=== PATIENT | male | born 1990 | race Caucasian/White ===

== ENCOUNTER → 2024-03-12 | Outpatient (CLI) | payer OTHER, SELFPAY ==
[2024-03-12 12:38] LABS: Absolute Lymphocyte Count 2.15 X10^3/uL (0.83-4.51); Absolute Neutrophil Count 3.3 X10^3/uL (2.0-7.7); Basophil# 0.03 X10^3/uL; Basophil% 0.5 % (0-1); Eosinophil# 0.11 X10^3/uL; Eosinophils% 1.8 % (0-5); Hematocrit 43.8 % (40-54); Hemoglobin 14.8 g/dL (13.0-16.5); Lymphocyte # 2.15 X10^3/ul (0.83-4.51); Lymphocyte % 35.3 % (19-41); Mean Corp Hgb Conc 33.8 g/dL (32-36); Mean Corpuscular Volume 91.8 fL (80-94); Mean Platelet Vol. 10.4 fl (6.2-12.0); Monocyte# 0.45 X10^3/uL; Monocyte% 7.4 % (0-10); NRBC Flagged by Analyzer 0 % (0-5); Neutrophil # 3.34 X10^3/uL (2.7-7.7); Neutrophil % 54.8 % (47-70); Platelet Count 265 K/mm3 (150-450); RBC Distribution Width CV 11.9 % (11.6-14.6); Red Blood Count 4.77 M/mm3 (4.6-6.2); White Blood Count 6.1 K/mm3 (4.4-11.0)
[2024-03-12 12:58] LABS: Vitamin B12 375 pg/mL (211-911); Vitamin D,25 Hydroxy 23.9 ng/mL
[2024-03-12 13:23] LABS: ALB/GLOB Ratio 0.9 RATIO (0.9-2.4); AST(SGOT) 17 U/L (15-37); Alanine Aminotransfer ALT/SGPT 28 U/L (16-61); Albumin, Serum 3.9 g/dL (3.2-5.0); Alkaline Phosphatase 69 U/L (45-117); Anion Gap 6 (5-15); BUN 19 mg/dL (7-18); BUN/Creat Ratio 17.1 RATIO (10-20); Calcium,Total 9.5 mg/dL (8.5-10.1); Chloride 107 mmol/L (98-107); Cholesterol 207 mg/dL (200); Creatinine, Serum 1.11 mg/dL (0.70-1.30); EST Glomerular Filtration Rate 82 mL/min (>60); Est Glom Filt Rate - Afr Amer 99 mL/min (>60); Globulin 4.4 g/dL (2.2-4.2); Glucose 102 mg/dL (74-106); High Density Lipoprotein 59 mg/dL; Potassium 4.2 mmol/L (3.5-5.1); Protein, Total 8.3 g/dL (6.4-8.2); Sodium Level 137 mmol/L (136-145); Triglycerides 69 mg/dL; Very Low Density Lipoprotein 14 mg/dL (5-40)
[2024-03-12 13:50] LABS: Microalbumin,Random Urine 5.7 mg/L (NO RANGE EST.)
[2024-03-12 13:51] LABS: Hemoglobin A1c 5.2 % (3.8-5.6)
== END | disposition home or self-care (01) ==
LOC: VSLAB 09:25
PROVIDERS: Visit Provider Nurse Practitioner Family
DX: I10 Essential (primary) hypertension (principal); E56.9 Vitamin deficiency, unspecified; E66.9 Obesity, unspecified
CPT/HCPCS: 36415; 80053; 80061; 82043; 82306; 82607; 83036; 84443; 85025

== ENCOUNTER → 2024-09-18 | Outpatient (CLI) | payer OTHER, SELFPAY ==
[2024-09-18 09:56] LABS: Bacteria 0 SEEN /hpf (None Seen); Mucous, Urine 0 SEEN /hpf (<or=2+); Squamous Epithelial Cells - UA 0 SEEN /hpf (0-5); White Blood Cells 0 SEEN /hpf (0-5)
[2024-09-18 12:57] LABS: Glucose, Dipstick Normal (Normal); Ketone-Dipstick Negative (Negative); Leukocyte Esterase-Dipstick Negative /ul (Negative); Nitrite-Dipstick Negative (Negative); Occult Blood-Urine Negative /ul (Negative); Protein-Dipstick 15 mg/dl (Negative); Specific Gravity, Urine 1.015 (1.002-1.030); Urine Bilirubin Dipstick Negative (Negative); Urine Clarity Clear (Clear); Urine Urobilinogen Normal (Normal)
[2024-09-18 13:02] LABS: Color, Urine YELLOW (Yellow)
[2024-09-18 13:08] LABS: Absolute Lymphocyte Count 2.22 X10^3/uL (0.83-4.51); Absolute Neutrophil Count 4.4 X10^3/uL (2.0-7.7); Basophil# 0.04 X10^3/uL; Basophil% 0.5 % (0-1); Eosinophil# 0.14 X10^3/uL; Eosinophils% 1.9 % (0-5); Hematocrit 42.4 % (40-54); Hemoglobin 14.6 g/dL (13.0-16.5); Lymphocyte # 2.22 X10^3/ul (0.83-4.51); Lymphocyte % 30.4 % (19-41); Mean Corp Hgb Conc 34.4 g/dL (32-36); Mean Platelet Vol. 11.1 fl (6.2-12.0); Monocyte# 0.52 X10^3/uL; Monocyte% 7.1 % (0-10); NRBC Flagged by Analyzer 0 % (0-5); Neutrophil # 4.37 X10^3/uL (2.7-7.7); Neutrophil % 59.8 % (47-70); Platelet Count 290 K/mm3 (150-450); RBC Distribution Width CV 11.7 % (11.6-14.6); RBC Distribution Width SD 40.2 fl (35.1-43.9); Red Blood Count 4.56 M/mm3 (4.6-6.2); White Blood Count 7.3 K/mm3 (4.4-11.0)
[2024-09-18 13:37] LABS: Cholesterol 204 mg/dL (<=200); High Density Lipoprotein 51 mg/dL; Low Density Lipoprotein Calc. 125 mg/dL; Phosphorus 2.8 mg/dL (2.7-4.5); Triglycerides 142 mg/dL; Very Low Density Lipoprotein 28 mg/dL (5-40); cholesterol:hdl ratio screen 4.02
[2024-09-18 13:57] LABS: Red Blood Cells-Urine 0 SEEN /hpf (0-5)
[2024-09-18 14:15] LABS: ALB/GLOB Ratio 1.4 RATIO (0.9-2.4); AST(SGOT) 23 U/L (<=37); Alanine Aminotransfer ALT/SGPT 21 U/L (<=46); Albumin, Serum 4.4 g/dL (3.5-5.0); Alkaline Phosphatase 74 U/L (40-129); Anion Gap 11 (5-15); BUN 16 mg/dL (4-19); Calcium,Total 9.6 mg/dL (7.6-11.0); Carbon Dioxide 23.6 mmol/L (21.0-32.0); Chloride 103 mmol/L (98-108); Creatinine, Serum 0.97 mg/dL (0.70-1.20); EST Glomerular Filtration Rate 106 (>60); Globulin 3.2 g/dL (2.2-4.2); Glucose 81 mg/dL (70-99); Potassium 4.4 mmol/L (3.3-5.1); Protein, Total 7.5 g/dL (5.9-8.4); Sodium Level 138 mmol/L (133-145); Total Bilirubin 0.39 mg/dL (0.00-1.30)
[2024-09-18 22:46] LABS: Syphilis Antibodies Reactive (Nonreactive)
[2024-09-20 04:07] LABS: HIV-1 RNA by PCR, Quant. < 20 copies/mL (.)
[2024-09-20 12:19] LABS: Absolute CD4 Helper 766 /uL (359-1519); Basophils (Absolute) 0 x10E3/uL (0.0-0.2); Eosinophils 2 % (Not Estab.); Eosinophils (Absolute) 0.2 x10E3/uL (0.0-0.4); Hematocrit 43.2 % (37.5-51.0); Immature Granulocytes 0 % (Not Estab.); Immature Granulocytes Absolute 0 x10E3/uL (0.0-0.1); Lymphs 32 % (Not Estab.); Lymphs (Absolute) 2.4 x10E3/uL (0.7-3.1); MCH 33.1 pg (26.6-33.0); MCHC 34.7 g/dL (31.5-35.7); MCV 95 fL (79-97); Monocytes 8 % (Not Estab.); Monocytes (Absolute) 0.6 x10E3/uL (0.1-0.9); Neutrophils 58 % (Not Estab.); Neutrophils (Absolute) 4.2 x10E3/uL (1.4-7.0); Percent % CD4 Pos. Lymph. 31.9 % (30.8-58.5); Platelets 281 x10E3/uL (150-450); RBC Count 4.53 x10E6/uL (4.14-5.80); RDW 11.9 % (11.6-15.4); WBC Count 7.3 x10E3/uL (3.4-10.8)
== END | disposition home or self-care (01) ==
PROVIDERS: PCP Nurse Practitioner Family
DX: B20 Human immunodeficiency virus [HIV] disease (principal); Z51.81 Encounter for therapeutic drug level monitoring; Z11.3 Encounter for screening for infections with a predominantly sexual mode of transmission
CPT/HCPCS: 36415; 80053; 80061; 81001; 84100; 85025; 86361; 86780; 87491; 87536; 87591

== ENCOUNTER 2024-11-11 09:54 | Day surgery (SDC) | payer OTHER, SELFPAY ==
[2024-11-11] VITALS (8 sets, daily range): BP systolic 121–148; BP diastolic 75–86; PULSE 78–95; RESP 18–20; TEMP 36.4–37; O2SAT 95–100; BMI 38.0
[2024-11-11] MEDS: Lactated Ringers 1,000 ML 15 ML IV (10:36)
--- NOTE | 2024-11-11 10:50 | PRE.ANES_ITS ---
ASA Classification* ASA Classification ASA Classification: 2 Assessment & Plan Anesthesia* Anesthesia Assessment Anesthesia Assessment: Discussed sedation and/or anesthesia options, risks, benefits, and alternatives with patient/parents/legal guardian/POA. Questions invited. The patient/parents/legal guardian/POA seems to understand and agrees to proceed with anesthesia plan. Reviewed the physical assessment, medical history, allergy history and patient home medications list prior to surgery/procedure/anesthetic and documented any changes. Performed airway and anesthesia risk assessments. Anesthesia Type Anesthesia Type: General History Source History Obtained from:: Patient and Chart Anesthesia Focused Assessment* Temperature: 98.6 F Pulse Rate: 92 Blood Pressure: 148/75 Respiratory Rate: 18 Pulse Ox: 100 Oxygen Delivery Method: Room Air Airway Assessment Mouth opens: >3 cm Mallampati Score: II Focused Labs Anesthesia Preop lab: CBC WBC 7.3 x10E3/uL (3.4-10.8) 09/18/24 09:54 5 RBC 4.53 x10E6/uL (4.14-5.80) 09/18/24 09:54 09/18 Hgb 15.0 g/dL (13.0-17.7) 09/18/24 09:54 09/18/24 Hct 43.2 % (37.5-51.0) 09/18/24 09:54 09/18/24 Plt Count 281 x10E3/uL (150-450) 09/18/24 09:54 09/18/24 CHEMISTRY Potassium 4.4 mmol/L (3.3-5.1) 09/18/24 09:54 09/18/24 Sodium 138 mmol/L (133-145) 09/18/24 09:54 09/18/24 Phosphorus 2.8 mg/dL (2.7-4.5) 09/18/24 09:54 09/18/24 BUN 16 mg/dL (4-19) 09/18/24 09:54 09/18/24 Creatinine 0.97 mg/dL (0.70-1.20) 09/18/24 09:54 09/18/24 Glucose 81 mg/dL (70-99) 09/18/24 09:54 09/18/24 TSH 1.700 uIU/mL (0.358-3.740) 03/12/24 09:25 03/02 07/25 COAG Pre-Assessment Diagnosis/Proposed Procedure Planned Operative Procedure(s): SEPTOPLASTY SUBMUCOUS RESECTION OF INFERIOR TURBINATE Anesthesia History 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 When Was Last Pacemaker Check QUESTION #4 FULL TEXT: You/Your Family Experience fever (hyperthermia) with Anesthesia Last Oral Intake Last Oral intake: Last Oral Intake NPO since 07:00 11/11/24 10:29 Meds taken in AM with sips of Yes 11/11/24 10:29 water? Meds patient instructed to take am of surgery PONV PONV - pile driving superintendent: PONV - pile driving superintendent Female No 11/07/24 09:42 HX of Motion Sickness No 11/07/24 09:42 HX of N/V After Surgery No 11/07/24 09:42 Non-Smoker Yes 11/07/24 09:42 Duration of Surgery greater Yes 11/07/24 09:42 than 60 minutes Number of Risk Factors 2 11/07/24 09:42 PONV Score Moderate Risk 11/07/24 09:42 Height & Weight Height & Weight: Anesthesia: Height & Weight Height 5 ft 10 in 11/11/24 10:29 Weight: 120.3 kg 11/11/24 10:29 Body Mass Index (BMI) 38.0 11/11/24 10:29 Respiratory Assessment Respiratory Assessment - pile driving superintendent: Respiratory Tract Infection Hx - pile driving superintendent Hx Respiratory Tract Infection No 11/07/24 09:42 STOP Sleep Apnea STOP Sleep Apnea - pile driving superintendent: STOP Sleep Apnea - pile driving superintendent Hx Hypertension Yes: CONTROLLED WITH MED 11/07/24 09:42 Hx Sleep Apnea No 11/07/24 09:42 CPAP BIPAP Do you snore loudly (louder Yes 11/07/24 09:42 than talking or can be heard Do you often feel tired/ Yes 11/07/24 09:42 fatigued/ sleepy during daytime? Has anyone observed you stop Yes 11/07/24 09:42 breathing during sleep? STOP Results Positive 11/07/24 09:42 QUESTION #5 FULL TEXT : Do you snore loudly (louder than talking or can be heard through closed doors)? Tobacco Use History Tobacco Use History - pile driving superintendent: Tobacco Use History - pile driving superintendent Tobacco Use Smoking Status Never smoker 11/07/24 09:42 Hx Tobacco Use No 11/07/24 09:42 Years Smoking Packs Smoked per Day Smoking Cessation Date was within the last 15 years Hx Smoking Cessation Date Hx Smoking Cessation Counseling Hematologic Medial History Hematologic Hx - pile driving superintendent: Hematologic Medical Hx - exchange mechanic Hx of Blood Transfusion No 11/07/24 09:42 Hx of Transfusion in last 3 No 11/07/24 09:42 Months Date of Last Transfusion (if within last 3 months) Ever experience any problems No 11/07/24 09:42 with transfusion(s)? Specify any problems Hx of Preganancy in last 3 N/A 11/07/24 09:42 Months Nurse Filling Out Transfusion DSCHRIBER 11/07/24 09:42 & Questions: Date: 11/07/24 11/07/24 09:42 Time: 09:44 11/07/24 09:42 Patient unable to answer at this time (ie. confused, unrespo /Reproduction History /Reproductive History - pile driving superintendent: /Reproductive Hx- pile driving superintendent Hx Now No 11/07/24 09:42 Gestational Age (in weeks): EDC: Hx Hx Para Hx Section SAB No 11/07/24 09:42 Active Medications Active Medications: Current Medications Generic Name Dose Route Start Last Admin Trade Name Freq PRN Reason Stop Dose Admin Clindamycin Phosphate 900 mg in 50 mls @ 75 mls/hr 11/11/24 11:25 Cleocin IV 11/11/24 12:04 INTRAOP ONE Lactated Ringer's 1,000 mls @ 15 mls/hr 11/11/24 10:15 11/11/24 10:36 IV 15 mls/hr .Q48H GABRIELLE Administration PFSH Medical History Wears contact lenses ADHD (attention deficit hyperactivity disorder) Depression Anxiety Substance abuse HIV (human immunodeficiency virus infection) Heartburn Non-smoker Leg cramps Hypertension Home Medications ?Medication ?Instructions ?Recorded ?Last Taken ?Type amlodipine 10 mg tablet 10 mg PO QHS 10/17/24 Unknow n History bupropion HCl 75 mg tablet 75 mg PO QAM 10/17/2411/11 06:15 History lisinopril 20 mg tablet 20 mg PO QHS 10/17/24 Unknow n History naltrexone 50 mg tablet 50 mg PO QAM 10/17/24 Unknow n History bictegravir 50 mg-emtricitabine 1 tab PO DAILY 5 Unknown History 200 mg-tenofovir alafenam 25 mg tablet (Biktarvy) guanfacine 1 mg tablet 1 mg PO QHS 11/07/24 Unknown History Allergy/AdvReac Type Severity Reaction Status Date / Time No Known Allergies Allergy Verified 11/11/24 10:28 Surgical History No history of previous surgery Social History Smoking Status: Never smoker alcohol intake: never substance use type: former substance user caffeine: Yes Addt'l Information Additional Findings: >4 METs Review of Systems (Anesthesia) ROS Narrative System reviewed and no additional complaints, except as documented. Physical Exam Const alert and oriented x3 Orientation / Consciousness: awake Resp normal respiratory effort and normal air movement Cardio regular rate and regular rhythm Neuro oriented x3 and moves all extremities
[2024-11-11] MEDS: Oxymetazoline 0.05% 1 SPRAY SPRAY.BTL 15 SPRAY (11:27)
[2024-11-11] MEDS: Clindamycin 900 MG/50 ML BAG 75 MG IV (11:29)
[2024-11-11] MEDS: Lidocaine 1% /Epi 1:100 (20ml) 20 ML Vial (11:29)
[2024-11-11] MEDS: Mupirocin Ointment 22gm Tube 1 APPLIC (11:51)
--- NOTE | 2024-11-11 12:14 | PCM.DC ---
Discharge Instructions Diet Discharge Diet: No restrictions DC O2, CPAP, BIPAP needs Home O2 Discharge instructions: No Dressing / Incision Call your doctor if your incision/area has: Sudden Increased Bleeding Additional Dressing/Incision Instructions:: saline to nose 5 times / day. mupirocin ton both nostrils twice daily. Follow Up Care Please Follow Up With: Ganesh Dsouza MD When: 1 week Test Results: Test results from this visit will be discussed in further detail at your follow-up appointment, if applicable. Discharge Plan Admission Attending Provider: Ganesh Dsouza Primary Care Provider: Maggie Zhou Instructions Print Language: Wolof Discharge Orders/Prescriptions Prescriptions: No Action amlodipine 10 mg tablet 10 mg PO QHS lisinopril 20 mg tablet 20 mg PO QHS bupropion HCl 75 mg tablet 75 mg PO QAM naltrexone 50 mg tablet 50 mg PO QAM Biktarvy 50-200-25 mg tablet 1 tab PO DAILY guanfacine 1 mg tablet 1 mg PO QHS Referrals / Follow Up: Maggie Zhou, SPECIAL TECHNICAL OPERATIONS OFFICER-C [Primary Care Provider] - Disposition Disposition (needs filled in before D/C Order can be placed): Home, Self Care
--- NOTE | 2024-11-11 12:16 | PCM.OPRPT ---
Problems Associated Problem List Diagnoses (1) Nasal congestion: (2) Nasal turbinate hypertrophy: (3) Nasal septal deviation: Operative Report (Standard) Operative Information Date of Procedure: 11/11/24 Pre-Operative Diagnosis: 1. nasal congestion 2. nasal septal deviation 3. hypertrophy nasal turbinates, right and left Post-Operative Diagnosis: 1. nasal congestion 2. nasal septal deviation 3. hypertrophy nasal turbinates, right and left Surgery/Procedure Performed: 1. septoplasty 2. submucous and bony resection of inferior turbinates, right and left infectious diseases physician: No Type of Anesthesia: General RN Documented Start/Stop Times: Operation Date: 11/11/24 11:25 Case Time Into Pre-Op 11/11/24 10:09 Out of Pre-Op 11/11/24 11:04 Anesthesia Start 11/11/24 11:07 Into Room 11/11/24 11:07 Procedure Start 11/11/24 11:29 Procedure End 11/11/24 12:06 Anesthesia End 11/11/24 12:12 Out of Room 11/11/24 12:12 Procedure Start Time: 11:07 Procedure Stop Time: 12:00 Select all DRAINS/GRAFTS/IMPLANTS that apply: None Estimated Blood Loss: 1cc Specimen collected: No Description of surgery: On the day of the procedure, after appropriate informed consent was obtained, the patient was brought to the operating room and placed in a supine position on the operating room table. The patient was placed under general endotracheal anesthesia by the anesthesiologist. The endotracheal tube was secured. the nose was injected with lidocaine/epinephrine and decongested with oxymetazoline-soaked pledgets.? a marginal incision was made with a #15 blade on the left side.? a submucoperichondrial plane was developed on the patient's left side with a bushra elevator.? this was taken posteriorly to the bony/cartilaginous junction and inferiorly to the maxillary crest.? after an L-strut was marked, a large rightward defection and 2cm bony spur were removed with a D-knife and amberly reynoso.? the head of the right and left turbinates were injected with lidocaine/epinephrine.? the head of the left inferior turbinate was incised with a 15 blade, dissected submucosally with a bushra elevator, reduced using suction electrocautery and outfractured using a boies elevator. bony reduction was performed with a thru cut the head of the right inferior turbinate was incised with a 15 blade, dissected submucosally with a bushra elevator, reduced using suction electrocautery and outfractured using a boies elevator.? bony reduction was performed with a thru cut. he was awoken from anesthesia and transferred to the PACU in stable condition, Surgical Findings: n/a Complications Complications: No
--- NOTE | 2024-11-11 12:18 | PCM.POST.ANE ---
Anesthesia: Postop Eval I Current Vital Signs Temperature: 97.6 F Pulse Rate: 81 Blood Pressure: 130/84 Respiratory Rate: 20 Pulse Ox: 99 Oxygen Delivery Method: Room Air Assessment Airway patent: Yes Spontaneous unlabored respirations: Yes Mental status: Awake and Calm nausea: No Vomiting: No Anesthesia Complication: No Fluid Hydration Crystalloid volume administer (ml): 1,600 Total IV fluid infused: 1,600 Progress Note Anesthesia document: Postop Eval 1 completed: Yes
--- NOTE | 2024-11-11 14:00 | POSTOPAN2_ITS ---
Anesthesia Postop Eval I Sum Postop Eval Completion status Anesthesia document: Postop Eval 1 completed: Yes Anesthesia Postop Eval I Summary Anesthesia Postop Eval I Summary: Anesthesia Postop Eval I: Assessment Summary Airway patent Yes 11/11/24 12:19 GRANT [email or web address] Spontaneous unlabored Yes 11/11/24 12:19 GRANT [email or web address] respirations Mental status Awake,Calm 11/11/24 12:19 GRANT [email or web address] nausea No 11/11/24 12:19 GRANT COORDINATOR.[email or web address] Vomiting No 11/11/24 12:19 GRANT [email or web address].[email or web address] Anesthesia Postop Eval I: Fluid Summary Crystalloid volume administer 1,600 11/11/24 12:19 GRANT [email or web address] (ml) Colloids volume administered ( ml) Blood Product volume administered (ml) Total IV fluid infused 1,600 11/11/24 12:19 GRANT [email or web address].[email or web address] Anesthesia Postop Eval I: Summary Notes Anesthesia Complication No 11/11/24 12:19 GRANT [email or web address] Anesthesia Complication Comment: Post-operative progress note Anesthesia: Postop Eval II Evaluation Mental status: Awake and Calm Pain Level: 2 nausea: No Vomiting: No Complications Anesthesia Complication: No
--- NOTE | 2024-11-11 14:00 | PCM.POSTANE2 ---
Anesthesia Postop Eval I Sum Postop Eval Completion status Anesthesia document: Postop Eval 1 completed: Yes Anesthesia Postop Eval I Summary Anesthesia Postop Eval I Summary: Anesthesia Postop Eval I: Assessment Summary Airway patent Yes 11/11/24 12:19 PINKING SEWING MACHINE OPERATOR.[email or web address] Spontaneous unlabored Yes 11/11/24 12:19 PINKING SEWING MACHINE OPERATOR.[email or web address] respirations Mental status Awake,Calm 11/11/24 12:19 PINKING SEWING MACHINE OPERATOR.[email or web address] nausea No 11/11/24 12:19 PINKING SEWING MACHINE OPERATOR.[email or web address] Vomiting No 11/11/24 12:19 PINKING SEWING MACHINE OPERATOR.[email or web address] Anesthesia Postop Eval I: Fluid Summary Crystalloid volume administer 1,600 11/11/24 12:19 PINKING SEWING MACHINE OPERATOR.[email or web address] (ml) Colloids volume administered ( ml) Blood Product volume administered (ml) Total IV fluid infused 1,600 11/11/24 12:19 PINKING SEWING MACHINE OPERATOR.[email or web address] Anesthesia Postop Eval I: Summary Notes Anesthesia Complication No 11/11/24 12:19 PINKING SEWING MACHINE OPERATOR.[email or web address] Anesthesia Complication Comment: Post-operative progress note Anesthesia: Postop Eval II Evaluation Mental status: Awake and Calm Pain Level: 2 nausea: No Vomiting: No Complications Anesthesia Complication: No
== END 2024-11-11 13:37 | disposition home or self-care (01) ==
LOC: SDC 09:56 → AC 09:58
PROVIDERS: PCP Nurse Practitioner Family; Referring Provider Otolaryngology; Visit Provider Otolaryngology
PROC: (CPT 30520; principal; 2024-11-11 11:10)
DX: J34.3 Hypertrophy of nasal turbinates (principal); Z21 Asymptomatic human immunodeficiency virus [HIV] infection status; J34.2 Deviated nasal septum; I10 Essential (primary) hypertension; F90.9 Attention-deficit hyperactivity disorder, unspecified type; F41.9 Anxiety disorder, unspecified; F32.A Depression, unspecified; Z79.899 Other long term (current) drug therapy
CPT/HCPCS: 30140; 30520; 00160

== ENCOUNTER → 2024-12-10 | Outpatient (CLI) | payer OTHER, SELFPAY | END | disposition home or self-care (01) | PROVIDERS: PCP Nurse Practitioner Family; Visit Provider Nurse Practitioner Family | DX: A53.9 Syphilis, unspecified (principal) | CPT/HCPCS: 36415 ==

== ENCOUNTER → 2024-12-29 | Outpatient (CLI) | payer OTHER, SELFPAY | END | disposition home or self-care (01) | LOC: SL 20:01 | PROVIDERS: PCP Nurse Practitioner Family; Referring Provider Nurse Practitioner Family; Visit Provider Nurse Practitioner Family | DX: G47.10 Hypersomnia, unspecified (principal) | CPT/HCPCS: 95810 ==

== ENCOUNTER → 2025-04-21 | Outpatient (CLI) | payer OTHER, SELFPAY ==
--- OUTSIDE RECORDS SUMMARY | 2025-04-21 15:40 | XMS RPT_ITS | CCD ---
Author Organization [facility] Care Team Providers Care Director Of Rooms Name Role Phone Unavailable Primary Care Provider Sabrina Elias MD, Aniceto Jamison Primary Care Provider [phone] Aniceto Elias MD Primary Care Provider Unavailable Primary Care Provider KACIE Casas Referring Unavai lable AIXA, KYLE Primary Care Unavailable Ann, Maggie Primary Care Provider [phone] Isidro DESAIN.MELVI, Di M Unavailable BEKAH BORDEN Attending Unavailable ANN, MAGGIE Referring Unavailable ANN, MAGGIE Primary Care Unavailable ANN, MAGGIE Referring Unavailable ANN, MAGGIE Primary Care Unavailable ANN, MAGGIE Referring Unavailable ANN, MAGGIE Primary Care Unavailable ANN, MAGGIE Attending Unavailable ANN, MAGGIE Referring Unavailable ANN, MAGGIE Primary Care Unavailable ANN, MAGGIE Attending Unavailable ANN, MAGGIE Referring Unavailable ANN, MAGGIE Primary Care Unavailable ANN, MAGGIE Attending Unavailable ANN, MAGGIE Referring Unavailable ANN, MAGGIE Primary Care Unavailable ANN, MAGGIE Referring Unavailable ANN, MAGGIE Primary Care Unavailable ANN, MAGGIE Referring Unavailable ANN, MAGGIE Primary Care Unavailable AIXA, KYLE Primary Care Unavailable KACIE DUNN Referring Unavai lable AIXA, ANICETO Jamison Primary Care Unavailable TOMMY ALVARADO Attending Unavailable AIXA, KYLE Primary Care Unavailable VALERIO MITCHELL Attending Unavailable AIXA, KYLE Primary Care Unavailable AIXA, KYLE Primary Care Unavailable KACIE DUNN Referring Unavai lable AIXA, ANICETO Jamison Primary Care Unavailable ANICETO ELIAS Primary Care Unavailable Ann LOSS PREVENTION AND SAFETY MANAGER-C Maggie Primary Care Provider KACIE DUNN Attending Provider Lianna CLEMENTE, Dr. Andersen Attending Provider Lianna CLEMENTE, Dr. Andersen Referring Provider Ann LOSS PREVENTION AND SAFETY MANAGER-C, Maggie Attending Provider Ann LOSS PREVENTION AND SAFETY MANAGER-C, Maggie Referring Provider Brenda LOSS PREVENTION AND SAFETY MANAGER-C, Samira Eldridge Attending Provider Ann LOSS PREVENTION AND SAFETY MANAGER-C, [facility] Primary Care Physician [phone] Ann LOSS PREVENTION AND SAFETY MANAGER-C, Maggie Attending Physician Brenda ALMEIDA-C, Samira Eldridge Attending Physician [phone] [facility], [facility] Referring Unavailabl e Ann [facility], [facility] Primary Care Unavailabl e Ann C, Maggie Attending Samira Armijo Referring Unavailable Ann [facility], [facility] Primary Care UnavailSamira Laura Attending Unavailable Ann [facility]SC, [facility] Attending Unavailabl e Ann [facility]SC, [facility] Referring Unavailabl e Ann [facility]SC, [facility] Primary Care Unavailabl e YUKI GROSS Attending Unavailable Ann VS, [facility] Primary Care Unavailabl e Ann [facility]SC, [facility] Referring Unavailabl e Ann [facility]SC, [facility] Primary Care Unavailabl e Samira Gutierrez Attending Unavailable Samira Gutierrez Attending Unavailable [facility], [facility] Referring Unavailabl e Ann [facility]SC, [facility] Primary Care UnavailGanesh Chery Attending Ganesh Valentin Referring Unavailabl e Ann [facility]SC, [facility] Primary Care Unavailabl e Ann VSC, Maggie Attending Unavailabl e Ann [facility]SC, [facility] Primary Care Unavailabl e Medications Current Medications Medication Drug Class(es) Dates Sig (Normalized) Sig (Original) amLODIPine 10 mg oral tablet (20 sources) Dihydropyridine Calcium Channel Andrew Start: 12-19-2023 take 1 tablet by mouth at bedtime Amlodipine 10 mg tablet Active 10 mg PO AT BEDTIME October 17, 2024 12:00am Complies with drug therapy Start: 07-26-2023 End: 12-19-2023 take 1 tablet by mouth in the morning amLODIPine (Norvasc) 5 MG tablet Take 5 mg by mouth in the morning. 07/26/2023 Active Start: 04-18-2023 take 1 tablet by radha th once daily amLODIPine (NORVASC) 5 mg tablet Take 1 tablet by mouth once daily. 90 tablet 1 04/18/2023 Active Comment on above: Take 1 tablet by radha th once daily. bictegravir 50 mg / emtricitabine 200 mg / tenofovir alafenamide 25 mg oral tablet (20 sources) Human Immunodeficiency Virus Nucleoside Analog Reverse Transcriptase Inhibitor Start: 11-08-19 End: 01-15-20 take 1 tablet by mouth once daily Bictegrav-Emtric it-Tenofov Ala (Biktarvy) 50-200-25 mg tablet Active 1 {tbl} PO DAILY January 14, 2025 9:53am Complies with drug therapy Start: 12-05-2023 take 1 tablet by mouth in the morning txkxtwtlwic-sllrxfnkmz-rjrqidbxg (Biktar vy) 50-200-25 MG tablet Take 1 tablet by mouth in the morning. 12/05/2023 Active Start: 09-04-2023 End: 10-21-2024 take 1 tablet by mouth once daily cjsystejxoh-qgsgwxoyrctrg-oozeiwwva alafenamide (BIKTARVY) 50-200-25 mg per tablet Indications: Human immunodeficiency virus (HIV) disease (HCC) Take 1 tablet by mouth once daily. 30 tablet 2 07/23/2024 10/21/2024 Discontinued Start: 06-22-2022 End: 04-24-2023 take 1 tablet by mouth once daily wqbqhhnoscp-pwrhlulucbbmv-mcylzyapv alafenamide (BIKTARVY) 50-200-25 mg per tablet Indications: Human immunodeficiency virus (HIV) disease (HCC) Take 1 tablet by mouth once daily. 30 tablet 4 04/25/2023 Active Comment on above: Take 1 tablet by radha th once daily. 24 hr buPROPion hydrochloride 300 mg extended release oral tablet (10 sources) Aminoketone Start: take 1 tablet by mouth once daily in the morning Bupropion Hcl 300 mg tablet extended release 24 hr Active 300 mg PO EVERY MORNING January 14, 2025 12:00am Complies with drug therapy Start: 10-17-2024 End: 01-14-2025 take 1 tablet by mouth once daily in the morning Bupropion Hcl 75 mg tablet Discontinued 75 mg PO EVERY MORNING October 17, 2024 12:00am January 14, 2025 7:56am Start: 08-14-2024 take 1 tablet by radha th once daily in the morning buPROPion XL (WELLBUTRIN XL) 150 mg 24 hr tablet Take 150 mg by mouth every morning. 08/14/2024 Active cholecalciferol 0.125 mg oral capsule (2 sources) Vitamin D Start: 01-14-2025 take 1 capsule by mouth once daily Cholecalciferol (Vitamin D3) 125 mcg (5,000 unit) capsule Active 125 ug PO daily January 14, 2025 12:00am Complies with drug therapy cyclobenzaprine hydrochloride 10 mg oral tablet (12 sources) Muscle Relaxant Start: 12-09-2023 End: 12-19-2023 take 1 tablet by mouth once daily as needed for muscle spasms cyclobenzaprine (Flexeril) 10 MG tablet Take 1 tablet (10 mg) by mouth Nightly as needed for muscle spasms for up to 10 days. 10 tablet 12/09/2023 Active Start: 12-09-2023 cyclobenzaprin e (Flexeril) tablet 5 mg folic acid 1 mg / vitamin b12 0.5 mg oral tablet (2 sources) Vitamin B12 Start: 01-14-2025 Vitamin B12-Fo lic Acid 0.5-1 mg tablet Active 1 {tbl} PO daily January 14, 2025 12:00am Complies with drug therapy guanFACINE 1 mg oral tablet (5 sources) Central alpha-2 Adrenergic Agonist Start: 11-07-2024 take 1 tablet by mouth at bedtime Guanfacine 1 mg tablet Active 1 mg PO AT BEDTIME November 07, 2024 12:00am Complies with drug therapy lisinopril 20 mg oral tablet (8 sources) Angiotensin Converting Enzyme Inhibitor Start: 10-17-2024 take 1 tablet by mouth at bedtime Lisinopril 20 mg tablet Active 20 mg PO AT BEDTIME October 17, 2024 12:00am Complies with drug therapy Start: 06-09-2024 take 1 tablet by mouth once li sinopril (ZESTRIL) 10 mg tablet Take 1 tablet by mouth every afternoon. 06/09/2024 Active naltrexone hydrochloride 50 mg oral tablet (8 sources) Opioid Antagonist Start: 09-02-2024 take 1 tablet by mouth once daily in the morning Naltrexone 50 mg tablet Active 50 mg PO EVERY MORNING October 17, 2024 12:00am Complies with drug therapy Completed/Discontinued Medications Medication Drug Class(es) Dates Sig (Normalized) Sig (Original) atomoxetine 60 mg oral capsule (5 sources) Norepinephrine Reuptake Inhibitor Start: 10-17-2024 End: 11-07-2024 take 1 capsule by mouth once daily in the morning Atomoxetine 60 mg capsule Discontinued 60 mg PO EVERY MORNING October 17, 2024 12:00am November 07, 2024 9:38am escitalopram 20 mg oral tablet (15 sources) Serotonin Reuptake Inhibitor Start: 10-17-2024 End: 11-07-2024 take 1 tablet by mouth at bedtime Escitalopram Oxalate 20 mg tablet Discontinued 20 mg PO AT BEDTIME October 17, 2024 12:00am November 07, 2024 9:38am End: 09-10-2024 take 1 tablet by mouth once daily escitalopram oxalate (LEXAPRO) 10 mg tablet Take 10 mg by mouth once daily. 09/10/2024 Discontinued 4 ml penicillin g benzathine [id number] unt/ml prefilled syringe (9 sources) Penicillin-class Antibacterial Start: 03-04-2024 End: 03-04-2024 2.4 Million Units, INTRAMUSCULAR, ONCE, 1 dose, On Sun03/04/24 at 1100, For Intramuscular Use Only - Refrigerate, Antimicrobial indication: Empiric, Infectious source(s): Sexually transmitted Start: 02-29-2024 End: 03-21-2024 penicillin g benzathine 2.4 Million Units injection (BICILLIN L-A) Start: 02-29-2024 End: 03-21-2024 2.4 Million Units, INTRAMUSC ULAR, 1 TIME WEEKLY, 3 doses, First dose on Sun02/29/24 at 1200, Last dose on Sun03/14/24 at 1200, For Intramuscular Use Only - Refrigerate, Antimicrobial indication: Empiric, Infectious source(s): Sexually transmitted Start: 07-19-2022 End: 07-19-2022 penicillin g benzathine 2.4 Million Units injection (BICILLIN L-A) Problems Active Problems Problem Classification Problem Date Documented Date Episodic/Chronic Administrative/socia l admission (1 source) Encounter for issue of repeat prescription; Translations: [Encounter for medication refill] Onset: 07-13-2022 Episodic Allergic reactions (5 sources) Eczema; Translations: [Dermatitis, unspecified] 10-17-2024 Episodic Developmental disorders (20 sources) Stuttering; 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] Onset: 07-03-2024 07-03-2024 Chronic Essential hypertension (10 sources) Essential hypertension; Translations: [Essential (primary) hypertension] Onset: 09-10-2024 04-19-2023 Chronic HIV infection (20 sources) Human immunodeficiency virus infection; Translations: [Human immunodeficiency virus [HIV] disease] Onset: 07-31-2022 Resolved: 04-18-2023 Chronic Immunizations and screening for infectious disease (20 sources) Patient encounter status; Translations: [Encounter for screening for infections with a predominantly sexual mode of transmission] Onset: 03-11-2024 Episodic Other aftercare (4 sources) Drug therapy finding; Translations: [Other usp (current) drug therapy] Episodic Other aftercare (1 source) Other usp (current) drug therapy; Translations: [On highly active antiretroviral therapy (HAART)] Onset: 09-10-2024 Episodic Other aftercare (2 sources) Encounter for therapeutic drug level monitoring; Translations: [Medication monitoring encounter] Onset: 09-10-2024 Episodic Other infections; including parasitic (3 sources) Personal history of other infectious and parasitic diseases; Translations: [History of syphilis] Onset: 04-18-2023 Episodic Other nutritional; endocrine; and metabolic disorders (20 sources) Obese class II; Translations: [Obesity, unspecified] Onset: 07-31-2022 Chronic Other nutritional; endocrine; and metabolic disorders (5 sources) Obesity; Translations: [Obesity, unspecified] 10-17-2024 Chronic Other upper respiratory disease (9 sources) Hypertrophy of nasal turbinates; Translations: [Hypertrophy of nasal turbinates] 11-11-2024 Episodic Other upper respiratory disease (9 sources) Nasal congestion; Translations: [Nasal congestion] 11-11-2024 Episodic Other upper respiratory disease (9 sources) Deviated nasal septum; Translations: [Deviated nasal septum] 11-11-2024 Episodic Residual codes; unclassified (5 sources) Hypersomnia; Translations: [Hypersomnia, unspecified] 10-17-2024 Chronic Residual codes; unclassified (5 sources) Daytime hypersomnia; Translations: [Hypersomnia, unspecified] 01-14-2025 Chronic Residual codes; unclassified (3 sources) Obstructive sleep apnea syndrome; Translations: [Obstructive sleep apnea (adult) (pediatric)] 01-14-2025 Chronic Comment on above: AHI is 51.9 Residual codes; unclassified (1 source) Obstructive sleep apnea (adult) (pediatric); Translations: [Obstructive sleep apnea (adult) (pediatric)] Onset: 04-20-2025 Chronic Residual codes; unclassified (2 sources) Hypersomnia, unspecified; Translations: [Hypersomnia, unspecified] Onset: 08-26-2024 Chronic Screening and history of mental health and substance abuse codes (2 sources) Encounter for screening for depression; Translations: [Encounter for screening examination for other mental health and behavioral disorders] Onset: 09-10-2024 Episodic Sexually transmitted infections (not HIV or hepatitis) (5 sources) Latent syphilis; 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, unspecified as early or late] Onset: 07-31-2022 Chronic Past or Other Problems Problem Classification Problem Date Documented Da te Episodic/Chronic Other circulatory disease (20 sources) Elevated blood-pressure reading without diagnosis of hypertension; Translations: [Elevated blood-pressure reading, without diagnosis of hypertension] Onset: 07-31-2022 Episodic Other infections; including parasitic (20 sources) History of syphilis; Translations: [Personal history of other infectious and parasitic diseases] Onset: 07-31-2022 Episodic Other upper respiratory disease (1 source) Nasal congestion; Translations: [Nasal congestion] Onset: 11-17-2024 Episodic Sexually transmitted infections (not HIV or hepatitis) (12 sources) Syphilis, unspecified; Translations: [Sexually transmitted infectious disease] Onset: 07-13-2022 02-29-2024 Episodic Sprains and strains (4 sources) Low back strain; Translations: [Strain of muscle, fascia and tendon of lower back, initial encounter] Onset: 12-09-2023 12-09-2023 Episodic Results Test Name Value Interpretation Reference Range Facil it Pulmonary Visit Reporton Pulmonary Visit Report [facility] Medicine [address] [place] [address] OFFICE VISIT Date of Service: 04/07/25 MR#: [id number] Acct: [id number] Name: AMANUEL CHAPMAN Rep #: [id number] : 1990 Provider: Samira Gutierrez NP Age/Sex: 34/M Location: [facility] [place].[facility] Status: Signed Assessment and Plan Assessment and Plan (1) Obstructive sleep apnea: Status: Acute Comment: AHI is 51.9 Plan: Severe obstructive sleep apnea is controlled with AutoPap device. The patient is receiving some benefit with therapy but is struggling with mask fit. I recommend that he work with RT for proper mask fit and the patient is agreeable to this today. I recommend that he continue with use of AutoPap 8 to 15 cm. Follow-up in 4 to 6 months with compliance download at that time. (2) Essential hypertension: Status: Acute Plan: Continue with compliant use of PAP therapy. Follow-up with PCP for borderline blood pressure. (3) Daytime hypersomnia: Status: Acute Plan: This daytime sleepiness has improved some since treating PAP therapy. I do believe that once he is fit for the proper mask that he will receive further benefit from treating PAP therapy. Reassess on follow-up. Orders: Orders Self Mgmnt Educ Training 04/21/25 G47.33 - Obstructive sleep apnea (adult) (pediatric) Plan Details Additional Comments: This note was generated with [employer] dictation software. It may contain incorrect words, spelling, and punctuation that were not noted in checking the note before signing. Follow Up: 4 to 6 months (LMR) HPI HPI Comments Details: Patient is a 34-year-old male who presents to the office to follow-up for sleep apnea. He is ambulatory and currently on room air. Since last office visit he has not been seen in urgent care or ER for respiratory difficulties. He has not required the use of oral prednisone or antibiotics. He recently underwent a home sleep study on March 22, 2024 which showed an AHI of 1.2. The study was repeated due to the patient's significant daytime hypersomnia. He did purchase a pap device on [employer] and had been using it on occasion with good benefit. He did go on to have an in-lab PSG on 12/29/24 which showed that he had an AHI of 51.9. Past medical history includes essential hypertension, obesity, HIV and syphilis, followed by ID. 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 He does have history of cough from childhood along with sore throat which would occur in the morning. He has had recent sinuplasty. He does continue to have some nasal congestion. He is not reporting fever, chills, body aches. He is a non-smoker. He has no history of asthma, bronchitis or pneumonia. He has no family history of sleep apnea although his dad does snore. He has a history of drug addition problem, and has been sober for 2 years ago. The patient reports that he is using PAP therapy. He reports that it is helping a little and that he has however struggled with the mask. He is using a nasal mask and started using mouth tape. He reports that he would experience dry mouth when his mouth would open at night when he was sleeping. He reports that he also has had a dog who has been ill so he has been up through the night to take care of him. He does nap 2-3 times a week for less than 1 hour. Nocturia does not occur now since he has used PAP therapy. He did recently adjust his comfort settings and is using the EPR on his device and reports that this helped with his ability to further acclimate to therapy. Documentation reviewed with patient today includes: Compliance download from April 02, 2025 for the last 30 days shows 90% compliance with therapy, using the device 6 hours and 50 minutes nightly average. He has an AutoPap at 8 to 15 cm and his average pressure is 10.3 cm. There is minimal air leak and AHI is 1.2. Intake Vital Signs 01/14/25 07:53 04/07/25 09:15 Height 5 ft 10 in 5 ft 10 in Weight: 267 lb BMI 38.2 BP 143/93 H Blood Pressure Location Rt brachial Position Sitting Respiration 18 Pulse 96 Pulse Source Monitor Temp 97.9 F Temperature Source Temporal Artery Pulse Oximetry (%) 99 Oxygen Delivery Method room air Intake Visit Reasons: 8-10 WK FU Steam Fitter Helper Required: No DME Vendor: [employer] Accompanied by: Self Is patient in pain?: No Allergies No Known Allergies Allergy (Verified 04/07/25 13:47) Medications ???Medication ???Instructions ???Recorded ???Confirmed ???Type amlodipine 10 mg tablet 10 mg PO QHS 10/17/24 04/07/25 His tory lisinopril 20 mg tablet 20 mg PO QHS 10/17/24 04/07/25 His tory naltrexone 50 mg tablet 50 mg PO QAM 10/17/24 04/07/25 His tory guanfacine (more content not included)... Normal [facility] Pulmonary Visit Reporton Pulmonary Visit Report [facility] [place] [address] [place] [address] OFFICE VISIT Date of Service: 01/14/25 MR#: [id number] Acct: [id number] Name: AMANUEL CHAPMAN Rep #: [id number] : 1990 Provider: Samira Gutierrez NP Age/Sex: 34/M Location: [facility] [place].[facility] Status: Signed Assessment and Plan Assessment and Plan (1) Obstructive sleep apnea: Status: Acute Comment: AHI is 51.9 Plan: Severe obstructive sleep apnea has been identified by PSG. I recommend that the patient be set up on AutoPap 8 to 15 cm. The pathophysiology of sleep apnea was reviewed at length with the patient today. The risk for comorbid disease such as A-fib and stroke due to uncontrolled sleep apnea were discussed with the patient today. The rationale for treating with PAP therapy was discussed as well. I have recommended that he follow-up in 8 to 10 weeks with compliance download at that time. (2) Essential hypertension: Status: Acute Plan: There is suboptimal control of hypertension today. I discussed the correlation between obstructive sleep apnea and hypertension. When sleep apnea is fully controlled the patient may be able to have reduction in pharmacological regimen for control of hypertension as I do believe that sleep apnea could be producing suboptimal control of his blood pressure. (3) Daytime hypersomnia: Status: Acute Plan: ESS today is 16. The patient has significant daytime hypersomnia present. I do believe that this is due to the severe obstructive sleep apnea that has been identified. The patient has been asked to avoid operating heavy machinery and avoid driving drowsy. I have discussed the benefits that he will likely receive with treating the disease process. Plan Details Follow Up: 8 to 10 weeks (LMR) HPI HPI Comments Details: Patient is a 34-year-old male his referred by Maggie Zhou to establish for sleep apnea. He is ambulatory and currently on room air. He recently underwent a home sleep study on March 22, 2024 which showed an AHI of 1.2. I am unable to determine by the study team if the patient obtains supine sleep. The patient did experience REM sleep per the report for 53 minutes. He continues to experience snoring, apnea, and fatigue. He reports that he is tired through the day. He does nap twice every 3 days for 1 hour. Nocturia does occur x 1. He does not have dry mouth but does have sore throat. He has been told that he gasping and choking at night but he is not aware that he is doing this. ESS is 16. He has a morning headache on occasion. He did purchase a pap device on [employer] and has been using it on occasion with good benefit. He did go on to have an in-lab PSG on 12/29/24 which showed that he has an AHI of 51.9. Past medical history includes essential hypertension, obesity, HIV and syphilis, followed by ID. 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 He does have history of cough from childhood along with sore throat which would occur in the morning. He has had recent sinuplasty. He does continue to have some nasal congestion. He is not reporting fever, chills, body aches. He is a non-smoker. He has no history of asthma, bronchitis or pneumonia. He has no family history of sleep apnea although his dad does snore. He has a history of drug addition problem, and has been sober for 2 years ago. Intake Vital Signs 11/11/24 10:29 01/14/25 07:53 Height 5 ft 10 in 5 ft 10 in Weight: 266 lb BMI 38.1 BP 149/87 H Blood Pressure Location Lt radial Position Sitting Respiration 16 Pulse 100 Pulse Source Monitor Temp 98 F Temperature Source Temporal Artery Pulse Oximetry (%) 97 Oxygen Delivery Method room air Intake Visit Reasons: Sleep problems Steam Fitter Helper Required: No DME Vendor: N/a Accompanied by: Self Is patient in pain?: No Allergies No Known Allergies Allergy (Verified 01/14/25 09:52) Medications ???Medication ???Instructions ???Recorded ???Confirmed ???Type amlodipine 10 mg tablet 10 mg PO QHS 10/17/24 01/14/25 His tory lisinopril 20 mg tablet 20 mg PO QHS 10/17/24 01/14/25 His tory naltrexone 50 mg tablet 50 mg PO QAM 10/17/24 01/14/25 His tory guanfacine 1 mg tablet 1 mg PO QHS 11/07/24 01/14/25 Hist ory bictegravir 50 mg-emtricitabine 1 tab PO DAILY 01/14/25 01/14/25 H istory 200 mg-tenofovir alafenam 25 mg tablet (Biktarvy) bupropion HCl 300 mg 24 hr tablet, 300 mg PO QAM 01/14/25 01/14/25 History extended release cholecalciferol (vitamin D3) 125 125 mcg PO QDAY 01/14/25 01/14/25 History mcg (5,000 unit) capsule vitamin B12 0.5 mg-folic acid 1 mg 1 tab PO QDAY 01/14/25 01/14/25 History tablet Have you fallen i (more content not included)... Normal [facility] [id number] 12-13-2024 [facility] Misc. COMMENT Normal . [facility] Comment on above: Order Comment: SST/R MT [id number] RPR TITER Result Comment: Test Ordered: [id number] RPR, Rfx Qn RPR/Confirm TP RPR Reactive [A ] CB Reference Range: Non Reactive RPR, Quant. 1:32 [H ] titer CB Reference Range: NonRea<1:1 Treponema pallidum Antibodies Reactive [A ] CB Reference Range: Non Reactive Interpretation: Comment CB Reference Range: . Syphilis: RPR with Reflex to RPR Titer and Treponemal Antibodies, Traditional Screening and Diagnosis Algorithm Treponemal RPR RPR, Qn Ab Final Interpretation -------- --------- Non N/A N/A No laboratory evidence Reactive of syphilis. Retest in 2-4 weeks if recent exposure us suspected. -------- --------- Reactive >/=1:1 Non Nontreponemal antibodies Reactive detected. Syphilis unlikely; biological false positive possible. Retest in 2-4 weeks if recent exposure is suspected. -------- --------- Reactive >/=1:1 Reactive Treponemal and nontreponemal antibodies detected. Consistent with past or current (potential early) syphilis. Performed at: [facility] [address] [id number] Doubling Machine Operator: Sachin Smith PhD, Phone: [phone] Performed By: #### L [id number] #### [facility] [address] [address]. [place], [place], [address] Discharge Instructionon 10-30 Discharge Instruction [facility] Medical Records Department [address] [place] [address] Instructions for Home/Discharge Instructions 11/11/24 1214 MR#: [id number] Acct: [id number] Name: YOANDYAMANUEL RYAN Rep #: [id number] : 1990 34 From: Ganesh Dsouza MD PCP: Maggie Zhou [facility], LOSS PREVENTION AND SAFETY MANAGER-C Status:REG [facility] Discharge Instructions Diet Discharge Diet: No restrictions DC O2, CPAP, BIPAP needs Home O2 Discharge instructions: No Dressing / Incision Call your doctor if your incision/area has: Sudden Increased Bleeding Additional Dressing/Incision Instructions:: saline to nose 5 times / day. mupirocin ton both nostrils twice daily. Follow Up Care Please Follow Up With: Ganesh Dsouza MD When: 1 week Test Results: Test results from this visit will be discussed in further detail at your follow-up appointment, if applicable. Discharge Plan Admission Attending Provider: Ganesh Dsouza Primary Care Provider: Maggie Zhou Instructions Print Language: Palestinian Discharge Orders/Prescriptions Prescriptions: No Action amlodipine 10 mg tablet 10 mg PO QHS lisinopril 20 mg tablet 20 mg PO QHS bupropion HCl 75 mg tablet 75 mg PO QAM naltrexone 50 mg tablet 50 mg PO QAM Biktarvy 50-200-25 mg tablet 1 tab PO DAILY guanfacine 1 mg tablet 1 mg PO QHS Referrals / Follow Up: Maggie Zhou, LOSS PREVENTION AND SAFETY MANAGER-C [Primary Care Provider] - Disposition Disposition (needs filled in before D/C Order can be placed): Home, Self Care 11/11/24 1215 Ganesh Dsouza MD CC: WARREN LOSS PREVENTION AND SAFETY MANAGER-C Maggie Zhou Signed [facility] MR/POSTOP.[facility] 11-11-2024 MR/POSTOP.[facility] Medical Records Department [address] [place] [address] Anesthesia Postop Eval I 11/11/248 MR#: [id number] Acct: [id number] Name: AMANUEL CHAPMAN Rep #: [id number] : 1990 34 From: Espinoza Diez CRNA PCP: WARREN Mauro, LOSS PREVENTION AND SAFETY MANAGER-C Status:REG [facility] Y Race: C Location: [place] [address] Anesthesia: Postop Eval I Current Vital Signs Temperature: 97.6 F Pulse Rate: 81 Blood Pressure: 130/84 Respiratory Rate: 20 Pulse Ox: 99 Oxygen Delivery Method: Room Air Assessment Airway patent: Yes Spontaneous unlabored respirations: Yes Mental status: Awake and Calm nausea: No Vomiting: No Anesthesia Complication: No Fluid Hydration Crystalloid volume administer (ml): 1,600 Total IV fluid infused: 1,600 Progress Note Anesthesia document: Postop Eval 1 completed: Yes 11/11/24 1219 Date Espinoza Chary CLINIC BUSINESS MANAGER Mary Anne Signature: Date CC: Signed Normal [facility] MR/ZHSEGUDM9di 11-11-2024 MR/POSTOPAN2 [facility] Medical Records Department [address] [facility] [place] [address] Anesthesia Postop Eval II 11/11/24 1400 MR#: [id number] Acct: [id number] Name: AMANUEL CHAPMAN Rep #: [id number] : 1990 34 From: Checo Ventura MD PCP: WARREN Mauro, LOSS PREVENTION AND SAFETY MANAGER-C Status:[facility] Y Race: C Location: [facility] Anesthesia Postop Eval I Sum Postop Eval Completion status Anesthesia document: Postop Eval 1 completed: Yes Anesthesia Postop Eval I Summary Anesthesia Postop Eval I Summary: Anesthesia Postop Eval I: Assessment Summary Airway patent Yes 11/11/24 12:19 CLINIC BUSINESS MANAGER.[email or web address] Spontaneous unlabored Yes 11/11/24 12:19 CLINIC BUSINESS MANAGER.PKEL respirations Mental status Awake,Calm 11/11/24 12:19 CLINIC BUSINESS MANAGER.PKEL nausea No 11/11/24 12:19 CLINIC BUSINESS MANAGER.PKEL Vomiting No 11/11/24 12:19 CLINIC BUSINESS MANAGER.PKEL Anesthesia Postop Eval I: Fluid Summary Crystalloid volume administer 1,600 11/11/24 12:19 CLINIC BUSINESS MANAGER.PKEL (ml) Colloids volume administered ( ml) Blood Product volume administered (ml) Total IV fluid infused 1,600 11/11/24 12:19 CLINIC BUSINESS MANAGER.PKEL Anesthesia Postop Eval I: Summary Notes Anesthesia Complication No 11/11/24 12:19 CLINIC BUSINESS MANAGER.PKEL Anesthesia Complication Comment: Post-operative progress note Anesthesia: Postop Eval II Evaluation Mental status: Awake and Calm Pain Level: 2 nausea: No Vomiting: No Complications Anesthesia Complication: No 11/11/24 1400 Date Checo North Signature: Date CC: Signed Normal [facility] Operative Reporton 5 Operative Report [facility] Medical Records Department [address] [place] [address] Operative Report 11/11/24 1216 MR#: [id number] Acct: [id number] Name: AMANUEL CHAPMAN Rep #: [id number] : 1990 34 From: Ganesh Dsouza MD PCP: Maggie Zhou [facility], LOSS PREVENTION AND SAFETY MANAGER-C Status:[employer] [employer] Location: [place] [address] Problems Associated Problem List Diagnoses (1) Nasal congestion: (2) Nasal turbinate hypertrophy: (3) Nasal septal deviation: Operative Report (Standard) Operative Information Date of Procedure: 11/11/24 Pre-Operative Diagnosis: 1. nasal congestion 2. nasal septal deviation 3. hypertrophy nasal turbinates, right and left Post-Operative Diagnosis: 1. nasal congestion 2. nasal septal deviation 3. hypertrophy nasal turbinates, right and left Surgery/Procedure Performed: 1. septoplasty 2. submucous and bony resection of inferior turbinates, right and left bone process operator: No Type of Anesthesia: General RN Documented Start/Stop Times: Operation Date: 11/11/24 11:25 Case Time Into Pre-Op 11/11/24 10:09 Out of Pre-Op 11/11/24 11:04 Anesthesia Start 11/11/24 11:07 Into Room 11/11/24 11:07 Procedure Start 11/11/24 11:29 Procedure End 11/11/24 12:06 Anesthesia End 11/11/24 12:12 Out of Room 11/11/24 12:12 Procedure Start Time: 11:07 Procedure Stop Time: 12:00 Select all DRAINS/GRAFTS/IMPLANTS that apply: None Estimated Blood Loss: 1cc Specimen collected: No Description of surgery: On the day of the procedure, after appropriate informed consent was obtained, the patient was brought to the operating room and placed in a supine position on the operating room table. The patient was placed under general endotracheal anesthesia by the anesthesiologist. The endotracheal tube was secured. the nose was injected with lidocaine/epinephrine and decongested with oxymetazoline-soaked pledgets.??? a marginal incision was made with a #15 blade on the left side.??? a submucoperichondrial plane was developed on the patient's left side with a bushra elevator.??? this was taken posteriorly to the bony/cartilaginous junction and inferiorly to the maxillary crest.??? after an L-strut was marked, a large rightward defection and 2cm bony spur were removed with a D-knife and amberly reynoso.??? the head of the right and left turbinates were injected with lidocaine/epinephrine.? ?? the head of the left inferior turbinate was incised with a 15 blade, dissected submucosally with a bushra elevator, reduced using suction electrocautery and outfractured using a boies elevator. bony reduction was performed with a thru cut the head of the right inferior turbinate was incised with a 15 blade, dissected submucosally with a bushra elevator, reduced using suction electrocautery and outfractured using a boies elevator.??? bony reduction was performed with a thru cut. he was awoken from anesthesia and transferred to the PACU in stable condition, Surgical Findings: n/a Complications Complications: No 11/11/24 1219 Cosigner Signature (if applicable): CC: [facility] LOSS PREVENTION AND SAFETY MANAGERCatalina Zhou; Dr. Ganesh Dsouza MD Signed Normal [facility] CD4, T Lymph Platter Counton 09-20-2024 % CD4 POS.LYMPH 31.9 Normal 30.8-58.5 [facility] Comment on above: Performed By: #### L 500.4050, L400.0001, L509.8002, L501.2300, L100.0100, L3890.0200, L3890.4000, M8200.2203, L500.4100 ####[facility] [address] [place], [address] ABSOLUTE CD4 766 /uL Normal 359-1519 [facility] Comment on above: Performed By: #### L 500.4050, L400.0001, L509.8002, L501.2300, L100.0100, L3890.0200, L3890.4000, M8200.2203, L500.4100 ####[facility] [address] [place], [address] Basophils 0 Normal Not Estab. [facility] Comment on above: Performed By: #### L 500.4050, L400.0001, L509.8002, L501.2300, L100.0100, L3890.0200, L3890.4000, M8200.2203, L500.4100 ####[facility] [address] [place], [address] Basos Absolute 0 x10E3/uL Normal 0.0-0.2 [facility] Comment on above: Performed By: #### L 500.4050, L400.0001, L509.8002, L501.2300, L100.0100, L3890.0200, L3890.4000, M8200.2203, L500.4100 ####[facility] [address] [place], [address] Eos Absolute 0.2 x10E3/uL Normal 0.0-0.4 [facility] Comment on above: Performed By: #### L 500.4050, L400.0001, L509.8002, L501.2300, L100.0100, L3890.0200, L3890.4000, M8200.2203, L500.4100 ####[facility] [address] [place], [address] Eosinophils 2 Normal Not Estab. [facility] Comment on above: Performed By: #### L 500.4050, L400.0001, L509.8002, L501.2300, L100.0100, L3890.0200, L3890.4000, M8200.2203, L500.4100 ####[facility] [address] [place], [place], [phone](993) Erythrocyte distribution width (RBC) [Ratio] 11.9 % Normal 11.6-15.4 [facility] Comment on above: Performed By: #### L 500.4050, L400.0001, L509.8002, L501.2300, L100.0100, L3890.0200, L3890.4000, M8200.2203, L500.4100 ####[facility] [address] [place], [address](439) Hematocrit (Bld) [Volume fraction] 43.2 % Normal 37.5-51.0 [facility] Comment on above: Performed By: #### L 500.4050, L400.0001, L509.8002, L501.2300, L100.0100, L3890.0200, L3890.4000, M8200.2203, L500.4100 ####[facility] [address] [place], [address](542) Heme Comment TNP Normal . [facility] Comment on above: Performed By: #### L 500.4050, L400.0001, L509.8002, L501.2300, L100.0100, L3890.0200, L3890.4000, M8200.2203, L500.4100 ####[facility] [address] [place], [address] Hemoglobin (Bld) [Mass/Vol] 15.0 g/dL Normal 13.0-17.7 [facility] Comment on above: Performed By: #### L 500.4050, L400.0001, L509.8002, L501.2300, L100.0100, L3890.0200, L3890.4000, M8200.2203, L500.4100 ####[facility] [address] [place], [address] Imm Grans Abs 0 x10E3/uL Normal 0.0-0.1 [facility] Comment on above: Result Comment: Perf ormed at: [facility] [address] [id number] Doubling Machine Operator: Sachin Smith PhD, Phone: [phone] Performed By: #### L 500.4050, L400.0001, L509.8002, L501.2300, L100.0100, L3890.0200, L3890.4000, M8200.2203, L500.4100 ####[facility] [address] [place], [address] Immature Cells TNP Normal . [facility] Comment on above: Performed By: #### L 500.4050, L400.0001, L509.8002, L501.2300, L100.0100, L3890.0200, L3890.4000, M8200.2203, L500.4100 ####[facility] [address] [place], [address] Immature Grans 0 Normal Not Estab. [facility] Comment on above: Performed By: #### L 500.4050, L400.0001, L509.8002, L501.2300, L100.0100, L3890.0200, L3890.4000, M8200.2203, L500.4100 ####[facility] [address] [place], [address] Lymphocytes 32 Normal Not Estab. [facility] Comment on above: Performed By: #### L 500.4050, L400.0001, L509.8002, L501.2300, L100.0100, L3890.0200, L3890.4000, M8200.2203, L500.4100 ####[facility] [address] [place], [address] Lymphocytes (Bld) [#/Vol] 2.4 10*3/uL Normal 0.7-3.1 [facility] Comment on above: Performed By: #### L 500.4050, L400.0001, L509.8002, L501.2300, L100.0100, L3890.0200, L3890.4000, M8200.2203, L500.4100 ####[facility] [address] [place], [address] MCH (RBC) [Entitic mass] 33.1 pg High 26.6-33.0 [facility] Comment on above: Performed By: #### L 500.4050, L400.0001, L509.8002, L501.2300, L100.0100, L3890.0200, L3890.4000, M8200.2203, L500.4100 ####[facility] [address] [place], [place], [address] MCHC (RBC) [Mass/Vol] 34.7 g/dL Normal 31.5-35.7 [facility] Comment on above: Performed By: #### L 500.4050, L400.0001, L509.8002, L501.2300, L100.0100, L3890.0200, L3890.4000, M8200.2203, L500.4100 ####[facility] [address] [place], [place], [address] MCV (RBC) [Entitic vol] 95 fL Normal 79-97 [facility] Comment on above: Performed By: #### L 500.4050, L400.0001, L509.8002, L501.2300, L100.0100, L3890.0200, L3890.4000, M8200.2203, L500.4100 ####[facility] [address] [place], [address] Monocytes 8 Normal Not Estab. [facility] Comment on above: Performed By: #### L 500.4050, L400.0001, L509.8002, L501.2300, L100.0100, L3890.0200, L3890.4000, M8200.2203, L500.4100 ####[facility] [address] [place], [address] Monos Absolute 0.6 x10E3/uL Normal 0.1-0.9 [facility] Comment on above: Performed By: #### L 500.4050, L400.0001, L509.8002, L501.2300, L100.0100, L3890.0200, L3890.4000, M8200.2203, L500.4100 ####[facility] [address] [place], [address] Neutro Absolute 4.2 x10E3/uL Normal 1.4-7.0 [facility] Comment on above: Performed By: #### L 500.4050, L400.0001, L509.8002, L501.2300, L100.0100, L3890.0200, L3890.4000, M8200.2203, L500.4100 ####[facility] [address] [place], [address] Neutrophils 58 Normal Not Estab. [facility] Comment on above: Performed By: #### L 500.4050, L400.0001, L509.8002, L501.2300, L100.0100, L3890.0200, L3890.4000, M8200.2203, L500.4100 ####[facility] [address] [place], [address] NRBC Count TNP Normal . [facility] Comment on above: Performed By: #### L 500.4050, L400.0001, L509.8002, L501.2300, L100.0100, L3890.0200, L3890.4000, M8200.2203, L500.4100 ####[facility] [address] [place], [address] Platelets (Bld) [#/Vol] 281 10*3/uL Normal 150-450 [facility] Comment on above: Performed By: #### L 500.4050, L400.0001, L509.8002, L501.2300, L100.0100, L3890.0200, L3890.4000, M8200.2203, L500.4100 ####[facility] [address] [place], [address] RBC (Bld) [#/Vol] 4.53 10*6/uL Normal 4.14-5.80 [facility] Comment on above: Performed By: #### L 500.4050, L400.0001, L509.8002, L501.2300, L100.0100, L3890.0200, L3890.4000, M8200.2203, L500.4100 ####[facility] [address] [place], [address] WBC (Bld) [#/Vol] 7.3 10*3/uL Normal 3.4-10.8 [facility] Comment on above: Performed By: #### L 500.4050, L400.0001, L509.8002, L501.2300, L100.0100, L3890.0200, L3890.4000, M8200.2203, L500.4100 ####[facility] [address] [place], [address] HIV Viral Load Quanton 09-20 HIV-1 RNA, PCR < 20 Normal . [facility] Comment on above: Result Comment: HIV- 1 RNA detected The reportable range for this assay is 20 to 10,000,000 copies HIV-1 RNA/mL. Performed By: #### L 500.4050, L400.0001, L509.8002, L501.2300, L100.0100, L3890.0200, L3890.4000, M8200.2203, L500.4100 ####[facility] [address] [place], [address] log10 HIV-1 RNA TNP Normal . [facility] Comment on above: Result Comment: Resu lt Units: ekc74kmjw/mL Unable to calculate result since non-numeric result obtained for component test. Performed at: - [address] [id number] Doubling Machine Operator: Jaime Ghosh MD, Phone: [phone] Performed By: #### L 500.4050, L400.0001, L509.8002, L501.2300, L100.0100, L3890.0200, L3890.4000, M8200.2203, L500.4100 ####[facility] [address] [facility] [place], [address] Absolute CD4 counton 025 CD3+CD4+ (T4 helper) cells (Bld) [#/Vol] 766 /uL [phone] [facility] Absolute immature granulocyt e counton 09-18-2024 Immature granulocytes (Bld) [#/Vol] 0 10*3/uL 0.0-0.1 [facility] Comment on above: Performed at: [address] [id number] Director: Sachin Smith PhD, Phone: [phone] Absolute lymphocyte counton 09-18-2024 Lymphocytes Auto (Unsp spec) [#/Vol] 2.22 10*3/uL 0.83-4.51 [facility] Lymphocytes Auto (Unsp spec) [#/Vol] 2.4 10*3/uL 0.7-3.1 [facility] Absolute monocyte counton Monocytes (Bld) [#/Vol] 0.6 10*3/uL 0.1-0.9 [facility] Absolute neutrophil counton 09-18-2024 Neutrophils (Bld) [#/Vol] 4.4 10*3/uL 2.0-7.7 [facility] Neutrophils (Bld) [#/Vol] 4.2 10*3/uL 1.4-7.0 [facility] Anion gap in Serum or Plasma on 09-18-2024 Anion gap [Moles/Vol] 11 mmol/L 5-15 [facility] Automated lymphocyte count a s percentage of total leukocyteson 09-18-2024 Lymphocytes/100 WBC Auto (Unsp spec) 30.4 % - [facility] BUN/creatinine ratioon 09-18 Urea nitrogen/Creatinine [Mass ratio] 16.0 mg/mg - [facility] Basophil percentageon 2024 Basophils/100 WBC (Bld) 0.5 % 0-1 [facility] Basophils/100 WBC Auto (Bld) on 09-18-2024 Basophils/100 WBC (Bld) 0 % Not Estab. [facility] Bilirubin Test strip Ql (U)o n 09-18-2024 Bilirubin Ql (U) Negative Negative [facility] Bilirubin, totalon Bilirubin [Mass/Vol] 0.39 mg/dL 0.00-1.30 [facility] Blood basophils count (numbe r/volume)on 09-18-2024 Basophils (Bld) [#/Vol] 0 10*3/uL 0.0-0.2 [facility] Blood eosinophils count (num gucci/volume)on 09-18-2024 Eosinophils (Bld) [#/Vol] 0.2 10*3/uL 0.0-0.4 [facility] Blood hematocrit (volume fra ction)on 09-18-2024 Hematocrit (Bld) [Volume fraction] 43.2 % 37.5-51.0 [facility] Blood immature cells/100 arturo kocyteson 09-18-2024 Immature cells/100 WBC (Bld) TNP [facility] Comment on above: Test not performed Blood immature granulocytes/ 100 leukocyteson 09-18-2024 Immature granulocytes/100 WBC (Bld) 0 % Not Estab. [facility] Blood platelets count (numbe r/volume)on 09-18-2024 Platelets (Bld) [#/Vol] 281 10*3/uL 150-450 [facility] CBC W/Diff, Automatedon 03-2 0-2025 Absolute Lymph 2.22 X10 3/uL Normal 0.83-4.51 [facility] Comment on above: Performed By: #### L 500.4050, L400.0001, L509.8002, L501.2300, L100.0100, L3890.0200, L3890.4000, M8200.2203, L500.4100 #### [facility] [address] [place], [address] Absolute Neut 4.4 X10 3/uL Normal 2.0-7.7 [facility] Comment on above: Performed By: #### L 500.4050, L400.0001, L509.8002, L501.2300, L100.0100, L3890.0200, L3890.4000, M8200.2203, L500.4100 #### [facility] [address] [place], [address] Basophils/100 WBC (Bld) 0.5 % Normal 0-1 [facility] Comment on above: Performed By: #### L 500.4050, L400.0001, L509.8002, L501.2300, L100.0100, L3890.0200, L3890.4000, M8200.2203, L500.4100 #### [facility] [address] [place], [address] Eosinophils/100 WBC (Bld) 1.9 % Normal 0-5 [facility] Comment on above: Performed By: #### L 500.4050, L400.0001, L509.8002, L501.2300, L100.0100, L3890.0200, L3890.4000, M8200.2203, L500.4100 #### [facility] [address] [place], [address] Erythrocyte distribution width (RBC) [Ratio] 11.7 % Normal 11.6-14.6 [facility] Comment on above: Performed By: #### L 500.4050, L400.0001, L509.8002, L501.2300, L100.0100, L3890.0200, L3890.4000, M8200.2203, L500.4100 #### [facility] [address] [place], [place], [phone] (951) Hematocrit (Bld) [Volume fraction] 42.4 % Normal 40-54 [facility] Comment on above: Performed By: #### L 500.4050, L400.0001, L509.8002, L501.2300, L100.0100, L3890.0200, L3890.4000, M8200.2203, L500.4100 #### [facility] [address] [facility] [place], [address] (604) Hemoglobin (Bld) [Mass/Vol] 14.6 g/dL Normal 13.0-16.5 [facility] Comment on above: Performed By: #### L 500.4050, L400.0001, L509.8002, L501.2300, L100.0100, L3890.0200, L3890.4000, M8200.2203, L500.4100 #### [facility] [address] [facility] [address] [place], [place], [id number] IG% 0.300 Normal 0.0-0.9 [facility] Comment on above: Result Comment: IG% - Immature Granulocytes (promyelocytes, myelocytes and metamyelocytes) > 1% indicates that a LEFT SHIFT is Present. Performed By: #### L 500.4050, L400.0001, L509.8002, L501.2300, L100.0100, L3890.0200, L3890.4000, M8200.2203, L500.4100 #### [facility] [address] [place], [address] (662) Lymphocytes/100 WBC (Bld) 30.4 % Normal 19-41 [facility] Comment on above: Performed By: #### L 500.4050, L400.0001, L509.8002, L501.2300, L100.0100, L3890.0200, L3890.4000, M8200.2203, L500.4100 #### [facility] [address] [place], [address] MCH (RBC) [Entitic mass] 32.0 pg Normal 27.0-32.0 [facility] Comment on above: Performed By: #### L 500.4050, L400.0001, L509.8002, L501.2300, L100.0100, L3890.0200, L3890.4000, M8200.2203, L500.4100 #### [facility] [address] [place], [address] MCHC (RBC) [Mass/Vol] 34.4 g/dL Normal 32-36 [facility] Comment on above: Performed By: #### L 500.4050, L400.0001, L509.8002, L501.2300, L100.0100, L3890.0200, L3890.4000, M8200.2203, L500.4100 #### [facility] [address] [place], [address] MCV (RBC) [Entitic vol] 93.0 fL Normal 80-94 [facility] Comment on above: Performed By: #### L 500.4050, L400.0001, L509.8002, L501.2300, L100.0100, L3890.0200, L3890.4000, M8200.2203, L500.4100 #### [facility] [address] [place], [address] Monocytes/100 WBC (Bld) 7.1 % Normal 0-10 [facility] Comment on above: Performed By: #### L 500.4050, L400.0001, L509.8002, L501.2300, L100.0100, L3890.0200, L3890.4000, M8200.2203, L500.4100 #### [facility] [address] [place], [address] Neutrophils/100 WBC (Bld) 59.8 % Normal 47-70 [facility] Comment on above: Performed By: #### L 500.4050, L400.0001, L509.8002, L501.2300, L100.0100, L3890.0200, L3890.4000, M8200.2203, L500.4100 #### [facility] [address] [place], [address] Nucleated RBC (Bld) [#/Vol] 0 10*3/uL Normal 0-5 [facility] Comment on above: Performed By: #### L 500.4050, L400.0001, L509.8002, L501.2300, L100.0100, L3890.0200, L3890.4000, M8200.2203, L500.4100 #### [facility] [facility] [address] [place], [address] Platelet mean volume (Bld) [Entitic vol] 11.1 fL Normal 6.2-12.0 [facility] Comment on above: Performed By: #### L 500.4050, L400.0001, L509.8002, L501.2300, L100.0100, L3890.0200, L3890.4000, M8200.2203, L500.4100 #### [facility] [address] [facility] [place], [address] Platelets (Bld) [#/Vol] 290 10*3/uL Normal 150-450 [facility] Comment on above: Performed By: #### L 500.4050, L400.0001, L509.8002, L501.2300, L100.0100, L3890.0200, L3890.4000, M8200.2203, L500.4100 #### [facility] [address] [place], [address] RBC (Bld) [#/Vol] 4.56 10*6/uL Low 4.6-6.2 [facility] Comment on above: Performed By: #### L 500.4050, L400.0001, L509.8002, L501.2300, L100.0100, L3890.0200, L3890.4000, M8200.2203, L500.4100 #### [facility] [address] [place], [address] RDW SD 40.2 fl Normal 35.1-43.9 [facility] Comment on above: Performed By: #### L 500.4050, L400.0001, L509.8002, L501.2300, L100.0100, L3890.0200, L3890.4000, M8200.2203, L500.4100 #### [facility] [address] [facility] [place], [address] WBC (Bld) [#/Vol] 7.3 10*3/uL Normal 4.4-11.0 [facility] Comment on above: Performed By: #### L 500.4050, L400.0001, L509.8002, L501.2300, L100.0100, L3890.0200, L3890.4000, M8200.2203, L500.4100 #### [facility] [address] [facility] [place], [address] Calculated very low density lipoprotein (VLDL) cholesterol measurementon 09-18-2024 Calculated very low density lipoprotein (VLDL) cholesterol measurement 28 mg/dL 5-40 [facility] Carbon dioxide, total [Moles /volume] in Central venous bloodon 09-18-2024 CO2 [Moles/Vol] 23.6 mmol/L 21.0-32.0 [facility] Chloride assayon 09-18-2024 Chloride [Moles/Vol] 103 mmol/L 98-108 [facility] Comprehensive Metabolic Prof ilon 09-18-2024 Albumin [Mass/Vol] 4.4 g/dL Normal 3.5-5.0 [facility] Comment on above: Performed By: #### L 500.4050, L400.0001, L509.8002, L501.2300, L100.0100, L3890.0200, L3890.4000, M8200.2203, L500.4100 ####[facility] [address], [address] Albumin/Globulin [Mass ratio] 1.4 {ratio} Normal 0.9-2.4 [facility] Comment on above: Performed By: #### L 500.4050, L400.0001, L509.8002, L501.2300, L100.0100, L3890.0200, L3890.4000, M8200.2203, L500.4100 ####[facility] [address] [place], [place], [id number] ALK PHOS 74 U/L Normal 40-129 [facility] Comment on above: Performed By: #### L 500.4050, L400.0001, L509.8002, L501.2300, L100.0100, L3890.0200, L3890.4000, M8200.2203, L500.4100 ####[facility] [address] [place], [address] ALT [Catalytic activity/Vol] 21 U/L Normal <=46 [facility] Comment on above: Performed By: #### L 500.4050, L400.0001, L509.8002, L501.2300, L100.0100, L3890.0200, L3890.4000, M8200.2203, L500.4100 ####[facility] [address] [place], [address] AST [Catalytic activity/Vol] 23 U/L Normal <=37 [facility] Comment on above: Performed By: #### L 500.4050, L400.0001, L509.8002, L501.2300, L100.0100, L3890.0200, L3890.4000, M8200.2203, L500.4100 ####[facility] [address] [place], [address] Bilirubin [Mass/Vol] 0.39 mg/dL Normal 0.00-1.30 [facility] Comment on above: Performed By: #### L 500.4050, L400.0001, L509.8002, L501.2300, L100.0100, L3890.0200, L3890.4000, M8200.2203, L500.4100 ####[facility] [address] [place], [address] BUN/CRE 16.0 RATIO Normal 10-20 [facility] Comment on above: Performed By: #### L 500.4050, L400.0001, L509.8002, L501.2300, L100.0100, L3890.0200, L3890.4000, M8200.2203, L500.4100 ####[facility] [address] [place], [address] Calcium [Mass/Vol] 9.6 mg/dL Normal 7.6-11.0 [facility] Comment on above: Performed By: #### L 500.4050, L400.0001, L509.8002, L501.2300, L100.0100, L3890.0200, L3890.4000, M8200.2203, L500.4100 ####[facility] [address] [place], [address] Chloride [Moles/Vol] 103 mmol/L Normal 98-108 [facility] Comment on above: Performed By: #### L 500.4050, L400.0001, L509.8002, L501.2300, L100.0100, L3890.0200, L3890.4000, M8200.2203, L500.4100 ####[facility] [address] [place], [place], [phone](213) CO2 [Moles/Vol] 23.6 mmol/L Normal 21.0-32.0 [facility] Comment on above: Performed By: #### L 500.4050, L400.0001, L509.8002, L501.2300, L100.0100, L3890.0200, L3890.4000, M8200.2203, L500.4100 ####[facility] [address] [place], [place], [phone](921) Creatinine [Mass/Vol] 0.97 mg/dL Normal 0.70-1.20 [facility] Comment on above: Performed By: #### L 500.4050, L400.0001, L509.8002, L501.2300, L100.0100, L3890.0200, L3890.4000, M8200.2203, L500.4100 ####[facility] [address] [place], [place], [id number] GAP 11 Normal 5-15 [facility] Comment on above: Performed By: #### L 500.4050, L400.0001, L509.8002, L501.2300, L100.0100, L3890.0200, L3890.4000, M8200.2203, L500.4100 ####[facility] [address] [place], [place], [phone](807) GFR/1.73 sq M.predicted among non-blacks MDRD (S/P/Bld) [Vol rate/Area] 106 mL/min/{1.73_m2} Normal >60 [facility] Comment on above: Result Comment: mL/m in/1.73m2 CKD-EPI Creatinine Equation (2020) Performed By: #### L 500.4050, L400.0001, L509.8002, L501.2300, L100.0100, L3890.0200, L3890.4000, M8200.2203, L500.4100 ####[facility] [address] [place], [address] Globulin (S) [Mass/Vol] 3.2 g/dL Normal 2.2-4.2 [facility] Comment on above: Performed By: #### L 500.4050, L400.0001, L509.8002, L501.2300, L100.0100, L3890.0200, L3890.4000, M8200.2203, L500.4100 ####[facility] [address] [place], [address] Glucose [Mass/Vol] 81 mg/dL Normal 70-99 [facility] Comment on above: Performed By: #### L 500.4050, L400.0001, L509.8002, L501.2300, L100.0100, L3890.0200, L3890.4000, M8200.2203, L500.4100 ####[facility] [address] [place], [address] Potassium [Moles/Vol] 4.4 mmol/L Normal 3.3-5.1 [facility] Comment on above: Performed By: #### L 500.4050, L400.0001, L509.8002, L501.2300, L100.0100, L3890.0200, L3890.4000, M8200.2203, L500.4100 ####[facility] [address] [place], [address] Sodium [Moles/Vol] 138 mmol/L Normal 133-145 [facility] Comment on above: Performed By: #### L 500.4050, L400.0001, L509.8002, L501.2300, L100.0100, L3890.0200, L3890.4000, M8200.2203, L500.4100 ####[facility] [address] [place], [place], [phone] T PROT 7.5 g/dL Normal 5.9-8.4 [facility] Comment on above: Performed By: #### L 500.4050, L400.0001, L509.8002, L501.2300, L100.0100, L3890.0200, L3890.4000, M8200.2203, L500.4100 ####[facility] [address] [facility] [address] [place], [place], [phone] Urea nitrogen [Mass/Vol] 16 mg/dL Normal 4-19 [facility] Comment on above: Performed By: #### L 500.4050, L400.0001, L509.8002, L501.2300, L100.0100, L3890.0200, L3890.4000, M8200.2203, L500.4100 ####[facility] [address] [facility] [place], [place], [phone] Determination of erythrocyte mean corpuscular volume (MCV)on 09-18-2024 MCV (RBC) [Entitic vol] 95 fL 79-97 [facility] Eosinophil percentageon 08-31 0 Eosinophils/100 WBC (Bld) 1.9 % 0-5 [facility] Eosinophils/100 WBC Auto (Bl d)on 09-18-2024 Eosinophils/100 WBC (Bld) 2 % Not Estab. [facility] Erythrocyte distribution wid th ratioon 09-18-2024 Erythrocyte distribution width (RBC) [Ratio] 11.7 % 11.6-14.6 [facility] Erythrocyte distribution width (RBC) [Ratio] 11.9 % 11.6-15.4 [facility] Erythrocyte distribution wid th standard deviationon 09-18-2024 Erythrocyte distribution width (RBC) [Ratio] 40.2 fl 35.1-43.9 [facility] Glomerular filtration rate ( GFR) estimation/1.73 sq m using serum, plasma, or whole bon 09-18-2024 GFR/1.73 sq M.predicted among non-blacks MDRD (S/P/Bld) [Vol rate/Area] 106 mL/min/{1.73_m2} >60 [facility] Comment on above: mL/min/1.73m2 CKD-EP I Creatinine Equation (2020) Immature granulocytes/100 WB C Auto (Bld)on 09-18-2024 Immature granulocytes/100 WBC (Bld) 0.300 % 0.0-0.9 [facility] Comment on above: IG% - Immature Granu locytes (promyelocytes, myelocytes and metamyelocytes) > 1% indicates that a LEFT SHIFT is Present. Interpretation of morphologi c examination of blood (narrative result)on 09-18-2024 Morphology Chiol (Bld) [Interp] TNP [facility] Comment on above: Test not performed Ketones Test strip Ql (U)on 09-18-2024 Ketones Ql (U) Negative Negative [facility] L509.8002on 09-18-2024 Syphilis Abs Reactive Abnormal Nonreactive [facility] Comment on above: Performed By: #### L 500.4050, L400.0001, L509.8002, L501.2300, L100.0100, L3890.0200, L3890.4000, M8200.2203, L500.4100 ####[facility] [address] [place], [place], [phone] LDL calc ser/plason 09-19-19 25 Cholesterol in LDL [Mass/Vol] 125 mg/dL [facility] Comment on above: Eazzqjdirz=925-298 m g/dL & Higher Lvua=539 mg/dL or greater Laboratory - Chemistry and C hemistry - challengeon 09-18-2024 AST [Catalytic activity/Vol] 23 U/L <38 [facility] - Hematology and Cell countson 09-18-2024 MCH (RBC) [Entitic mass] 33.1 pg High 26.6-33.0 [facility] Lipid Profileon 09-18-2024 CHOL:HDL 4.02 Normal [facility] Comment on above: Performed By: #### L 500.4050, L400.0001, L509.8002, L501.2300, L100.0100, L3890.0200, L3890.4000, M8200.2203, L500.4100 #### [facility] [address] [place], [address] Cholesterol [Mass/Vol] 204 mg/dL High <=200 [facility] Comment on above: Result Comment: Chol esterol level, Desirable <200 mg/dL Borderline high cholesterol 200-239 mg/dL High cholesterol >=240 mg/dL Recommendations of the NCEP Adult Treatment Panel for the following risk-cutoff thresholds for the [place] population. Performed By: #### L 500.4050, L400.0001, L509.8002, L501.2300, L100.0100, L3890.0200, L3890.4000, M8200.2203, L500.4100 #### [facility] [address] [place], [address] Cholesterol in HDL [Mass/Vol] 51 mg/dL Normal [facility] Comment on above: Result Comment: Alayna onal Cholesterol Education Program (NCEP) guidelines: <40 mg/dL: Low HDL-cholesterol (major risk factor for CHD) >= 60 mg/dL: High HDL-cholesterol (negative risk factor for CHD) HDL-cholesterol is affected by a number of factors, e.g. smoking, exercise, hormones, sex and age. Performed By: #### L 500.4050, L400.0001, L509.8002, L501.2300, L100.0100, L3890.0200, L3890.4000, M8200.2203, L500.4100 #### [facility] [address] [place], [address] Cholesterol in LDL [Mass/Vol] 125 mg/dL Normal [facility] Comment on above: Result Comment: Bord lnuoic=157-176 mg/dL Higher Mpxz=747 mg/dL or greater Performed By: #### L 500.4050, L400.0001, L509.8002, L501.2300, L100.0100, L3890.0200, L3890.4000, M8200.2203, L500.4100 #### [facility] [address] [place], [address] Cholesterol in VLDL [Mass/Vol] 28 mg/dL Normal 5-40 [facility] Comment on above: Performed By: #### L 500.4050, L400.0001, L509.8002, L501.2300, L100.0100, L3890.0200, L3890.4000, M8200.2203, L500.4100 #### [facility] [address] [place], [address] Triglyceride [Mass/Vol] 142 mg/dL Normal [facility] Comment on above: Result Comment: The drugs N-Acetylcysteine and Metamizole may falsely depress this assay. Normal range: <150 mg/dL Borderline High: 150-199 mg/dL High: 200-499 mg/dL Very High: >500 mg/dL Performed By: #### L 500.4050, L400.0001, L509.8002, L501.2300, L100.0100, L3890.0200, L3890.4000, M8200.2203, L500.4100 #### [facility] [address] [place], [address] Lymphocytes/100 WBC Auto (Bl d)on 09-18-2024 Lymphocytes/100 WBC (Bld) 32 % Not Estab. [facility] M8200.2202on 09-18-2024 M82.2202 Pending Chlamydia Trachomatis PCR NEGATIVE for Chlamydia trachomatis N. gonorrhoeae PCR Negative for N. gonorrhoeae Normal [facility] Comment on above: Performed By: #### L 500.4050, L400.0001, L509.8002, L501.2300, L100.0100, L3890.0200, L3890.4000, M8200.2203, L500.4100 ####[facility] [address] [place], [address] MCHC Auto (RBC) [Mass/Vol]on 09-18-2024 MCHC (RBC) [Mass/Vol] 34.7 g/dL 31.5-35.7 [facility] Mean platelet volume determi nationon 09-18-2024 Platelet mean volume (Bld) [Entitic vol] 11.1 fL 6.2-12.0 [facility] Microscopic analysis of urin e for red blood cells (RBC)on 09-18-2024 Microscopic analysis of urine for red blood cells (RBC) 0 SEEN /hpf 0-5 [facility] Monocyte detectionon 025 Monocytes/100 WBC (Bld) 8 % Not Estab. [facility] Monocyte percentageon 2024 Monocytes/100 WBC (Bld) 7.1 % 0-10 [facility] Mucus LM Ql (Urine sed)on Mucus Ql (Urine sed) 0 SEEN /hpf [facility] Neutrophil counton 5 Neutrophils/100 WBC (Bld) 58 % Not Estab. [facility] Neutrophil percentageon 08-31 Neutrophils/100 WBC (Bld) 59.8 % 47-70 [facility] Nitrite Test strip Ql (U)on 09-18-2024 Nitrite Ql (U) Negative Negative [facility] Nucleated RBC/100 WBC Auto ( Bld) [Ratio]on 09-18-2024 Nucleated RBC/100 WBC (Bld) [Ratio] TNP [facility] Comment on above: Test not performed Nucleated red blood cell per centageon 09-18-2024 Nucleated RBC/100 WBC (Bld) [Ratio] 0 % 0-5 [facility] Percent of cells positive fo r CD4 antigenon 09-18-2024 CD3+CD4+ (T4 helper) cells/100 cells (Unsp spec) 31.9 % 30.8-58.5 [facility] Phosphoruson 09-18-2024 Phosphate [Mass/Vol] 2.8 mg/dL Normal 2.7-4.5 [facility] Comment on above: Performed By: #### L 500.4050, L400.0001, L509.8002, L501.2300, L100.0100, L3890.0200, L3890.4000, M8200.2203, L500.4100 ####[facility] [address] [place], [address] Plasma HIV 1 RNA viral load by probe and target amplification method (log number/voluon 09-18-2024 HIV 1 RNA ANGEL+probe [Log #/Vol] TNP [facility] Comment on above: Test not performedRe sult Units: twp30afjx/mLUnable to calculate result since non-numeric resultobtained for component test.Performed at: [facility] [id number] Director: Jaime Ghosh MD, Phone: [phone] Potassium measurement (mass/ volume)on 09-18-2024 Potassium (Unsp spec) [Mass/Vol] 4.4 mmol/L 3.3-5.1 [facility] Protein Test strip Ql (U)on 09-18-2024 Protein Ql (U) 15 mg/dl High Negative [facility] RBC Auto (Bld) [#/Vol]on RBC (Bld) [#/Vol] 4.53 10*6/uL 4.14-5.80 [facility] Screening total cholesterol/ high density lipoprotein (HDL) cholesterol ratioon 09-18-2024 Cholesterol.total/C holesterol in HDL [Mass ratio] 4.02 {ratio} [facility] Serum creatinine measurement (mass/volume)on 09-18-2024 Creatinine [Mass/Vol] 0.97 mg/dL 0.70-1.20 [facility] Serum globulin measurementon 09-18-2024 Globulin (S) [Mass/Vol] 3.2 g/dL 2.2-4.2 [facility] Serum glucose measurement (m ass/volume)on 09-18-2024 Glucose [Mass/Vol] 81 mg/dL 70-99 [facility] Serum or plasma alanine mcnair otransferase (ALT) measurementon 09-18-2024 ALT [Catalytic activity/Vol] 21 U/L <47 [facility] Serum or plasma albumin adis urement (mass/volume)on 09-18-2024 Albumin [Mass/Vol] 4.4 g/dL 3.5-5.0 [facility] Serum or plasma albumin/glob ulin mass ratioon 09-18-2024 Albumin/Globulin [Mass ratio] 1.4 {ratio} 0.9-2.4 [facility] Serum or plasma alkaline adam sphatase measurementon 09-18-2024 ALP [Catalytic activity/Vol] 74 U/L 40-129 [facility] Serum or plasma calcium adis urement (mass/volume)on 09-18-2024 Calcium [Mass/Vol] 9.6 mg/dL 7.6-11.0 [facility] Serum or plasma cholesterol in HDL measurement (mass/volume)on 09-18-2024 Cholesterol in HDL [Mass/Vol] 51 mg/dL >40 [facility] Comment on above: National Cholesterol Education Program (NCEP) guidelines:<40 mg/dL: Low HDL-cholesterol (major risk factor for CHD)>= 60 mg/dL: High HDL-cholesterol (negative risk factor for CHD)HDL-cholesterol is affected by a number of factors, e.g. smoking, exercise, hormones, sex and age. Serum or plasma cholesterol measurement (mass/volume)on 09-18-2024 Cholesterol [Mass/Vol] 204 mg/dL High <201 [facility] Comment on above: Cholesterol level, D esirable <200 mg/dLBorderline high cholesterol 200-239 mg/dLHigh cholesterol >=240 mg/dLRecommendations of the NCEP Adult Treatment Panel for the following risk-cutoff thresholds for the [place] population. Serum or plasma urea nitroge n measurement (mass/volume)on 09-18-2024 Urea nitrogen [Mass/Vol] 16 mg/dL 4-19 [facility] Sodium levelon 09-18-2024 Sodium [Moles/Vol] 138 mmol/L 133-145 [facility] Squamous epithelial cells de tection in urine sediment by light microscopyon 09-18-2024 Epithelial cells.squamous LM Ql (Urine sed) 0 SEEN /hpf 0-5 [facility] Total proteinon 09-18-2024 Protein [Mass/Vol] 7.5 g/dL 5.9-8.4 [facility] Triglycerides measurementon 09-18-2024 Triglyceride [Mass/Vol] 142 mg/dL <199 [facility] Comment on above: The drugs N-Acetylcy steine and Metamizole may falsely depress this assay. Normal range: <150 mg/dLBorderline High: 150-199 mg/dLHigh: 200-499 mg/dLVery High: >500 mg/dL Urinalysis, Completeon 09-18 RBC 0 SEEN Normal 0-5 [facility] Comment on above: Order Comment: Urine , Random Performed By: #### L 500.4050, L400.0001, L509.8002, L501.2300, L100.0100, L3890.0200, L3890.4000, M8200.2203, L500.4100 #### [facility] [address] [place], [address] Urine clarityon 09-18-2024 Clarity (U) Clear Clear [facility] Urine color determinationon 09-18-2024 Color (U) YELLOW Yellow [facility] Urine glucose detectionon Glucose Ql (U) Normal mg/dl Normal [facility] Urine leukocyte esterase det ection by dipstickon 09-18-2024 Leukocyte esterase Test strip Ql (U) Negative Negative [facility] Urine pHon 09-18-2024 pH (U) 6.0 [pH] 5.0 - 8.0 [facility] Urine sediment bacteria coun t by microscopy (number/high power field)on 09-18-2024 Bacteria LM.HPF (Urine sed) [#/Area] 0 /[HPF] None Seen [facility] Urine specific gravity measu rementon 09-18-2024 Specific gravity (U) [Rel density] 1.015 1.002-1.030 [facility] Urine urobilinogen measureme nton 09-18-2024 Urobilinogen Ql (U) Normal mg/dl Normal [facility] WBC counton 09-18-2024 WBC (Bld) [#/Vol] 7.3 10*3/uL 3.4-10.8 [facility] White blood cell counton White blood cell count 0 SEEN /hpf 0-5 [facility] Whole blood hemoglobin measu rement (mass/volume)on 09-18-2024 Hemoglobin (Bld) [Mass/Vol] 15.0 g/dL 13.0-17.7 [facility] C. trachomatis+N. gonorrhoea e DNA ANGEL+probe Ql (Unsp spec)on 09-10-2024 C. trachomatis rRNA ANGEL+probe Ql (Unsp spec) Not detected Normal Not detected [facility] Comment on above: Order Comment: Speci men Type: SWABOrdering Facility: [facility] Address: [address] [place] [address] Performed By: #### 3 6902-5 ####[facility] [id number] [address] [facility] N. gonorrhoeae rRNA AGNEL+probe Ql (Unsp spec) Not detected Normal Not detected [facility] Comment on above: Order Comment: Speci men Type: SWABOrdering Facility: [facility] Address: [address] [place] [address] Performed By: #### 3 6902-5 ####[facility] [id number] [address] OF [place] CNOVon 09-10-2024 CNOV Office Visit (INFDMN ) AMANUEL CHAPMAN ([id number]) 1990 M [place] Date Time Provider Department 09/10/24 10:30 AM VALERIO MITCHELL INFFAISAL During your visit today, we recorded the following information about you: Temperature Pulse Respiration Blood pressure 98.4 degrees 76/minute 18/minute 137/83 Weight 117 kg Valerio Mitchell MD 09/10/2024 3:35 PM Signed Amanuel Chapman is a 34 year old White male patient here for routine follow-up HIV infection. 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 Last encounter in Infectious Disease: 12/19/2023 Interval Events: HIV: Patient is currently on BIKTARVY. He said that he gets co-pay assistance and asked for coverage for his medications. Denies any current side effects of Biktarvy. Denies any fevers, chills, sweats, chest pain, shortness of breath, cough, nausea, vomiting, abdominal pain, diarrhea. Overall feels well. Denies missing any of his pills. He has 1 new partner since the last visit infectious disease clinic. His partner is aware of his HIV status and he is on PrEP. Reports that they are exclusive. Patient's partner asked if he needed to still be on PrEP, given the patient's undetectable viral load. The practice oral sex only. Do not use protection. Syphilis: Patient was retested in January 2024 and his titer increased from 1:128 to 1:256. 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 HTN: On initial presentation, the patient had a blood pressure of 156/94. Repeat BP dropped to 137/83. He had his blood pressure recently checked at his PCP clinic and told that it "looks good." Has not recently checked his blood pressure at home. Social history: Since seeing ID clinic last, patient has completely switched over to working at his younger brothers [employer]. He said that his work is going well and he is enjoying it much better than his previous job. Feels much happier overall. Depression: Patient feels significantly better after switching jobs. He currently sees a new PCP that is happy with. Goes to the [facility], who also manage his wellbutryn (for depression) and naltrexone (for prior meth addiction). PCP - Maggie BORGES at the [facility] (Office [phone]) ( ) Health maintenance: Agreeable to obtaining influenza, COVID booster, hepatitis A/B vaccines, and shingrex. Agreed to getting his influenza and COVID booster vaccines in his local pharmacy and the hepatitis A/B vaccines and Shingrix vaccine here. Current Medications: buPROPion XL (WELLBUTRIN XL) 150 mg 24 hr tablet Take 150 mg by mouth every morning. lisinopril (ZESTRIL) 10 mg tablet Take 1 tablet by mouth every afternoon. naltrexone 50 mg tablet Take 50 mg by mouth every morning. bictegravir-emtricitabi ne-tenofovir alafenamide (BIKTARVY) 50-200-25 mg per tablet Take 1 tablet by mouth once daily. amLODIPine (NORVASC) 10 mg tablet Take 1 tablet by mouth once daily. Medication History Since his last visit he has not stopped his medications. 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 Condom Use: No Influenza Vaccine: Yes Immunization History Administered Date(s) Administered COVID-19 original vaccine, full dose, monovalent (MODERNA) 04/14/2021 05/12/2021 COVID-19 vaccine, age 12+ yr, bivalent ([employer]NTINVOL[employer]) 07/19/2022 Haemophilus influenzae b (Hib) vaccine, unspecified formulation 1990 01/05/1993 04/06/1993 11/30/1993 diphtheria tetanus pertussis (DTP) vaccine 1990 01/05/1993 04/06/1993 diphtheria tetanus pertussis (DTaP) vaccine, unspecified formulation 11/30/1993 02/25/1998 hepatitis A (HepA) vaccine, adult (HAVRIX, VAQTA) 09/10/2024 hepatitis A-hepatitis B (HepA-HepB) vaccine (TWINRIX) 10/04/2022 hepatitis B (HepB) vaccine, 3-dose series, age 20+ yr (ENGERIX-B, (more content not included)... [facility] (INFDMN) AMANUEL CHAPMAN ([id number]) 1990 [facility] Date Time Provider Department 09/09/[address] [facility] During your visit today, we recorded the following information about you: Ritesh Aguayo 09/09/2024 11:26 AM Signed Called pt to remind and confirm them of upcoming appt. But pt didn't answer so I left pt a detailed vm with my callback number in case there were any questions. Allergies As of Date: 09/09/2024 (No Known Allergies) Date Reviewed: 12/19/2023 Reviewed by: Kwan Khan MA - Fully Assessed Reason for Visit: Appointment [[id number]] Cmt: Called pt to remind and confirm them of upcoming appt. But pt didn't answer so I left pt a detailed vm with my callback number in case there were any questions. Prescriptions as of 09/09/2024 - bictegravir-emtricitabi ne-tenofovir alafenamide (BIKTARVY) 50-200-25 mg per tablet Take 1 tablet by mouth once daily. - escitalopram oxalate (LEXAPRO) 10 mg tablet Take 10 mg by mouth once daily. - amLODIPine (NORVASC) 10 mg tablet Take 1 tablet by mouth once daily. Problem List As Of Date 09/09/2024 Noted Resolved Elevated blood pressure reading without diagnos*07/31/2022 Obesity, Class II, BMI 35-39.9 [E66.812] 07/31/2022 HIV positive (HCC) [Z21] 07/31/2022 04/18/2023 History of syphilis [Z86.19] 07/31/2022 Human immunodeficiency virus (HIV) disease (HCC*04/18/2023 Encounter Status:Closed by RITESH AGUAYO on 09/09/24 Normal [facility] Progress Noteon 08-26-[address] [facility] AT [facility] AT [address] [facility] [address] Dept: [phone] Dept SPEECH THERAPY DISCHARGE NOTE Patient Name: Amanuel Chapman : 1990 Date of Service: 08/26/2024 Referring Provider: Maggie Zhou Visit #: 8 Diagnosis: Stuttering Reason for referral: Stuttering Precautions/Red Flags: None Patient Preferences: Bill Subjective Chief Complaint: Stuttering Patient endorses difficulties in the following areas: speech Pain: Current: 0/10 Current Level of Function: TBD Patient?s Stated Goal: To be able to apply speech strategies Current Diet: Regular, Thin Assessment Method: Clinical observation, Patient/caregiver interview, Questionnaires/Inventor y Review Objective MOTOR SPEECH EXAM Respiration: Conversation WFL Voice: Within normal limits Resonance: Within normal limits Prosody: Within normal limits Diadochokinesis: Precise articulation Articulation: Within normal limits Speech Intelligibility: Unstructured conversation: 100% Dysarthria: N/A Apraxia: N/A Motor Speech Exam Comments: Speech has become more fluent with less disfluencies observed from initial evaluation. Concomitant Factors: None Impact on Functioning: Pt reports increase participation in social communication among family, peers, & in the community. Assessment Self-Evaluation Form Fluency (SEFF) How fluent was I?: 4 - mostly fluent How often did these features occur in my speech: - repetitions - never -prolongations - never - hesitations - sometimes - blocks - never How often did I use slowed speech: 3-often How effective was I at communicatin - very Were thre any obstacles to me communicating effectively: no Goals All goals met. Plan Patient no longer requires skilled 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 services and will be discharged at this time. Thank you for this referral. For any questions on this patient?s course of therapy, please call the clinic for clarification. Time Entry Total Treatment Time Start Time: 0830 Stop Time: 0900 Time Calculation (min): 30 min April Chaney CCC-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 [facility] Progress Noteon 08-19-[address] [facility] AT [facility] AT [address] [facility] [address] Dept: [phone] Dept SPEECH THERAPY TREATMENT Patient Name: Amanuel Chapman : 1990 Date of Service: 08/19/2024 Referring Provider: Maggie Zhou Visit #: 7 Diagnosis: Stuttering Reason for referral: Stuttering Precautions/Red Flags: None Patient Preferences: Bill Subjective Arrived on time, pleasant and compliant. Pain: 0 Comment: n/a Objective Activity 1: Cancelation technique Education provided on stuttering strategy with focus on allowing the disfluency to occur and re-trying the word that was disfluent. Pt applied in a "fake" stuttering moment and was encourage to utilize in actual moments of stuttering. Activity 2: personal words/phrases Pt utilized stuttering strategies independently with personal word/phrase list with disfluencies occurring only 5-10% of the time Activity 3: Structured phrases Given a workbook phrase, pt prompted to read with intent to utilize his preferred strategy (slide out), in which his speech was 100% intelligible during this activity. Home Exercise Program: Progressed home exercise program Assessment Skilled speech therapy interventions utilized to improve patient?s impairments and work towards established goals. Patient response to treatment: Good Patient will benefit from continued speech therapy to encourage carryover of all stuttering strategies Goals 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 Misc Misc 1 (Progressing) Start: 07/03/24 Expected End: 08/26/24 The patient will improve ease with speaking by identifying 2 speech behaviors/modifications techniques that interfere with fluency. Misc 2 (Progressing) Start: 07/03/24 Expected End: 09/09/24 The patient will identify modifications to speech production (fast/slow, bumpy/smooth, loud/quiet) with 80% accuracy for 3 data collections. Misc 3 (Progressing) Start: 07/03/24 Expected End: 09/09/24 The patient will identify fluency-enhancing strategies (slow speech, thinking of words before speaking) for in 80% of opportunities for 3 data collections. Plan Plan for next session: Review all strategies - apply at conversation level Time Entry Total Treatment Time Start Time: 0830 Stop Time: 0900 Time Calculation (min): 30 min April Chaney CCC-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 [facility] Progress Noteon 08-12-[address] [facility] AT [facility] AT [address] [address] Dept: [phone] Dept SPEECH THERAPY RE-EVALUATION Patient Name: Amanuel Chapman : 1990 Date of Service: 08/12/2024 Referring Provider: Maggie Zhou Visit #: 6 Diagnosis: Stuttering Reason for referral: Stuttering Precautions/Red Flags: None Patient Preferences: Bill Subjective Chief Complaint: Stuttering Patient endorses difficulties in the following areas: speech Pain: Current: 0/10 Current Level of Function: TBD Patient?s Stated Goal: Easy, flowing speech Current Diet: n/a Assessment Method: Clinical observation, Objective testing, Questionnaires/Inventor y Review Objective MOTOR SPEECH EXAM Respiration: Conversation: Abdominal Voice: Within normal limits Resonance: Within normal limits Prosody: Fast rate Diadochokinesis: Fast rate Articulation: Within normal limits Speech Intelligibility: Unstructured conversation: 100% Dysarthria: N/A Apraxia: N/A Motor Speech Exam Comments: Pt continues to present with stuttering disfluencies but with improvements noted in use of strategies, breathing technique, and less secondary characteristics. Concomitant Factors: None Impact on Functioning: Impacts social interaction among peers, family, co-workers Assessment Informal Assessment completed Sound syllable repetition - 10% of conversation Whole word repetition - 10% of conversation Prolongations - 0% Interjections - 10% of conversation Blocks - 5-10% of conversation Revisions - 0% of conversation Rehab Potential: Good Goals 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 [facility] Misc 1 (Progressing) Start: 07/03/24 Expected End: 08/26/24 The patient will improve ease with speaking by identifying 2 speech behaviors/modifications techniques that interfere with fluency. Misc 2 (Progressing) Start: 07/03/24 Expected End: 08/19/24 The patient will identify modifications to speech production (fast/slow, bumpy/smooth, loud/quiet) with 80% accuracy for 3 data collections. Misc 3 (Progressing) Start: 07/03/24 Expected End: 08/19/24 The patient will identify fluency-enhancing strategies (slow speech, thinking of words before speaking) for in 80% of opportunities for 3 data collections. Plan Frequency and Duration: 1/wk for 4 weeks Therapeutic Contents: Patient/family training, Progressive Home Program Plan for next session: Teach cancellation technique, review personal list sentences Risks and benefits were discussed with the patient and/or family, and the patient and/or family participated with the plan of care and agrees. Treatment Activity 1: Word list/strategy use Provided pt with /k/, /g/ and /r/ words lists in all positions, as pt reports these phonemes give him the most difficulty with disfluencies. Applied strategies previously taught with pt exhibiting only 4 disfluencies in a 30 word list trial. Pt utilized strategies effectively & independently to ease into flowing speech Activity 2: Personal word list Reviewed personal words that pt often exhibits a disfluencies/block and created functional phrases for pt to say 5-10x a day with use of stuttering strategies. Home Exercise Program: Progressed home exercise program Time Entry Total Treatment Time Start Time: 0830 Stop Time: 0900 Time Calculation (min): 30 min April Chaney CCC-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 Normal [facility] Progress Noteon 08-05-[address] [facility] AT [facility] AT [address] [address] Dept: [phone] Dept SPEECH THERAPY TREATMENT Patient Name: Amanuel Chapman : 1990 Date of Service: 08/05/2024 Referring Provider: Maggie Zhou Visit #: 5 Diagnosis: Stuttering Reason for referral: Stuttering Precautions/Red Flags: None Patient Preferences: Bill Subjective Arrived on time, alert, compliant Pain: 0 Comment: n/a Objective Activity 1: Review of easy onset/breathing techniques Pt reports he successfully utilized these strategies in daily practice and will try to use them in moments of stuttering. He reports it's difficult to recall them in the moment because anxiety level is high but when he stops and pauses, he can utilize them effectively. Applied with 1 word syllable, 3 word syllable and short sentences - Pt utilized each strategy effectively & independently. Pt also notes that he has paid more attention to where the tension is during a moment of stuttering - mostly his jaw. Discussed trying a simple swallow, or movement to help alleviate the tension in the moment, in addition to the stuttering strategy. Activity 2: Prep set strategy Introduced this new stuttering technique with the patient this date. Applied in a "mock" stuttering with automatic speech tasks to focus on holding the sound, changing the volume/pitch and returning to easy speech. Pt applied with 100% comprehension. No true moments of stuttering occurred to utilize this strategy with today. Activity 3: Personal word list Reviewed 4-5 words on the patient's personal word list of words he always experiences a block or prolongation on. Pt experienced blocks with each word as he attempted to tell 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. Pt encouraged to use diaphragmatic breath support, easy onset or prep set to help alleviate the tension. Pt reported a pattern is words that start with /b/, /g/ or /k/. Trialed humming an /m/ and transitioning into the personal word "brother" (ie. Mmmmm my brothers) with success on not experiencing a block. Home Exercise Program: Progressed home exercise program Assessment Skilled speech therapy interventions utilized to improve patient?s impairments and work towards established goals. Patient response to treatment: Good Patient will benefit from continued speech therapy to teach further stuttering strategies, incorporate strategies independently in speech. Goals 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 Misc Misc 1 (Progressing) Start: 07/03/24 Expected End: 08/26/24 The patient will improve ease with speaking by identifying 2 speech behaviors/modifications techniques that interfere with fluency. Misc 2 (Progressing) Start: 07/03/24 Expected End: 08/19/24 The patient will identify modifications to speech production (fast/slow, bumpy/smooth, loud/quiet) with 80% accuracy for 3 data collections. Misc 3 (Progressing) Start: 07/03/24 Expected End: 08/19/24 The patient will identify fluency-enhancing strategies (slow speech, thinking of words before speaking) for in 80% of opportunities for 3 data collections. Plan Plan for next session: Re-assess Personal word list, review of easy onset, prep set, introduce ligh articulation contact? Time Entry Total Treatment Time Start Time: 0830 Stop Time: 0900 Time Calculation (min): 30 min April Chaney CCC-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 [facility] Progress Noteon 07-22-[address] [facility] AT [facility] AT [address] [facility] [address] Dept: [phone] Dept SPEECH THERAPY TREATMENT Patient Name: Amanuel Chapman : 1990 Date of Service: 07/22/2024 Referring Provider: Maggie Zhou Visit #: 4 Diagnosis: Stuttering Reason for referral: Stuttering Precautions/Red Flags: None Patient Preferences: Bill Subjective Arrived on time, alert, and compliant Pain: 0 Comment: n/a Objective Activity 1: Review of easy onset Applied easy onset concept with 1 syllable /h/ words, 2 syllable /h/ words, and short /h/ phrases with 100% carryover from previous session. Activity 2: introduction to "slide out" strategy Education provided on "slide out" stuttering strategy with focus on identifying where the tension occurs in the pt's speech mechanism during a moment of stuttering and how to "relieve" tension during the moment. Applied with 1-2 syllable words. Pt did not exhibit dysfluencies during this task, so pt was prompted to "mock" a moment of stuttering to increase comprehension of task. Activity 3: personal word/phrase list Home program extended to have pt write out common words/phrases where dysfluencies often occur to review in next session. Home Exercise Program: Progressed home exercise program Assessment Skilled speech therapy interventions utilized to improve patient?s impairments and work towards established goals. Patient response to treatment: Good Patient will benefit from continued speech therapy to alleviate dysfluent speech, teach smooth speech strategies. Goals 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 Misc Misc 1 (Progressing) Start: 07/03/24 Expected End: 07/31/24 The patient will improve ease with speaking by identifying 2 speech behaviors/modifications techniques that interfere with fluency. Misc 2 (Progressing) Start: 07/03/24 Expected End: 07/31/24 The patient will identify modifications to speech production (fast/slow, bumpy/smooth, loud/quiet) with 80% accuracy for 3 data collections. Misc 3 (Progressing) Start: 07/03/24 Expected End: 07/31/24 The patient will identify fluency-enhancing strategies (slow speech, thinking of words before speaking) for in 80% of opportunities for 3 data collections. Plan Plan for next session: Personal word list; review slide out, review easy onset Time Entry Total Treatment Time Start Time: 08 Stop Time: 09 Time Calculation (min): 30 min April Chaney CCC-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 [facility] Progress Noteon 07-15-[address] [facility] AT [facility] AT [address] [address] Dept: [phone] Dept SPEECH THERAPY TREATMENT Patient Name: Amanuel Chapman : 1990 Date of Service: 07/15/2024 Referring Provider: Maggie Zhou Visit #: 3 Diagnosis: Stuttering Reason for referral: Stuttering Precautions/Red Flags: None Patient Preferences: Bill Subjective Alert & compliant, brought in folder Pain: 0 Comment: n/a Objective Activity 1: Review of breathing Completed 5 diaphragmatic breaths with good form and carryover from previous session. Completed 10 single syllable /h/ words with practice of diaphragmatic breaths. Activity 2: introduction to easy onset Education provided on easy onset - with use of words that begin with vowels, glides, liquids. Slide model utilized to encourage carryover of climbing the ladder (inhale), sitting down (breath out the "h") and going down the slide (transitioning in to the word). Pt utilized this method with a list of vowel words, liquids, and glide words with adequate comprehension. Self-identified errors and was successful in correcting errors. Home Exercise Program: Progressed home exercise program Assessment Skilled speech therapy interventions utilized to improve patient?s impairments and work towards established goals. Patient response to treatment: Good Patient will benefit from continued speech therapy to increase fluent speech Goals 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 Misc Misc 1 (Progressing) Start: 07/03/24 Expected End: 07/31/24 The patient will improve ease with speaking by identifying 2 speech behaviors/modifications techniques that interfere with fluency. Misc 2 (Progressing) Start: 07/03/24 Expected End: 07/31/24 The patient will identify modifications to speech production (fast/slow, bumpy/smooth, loud/quiet) with 80% accuracy for 3 data collections. Misc 3 (Progressing) Start: 07/03/24 Expected End: 07/31/24 The patient will identify fluency-enhancing strategies (slow speech, thinking of words before speaking) for in 80% of opportunities for 3 data collections. Plan Plan for next session: review trigger words, easy onset, new strategy. Time Entry Total Treatment Time Start Time: 824 Stop Time: 854 Time Calculation (min): 30 min April Chaney CCC-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 [facility] Progress Noteon 07-10-[address] [facility] AT [facility] AT [address] [address] Dept: [phone] Dept SPEECH THERAPY TREATMENT Patient Name: Amanuel Chapman : 1990 Date of Service: 07/10/2024 Referring Provider: Maggie Zhou Visit #: 2 Diagnosis: Stuttering Reason for referral: Stuttering Precautions/Red Flags: None Patient Preferences: Bill Subjective Arrived on time, pleasant, compliant. Pain: 0 Comment: n/a Objective Activity 1: Education Educational handouts provided to review "what is stuttering", How tension/anxiety impacts stuttering" and introduction to body relaxation, posture control, diaphragmatic breathing Activity 2: Diaphragmatic breathing Pt completed x8 breaths with focus on breath in through the nose, breath out through the mouth. Applied with single /h/ words x10. Pt required 1 redirection, as he was observed to let out air and then produce word, self-corrected x1/10 words. Home Exercise Program: Progressed home exercise program Assessment Skilled speech therapy interventions utilized to improve patient?s impairments and work towards established goals. Patient response to treatment: Good Patient will benefit from continued speech therapy to incorporate compensatory strategies to help patient achieve smooth, easy speech. Goals 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 Misc Misc 1 (Progressing) Start: 07/03/24 Expected End: 07/31/24 The patient will improve ease with speaking by identifying 2 speech behaviors/modifications techniques that interfere with fluency. Misc 2 (Progressing) Start: 07/03/24 Expected End: 07/31/24 The patient will identify modifications to speech production (fast/slow, bumpy/smooth, loud/quiet) with 80% accuracy for 3 data collections. Misc 3 (Progressing) Start: 07/03/24 Expected End: 07/31/24 The patient will identify fluency-enhancing strategies (slow speech, thinking of words before speaking) for in 80% of opportunities for 3 data collections. Plan Plan for next session: Review breathing/posture, H words, implement strategy 1. Time Entry Total Treatment Time Start Time: 0830 Stop Time: 0900 Time Calculation (min): 30 min April Chaney CCC-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 [facility] Progress Noteon 07-03-[address] [facility] AT [facility] AT [address] [address] Dept: [phone] Dept SPEECH THERAPY INITIAL EVALUATION Patient Name: Amanuel Chapman : 1990 Date of Service: 07/03/2024 Referring Provider: Maggie Zhou Visit #: 1 Diagnosis: Stutter General Information Reason for referral: Stuttering Precautions/Red Flags: None Patient Preferences: Bill Past Surgical History: No past surgical history on file. Past Medical History: No past medical history on file. Allergies: No Known Allergies Have you experienced any anxiety or depression?: both, currently taking medications Have you experienced thoughts of self-harm or suicidal thoughts?: No Social Drivers of Health Reviewed: Yes Physician follow-up appointment?: Yes Safety Measures: n/a Subjective Chief Complaint: Stuttering Patient endorses difficulties in the following areas: speech Pain: Current: 0/10 Symptoms Aggravated by: stress, anxiety Symptoms Relieved by: unknown Prior Level of Function: since grade school - never treated Current Level of Function: TBD Patient?s Stated Goal: smooth/clear speech Current Diet: Regular, Thin At the present time, would you say your health is: Very Good Concurrent Health Services: No Other Services at this time Any upcoming appointments: n/a Recent Therapy: None within the last sixty days Durable Medical Equipment (DME) Current DME: None anticipated at this time Anticipated DME needs: None anticipated at this time Social Support: lives with his family Community resources: Independent with all ADLs/IADLs Hobbies: Dogs, horse - 15 Home environment: multi level home 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 Education Level: Some College Vocational Education High School Diploma Hand Dominance: Right Vision: Glasses Audition: Deferred at this time Assessment Method: Clinical observation, Objective testing, Patient/caregiver interview Objective MOTOR SPEECH EXAM Respiration: Conversation: Abdominal Voice: Within normal limits Resonance: Within normal limits Prosody: Variable rate Prolonged intervals Prolonged phonemes Short rushes Diadochokinesis: Precise articulation; Dysfluencies noted - whole word-repetition; blocks Articulation: Within normal limits Speech Intelligibility: Unstructured conversation: 100% Dysarthria: N/A Apraxia: N/A Motor Speech Exam Comments: Pt presents with stuttering dysfluencies that impact his verbal communication. Primary dysfluencies noted: whole word repetitions; blocks; interjections; Secondary dysfluencies noted: blinking eyes; facial grimacing; throat clear/coughing. Concomitant Factors: None Impact on Functioning: Current stuttering dysfluencies impact the patients social participation with family, peers, and in the work environment. Pt reports avoidance of various situations in order to prevent stuttering from occurring in daily life. Informal Stutterning Screener administered. Assessment Amanuel Chapman is a 33 y.o. male with chief complaint of stuttering, who presents with signs and symptoms consistent with dysfluency. The patient would benefit from skilled speech therapy to address speech skills in order to improve verbal communication skills. Rehab Potential: Good Learning Preferences: demonstration, explanation, and printed materials Barriers to Rehab: none Goals 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 Misc Misc 1 (Initiated) Start: 07/03/24 Expected End: 07/31/24 The patient will improve ease with speaking by identifying 2 speech behaviors/modifications techniques that interfere with fluency. Misc 2 (Initiated) Start: 07/03/24 Expected End: 07/31/24 The patient will identify modifications to speech production (fast/slow, bumpy/smooth, loud/quiet) with 80% accuracy for 3 data collections. [facility] 3 (Initiated) Start: 07/03/24 Expected End: 07/31/24 The patient will identify fluency-enhancing strategies (slow speech, thinking of words before speaking) for in 80% of opportunities for 3 data collections. Plan Frequency and Duration: 1/wk for 4 weeks Therapeutic Contents: Compensation Strategies, Patient/family training, Progressive Home Program Plan for next session: Stuttering strategy introduction Risks and benefits were discussed with the patient and/or family, and the patient and/or family participated with the plan of care and agrees. Home Exercise Program: Created Time Entry Total Treatment Time Start Time: 829 Stop Time: 929 Time Calculation (min): 60 min April Chaney CCC-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 [facility] [place] (INFDMN) AMANUEL CHAPMAN ([id number]) 1990 [facility] Date Time Provider Department 03/18/24 8:30 AM NURSE DIONTE DOCKERY INFFAISAL During your visit today, we recorded the following information about you: Brittany Palafox MA 03/18/2024 9:01 AM Signed After obtaining informed consent, the PCN inj is given by Brittany Palafox MA . Allergies As of Date: 03/18/2024 (No Known Allergies) Date Reviewed: 12/19/2023 Reviewed by: Kwan Khan MA - Fully Assessed Reason for Visit: Nurse Visit [792] Primary Visit Diagnosis:Syphilis [A53.9] Prescriptions as of 03/18/2024 - bictegravir-emtricitabi ne-tenofovir alafenamide (BIKTARVY) 50-200-25 mg per tablet Take 1 tablet by mouth once daily. - escitalopram oxalate (LEXAPRO) 10 mg tablet Take 10 mg by mouth once daily. - amLODIPine (NORVASC) 10 mg tablet Take 1 tablet by mouth once daily. Facility-Administered Medications as of 03/18/2024 - penicillin g benzathine 2.4 Million Units injection (BICILLIN L-A) Problem List As Of Date 03/18/2024 Noted Resolved Elevated blood pressure reading without diagnos*07/31/2022 Obesity, Class II, BMI 35-39.9 [E66.9] 07/31/2022 HIV positive ([facility]) [Z21] 07/31/2022 04/18/2023 History of syphilis [Z86.19] 07/31/2022 Human immunodeficiency virus (HIV) disease ([facility]*04/18/2023 Encounter Status:Closed by BRITTANY PALAFOX on 03/18/24 Normal [facility] C. trachomatis+N. gonorrhoea e DNA ANGEL+probe Ql (Unsp spec)on 03-11-2024 C. trachomatis rRNA ANGEL+probe Ql (Unsp spec) Negative Normal Negative for Chlamydia trachomatis by amplificaton [facility] Comment on above: Order Comment: Speci men Type: URINE SPECIMENOrdering Facility: [facility] Address: [address] [place] [address] Performed By: #### 3 6902-5 ####[facility] [id number] [place] [address] [place] N. gonorrhoeae rRNA ANGEL+probe Ql (Unsp spec) Negative Normal Negative for Neisseria gonorrhoeae by amplification [facility] Comment on above: Order Comment: Speci men Type: URINE SPECIMENOrdering Facility: [facility] Address: [address] [place] [address] Performed By: #### 3 6902-5 ####[facility] [id number] [place] [address] [place] C. trachomatis rRNA ANGEL+probe Ql (Unsp spec) Negative Normal Negative for Chlamydia trachomatis by amplificaton [facility] Comment on above: Order Comment: Speci men Type: SWABOrdering Facility: [facility] Address: [address] [place] [address] Performed By: #### 3 6902-5 ####[facility] LABCLIA [id number] [place] [address] [place] N. gonorrhoeae rRNA ANGEL+probe Ql (Unsp spec) Negative Normal Negative for Neisseria gonorrhoeae by amplification [facility] Comment on above: Order Comment: Speci men Type: SWABOrdering Facility: [facility] Address: [address] [place] [address] Performed By: #### 3 6902-5 ####[facility] LABIA [id number] [place] [address] [place] CHLAM/GONO, RECTAL SWAB, ANGEL on 03-11-2024 C. trachomatis DNA ANGEL+probe Ql (Rectum) Negative Normal Negative [facility] Comment on above: Order Comment: Speci men Type: SWABOrdering Facility: [facility] Address: [address] [place] [address] Performed By: #### C GRECT ####[facility] LABCLIA [id number] [place] [address] N. gonorrhoeae rRNA ANGEL+probe Ql (Rectum) Negative Normal Negative [facility] Comment on above: Order Comment: Speci men Type: SWABOrdering Facility: [facility] Address: [address] [place] [address] Performed By: #### C GRECT ####[facility] LABCLIA [id number] [place] [address] CNNURSEon 03-11-2024 CNNURSE Nurse Visit (INFDMN) AMANUEL CHAMPAN ([id number]) 1990 [facility] Date Time Provider Department 03/11/24 9:00 AM NURSE DIONTE MCKEON During your visit today, we recorded the following information about you: Brittany Palafox MA 03/11/2024 9:30 AM Signed After obtaining informed consent, the PCN inj is given by Brittany Palafox MA. Dr Mitchell order oral and rectal GONORRHEA/CHLAMYDIA test in the office Pt performed himself. Allergies As of Date: 03/11/2024 (No Known Allergies) Date Reviewed: 12/19/2023 Reviewed by: Kwan Khan MA - Fully Assessed Reason for Visit: Nurse Visit [792] Primary Visit Diagnosis:Syphilis [A53.9] Other Visit Diagnosis:Screen for STD (sexually transmitted disease) [Z11.3] Order(s):GONORRHEA/CHLA MYDIA NAAT [SQGCCT] Order #: [id number]. #:[id number] CHLAM/GONO, RECTAL SWAB, ANGEL [[id number]] Order #: [id number]. #:[id number] Prescriptions as of 03/11/2024 - bictegravir-emtricitabi ne-tenofovir alafenamide (BIKTARVY) 50-200-25 mg per tablet Take 1 tablet by mouth once daily. - escitalopram oxalate (LEXAPRO) 10 mg tablet Take 10 mg by mouth once daily. - amLODIPine (NORVASC) 10 mg tablet Take 1 tablet by mouth once daily. Facility-Administered Medications as of 03/11/2024 - penicillin g benzathine 2.4 Million Units injection (BICILLIN L-A) Problem List As Of Date 03/11/2024 Noted Resolved Elevated blood pressure reading without diagnos*07/31/2022 Obesity, Class II, BMI 35-39.9 [E66.9] 07/31/2022 HIV positive (HCC) [Z21] 07/31/2022 04/18/2023 History of syphilis [Z86.19] 07/31/2022 Human immunodeficiency virus (HIV) disease (HCC*04/18/2023 Encounter Status:Closed by BRITTANY PALAFOX on 03/11/24 [facility] 03-04-2024 CNNURSE Nurse Visit (INFDMN) AMANUEL CHAPMAN ([id number]) 1990 [facility] Date Time Provider Department 03/04/24 2:00 PM NURSE DIONTE DOCKERY INFFAISAL During your visit today, we recorded the following information about you: Brittany Palafox MA 03/04/2024 2:38 PM Signed After obtaining informed consent, the immunization is given by Brittany Palafox MA . Valerio Mitchell MD 03/11/2024 9:09 AM Signed Addended by: VALERIO MITCHELL on: 03/11/2024 09:09 AM Modules accepted: Orders Allergies As of Date: 03/04/2024 (No Known Allergies) Date Reviewed: 12/19/2023 Reviewed by: Kwan Khan MA - Fully Assessed Reason for Visit: Nurse Visit [792] Primary Visit Diagnosis:Syphilis [A53.9] Other Visit Diagnosis:Screen for STD (sexually transmitted disease) [Z11.3] Order(s):[] penicillin g benzathine 2.4 Million Units injection (BICILLIN L-A)Disp: Rfl: NICKOLASAM/DIANAO, RECTAL SWAB, ANGEL [[id number]] Order #: [id number] FUTURE Prescriptions as of 03/11/2024 - bictegravir-emtricitabi ne-tenofovir alafenamide (BIKTARVY) 50-200-25 mg per tablet Take 1 tablet by mouth once daily. - escitalopram oxalate (LEXAPRO) 10 mg tablet Take 10 mg by mouth once daily. - amLODIPine (NORVASC) 10 mg tablet Take 1 tablet by mouth once daily. Facility-Administered Medications as of 03/11/2024 - penicillin g benzathine 2.4 Million Units injection (BICILLIN L-A) Problem List As Of Date 03/04/2024 Noted Resolved Elevated blood pressure reading without diagnos*07/31/2022 Obesity, Class II, BMI 35-39.9 [E66.9] 07/31/2022 HIV positive (HCC) [Z21] 07/31/2022 04/18/2023 History of syphilis [Z86.19] 07/31/2022 Human immunodeficiency virus (HIV) disease (HCC*04/18/2023 Prescriptions ordered this encounter Disp Refills Start End PENICILLIN G BENZATHINE 2,400,000 UN* 03/04/2024 03/04/2024 Route: INTRAMUSCULA Encounter Status:Closed by BRITTANY PALAFOX on 03/04/24 [facility] CNPMarlena 02-29-2024 CNPN Telephone (INFDMN) AMANUEL CHAPMAN ([id number]) 1990 [facility] Date Time Provider Department 02/29/[address] [facility] During your visit today, we recorded the following information about you: Kacie Dunn MD 02/29/2024 11:49 AM Signed Patient called with concerns of rash. He described an ankle rash that he attributed to his boots. It has now spread to involve his leg. He is also extremity tired. He has concerns about syphilis re-infection. Last RPR titter 1:128 (from 1:256 >6 months prior). At the time interpreted as probable adequate response to treatment given time frame. Recommend repeated RPR titter at this time is addition to other STD screen. Given symptoms, recommend treatment for secondary syphilis as well with 3 IM penicillin injections, will have my office coordinate. Kacie Marrufo MD PAGER Allergies As of Date: 02/29/2024 (No Known Allergies) Date Reviewed: 12/19/2023 Reviewed by: Kwan Khan MA - Fully Assessed Reason for Visit: Results [95] Patient Question [1477] Primary Visit Diagnosis:History of syphilis [Z86.19] Other Visit Diagnoses:STD (female) [A64] Screen for STD (sexually transmitted disease) [Z11.3] Order(s):SYPHILIS TOTAL W/REFLEX [SQSYPHTX] Order #: [id number] FUTURE penicillin g benzathine 2.4 Million Units injection (BICILLIN L-A)Disp: Rfl: GONORRHEA/CHLAMYDIA NAAT [SQGCCT] Order #: [id number] FUTURE GONORRHEA/CHLAMYDIA NAAT [SQGCCT] Order #: [id number] FUTURE Prescriptions as of 02/29/2024 - bictegravir-emtricitabi ne-tenofovir alafenamide (BIKTARVY) 50-200-25 mg per tablet Take 1 tablet by mouth once daily. - escitalopram oxalate (LEXAPRO) 10 mg tablet Take 10 mg by mouth once daily. - amLODIPine (NORVASC) 10 mg tablet Take 1 tablet by mouth once daily. Facility-Administered Medications as of 02/29/2024 - penicillin g benzathine 2.4 Million Units injection (BICILLIN L-A) Problem List As Of Date 02/29/2024 Noted Resolved Elevated blood pressure reading without diagnos*07/31/2022 Obesity, Class II, BMI 35-39.9 [E66.9] 07/31/2022 HIV positive (HCC) [Z21] 07/31/2022 04/18/2023 History of syphilis [Z86.19] 07/31/2022 Human immunodeficiency virus (HIV) disease (HCC*04/18/2023 Prescriptions ordered this encounter Disp Refills Start End PENICILLIN G BENZATHINE 2,400,000 UN* 02/29/2024 03/21/2024 Route: INTRAMUSCULA Encounter Status:Closed by KACIE DUNN on 02/29/24 Normal [facility] RPR Ser Qlon 02-29-2024 Reagin Ab RPR Ql (S) Reactive Abnormal Nonreactive [facility] Comment on above: Order Comment: Speci men Type: BLOOD SPECIMEN [facility] Address: [address] [place] [address] Performed By: #### 7 3752-8, 74634-3, 90418-5 #### [facility] CLIA [id number] [address] [place] [address] [place] RPR Ser-Titron 02-29-2024 Reagin Ab RPR (S) [Titer] 1:256 Normal [facility] Comment on above: Order Comment: Speci wander Type: BLOOD SPECIMEN [facility] Address: [address] [place] [address] Result Comment: Rapi d plasma reagin (RPR) test detects non-treponemal antibodies. RPR may be reactive in a variety of infectious and non-infectious conditions. Correlation with clinical picture and with treponemal antibody results is required for final interpretation. Performed By: #### 7 3752-8, , 60699-6 #### [facility] CLIA [id number] [address] [place] [address] [place] Reagin and Treponema pallidu m IgG and IgM [Interp]on 02-29-2024 T. pallidum IgG+IgM IA Ql (S) Reactive Abnormal Nonreactive [facility] Comment on above: Order Comment: Speci wander Type: BLOOD SPECIMEN [facility] Address: [address] [place] [address] Performed By: #### 7 3752-8, , 83745-3 #### [facility] CLIA [id number] [address] [place] [address] [place] Reagin+T pallidum IgG+IgM Se rPl-Impon 02-29-2024 Reagin and Treponema pallidum IgG and IgM [Interp] The results suggest active Treponemal infection, however, RPR titers may remain elevated for extended periods after adequate treatment in serofast individuals. Correlation with clinical picture and treatment history is required. Normal [facility] Comment on above: Order Comment: Michelle viramontes Type: BLOOD SPECIMEN [facility] Address: [address] [place] [address] Performed By: #### 7 3752-8, , 26620-0 #### [facility] CLIA [id number] [address] [place] [address] [place] HIV 1 RNA ANGEL+probe [#/Vol]O rdered By: Taylor Guido on 12-20-2023 Interpretation and review of laboratory results Abnormal [facility] Linear range of assa y: 20 copies/mL to 10,000,000 copies/mL. HIV Information: [place] Rev. Code 3701.243(E): This information has been disclosed to you from confidential records protected from disclosure by state law. You shall make no further disclosure of this information without the specific, written, and informed release of the individual to whom it pertains, or as otherwise permitted by state law. A general authorization for the release of medical or other information is not sufficient for the purpose of the release of HIV test results or diagnoses. [facility] HIV RNA VIRAL LOADOrdered By : Taylor Guido on 12-20-2023 HIV 1 RNA ANGEL+probe [#/Vol] Less than 20 Copies/mL (<1.3 Log Copies/mL) HIV-1 RNA detected by PCR, not quantifiable. Abnormal HIV-1 RNA not detected by PCR. [facility] Reagin and Treponema pallidu m IgG and IgM [Interp]Ordered By: Lina Kessler on 12-20-2023 Interpretation and review of laboratory results Abnormal [facility] T. pallidum IgG+IgM IA Ql (S) Reactive Abnormal Nonreactive [facility] SYPHILIS TOTAL W/REFLEXOrder ed By: Lina Kessler on 12-20-2023 Reagin and Treponema pallidum IgG and IgM [Interp] The results suggest active Treponemal infection, however, RPR titers may remain elevated for extended periods after adequate treatment in serofast individuals. Correlation with clinical picture and treatment history is required. [facility] T-cell helper (CD4) subset p lance (Bld)on 12-20-2023 CD3 cells (Bld) [#/Vol] 1950 /uL [facility] CD3 cells/100 cells (Bld) 86 % 60 - 89 % [facility] CD3+CD4+ (T4 helper) cells (Bld) [#/Vol] 728 [facility] CD3+CD4+ (T4 helper) cells/100 cells (Bld) 32 % Low 34 - 61 % [facility] Interpretation and review of laboratory results Abnormal [facility] Clinical interpretat ion of lymphocyte subsets must be made with caution. Relative and absolute values may be profoundly affected by immunosuppressive or cytotoxic therapy, and be abnormal in a wide variety of infectious, inflammatory, autoimmune and neoplastic disorders. The following number of cluster designated antibodies were used for the definition of the above reported populations: CD3 and CD4. (CD45 used for gating.) This test was developed and its performance characteristics determined by [facility]'s [facility] [place] ([facility]). It has not been cleared or approved by the FDA. [facility] is regulated under CLIA as qualified to perform high-complexity testing. This test is used for clinical purposes. It should not be regarded as investigational or for research. [facility] CBC W Auto Differential pane l (Bld)on 12-19-2023 Basophils (Bld) [#/Vol] 0.05 10*3/uL [facility] Basophils/100 WBC (Bld) 0.8 % [facility] Differential cell count method Nom (Bld) Auto [facility] Eosinophils (Bld) [#/Vol] 0.14 10*3/uL [facility] Eosinophils/100 WBC (Bld) 2.3 % [facility] Erythrocyte distribution width (RBC) [Ratio] 12.0 % 11.5 - 15.0 % [facility] Hematocrit (Bld) [Volume fraction] 45.2 % 39.0 - 51.0 % [facility] Hemoglobin (Bld) [Mass/Vol] 15.4 g/dL 13.0 - 17.0 g/dL [facility] Immature granulocytes (Bld) [#/Vol] [facility] Immature granulocytes/100 WBC (Bld) 0.3 % [facility] Lymphocytes (Bld) [#/Vol] 2.29 10*3/uL [facility] Lymphocytes/100 WBC (Bld) 37.7 % [facility] MCH (RBC) [Entitic mass] 30.7 pg 26.0 - 34.0 pg [facility] MCHC (RBC) [Mass/Vol] 34.1 g/dL 30.5 - 36.0 g/dL [facility] MCV (RBC) [Entitic vol] 90.2 fL 80.0 - 100.0 fL [facility] Monocytes (Bld) [#/Vol] 0.45 10*3/uL [facility] Monocytes/100 WBC (Bld) 7.4 % [facility] Neutrophils (Bld) [#/Vol] 3.12 10*3/uL [facility] Neutrophils/100 WBC (Bld) 51.5 % [facility] Nucleated RBC (Bld) [#/Vol] NINF [facility] Nucleated RBC/100 WBC (Bld) [Ratio] 0.0 % /100 WBC [facility] Platelet mean volume (Bld) [Entitic vol] 10.3 fL 9.0 - 12.7 fL [facility] Platelets (Bld) [#/Vol] 280 10*3/uL [facility] RBC (Bld) [#/Vol] 5.01 10*6/uL 4.20 - 6.00 m/uL [facility] WBC (Bld) [#/Vol] 6.07 10*3/uL [facility] Basophils (Bld) [#/Vol] 0.05 10*3/uL Normal <0.11 [facility] Comment on above: Order Comment: Speci men Type: BLOOD SPECIMENOrdering Facility: [facility] Address: [address] [place] [address] Performed By: #### 5 7021-8 ####[facility] LABCLIA [id number] [place] [address] [place] Basophils/100 WBC (Bld) 0.8 % Normal [facility] Comment on above: Order Comment: Speci men Type: BLOOD SPECIMENOrdering Facility: [facility] Address: [address] [place] [address] Performed By: #### 5 7021-8 ####[facility] LABCLIA [id number] [place] [address] [place] Differential cell count method Nom (Bld) Auto Normal [facility] Comment on above: Order Comment: Speci men Type: BLOOD SPECIMENOrdering Facility: [facility] Address: [address] [place], [place] [address] Performed By: #### 5 7021-8 ####[facility] LABCLIA [id number] [place] [address] [place] Eosinophils (Bld) [#/Vol] 0.14 10*3/uL Normal <0.46 [facility] Comment on above: Order Comment: Speci men Type: BLOOD SPECIMENOrdering Facility: [facility] Address: [address] [place] [address] Performed By: #### 5 7021-8 ####[facility] LABCLIA [id number] [place] [address] [place] Eosinophils/100 WBC (Bld) 2.3 % Normal [facility] Comment on above: Order Comment: Speci men Type: BLOOD SPECIMENOrdering Facility: [facility] Address: [address] [place] [address] Performed By: #### 5 7021-8 ####[facility] LABCLIA [id number] [place] [address] [place] Erythrocyte distribution width (RBC) [Ratio] 12.0 % Normal 11.5-15.0 [facility] Comment on above: Order Comment: Speci men Type: BLOOD SPECIMENOrdering Facility: [facility] Address: [address] [place] [address] Performed By: #### 5 7021-8 ####[facility] LABCLIA [id number] [place] [address] [place] Hematocrit (Bld) [Volume fraction] 45.2 % Normal 39.0-51.0 [facility] Comment on above: Order Comment: Speci men Type: BLOOD SPECIMENOrdering Facility: [facility] Address: [address] [place] [address] Performed By: #### 5 7021-8 ####[facility] LABCLIA [id number] [place] [address] [place] Hemoglobin (Bld) [Mass/Vol] 15.4 g/dL Normal 13.0-17.0 [facility] Comment on above: Order Comment: Speci men Type: BLOOD SPECIMENOrdering Facility: [facility] Address: [address] [place] [address] Performed By: #### 5 7021-8 ####[facility] LABCLIA [id number] [place] [address] [place] Immature granulocytes (Bld) [#/Vol] 10*3/uL Normal <0.10 [facility] Comment on above: Order Comment: Speci men Type: BLOOD SPECIMENOrdering Facility: [facility] Address: [address] [place] [address] Performed By: #### 5 7021-8 ####[facility] LABCLIA [id number] [place] [address] [place] Immature granulocytes/100 WBC (Bld) 0.3 % Normal [facility] Comment on above: Order Comment: Speci men Type: BLOOD SPECIMENOrdering Facility: [facility] Address: [address] [place] [address] Performed By: #### 5 7021-8 ####[facility] LABCLIA [id number] [place] [address] [place] Lymphocytes (Bld) [#/Vol] 2.29 10*3/uL Normal 1.00-4.00 [facility] Comment on above: Order Comment: Speci men Type: BLOOD SPECIMENOrdering Facility: [facility] Address: [address] [place] [address] Performed By: #### 5 7021-8 ####[facility] LABCLIA [id number] [place] [address] [place] Lymphocytes/100 WBC (Bld) 37.7 % Normal [facility] Comment on above: Order Comment: Speci men Type: BLOOD SPECIMENOrdering Facility: [facility] Address: [address] [place] [address] Performed By: #### 5 7021-8 ####[facility] LABIA [id number] [place] [address] [place] MCH (RBC) [Entitic mass] 30.7 pg Normal 26.0-34.0 [facility] Comment on above: Order Comment: Speci men Type: BLOOD SPECIMENOrdering Facility: [facility] Address: [address] [place] [address] Performed By: #### 5 7021-8 ####[facility] [id number] [place] [address] [place] MCHC (RBC) [Mass/Vol] 34.1 g/dL Normal 30.5-36.0 [facility] Comment on above: Order Comment: Speci men Type: BLOOD SPECIMENOrdering Facility: [facility] [facility] Address: [address] [place] [address] Performed By: #### 5 7021-8 ####[facility] [id number] [place] [address] [place] MCV (RBC) [Entitic vol] 90.2 fL Normal 80.0-100.0 [facility] Comment on above: Order Comment: Speci men Type: BLOOD SPECIMENOrdering Facility: [facility] Address: [address] [place] [address] Performed By: #### 5 7021-8 ####[facility] LABIA [id number] [place] [address] [place] Monocytes (Bld) [#/Vol] 0.45 10*3/uL Normal <0.87 [facility] Comment on above: Order Comment: Speci men Type: BLOOD SPECIMENOrdering Facility: [facility] Address: [address] [place] [address] Performed By: #### 5 7021-8 ####[facility] LABIA [id number] [place] [address] [place] Monocytes/100 WBC (Bld) 7.4 % Normal [facility] Comment on above: Order Comment: Speci men Type: BLOOD SPECIMENOrdering Facility: [facility] Address: [address] [place] [address] Performed By: #### 5 7021-8 ####[facility] LABCLIA [id number] [place] [address] [place] Neutrophils (Bld) [#/Vol] 3.12 10*3/uL Normal 1.45-7.50 [facility] Comment on above: Order Comment: Speci men Type: BLOOD SPECIMENOrdering Facility: [facility] Address: [address] [place] [address] Performed By: #### 5 7021-8 ####[facility] LABCLIA [id number] [place] [address] [place] Neutrophils/100 WBC (Bld) 51.5 % Normal [facility] Comment on above: Order Comment: Speci men Type: BLOOD SPECIMENOrdering Facility: [facility] Address: [address] [place] [address] Performed By: #### 5 7021-8 ####[facility] LABCLIA [id number] [place] [address] [place] Nucleated RBC (Bld) [#/Vol] 10*3/uL Normal <0.01 [facility] Comment on above: Order Comment: Speci men Type: BLOOD SPECIMENOrdering Facility: [facility] Address: [address] [place] [address] Performed By: #### 5 7021-8 ####[facility] LABCLIA [id number] [place] [address] [place] Nucleated RBC/100 WBC (Bld) [Ratio] 0.0 /100 WBC Normal [facility] Comment on above: Order Comment: Speci men Type: BLOOD SPECIMENOrdering Facility: [facility] Address: [address] [place] [address] Performed By: #### 5 7021-8 ####[facility] LABIA [id number] [place] [address] [place] Platelet mean volume (Bld) [Entitic vol] 10.3 fL Normal 9.0-12.7 [facility] Comment on above: Order Comment: Speci men Type: BLOOD SPECIMENOrdering Facility: [facility] Address: [address] [place] [address] Performed By: #### 5 7021-8 ####[facility] LABIA [id number] [place] [address] [place] Platelets (Bld) [#/Vol] 280 10*3/uL Normal 150-400 [facility] Comment on above: Order Comment: Speci men Type: BLOOD SPECIMENOrdering Facility: [facility] Address: [address] [place] [address] Performed By: #### 5 7021-8 ####[facility] LABIA [id number] [place] [address] [place] RBC (Bld) [#/Vol] 5.01 10*6/uL Normal 4.20-6.00 [facility] Comment on above: Order Comment: Speci men Type: BLOOD SPECIMENOrdering Facility: [facility] Address: [address] [place] [address] Performed By: #### 5 7021-8 ####[facility] LABIA [id number] [place] [address] [place] WBC (Bld) [#/Vol] 6.07 10*3/uL Normal 3.70-11.00 [facility] Comment on above: Order Comment: Speci men Type: BLOOD SPECIMENOrdering Facility: [facility] Address: [address] [place] [address] Performed By: #### 5 7021-8 ####[facility] LABSOREN [id number] [place] [address] [place] CNOVon 12-19-2023 CNOV Office Visit (INFDMN ) AMANUEL CHAPMAN ([id number]) 1990 M CHT Date Time Provider Department 12/19/23 9:[address] [facility] During your visit today, we recorded the following information about you: Temperature Pulse Respiration Blood pressure 98.6 degrees 103/minute 18/minute 145/109 Weight 110.7 kg Tommy Alvarado MD 12/26/2023 2:50 PM Signed Amanuel Chapman is a 31 year old White male patient here for routine follow-up HIV infection. Patient is Francisco White eligible: No, does not meet requirements for Francisco White assessment Background No overview note entered for diagnosis 042 HIV Status: HIV +, not AIDS Last Previous Negative HIV test: Unknown, home test positive 12/21, confirmed positive started ART 06/22 Lowest CD4+ Count: No results on file at [facility] Lowest CD4+ Percent: No results on file at [facility] Last encounter in Infectious Disease: 04/2023 Interval Events: Working two jobs 60+ hours leading to stress worsening mental healthy care so he quit a job and is now only working one job. Also went via [employer] to start lexapro which has also helped his mood. 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 Trying to find PCP as last one was 'overwhelmed' by his car.e Current Medications: BIKTARVY 50-200-25 mg per tablet take 1 tablet by mouth once daily escitalopram oxalate (LEXAPRO) 10 mg tablet Take 10 mg by mouth once daily. amLODIPine (NORVASC) 10 mg tablet Take 1 tablet by mouth once daily. Medication History Since his last visit he has not stopped his medications. 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 Sexually Active: No Have you seen a dentist in the past 12 months?: No Are you an active smoker?: No Are you ready to quit smoking?: NA Influenza Vaccine: Open to getting today Immunization History Administered Date(s) Administered COVID-19 original vaccine, full dose, monovalent (MODERNA) 04/14/2021 05/12/2021 COVID-19 vaccine, age 12+ yr, bivalent (MeetBall-ContextWeb) 07/19/2022 Haemophilus influenzae b (Hib) vaccine, unspecified formulation 1990 01/05/1993 04/06/1993 11/30/1993 diphtheria tetanus pertussis (DTP) vaccine 1990 01/05/1993 04/06/1993 diphtheria tetanus pertussis (DTaP) vaccine, unspecified formulation 11/30/1993 02/25/1998 hepatitis A-hepatitis B (HepA-HepB) vaccine (TWINRIX) 10/04/2022 hepatitis B (HepB) vaccine, 3-dose series, age 20+ yr (ENGERIX-B, RECOMBIVAX HB) 02/21/2012 hepatitis B (HepB-CpG) vaccine, adult, 2-dose series (HEPLISAV-B) 07/19/2022 12/19/2023 human papillomavirus (HPV9) vaccine, 9 valent (GARDASIL 9) 07/19/2022 12/19/2023 influenza (HD-IIV4) vaccine, age 65+ yr, high dose, quadrivalent, PF (FLUZONE HIGH-DOSE) 07/19/2022 measles mumps rubella (MMR) vaccine (M-M-R II, PRIORIX) 11/30/1993 10/04/2022 meningococcal (MenACWY-D) vaccine, quadrivalent (MENACTRA) 02/21/2012 meningococcal (MenACWY-TT) vaccine, quadrivalent (MENQUADFI) 12/19/2023 pneumococcal conjugate (PCV20) vaccine, 20 valent (PREVNAR 20) 07/31/2022 poliovirus vaccine, unspecified formulation 1990 01/05/1993 11/30/1993 tetanus diphtheria pertussis (Tdap) vaccine, age 7+ yr (ADACEL, BOOSTRIX) 07/31/2022 Review of Systems: The remainder of the review of systems is negative. PHYSICAL EXAM: BP 145/109 Pulse 103 Temp 37 ?C (98.6 ?F) (Temporal) Resp 18 Wt 110.7 kg (244 lb) SpO2 98% BMI 35.33 kg/m? BMI 35.33 kg/(m2) General appearance:alert, cooperative, pleasant, in no acute distress Skin: clear, no rashes Head: Normocephalic, no masses, lesions, tenderness or abnormalities Eyes: Negative Ears: external ears normal, canals clear, TM's normal Nose: clear Oropharynx: moist without lesions, no thrush, teeth in good repair Lymph Nodes: no cervical, supraclavicular, axillary or inguinal lymphadenopathy Lungs: clear to auscultation, without rales or wheeze, good air exchange Cardiac: regular rate and rhythm, without murmur Abdomen: soft, nondistended, nontender, no hepatosplenomegaly or masses Extremities: no edema in LE bilaterally, no cynanosis or clubbing Rectal:Not examined on this visit Neuro:Awake, alert and oriented x 3 and No obvious focal deficits Lab Results: Latest Ref Rng AND Units 06/21/2022 07/19/2022 12/19/2023 [facility] CD3+CD4+ T Cell # 533 - 1,674 cells/uL 623 728 CD3+CD4+ T Cell % 34 - 61 % 34 32 HIV RNA (Log Copies/mL) Log Copies/mL 3.3 (more content not included)... Normal [facility] Comprehensive metabolic 2000 panelon 12-19-2023 Albumin [Mass/Vol] 4.6 g/dL 3.9 - 4.9 g/dL Cl [facility] ALP [Catalytic activity/Vol] 78 U/L 38 - 113 U/L [facility] ALT [Catalytic activity/Vol] 24 U/L 10 - 54 U/L [facility] Anion gap [Moles/Vol] 11 mmol/L 8 - 15 mmol/L [facility] AST [Catalytic activity/Vol] 23 U/L 14 - 40 U/L [facility] Bilirubin [Mass/Vol] 0.5 mg/dL 0.2 - 1.3 mg/dL [facility] Calcium [Mass/Vol] 9.9 mg/dL 8.5 - 10.2 mg/dL [facility] Chloride [Moles/Vol] 102 mmol/L 98 - 107 mmol/L [facility] CO2 [Moles/Vol] 25 mmol/L 22 - 30 mmol/L [facility] Creatinine [Mass/Vol] 1.07 mg/dL 0.73 - 1.22 mg/dL [facility] GFR/1.73 sq M.predicted among non-blacks MDRD (S/P/Bld) [Vol rate/Area] 95 mL/min/{1.73_m2} - PINF [facility] Comment on above: Estimated Glomerular Filtration Rate (eGFR) is calculated using the 2020 CKD-EPI creatinine equation. This equation utilizes serum creatinine, sex, and age as parameters. The creatinine assay has traceable calibration to isotope dilution-mass spectrometry. Refer to KDIGO guidelines for clinical interpretation. In patients with unstable renal function, e.g. those with acute kidney injury, the eGFR may not accurately reflect actual GFR. Glucose [Mass/Vol] 98 mg/dL 74 - 99 mg/dL [facility] Comment on above: The [place] Diabete s Association (ADA) provides guidance for cutoff values for fasting glucose and random glucose. The ADA defines fasting as no caloric intake for at least 8 hours. Fasting plasma glucose results between 100 to 125 mg/dL indicate increased risk for diabetes (prediabetes). Fasting plasma glucose results greater than or equal to 126 mg/dL meet the criteria for diagnosis of diabetes. In the absence of unequivocal hyperglycemia, results should be confirmed by repeat testing. In a patient with classic symptoms of hyperglycemia or hyperglycemic crisis, random plasma glucose results greater than or equal to 200 mg/dL meet the criteria for diagnosis of diabetes. Reference: Standards of Medical Care in Diabetes 2016, [place] Diabetes Association. Diabetes Care. 2016.39(Suppl 1). Potassium [Moles/Vol] 4.4 mmol/L 3.7 - 5.1 mmol/L [facility] Protein [Mass/Vol] 8.1 g/dL High 6.3 - 8.0 g/dL Cl [facility] Sodium [Moles/Vol] 138 mmol/L 136 - 144 mmol/L [facility] Urea nitrogen [Mass/Vol] 13 mg/dL 9 - 24 mg/dL [facility] Albumin [Mass/Vol] 4.6 g/dL Normal 3.9-4.9 [facility] Comment on above: Order Comment: Speci men Type: BLOOD SPECIMENOrdering Facility: [facility] Address: [address] [place] [address] Performed By: #### 2 4323-8, , 2776-07 ####[facility] LABCLIA [id number] [place] [address] [place] ALP [Catalytic activity/Vol] 78 U/L Normal 38-113 [facility] Comment on above: Order Comment: Speci men Type: BLOOD SPECIMENOrdering Facility: [facility] Address: [address] [place] [address] Performed By: #### 2 4323-8, , 2776-07 ####[facility] LABCLIA [id number] [place] [address] [place] ALT [Catalytic activity/Vol] 24 U/L Normal 10-54 [facility] Comment on above: Order Comment: Speci men Type: BLOOD SPECIMENOrdering Facility: [facility] Address: [address] [place] [address] Performed By: #### 2 4323-8, , 2776-07 ####[facility] LABCLIA [id number] [place] [id number] [place] Anion gap [Moles/Vol] 11 mmol/L Normal 8-15 [facility] Comment on above: Order Comment: Speci men Type: BLOOD SPECIMENOrdering Facility: [facility] Address: [address] [place] [address] Performed By: #### 2 4323-8, 62763-3, 2776-07 ####[facility] LABCLIA [id number] [place] [address] [place] AST [Catalytic activity/Vol] 23 U/L Normal 14-40 [facility] Comment on above: Order Comment: Speci men Type: BLOOD SPECIMENOrdering Facility: [facility] Address: [address] [place] [address] Performed By: #### 2 4323-8, 97874-9, 2776-07 ####[facility] LABCLIA [id number] [place] [address] [place] Bilirubin [Mass/Vol] 0.5 mg/dL Normal 0.2-1.3 [facility] Comment on above: Order Comment: Speci men Type: BLOOD SPECIMENOrdering Facility: [facility] Address: [address] [place] [address] Performed By: #### 2 4323-8, , 2776-07 ####[facility] LABCLIA [id number] [place] [address] [place] Calcium [Mass/Vol] 9.9 mg/dL Normal 8.5-10.2 [facility] Comment on above: Order Comment: Speci men Type: BLOOD SPECIMENOrdering Facility: [facility] Address: [address] [place] [address] Performed By: #### 2 4323-8, , 2776-07 ####[facility] LABCLIA [id number] [place] [address] [place] Chloride [Moles/Vol] 102 mmol/L Normal 98-107 [facility] Comment on above: Order Comment: Speci men Type: BLOOD SPECIMENOrdering Facility: [facility] Address: [address] [place] [address] Performed By: #### 2 4323-8, , 2776-07 ####[facility] LABCLIA [id number] [place] [id number] [place] CO2 [Moles/Vol] 25 mmol/L Normal 22-30 [facility] Comment on above: Order Comment: Speci men Type: BLOOD SPECIMENOrdering Facility: [facility] Address: [address] [place] [address] Performed By: #### 2 4323-8, , 2776-07 ####[facility] LABCLIA [id number] [facility] [address] [address] [place] Creatinine [Mass/Vol] 1.07 mg/dL Normal 0.73-1.22 [facility] Comment on above: Order Comment: Speci men Type: BLOOD SPECIMENOrdering Facility: [facility] Address: [address] [place] [address] Performed By: #### 2 4323-8, , 2776-07 ####[facility] LABCLIA [id number] [place] [address] [place] Creatinine and Glomerular filtration rate.predicted panel (S/P/Bld) 95 mL/min/1.73m??? Normal >=60 [facility] Comment on above: Order Comment: Speci men Type: BLOOD SPECIMENOrdering Facility: [facility] Address: [address] [place] [address] Result Comment: Antionette mated Glomerular Filtration Rate (eGFR) is calculated using the 2020 CKD-EPI creatinine equation. This equation utilizes serum creatinine, sex, and age as parameters. The creatinine assay has traceable calibration to isotope dilution-mass spectrometry. Refer to KDIGO guidelines for clinical interpretation. In patients with unstable renal function, e.g. those with acute kidney injury, the eGFR may not accurately reflect actual GFR. Performed By: #### 2 4323-8, , 2776-07 ####[facility] LABCLIA [id number] [place] [id number] [place] Glucose [Mass/Vol] 98 mg/dL Normal 74-99 [facility] Comment on above: Order Comment: Speci men Type: BLOOD SPECIMENOrdering Facility: [facility] Address: [address] [place] [address] Result Comment: The [place] Diabetes Association (ADA) provides guidance for cutoff values for fasting glucose and random glucose. The ADA defines fasting as no caloric intake for at least 8 hours. Fasting plasma glucose results between 100 to 125 mg/dL indicate increased risk for diabetes (prediabetes). Fasting plasma glucose results greater than or equal to 126 mg/dL meet the criteria for diagnosis of diabetes. In the absence of unequivocal hyperglycemia, results should be confirmed by repeat testing. In a patient with classic symptoms of hyperglycemia or hyperglycemic crisis, random plasma glucose results greater than or equal to 200 mg/dL meet the criteria for diagnosis of diabetes. Reference: Standards of Medical Care in Diabetes 2016, [place] Diabetes Association. Diabetes Care. 2016.39(Suppl 1). Performed By: #### 2 4323-8, , 2776-07 ####[facility] LABCLIA [id number] [place] [address] [place] Potassium [Moles/Vol] 4.4 mmol/L Normal 3.7-5.1 [facility] Comment on above: Order Comment: Speci men Type: BLOOD SPECIMENOrdering Facility: [facility] Address: [address] [place] [address] Performed By: #### 2 4323-8, , 2776-07 ####[facility] LABCLIA [id number] [place] [id number] [place] Protein [Mass/Vol] 8.1 g/dL High 6.3-8.0 [facility] Comment on above: Order Comment: Speci men Type: BLOOD SPECIMENOrdering Facility: [facility] Address: [address] [place] [address] Performed By: #### 2 4323-8, , 2776-07 ####[facility] LABCLIA [id number] [address] [address] [place] Sodium [Moles/Vol] 138 mmol/L Normal 136-144 [facility] Comment on above: Order Comment: Speci men Type: BLOOD SPECIMENOrdering Facility: [facility] Address: [address] [place] [address] Performed By: #### 2 4323-8, 10993-4, 2776-07 ####[facility] LABCLIA [id number] [place] [address] [place] Urea nitrogen [Mass/Vol] 13 mg/dL Normal 9-24 [facility] Comment on above: Order Comment: Speci men Type: BLOOD SPECIMENOrdering Facility: [facility] Address: [address] [place] [address] Performed By: #### 2 4323-8, , 2776-07 ####[facility] LABCLIA [id number] [place] [address] [place] HIV1 RNA # SerPl ANGEL+probeon 12-19-2023 HIV 1 RNA ANGEL+probe [#/Vol] Less than 20 Copies/mL (<1.3 Log Copies/mL) HIV-1 RNA detected by PCR, not quantifiable. Abnormal HIV-1 RNA not detected by PCR. [facility] Comment on above: Order Comment: Speci men Type: BLOOD SPECIMENOrdering Facility: [facility] Address: [address] [place] [address] Performed By: #### 2 0447-9 ####[facility] LABCLIA [id number] [place] [address] [place] MAGNESIUMon 12-19-2023 Magnesium [Mass/Vol] 2.1 mg/dL 1.7 - 2.3 mg/dL [facility] Magnesium SerPl-mCncon 12-18 Magnesium [Mass/Vol] 2.1 mg/dL Normal 1.7-2.3 [facility] Comment on above: Order Comment: Speci men Type: BLOOD SPECIMENOrdering Facility: [facility] Address: [address] [place] [address] Performed By: #### 2 4323-8, 25399-0, 27712-30 ####[facility] LABCLIA [id number] [place] [address] [place] Magnesium [Mass/Vol]on 12-18 Interpretation and review of laboratory results Normal [facility] No Panel Informationon 12-18 Interpretation and review of laboratory results Abnormal [facility] PHOSPHORUS INORGANICon 12-18 Phosphate [Mass/Vol] 2.6 mg/dL Low 2.7 - 4.8 mg/dL [facility] Phosphate SerPl-mCncon 12-18 Phosphate [Mass/Vol] 2.6 mg/dL Low 2.7-4.8 [facility] Comment on above: Order Comment: Speci men Type: BLOOD SPECIMENOrdering Facility: [facility] Address: [address] [place] [address] Performed By: #### 2 4323-8, 34947-9, 2777-1 ####[facility] LABIA [id number] [place] [address] [place] RPR Ser Qlon 12-19-2023 Reagin Ab RPR Ql (S) Reactive Abnormal Nonreactive [facility] Comment on above: Order Comment: Speci men Type: BLOOD SPECIMENOrdering Facility: [facility] Address: [address] [place] [address] Result Comment: Rapi d plasma reagin (RPR) test detects non-treponemal antibodies. RPR may be reactive in a variety of infectious and non-infectious conditions. Correlation with clinical picture and with treponemal antibody results is required for final interpretation. Performed By: #### 7 3752-8, 97690-2, 60442-0 ####[facility] LABIA [id number] [place] [address] [place] RPR Ser-Titron 12-19-2023 Reagin Ab RPR (S) [Titer] 1:128 Normal [facility] Comment on above: Order Comment: Speci men Type: BLOOD SPECIMENOrdering Facility: [facility] Address: [address] [place] [address] Result Comment: Rapi d plasma reagin (RPR) test detects non-treponemal antibodies. RPR may be reactive in a variety of infectious and non-infectious conditions. Correlation with clinical picture and with treponemal antibody results is required for final interpretation. Performed By: #### 7 3752-8, , 75152-1 ####[facility] LABCLIA [id number] [place] [id number] [place] Reagin and Treponema pallidu m IgG and IgM [Interp]on 12-19-2023 T. pallidum IgG+IgM IA Ql (S) Reactive Abnormal Nonreactive [facility] Comment on above: Order Comment: Speci men Type: BLOOD SPECIMENOrdering Facility: [facility] Address: [address] [place] [address] Performed By: #### 7 3752-8, , ####[facility] LABIA [id number] [place] [address] [place] Reagin+T pallidum IgG+IgM Se rPl-Impon 12-19-2023 Reagin and Treponema pallidum IgG and IgM [Interp] The results suggest active Treponemal infection, however, RPR titers may remain elevated for extended periods after adequate treatment in serofast individuals. Correlation with clinical picture and treatment history is required. Normal [facility] Comment on above: Order Comment: Ashleei men Type: BLOOD SPECIMENOrdering Facility: [facility] Address: [address] [place] [address] Performed By: #### 7 3752-8, , ####[facility] [id number] [place] [address] [place] T-cell helper (CD4) subset p lance (Bld)on 12-19-2023 CD3 cells (Bld) [#/Vol] 1950 cells/uL Normal 958-5268 [facility] Comment on above: Order Comment: Speci men Type: BLOOD SPECIMENOrdering Facility: [facility] Address: [facility] [place] [address] Performed By: #### 6 5758-5 ####[facility] LABIA [id number] [place] [address] [place] CD3 cells/100 cells (Bld) 86 % Normal 60-89 [facility] Comment on above: Order Comment: Speci men Type: BLOOD SPECIMENOrdering Facility: [facility] Address: [address] [place] [address] Performed By: #### 6 5758-5 ####[facility] LABIA [id number] [place] [address] [place] CD3+CD4+ (T4 helper) cells (Bld) [#/Vol] 728 cells/uL Normal 533-1674 [facility] Comment on above: Order Comment: Speci men Type: BLOOD SPECIMENOrdering Facility: [facility] Address: [address] [place] [address] Performed By: #### 6 5758-5 ####[facility] [id number] [place] [address] [place] CD3+CD4+ (T4 helper) cells/100 cells (Bld) 32 % Low 34-61 [facility] Comment on above: Order Comment: Speci men Type: BLOOD SPECIMENOrdering Facility: [facility] Address: [address] [place] [address] Performed By: #### 6 5758-5 ####[facility] LABIA [id number] [place] [address] [place] Urinalysis complete panel (U )on 12-19-2023 Bacteria LM.HPF (Urine sed) [#/Area] Negative Negative /HPF [facility] Bilirubin Ql (U) Negative Negative [facility] Clarity (Unsp spec) Clear Clear [facility] Color (U) Yellow Yellow [facility] Epithelial cells LM.HPF (Urine sed) [#/Area] None Seen /HPF [facility] Glucose Test strip (U) [Mass/Vol] Negative Negative [facility] Hemoglobin Ql (U) Negative Negative [facility] Hyaline casts (Urine sed) [#/Area] 0 /[LPF] 0 /LPF [facility] Ketones Ql (U) Negative Negative [facility] Leukocyte esterase Test strip Ql (U) Negative Negative [facility] Nitrite Ql (U) Negative Negative [facility] pH (U) 8.0 [pH] NINF - 8.5 [facility] Protein (U) [Mass/Vol] Negative Negative [facility] RBC LM.HPF (Urine sed) [#/Area] 0-2 /HPF 0-2 /HPF [facility] Specific gravity (U) [Rel density] 1.017 1.005 - 1.030 [facility] Urobilinogen Ql (U) 0.2 EU/dL 0.2-1.0 EU/dL [facility] WBC LM.HPF (Urine sed) [#/Area] 0-5 /HPF 0-5 /HPF [facility] This test was hugo marc and its performance characteristics determined by [facility]'s [facility] [place] (RT-PLMI). It has not been cleared or approved by the FDA. RT-PLTX is regulated under CLIA as qualified to perform high-complexity testing. This test is used for clinical purposes. It should not be regarded as investigational or for research. [facility] Bacteria LM.HPF (Urine sed) [#/Area] Negative Normal Negative [facility] Comment on above: Order Comment: Speci men Type: URINE SPECIMENOrdering Facility: [facility] Address: [address] [place] [address] Performed By: #### 2 4356-8 ####[facility] LABIA [id number] [place] [address] [place] Bilirubin Ql (U) Negative Normal Negative [facility] Comment on above: Order Comment: Speci men Type: URINE SPECIMENOrdering Facility: [facility] Address: [address] [place] [address] Performed By: #### 2 4356-8 ####[facility] LABIA [id number] [place] [address] [place] Clarity (Unsp spec) Clear Normal Clear Bari [facility] Comment on above: Order Comment: Speci men Type: URINE SPECIMENOrdering Facility: [facility] Address: [address] [place] [address] Performed By: #### 2 4356-8 ####[facility] LABCLIA [id number] [place] [address] [place] Color (U) Yellow Normal Yellow [facility] Comment on above: Order Comment: Speci men Type: URINE SPECIMENOrdering Facility: [facility] Address: [address] [place] [address] Performed By: #### 2 4356-8 ####[facility] LABCLIA [id number] [place] [address] [place] Epithelial cells LM.HPF (Urine sed) [#/Area] None Seen Normal [facility] Comment on above: Order Comment: Speci men Type: URINE SPECIMENOrdering Facility: [facility] Address: [address] [place] [address] Performed By: #### 2 4356-8 ####[facility] LABCLIA [id number] [place] [address] [place] Glucose Test strip (U) [Mass/Vol] Negative Normal Negative [facility] Comment on above: Order Comment: Speci men Type: URINE SPECIMENOrdering Facility: [facility] Address: [address] [place] [address] Performed By: #### 2 4356-8 ####[facility] LABCLIA [id number] [place] [address] [place] Hemoglobin Ql (U) Negative Normal Negative [facility] Comment on above: Order Comment: Speci men Type: URINE SPECIMENOrdering Facility: [facility] Address: [address] [place] [address] Performed By: #### 2 4356-8 ####[facility] LABCLIA [id number] [place] [address] [place] Hyaline casts (Urine sed) [#/Area] 0 /[LPF] Normal 0 /LPF [facility] Comment on above: Order Comment: Speci men Type: URINE SPECIMENOrdering Facility: [facility] Address: [address] [place] [address] Performed By: #### 2 4356-8 ####[facility] LABCLIA [id number] [place] [address] [place] Ketones Ql (U) Negative Normal Negative [facility] Comment on above: Order Comment: Speci men Type: URINE SPECIMENOrdering Facility: [facility] Address: [address] [place] [address] Performed By: #### 2 4356-8 ####[facility] LABCLIA [id number] [place] [address] [place] Leukocyte esterase Test strip Ql (U) Negative Normal Negative [facility] Comment on above: Order Comment: Speci men Type: URINE SPECIMENOrdering Facility: [facility] Address: [address] [place] [address] Performed By: #### 2 4356-8 ####[facility] LABCLIA [id number] [place] [address] [place] Nitrite Ql (U) Negative Normal Negative [facility] Comment on above: Order Comment: Speci men Type: URINE SPECIMENOrdering Facility: [facility] Address: [address] [place] [address] Performed By: #### 2 4356-8 ####[facility] LABCLIA [id number] [place] [address] [place] pH (U) 8.0 [pH] Normal <8.5 [facility] Comment on above: Order Comment: Speci men Type: URINE SPECIMENOrdering Facility: [facility] Address: [address] [place] [address] Performed By: #### 2 4356-8 ####[facility] LABIA [id number] [place] [address] [place] Protein (U) [Mass/Vol] Negative Normal Negative [facility] Comment on above: Order Comment: Speci men Type: URINE SPECIMENOrdering Facility: [facility] Address: [address] [place] [address] Performed By: #### 2 4356-8 ####[facility] LABIA [id number] [place] [address] [place] RBC LM.HPF (Urine sed) [#/Area] 0-2 /HPF Normal 0-2 /HPF [facility] Comment on above: Order Comment: Speci men Type: URINE SPECIMENOrdering Facility: [facility] Address: [address] [place] [address] Performed By: #### 2 4356-8 ####[facility]ENTERIA [id number] [place] [address] [place] Specific gravity (U) [Rel density] 1.017 Normal 1.005-1.030 [facility] Comment on above: Order Comment: Speci men Type: URINE SPECIMENOrdering Facility: [facility] Address: [address] [place] [address] Performed By: #### 2 4356-8 ####[facility] LABIA [id number] [place] [address] [place] Urobilinogen Ql (U) 0.2 EU/dL Normal 0.2-1.0 EU/dL [facility] Comment on above: Order Comment: Speci men Type: URINE SPECIMENOrdering Facility: [facility] Address: [address] [place] [address] Performed By: #### 2 4356-8 ####[facility] LABIA [id number] [place] [address] [place] WBC LM.HPF (Urine sed) [#/Area] 0-5 /HPF Normal 0-5 /HPF [facility] Comment on above: Order Comment: Speci men Type: URINE SPECIMENOrdering Facility: [facility] Address: [address] [place] [address] Performed By: #### 2 4356-8 ####[facility] LABCLIA [id number] RAIDana AVENUEDESK [id number] [place] [address] [facility]2023 [facility] ([facility]) Prescriptions as of 12/18/2023 - BIKTARVY 50-200-25 mg per tablet take 1 tablet by mouth once daily - amLODIPine (NORVASC) 5 mg tablet Take 1 tablet by mouth once daily. Allergies As of Date: 12/18/2023 (No Known Allergies) Date Reviewed: 10/04/2022 Reviewed by: Di Bauer APRN.SENIOR NETWORK SECURITY ENGINEER - Fully Assessed Normal [facility] AMANUEL CHAPMAN ([id number]) 1990 M T Date Time Provider Department 12/17/23 HUMA BOATENG [facility] During your visit today, we recorded the following information about you: Huma Boateng 12/17/2023 10:49 AM Signed Patient confirmed the appt on Lockbox 12/15/2023 at 10:[address] Alvarado on Sunday12/19/2023 arrival time 8:45 am. PN will remain available to assist the pt as able within scope of practice. THELMA Monroy ([facility]) Service Length: 1 Unit Allergies As of Date: 12/17/2023 (No Known Allergies) Date Reviewed: 10/04/2022 Reviewed by: Di Bauer APRN.SENIOR NETWORK SECURITY ENGINEER - Fully Assessed Reason for Visit: Activity Specialist - Other [3602] Cmt: Patient confirmed the appt on [employer] 12/15/2023 at 10:[address] Alvarado on Sunday12/19/2023 arrival time 8:45 am. PN will remain available to assist the pt as able within scope of practice. THELMA Monroy ([facility]) Service Length: 1 Unit Prescriptions as of 12/17/2023 - BIKTARVY 50-200-25 mg per tablet take 1 tablet by mouth once daily - amLODIPine (NORVASC) 5 mg tablet Take 1 tablet by mouth once daily. Problem List As Of Date 12/17/2023 Noted Resolved Elevated blood pressure reading without diagnos*07/31/2022 Obesity, Class II, BMI 35-39.9 [E66.9] 07/31/2022 HIV positive (HCC) [Z21] 07/31/2022 04/18/2023 History of syphilis [Z86.19] 07/31/2022 Human immunodeficiency virus (HIV) disease (HCC*04/18/2023 Encounter Status:Closed by HUMA BOATENG on 12/17/23 Normal [facility] BASIC METABOLIC PANELon 06-0 Anion gap [Moles/Vol] 12 mmol/L Normal 3-13 [facility] Comment on above: Performed By: #### L AB15 ####Playroom Attendant: LAURA PATIÑO ([phone])[facility] ([facility])[address] [place] [address] Calcium [Mass/Vol] 9.4 mg/dL Normal 8.4-10.4 [facility] Comment on above: Performed By: #### L AB15 ####Playroom Attendant: LAURA PATIÑO ([phone])[facility]ITALCarroll KELLEYNEW MEXICO [facility]ASN (SBHLAB)[address] [place] [address] [place] Chloride [Moles/Vol] 101 mmol/L Normal 98-107 [facility] Comment on above: Performed By: #### L AB15 ####Playroom Attendant: LAURA JOSÉAlfonso PATIÑO ([phone])[facility] BARBNEW MEXICO BEHAVIOR[facility] HE[facility] INSTITUTE AT LAS VEGASN (SBHLAB)[address] [place] [address] [place] CO2 [Moles/Vol] 28 mmol/L Normal 22-30 [facility] Comment on above: Performed By: #### L AB15 ####Playroom Attendant: LAURA MATT HAROON ([phone])[facility] ([facility])[address] Creatinine [Mass/Vol] 1.09 mg/dL Normal 0.66-1.25 [facility] Comment on above: Performed By: #### L AB15 ####Playroom Attendant: LAURA MATT HAROON ([phone])[facility] ([facility])[address] GLOMERULAR FILTRATION RATE ML/MIN/1.73 SQ M.PREDICTED >90.0 Normal >60.0 [facility] Comment on above: Result Comment: Calc ulation based on the Chronic Kidney Disease Epidemiology Collaboration (CKD-EPI) equation refit without adjustment for race Performed By: #### L AB15 ####Playroom Attendant: LAURA BOUCHER ([phone])[facility] ([facility])[address] [place] [address] [place] Glucose [Mass/Vol] 116 mg/dL High 70-100 [facility] Comment on above: Performed By: #### L AB15 ####Playroom Attendant: LAURA PATIÑO ([phone])[facility] (HLAB)[address] [place] [address] [place] Potassium [Moles/Vol] 4.4 mmol/L Normal 3.5-5.1 [facility] Comment on above: Performed By: #### L AB15 ####Playroom Attendant: LAURA PATIÑO ([phone])[facility] ([facility])[address] Sodium [Moles/Vol] 140 mmol/L Normal 135-145 [facility] Comment on above: Performed By: #### L AB15 ####Playroom Attendant: LAURA PATIÑO ([phone])[facility] ([facility])[address] Urea nitrogen [Mass/Vol] 18 mg/dL Normal 9-20 [facility] Comment on above: Performed By: #### L AB15 ####Playroom Attendant: LAURA PATIÑO ([phone])[facility] ([facility])[address] Basic metabolic 1998 panelon 12-09-2023 Anion gap [Moles/Vol] 12 mmol/L 3 - 13 mmol/L [facility] Calcium [Mass/Vol] 9.4 mg/dL 8.4 - 10.4 mg/dL [facility] Chloride [Moles/Vol] 101 mmol/L 98 - 107 mmol/L [facility] CO2 [Moles/Vol] 28 mmol/L 22 - 30 mmol/L [facility] Creatinine [Mass/Vol] 1.09 mg/dL 0.66 - 1.25 mg/dL [facility] GFR/1.73 sq M.predicted MDRD (S/P/Bld) [Vol rate/Area] - [facility] Comment on above: Calculation based on the Chronic Kidney Disease Epidemiology Collaboration (CKD-EPI) equation refit without adjustment for race Glucose [Mass/Vol] 116 mg/dL High 70 - 100 mg/dL [facility] Interpretation and review of laboratory results Abnormal [facility] Potassium [Moles/Vol] 4.4 mmol/L 3.5 - 5.1 mmol/L [facility] Sodium [Moles/Vol] 140 mmol/L 135 - 145 mmol/L [facility] Urea nitrogen [Mass/Vol] 18 mg/dL 9 - 20 mg/dL [facility] CBC W Auto Differential pane l (Bld)on 12-09-2023 Basophils (Bld) [#/Vol] 0.0 10*3/uL 0.0 - 0.2 10*3/uL [facility] Basophils/100 WBC (Bld) 0.5 % 0.0 - 2.0 % [facility] Eosinophils (Bld) [#/Vol] 0.1 10*3/uL 0.0 - 0.5 10*3/uL [facility] Eosinophils/100 WBC (Bld) 1.5 % 0.0 - 6.0 % [facility] Erythrocyte distribution width (RBC) [Ratio] 12.0 % 11.5 - 15.0 % [facility] Hematocrit (Bld) [Volume fraction] 45.7 % 40.0 - 52.0 % [facility] Hemoglobin (Bld) [Mass/Vol] 15.5 g/dL 13.0 - 18.0 g/dL [facility] Immature granulocytes (Bld) [#/Vol] 0.0 10*3/uL NINF - 0.1 10*3/uL [facility] Immature granulocytes/100 WBC (Bld) 0.3 % 0.0 - 2.0 % [facility] Interpretation and review of laboratory results Normal [facility] Lymphocytes (Bld) [#/Vol] 2.0 10*3/uL 1.0 - 4.3 10*3/uL [facility] Lymphocytes/100 WBC (Bld) 22.7 % 15.0 - 45.0 % [facility] MCH (RBC) [Entitic mass] 31.0 pg 26.0 - 34.0 pg [facility] MCHC (RBC) [Mass/Vol] 33.9 % 30.5 - 36.0 % [facility] MCV (RBC) [Entitic vol] 91.4 fL 77.0 - 99.0 fL [facility] Monocytes (Bld) [#/Vol] 0.5 10*3/uL 0.0 - 0.9 10*3/uL [facility] Monocytes/100 WBC (Bld) 5.8 % 5.0 - 13.0 % [facility] Neutrophils (Bld) [#/Vol] 6.1 10*3/uL 1.8 - 7.5 10*3/uL [facility] Neutrophils/100 WBC (Bld) 69.2 % 38.0 - 82.0 % [facility] Nucleated RBC/100 WBC (Bld) [Ratio] 0.0 % [facility] Platelet mean volume (Bld) [Entitic vol] 10.3 fL 9.0 - 12.7 fL [facility] Platelets (Bld) [#/Vol] 281 10*3/uL 140 - 440 10*3/uL [facility] RBC (Bld) [#/Vol] 5.00 10*6/uL 4.40 - 5.9 0 10*6/uL [facility] WBC (Bld) [#/Vol] 8.7 10*3/uL 3.6 - 10.7 10*3/uL [facility] CBC WITH AUTO DIFFERENTIALon 12-09-2023 Basophils (Bld) [#/Vol] 0.0 10*3/uL Normal 0.0-0.2 [facility] Comment on above: Performed By: #### L [id number] #### Playroom Attendant: LAURA BOUCHER ([phone]) [facility] ([facility]) [address] Basophils/100 WBC (Bld) 0.5 % Normal 0.0-2.0 [facility] Comment on above: Performed By: #### L [id number] #### Playroom Attendant: LAURA BOUCHER ([phone]) [facility] ([facility]) [address] [place] [address] Eosinophils (Bld) [#/Vol] 0.1 10*3/uL Normal 0.0-0.5 [facility] Comment on above: Performed By: #### L [id number] #### Playroom Attendant: LAURA BOUCHER ([phone]) [facility] ([facility]) [address] [place] [address] [place] Eosinophils/100 WBC (Bld) 1.5 % Normal 0.0-6.0 [facility] Comment on above: Performed By: #### L [id number] #### Playroom Attendant: LAURA BOUCHER ([phone]) [facility] ([facility]) [address] Erythrocyte distribution width (RBC) [Ratio] 12.0 % Normal 11.5-15.0 [facility] Comment on above: Performed By: #### L [id number] #### Playroom Attendant: LAURA BOUCHER ([phone]) [facility] ([facility]) [address] Hematocrit (Bld) [Volume fraction] 45.7 % Normal 40.0-52.0 [facility] Comment on above: Performed By: #### L [id number] #### Playroom Attendant: LAURA BOUCHER ([phone]) [facility] ([facility]) [address] [place] [address] Hemoglobin (Bld) [Mass/Vol] 15.5 g/dL Normal 13.0-18.0 [facility] Comment on above: Performed By: #### L [id number] #### Playroom Attendant: LAURA BOUCHER ([phone]) [facility] ([facility]) [address] [place] [address] IMMATURE GRANS % 0.3 % Normal 0.0-2.0 [facility] Comment on above: Performed By: #### L [id number] #### Playroom Attendant: LAURA BOUCHER ([phone]) [facility] ([facility]) [address] [place] [address] IMMATURE GRANS ABSOLUTE 0.0 10*3/uL Normal <0.1 [facility] Comment on above: Performed By: #### L [id number] #### Playroom Attendant: LAURA BOUCHER ([phone]) [facility] ([facility]) [address] [place] [address] Lymphocytes (Bld) [#/Vol] 2.0 10*3/uL Normal 1.0-4.3 [facility] Comment on above: Performed By: #### L [id number] #### Playroom Attendant: LAURA BOUCHER ([phone]) [facility] ([facility]) [address] Lymphocytes/100 WBC (Bld) 22.7 % Normal 15.0-45.0 [facility] Comment on above: Performed By: #### L [id number] #### Playroom Attendant: LAURA BOUCHER ([phone]) [facility] ([facility]) [address] MCH (RBC) [Entitic mass] 31.0 pg Normal 26.0-34.0 [facility] Comment on above: Performed By: #### L [id number] #### Playroom Attendant: LAURA BOUCHER ([phone]) [facility] ([facility]) [address] MCHC 33.9 % Normal 30.5-36.0 [facility] Comment on above: Performed By: #### L [id number] #### Playroom Attendant: LAURA MATTHAROON ([phone]) [facility] ([facility]) [address] MCV (RBC) [Entitic vol] 91.4 fL Normal 77.0-99.0 [facility] Comment on above: Performed By: #### L [id number] #### Playroom Attendant: LAURA BOUCHER ([phone]) [facility] ([facility]) [address] Monocytes (Bld) [#/Vol] 0.5 10*3/uL Normal 0.0-0.9 [facility] Comment on above: Performed By: #### L [id number] #### Playroom Attendant: LAURA BOUCHER ([phone]) [facility] ([facility]) [address] [place] [address] [place] Monocytes/100 WBC (Bld) 5.8 % Normal 5.0-13.0 [facility] Comment on above: Performed By: #### L [id number] #### Playroom Attendant: LAURA BOUCHER ([phone]) [facility] ([facility]) [address] NEUTROPHILS ABSOLUTE 6.1 10*3/uL Normal 1.8-7.5 [facility] Comment on above: Performed By: #### L [id number] #### Playroom Attendant: LAURA BOUCHER ([phone]) [facility] [address] Neutrophils/100 WBC (Bld) 69.2 % Normal 38.0-82.0 [facility] Comment on above: Performed By: #### L [id number] #### Playroom Attendant: LAURA BOUCHER ([phone]) [facility] [address] NRBC 0.0 /100 WBCs Normal 0.0-2.0 [facility] Comment on above: Performed By: #### L [id number] #### Playroom Attendant: LAURA BOUCHER ([phone]) [facility] ([facility]) [address] Platelet mean volume (Bld) [Entitic vol] 10.3 fL Normal 9.0-12.7 [facility] Comment on above: Performed By: #### L [id number] #### Playroom Attendant: LAURA BOUCHER ([phone]) [facility] ([facility] [address] [place] [address] [place] Platelets (Bld) [#/Vol] 281 10*3/uL Normal 140-440 [facility] Comment on above: Performed By: #### L [id number] #### Playroom Attendant: LAURA BOUCHER ([phone]) [facility] [address] [place] [address] [place] RBC (Bld) [#/Vol] 5.00 10*6/uL Normal 4.40-5.90 [facility] Comment on above: Performed By: #### L [id number] #### Playroom Attendant: LAURA BOUCHER ([phone]) [facility] ([facility] [address] [place] [address] [place] WBC (Bld) [#/Vol] 8.7 10*3/uL Normal 3.6-10.7 [facility] Comment on above: Performed By: #### L [id number] #### Playroom Attendant: LAURA BOUCHER ([phone]) [facility] ([facility]) [address] COMPLETE URINALYSISon 2023 BACTERIA (#/HPF) IN URINE Negative Normal Negative [facility] Comment on above: Performed By: #### L [id number] ####Playroom Attendant: LAURA PATIÑO ([phone])[facility] ([facility])[address] BILIRUBIN, TOTAL PRESENCE IN URINE Negative Normal Negative [facility] Comment on above: Performed By: #### L [id number] ####Playroom Attendant: LAURA PATIÑO ([phone])[facility] ([facility])[address] Clarity (U) Turbid Abnormal Clear [facility] Comment on above: Performed By: #### L [id number] ####Playroom Attendant: LAURA PATIÑO ([phone])[facility] (SBHLAB)[address] Color (U) Yellow Normal Lt. Yellow [facility] Comment on above: Performed By: #### L [id number] ####Playroom Attendant: LAURA PATIÑO ([phone])[facility] (SBHLAB)[address] GLUCOSE (MG/DL) IN URINE Normal Normal Normal (<70) [facility] Comment on above: Performed By: #### L [id number] ####Playroom Attendant: LAURA PATIÑO ([phone])[facility] (SBHLAB)[address] HEMOGLOBIN PRESENCE IN URINE Negative Normal Negative [facility] Comment on above: Performed By: #### L [id number] ####Playroom Attendant: LAURA PATIÑO ([phone])[facility] (SB[facility])[address] [place] [address] [place] Ketones Ql (U) Negative Normal Negative [facility] Comment on above: Performed By: #### L [id number] ####Playroom Attendant: LAURA PATIÑO ([phone])[facility] ([facility])[address] LEUKOCYTE ESTERASE PRESENCE IN URINE BY TEST STRIP Negative Normal Negative [facility] Comment on above: Performed By: #### L [id number] ####Playroom Attendant: LAURA PATIÑO ([phone])[facility] ([facility])[address] MUCUS (#/LPF) IN URINE SEDIMENT Few Normal Negative [facility] Comment on above: Performed By: #### L [id number] ####Playroom Attendant: LAURA PATIÑO ([phone])[facility] (SBHLAB)[address] NITRITE PRESENCE IN URINE Negative Normal Negative [facility] Comment on above: Performed By: #### L [id number] ####Playroom Attendant: LAURA PATIÑO ([phone])[facility] ([facility])[address] pH (U) 7.0 [pH] Normal 5.0-8.0 [facility] Comment on above: Performed By: #### L [id number] ####Playroom Attendant: LAURA PATIÑO ([phone])[facility] ([facility])[address] Protein (U) [Mass/Vol] 10 mg/dL Abnormal Negative [facility] Comment on above: Performed By: #### L [id number] ####Playroom Attendant: LAURA PATIÑO ([phone])[facility] (SB[facility])[address] [place] [address] [place] RBC (#/HPF) IN URINE SEDIMENT 0-2 Normal 0-2 [facility] Comment on above: Performed By: #### L [id number] ####Playroom Attendant: LAURA PATIÑO ([phone])[facility] (SBHLAB)[address] Specific gravity (U) [Rel density] 1.020 Normal 1.005-1.030 [facility] Comment on above: Performed By: #### L [id number] ####Playroom Attendant: LAURA SHAKA PATIÑO ([phone])[facility] [place] ([facility])[address] SQUAMOUS EPITHELIAL CELLS (#/HPF) IN URINE SEDIMENT Negative Normal 3-5 [facility] Comment on above: Performed By: #### L [id number] ####Playroom Attendant: LAURA SHAKA PATIÑO ([phone])[facility] [place] ([facility])[address] UROBILINOGEN (MG/DL) IN URINE Normal Normal Normal (0-1) [facility] Comment on above: Performed By: #### L [id number] ####Playroom Attendant: LAURA SHAKA PATIÑO ([phone])[facility] [place] ([facility])[address] WBC (LEUKOCYTE) (#/HPF) IN URINE SEDIMENT 3-5 Normal 0-5 [facility] Comment on above: Performed By: #### L [id number] ####Playroom Attendant: LAURA SHAKA PATIÑO ([phone])[facility] [place] (SBHLAB)[address] [place] [address] CT ABDOMEN PEL[facility]BDOMEN PELVIS WO IV CONTRAST Patient Name: AMANUEL CHAPMAN : 1990 Exam Date/Time: 12/09/2023 04:06 Procedure: CT ABDOMEN PELVIS WO IV CONTRAST Ordering Provider: BORDEN MICHAEL Reason For Exam: Flank pain, kidney stone suspected CT ABDOMEN AND PELVIS WITHOUT IV CONTRAST CLINICAL INDICATION: Flank pain. Kidney stones suspected. TECHNIQUE: Multidetector axial CT images through the abdomen and pelvis were obtained without IV contrast. No oral contrast was administered. Images were reconstructed in sagittal and coronal planes. Dose reduction was employed with automated exposure control. COMPARISON: None. FINDINGS: This examination is limited for the evaluation of solid organs and vascular structures due to the lack of intravenous contrast. Lung bases: Normal. Liver: normal hepatic contour. No hepatic lesion. Biliary tree: The gallbladder is incompletely distended with bile. No biliary dilation. . Spleen: Normal spleen size without lesions. Adrenals: Normal. Pancreas: No pancreatic mass or pancreatic duct dilation. Kidneys: No contour abnormality or focal renal lesion identified. Renal collecting systems: No calculi, hydronephrosis or ureteral dilatation. Free air or fluid: None. Mesenteric/retroperiton eal: No adenopathy or inflammation. Aorta: The aorta is normal in caliber. Bowel: The appendix is normal in caliber. No dilatation is noted. Pelvic organs/viscera: No pelvic free fluid.. No mass is identified. Bladder: No calculi or filling defects. Urinary bladder is incompletely distended. . Inguinal: No adenopathy. Abdominal wall/soft tissues: No ventral hernia is evident. Osseous structures: No osseous abnormalities. IMPRESSION: No acute abdominal or pelvic process. Normal appendix. Report Dictated on Electronically Signed By: Jhonny Dale DO Electronically Signed Date/Time: 12/09/2023 4:22 AM EDT Pt presents to ED for RLQ abdominal pain that started three days ago. Pt states it wraps around to his back. Pt states he thought he had a back injury but the pain has increased over the past several days. Pt denies n/v/diarrhea Normal [facility] CT Abdomen WO contraston No acute abdominal o r pelvic process. Normal appendix. Report Dictated on Electronically Signed By: Jhonny Dale DO Electronically Signed Date/Time: 12/09/2023 4:22 AM T [facility] Patient Name: AMANUEL CHAPMAN : 1990 Exam Date/Time: 12/09/2023 04:06 Procedure: CT ABDOMEN PELVIS WO IV CONTRAST Ordering Provider: BORDEN MICHAEL Reason For Exam: Flank pain, kidney stone suspected CT ABDOMEN AND PELVIS WITHOUT IV CONTRAST CLINICAL INDICATION: Flank pain. Kidney stones suspected. TECHNIQUE: Multidetector axial CT images through the abdomen and pelvis were obtained without IV contrast. No oral contrast was administered. Images were reconstructed in sagittal and coronal planes. Dose reduction was employed with automated exposure control. COMPARISON: None. FINDINGS: This examination is limited for the evaluation of solid organs and vascular structures due to the lack of intravenous contrast. Lung bases: Normal. Liver: normal hepatic contour. No hepatic lesion. Biliary tree: The gallbladder is incompletely distended with bile. No biliary dilation. . Spleen: Normal spleen size without lesions. Adrenals: Normal. Pancreas: No pancreatic mass or pancreatic duct dilation. Kidneys: No contour abnormality or focal renal lesion identified. Renal collecting systems: No calculi, hydronephrosis or ureteral dilatation. Free air or fluid: None. Mesenteric/retroperiton eal: No adenopathy or inflammation. Aorta: The aorta is normal in caliber. Bowel: The appendix is normal in caliber. No dilatation is noted. Pelvic organs/viscera: No pelvic free fluid.. No mass is identified. Bladder: No calculi or filling defects. Urinary bladder is incompletely distended. . Inguinal: No adenopathy. Abdominal wall/soft tissues: No ventral hernia is evident. Osseous structures: No osseous abnormalities. [facility] Jhonny Dale DO - 12/09/2023 [facility] 1990 [id number] Exam Date/Time: 12/09/2023 04:06 Procedure: CT ABDOMEN PELVIS WO IV CONTRAST Ordering Provider: BORDEN MICHAEL Reason For Exam: Flank pain, kidney stone suspected CT ABDOMEN AND PELVIS WITHOUT IV CONTRAST CLINICAL INDICATION: Flank pain. Kidney stones suspected. TECHNIQUE: Multidetector axial CT images through the abdomen and pelvis were obtained without IV contrast. No oral contrast was administered. Images were reconstructed in sagittal and coronal planes. Dose reduction was employed with automated exposure control. COMPARISON: None. FINDINGS: This examination is limited for the evaluation of solid organs and vascular structures due to the lack of intravenous contrast. Lung bases: Normal. Liver: normal hepatic contour. No hepatic lesion. Biliary tree: The gallbladder is incompletely distended with bile. No biliary dilation. . Spleen: Normal spleen size without lesions. Adrenals: Normal. Pancreas: No pancreatic mass or pancreatic duct dilation. Kidneys: No contour abnormality or focal renal lesion identified. Renal collecting systems: No calculi, hydronephrosis or ureteral dilatation. Free air or fluid: None. Mesenteric/retroperiton eal: No adenopathy or inflammation. Aorta: The aorta is normal in caliber. Bowel: The appendix is normal in caliber. No dilatation is noted. Pelvic organs/viscera: No pelvic free fluid.. No mass is identified. Bladder: No calculi or filling defects. Urinary bladder is incompletely distended. . Inguinal: No adenopathy. Abdominal wall/soft tissues: No ventral hernia is evident. Osseous structures: No osseous abnormalities. IMPRESSION: No acute abdominal or pelvic process. Normal appendix. Report Dictated on Electronically Signed By: Jhonny Dale DO Electronically Signed Date/Time: 12/09/2023 4:22 AM EDT [facility] Radiology Study observation (narrative) [facility] CT Abdomen WO contrastOrdere d By: Jhonny Dale on 12-09-2023 [facility] Work Phone: ED Nursing Noteon 12-09-2023 ED Nursing Note Pt presents to ED fo r RLQ abdominal pain that started three days ago. Pt states it wraps around to his back. Pt states he thought he had a back injury but the pain has increased over the past several days. Pt denies n/v/diarrhea Normal [facility] ED Provider Noteon ED Provider Note EMERGENCY DEPARTMENT ENCOUNTER Pt Name: Amanuel Chapman Birthdate 1990 Date of evaluation: 12/09/2023 ED Provider: Bekah Borden MD CHIEF COMPLAINT Chief Complaint Patient presents with Abdominal Pain HISTORY OF PRESENT ILLNESS (Location/Symptom, Timing/Onset, Context/Setting, Quality, Duration, Modifying Factors, Severity) Note limiting factors. I wore appropriate PPE for the entirety of this encounter. HPI Amanuel Chapman is a 33 y.o. who presents to the emergency department with chief complaint of right side pain. He has had it for about 3 days. He thought maybe he strained a muscle but it has not been improving with NSAID use. He denies any trauma to the area. It radiates from the right flank to the right side of the abdomen. He has been eating well no fevers chills nausea vomiting diarrhea constipation denies any abnormal urination hematuria dysuria no testicular or scrotal pain. He is on blood pressure medication and has HIV. Denies prior abdominal surgeries or history of kidney stones UTIs. Nursing Notes were reviewed. Limitations to history: None Outside historians: None REVIEW OF SYSTEMS Review of Systems Constitutional: Negative for chills and fever. HENT: Negative for ear pain and sore throat. Eyes: Negative for pain and visual disturbance. Respiratory: Negative for cough and shortness of breath. Cardiovascular: Negative for chest pain and palpitations. Gastrointestinal: Positive for abdominal pain. Negative for vomiting. Genitourinary: Positive for flank pain. Negative for dysuria and hematuria. Musculoskeletal: Negative for arthralgias and back pain. Skin: Negative for color change and rash. Neurological: Negative for seizures and syncope. All other systems reviewed and are negative. Pertinent positives and negatives as per HPI. PAST MEDICAL HISTORY History reviewed. No pertinent past medical history. SURGICAL HISTORY History reviewed. No pertinent surgical history. CURRENT MEDICATIONS Previous Medications AMLODIPINE (NORVASC) 5 MG TABLET Take 5 mg by mouth in the morning. BICTEGRAVIR-EMTRICITAB- TENOFOVIR (BIKTARVY) 50-200-25 MG TABLET Take 1 tablet by mouth in the morning. ALLERGIES Patient has no known allergies. FAMILY HISTORY No family history on file. SOCIAL HISTORY Social History Socioeconomic History Marital status: Single Tobacco Use Smoking status: Never Smokeless tobacco: Never Vaping Use Vaping Use: Never used Substance and Sexual Activity Alcohol use: Not Currently Drug use: Never SCREENINGS PHYSICAL EXAM ED Triage Vitals [12/09/23 0314] Temp Heart Rate Resp BP 36.9 ?C (98.5 ?F) 80 21 (!) 146/86 SpO2 Temp Source Heart Rate Source Patient Position 99 % Temporal Monitor -- BP Location FiO2 (%) -- -- Physical Exam Vitals and nursing note reviewed. Constitutional: General: He is not in acute distress. Appearance: He is well-developed. He is not ill-appearing or diaphoretic. HENT: Head: Normocephalic and atraumatic. Eyes: Conjunctiva/sclera: Conjunctivae normal. Cardiovascular: Rate and Rhythm: Normal rate and regular rhythm. Heart sounds: No murmur heard. Pulmonary: Effort: Pulmonary effort is normal. No respiratory distress. Breath sounds: Normal breath sounds. Abdominal: General: There is no distension. Palpations: Abdomen is soft. There is no pulsatile mass. Tenderness: There is no abdominal tenderness. There is no right CVA tenderness, left CVA tenderness, guarding or rebound. Negative signs include Sinha's sign. Hernia: No hernia is present. Musculoskeletal: General: No swelling. Cervical back: Neck supple. Comments: There is no spinal tenderness or tenderness along the iliac crest pelvis or hip Skin: General: Skin is warm and dry. Capillary Refill: Capillary refill takes less than 2 seconds. Comments: No skin changes to the right side of the torso Neurological: General: No focal deficit present. Mental Status: He is alert. Psychiatric: Mood and Affect: Mood normal. DIAGNOSTIC RESULTS Procedures/EKG: EKG was reviewed by myself. Physician EKG interpretation can be found in [facility] RADIOLOGY (Per Emergency Physician): CT abdomen pelvis with no obstructing ureteral stone Interpretation per the Radiologist below, if available at the time of this note: CT abdomen pelvis wo IV contrast Final Result No acute abdominal or pelvic process. Normal appendix. Report Dictated on Electronically Signed By: Jhonny Dale DO Electronically Signed Date/Time: 12/09/2023 4:22 AM EDT ED BEDSIDE ULTRASOUND: Performed by ED Physician - none LABS: Labs Reviewed BASIC METABOLIC PANEL - Abnormal Result Value SODIUM 140 POTASSIUM 4.4 CHLORIDE 101 CARBON DIOXIDE 28 UREA NITROGEN 18 CREATININE 1.09 GLUCOSE 116 (*) CALCIUM 9.4 ANION GAP 12 eGFR >90.0 COMPLETE URINALYSIS - Abnormal (more content not included)... Normal [facility] Urinalysis complete panel (U )Ordered By: Gaurav Mcintyre on 12-09-2023 Bacteria LM.HPF (Urine sed) [#/Area] Negative Negative /HPF [facility] Bilirubin Ql (U) Negative Negative mg/dL [facility] Clarity (U) Turbid Abnormal Clear [facility] Color (U) Yellow Lt. Yellow [facility] Epithelial cells.squamous LM.HPF (Urine sed) [#/Area] Negative [facility] Glucose Ql (U) Normal Normal (<70) mg/dL [facility] Hemoglobin Ql (U) Negative Negative mg/dL [facility] Interpretation and review of laboratory results Abnormal [facility] Ketones (U) [Mass/Vol] Negative Negative mg/dL [facility] Leukocyte esterase Test strip Ql (U) Negative Negative Arturo/uL [facility] Mucus LM.HPF (Urine sed) [#/Area] Few Negative /LPF [facility] Nitrite Ql (U) Negative Negative [facility] pH (U) 7.0 [pH] 5.0 - 8.0 pH [facility] Protein (U) [Mass/Vol] 10 mg/dL Abnormal Negative [facility] RBC LM.HPF (Urine sed) [#/Area] 0-2 [facility] Specific gravity (U) [Rel density] 1.020 1.005 - 1.030 [facility] Urobilinogen (U) [Mass/Vol] Normal Normal (0-1) mg/dL [facility] WBC LM.HPF (Urine sed) [#/Area] 3-5 [facility] CNPNon 10-08-2023 CNPN Telephone (INFDMN) [facility]APMAN ([id number]) 1990 [facility]23 [facility] During your visit today, we recorded the following information about you: Huma Boateng 10/08/2023 1:26 PM Signed 10/08/2023 1:25 pm PN left an appt reminder on the phone. Dr. Alvarado on Sunday10/10/2023 arrival time 9:45 am. PN will remain available to assist the pt as able within scope of practice. THELMA Monroy (CHW) Service Length: 1 Unit Allergies As of Date: 10/08/2023 (No Known Allergies) Date Reviewed: 10/04/2022 Reviewed by: Di Bauer APRN.SENIOR NETWORK SECURITY ENGINEER - Fully Assessed Reason for Visit: Activity Specialist - Other [[id number]] Cmt: 10/08/2023 1:25 pm PN left an appt reminder on the phone. Dr. Alvarado on Sunday10/10/2023 arrival time 9:45 am. PN will remain available to assist the pt as able within scope of practice. THELMA Monroy ([facility]) Service Length: 1 Unit Prescriptions as of 10/08/2023 - bictegravir-emtricitabi ne-tenofovir alafenamide (BIKTARVY) 50-200-25 mg per tablet Take 1 tablet by mouth once daily. - amLODIPine (NORVASC) 5 mg tablet Take 1 tablet by mouth once daily. Problem List As Of Date 10/08/2023 Noted Resolved Elevated blood pressure reading without diagnos*07/31/2022 Obesity, Class II, BMI 35-39.9 [E66.9] 07/31/2022 HIV positive (HCC) [Z21] 07/31/2022 04/18/2023 History of syphilis [Z86.19] 07/31/2022 Human immunodeficiency virus (HIV) disease (HCC*04/18/2023 Encounter Status:Closed by HUMA BOATENG on 10/08/23 Normal [facility] HIV 1 RNA ANGEL+probe [#/Vol]o n 07-20-2022 HIV RNA (Log Copies/mL) 1.60 Log Copies/mL High Log Copies/mL [facility] HIV RNA VIRAL LOADon 023 HIV 1 RNA ANGEL+probe [#/Vol] 39.6 copies/mL High copies/mL [facility] HIV 1 RNA ANGEL+probe [#/Vol] Detected Abnormal HIV-1 RNA not detected by PCR. [facility] ED NOTEon 07-13-2022 ED NOTE HNO ID: [id number] Author: Scarlet Bailey RN Service: ? Author Type: Registered Nurse Type: ED Notes Filed: 07/13/2022 2:59 PM Note Text: pt given dc instructions and follow up care. he verbalzied understanding. Normal [facility] ED NOTE HNO ID: [id number] Author: Denise Vallejo RN Service: ? Author Type: Registered Nurse Type: ED Notes Filed: 07/13/2022 1:36 PM Note Text: Pt recently tested + for syphilis and HIV, pt here for TX of syphilis Normal [facility] ED PROV NOTEon 07-13-2022 ED PROV NOTE HNO ID: [id number] Author: Lucie Alicia PA-C Service: ? Author Type: Physician Plsql Developer Type: ED Provider Notes Filed: 07/13/2022 2:44 PM Note Text: ED Provider Note Patient Name: Amanuel Chapman : 1990 SERVICE DATE: 07/13/22 History Patient presents with: Std Exposure 31-year-old male, with a history of HIV and syphilis, presents to the ED needing a penicillin injection for syphilis. He has his 2 and third week dose scheduled but he is in need of his first dose of penicillin. I reviewed his notes from his infectious disease appointment. He is not having any fever, chills, abdominal pain, nausea vomiting diarrhea. No penile drainage, dysuria or ulcerations. History provided by: Patient PAST MEDICAL HISTORY Diagnosis Date - Immunologic disease (HCC) History reviewed. No pertinent surgical history. No family history on file. Social History Tobacco Use - Smoking status: Never - Smokeless tobacco: Never Vaping Use - Vaping Use: Never used Substance and Sexual Activity - Alcohol use: Yes Comment: rare - Drug use: Not Currently - Sexual activity: Not Currently ALLERGIES No Known Allergies Review of Systems Constitutional: Negative for appetite change, chills, fatigue and fever. HENT: Negative. Eyes: Negative for photophobia and visual disturbance. Respiratory: Negative for cough and shortness of breath. Cardiovascular: Negative for chest pain. Gastrointestinal: Negative for abdominal pain, constipation, diarrhea, nausea and vomiting. Genitourinary: Negative for difficulty urinating, dysuria, penile discharge, penile pain and penile swelling. Musculoskeletal: Negative for back pain and neck pain. Skin: Negative for rash and wound. Neurological: Negative for dizziness, weakness, light-headedness, numbness and headaches. Hematological: Negative. Psychiatric/Behavioral: Negative. Physical Exam Vitals [07/13/22 1332] BP Pulse Temp Temp src Resp SpO2 Weight Height 162/91 87 36.9 ?C (98.5 ?F) Oral 16 99 % 113.4 kg (250 lb) 1.778 m (5' 10") Physical Exam Vitals and nursing note reviewed. Constitutional: General: He is not in acute distress. Appearance: Normal appearance. He is not toxic-appearing. Comments: Pleasant male in NAD HENT: Head: Normocephalic and atraumatic. Nose: Nose normal. Mouth/Throat: Mouth: Mucous membranes are moist. Pharynx: Oropharynx is clear. Eyes: Extraocular Movements: Extraocular movements intact. Conjunctiva/sclera: Conjunctivae normal. Cardiovascular: Rate and Rhythm: Normal rate and regular rhythm. Pulmonary: Effort: Pulmonary effort is normal. No respiratory distress. Breath sounds: Normal breath sounds. No wheezing. Abdominal: General: There is no distension. Palpations: Abdomen is soft. Tenderness: There is no abdominal tenderness. There is no guarding. Musculoskeletal: General: Normal range of motion. Cervical back: Normal range of motion and neck supple. No rigidity. Skin: General: Skin is warm. Neurological: General: No focal deficit present. Mental Status: He is alert and oriented to person, place, and time. Cranial Nerves: No cranial nerve deficit. Psychiatric: Mood and Affect: Mood normal. Diagnostic Testing ED Labs Ordered and Reviewed - No data to display Procedures ED Course / Clinical Impression Clinical Impressions as of 07/13/22 1435 Syphilis Encounter for medication refill MDM / Disposition / Plan Patient to the ED today with needing penicillin injection for syphilis. He has a second and third dose scheduled but was unable to find anyone to give him his first. I reviewed his infectious disease notes. He is asymptomatic. Vitals stable. He is pleasant and in no distress. Given penicillin and watched for 20 minutes. No symptoms. Discharged home to continue with infectious disease History and Record Review External record(s) reviewed: prior outpatient record. Findings from review of outpatient records: reviewed ID notes with syphillis and HIV course Management Meds Given During Visit ED Medication Administration from 07/13/2022 1304 to 07/13/2022 1443 Date/Time Order Dose Route Action 07/13/2022 1425 EST penicillin g benzathine 2.4 Million Units injection (BICILLIN L-A) 2.4 Million Units INTRAMUSCULAR Given Disposition The patient was discharged. Counseled patient regarding suspected diagnosis. As well as the need for follow-up. Discharged home with verbal and written instructions. They were instructed to return as needed for persistent or worsening symptoms or any new concerns. SIGNATURE: DENISE Shukla CHELSEA 07/13/22 1444 Normal [facility] HIV 1 RNA ANGEL+probe [#/Vol]o n 06-22-2022 HIV RNA (Log Copies/mL) 3.36 Log Copies/mL High Log Copies/mL [facility] HIV 1+2 Ab IA Qlon 2 HIV 1 and 2 Ab IA.rapid Nom Positive Abnormal Negative [facility] HIV 1+2 Ab+HIV1 p24 Ag IA Ql Please see HIV Interpretation Abnormal Nonreactive [facility] HIV Interpretation The result is consistent with HIV-1 infection. HIV Information: [place] Rev. Code 3701.243(E): This information has been disclosed to you from confidential records protected from disclosure by state law. You shall make no further disclosure of this information without the specific, written, and informed release of the individual to whom it pertains or as otherwise permitted by state law. A general authorization for the release of medical or other information is not sufficient for the purpose of the release of HIV test results or diagnoses." [facility] HIV RNA VIRAL LOADon 022 HIV 1 RNA ANGEL+probe [#/Vol] 2280 copies/mL High copies/mL [facility] HIV 1 RNA ANGEL+probe [#/Vol] Detected Abnormal HIV-1 RNA not detected by PCR. [facility] Reagin and Treponema pallidu m IgG and IgM [Interp]on 06-22-2022 Syphilis Interpretation The results suggest active Treponemal infection, however, RPR titers may remain elevated for extended periods after adequate treatment in serofast individuals. Correlation with clinical picture and treatment history is required. [facility] T. pallidum IgG+IgM IA Ql (S) Reactive Abnormal Nonreactive [facility] CBC W Auto Differential pane l (Bld)on 06-21-2022 Basophils (Bld) [#/Vol] <0.11 k/uL [facility] Basophils/100 WBC (Bld) 0.4 % [facility] Differential cell count method Nom (Bld) Auto [facility] Eosinophils (Bld) [#/Vol] 0.06 10*3/uL <0.46 k/uL [facility] Eosinophils/100 WBC (Bld) 1.1 % [facility] Erythrocyte distribution width (RBC) [Ratio] 11.8 % 11.5 - 15.0 % [facility] Hematocrit (Bld) [Volume fraction] 43.1 % 39.0 - 51.0 % [facility] Hemoglobin (Bld) [Mass/Vol] 14.7 g/dL 13.0 - 17.0 g/dL [facility] Immature granulocytes (Bld) [#/Vol] <0.10 k/uL [facility] Immature granulocytes/100 WBC (Bld) 0.2 % [facility] Lymphocytes (Bld) [#/Vol] 1.30 10*3/uL 1.00 - 4.00 k/uL [facility] Lymphocytes/100 WBC (Bld) 24.6 % [facility] MCH (RBC) [Entitic mass] 30.6 pg 26.0 - 34.0 pg [facility] MCHC (RBC) [Mass/Vol] 34.1 g/dL 30.5 - 36.0 g/dL [facility] MCV (RBC) [Entitic vol] 89.6 fL 80.0 - 100.0 fL [facility] Monocytes (Bld) [#/Vol] 0.42 10*3/uL <0.87 k/uL [facility] Monocytes/100 WBC (Bld) 7.9 % [facility] Neutrophils (Bld) [#/Vol] 3.48 10*3/uL 1.45 - 7.50 k/uL [facility] Neutrophils/100 WBC (Bld) 65.8 % [facility] Nucleated RBC (Bld) [#/Vol] <0.01 k/uL [facility] Nucleated RBC/100 WBC (Bld) [Ratio] 0.0 /100 WBC [facility] Platelet mean volume (Bld) [Entitic vol] 10.1 fL 9.0 - 12.7 fL [facility] Platelets (Bld) [#/Vol] 245 10*3/uL 150 - 400 k/uL [facility] RBC (Bld) [#/Vol] 4.81 10*6/uL 4.20 - 6.00 m/uL [facility] WBC (Bld) [#/Vol] 5.29 10*3/uL 3.70 - 11. 00 k/uL [facility] Comprehensive metabolic 2000 panelon 06-21-2022 Albumin [Mass/Vol] 4.4 g/dL 3.9 - 4.9 g/dL [facility] ALP [Catalytic activity/Vol] 82 U/L 38 - 113 U/L [facility] ALT [Catalytic activity/Vol] 37 U/L 10 - 54 U/L [facility] Anion gap [Moles/Vol] 13 mmol/L 9 - 18 mmol/L [facility] AST [Catalytic activity/Vol] 30 U/L 14 - 40 U/L [facility] Bilirubin [Mass/Vol] 0.3 mg/dL 0.2 - 1.3 mg/dL [facility] Calcium [Mass/Vol] 10.0 mg/dL 8.5 - 10.2 mg/dL [facility] Chloride [Moles/Vol] 102 mmol/L 97 - 105 mmol/L [facility] CO2 [Moles/Vol] 22 mmol/L 22 - 30 mmol/L [facility] Creatinine [Mass/Vol] 0.80 mg/dL 0.73 - 1.22 mg/dL [facility] Estimated Glomerular Filtration Rate 123 mL/min/1.73m >=60 mL/min/1.73m [facility] Glucose [Mass/Vol] 99 mg/dL 74 - 99 mg/dL [facility] Potassium [Moles/Vol] 4.1 mmol/L 3.7 - 5.1 mmol/L [facility] Protein [Mass/Vol] 8.3 g/dL High 6.3 - 8.0 g/dL Cl [facility] Sodium [Moles/Vol] 137 mmol/L 136 - 144 mmol/L [facility] Urea nitrogen [Mass/Vol] 13 mg/dL 9 - 24 mg/dL [facility] MAGNESIUM BLDon 06-21-2022 Magnesium [Mass/Vol] 2.2 mg/dL 1.7 - 2.3 mg/dL [facility] PHOSPHORUS INORGANICon 06-21 Phosphate [Mass/Vol] 2.8 mg/dL 2.7 - 4.8 mg/dL [facility] Vital Signs Date Time Vital Sign Value Performing Clinician Facility 04-07-2025 09:15-0400 Body height 177.8 cm Maggie URIOSTEGUI Work Phone: [facility] 04-07-2025 09:15-0400 Body mass index (BMI) [Ratio] 38.2 kg/m2 Maggie LANGLEYC Work Phone: [facility] 04-07-2025 09:15-0400 Body temperature 97.9 [degF] Maggie LANGLEYC Work Phone: 1(365)483-236289 [place] [address] 04-07-2025 09:15-0400 Body weight 121.1 kg Maggie Zhou LOSS PREVENTION AND SAFETY MANAGER-C Work Phone: 9(134)826-052289 [place] [address] 04-07-2025 09:15-0400 Diastolic blood pressure 93 mm[Hg] Maggie Zhou LOSS PREVENTION AND SAFETY MANAGER-C Work Phone: 1(485)182-706989 [place] [address] 04-07-2025 09:15-0400 Heart rate 96 /min Maggie Zhou LOSS PREVENTION AND SAFETY MANAGER-C Work Phone: 9(763)574-701289 [place] [address] 04-07-2025 09:15-0400 Respiratory rate 18 /min Maggie Zhou LOSS PREVENTION AND SAFETY MANAGER-C Work Phone: 9(470)585-952789 [place] [address] 04-07-2025 09:15-0400 SaO2% (BldA) [Mass fraction] 99 % Maggie Zhou LOSS PREVENTION AND SAFETY MANAGER-C Work Phone: 7(363)783-623789 [place] [address] 04-07-2025 09:15-0400 Systolic blood pressure 143 mm[Hg] Maggie Zhou LOSS PREVENTION AND SAFETY MANAGER-C Work Phone: 6(475)281-227589 [place] [address] 01-14-2025 07:53-0400 Body mass index (BMI) [Ratio] 38.1 kg/m2 Maggie Zhou LOSS PREVENTION AND SAFETY MANAGER-C Work Phone: 5(617)207-873889 [place] [address] 01-14-2025 07:53-0400 Body temperature 98 [degF] Maggie Zhou LOSS PREVENTION AND SAFETY MANAGER-C Work Phone: 4(202)236-774289 [place] [address] 01-14-2025 07:53-0400 Body weight 120.65 kg Maggie Zhou LOSS PREVENTION AND SAFETY MANAGER-C Work Phone: 3(986)363-699889 [place] [address] 01-14-2025 07:53-0400 Diastolic blood pressure 87 mm[Hg] Maggie Zhou LOSS PREVENTION AND SAFETY MANAGER-C Work Phone: 5(625)038-636789 [place] [address] 01-14-2025 07:53-0400 Heart rate 100 /min Maggie Zhou LOSS PREVENTION AND SAFETY MANAGER-C Work Phone: 4(266)902-588189 [place] [address] 01-14-2025 07:53-0400 Respiratory rate 16 /min Maggie Zhou LOSS PREVENTION AND SAFETY MANAGER-C Work Phone: 8(304)833-504689 [place] [address] 01-14-2025 07:53-0400 SaO2% (BldA) [Mass fraction] 97 % Maggie Zhou LOSS PREVENTION AND SAFETY MANAGER-C Work Phone: 2(783)188-033216 [place] [address] 01-14-2025 07:53-0400 Systolic blood pressure 149 mm[Hg] Maggie Zhou LOSS PREVENTION AND SAFETY MANAGER-C Work Phone: 9(047)881-605689 [place] [address] 11-11-2024 12:39-0400 Body temperature 97.8 [degF] Maggie Zhou LOSS PREVENTION AND SAFETY MANAGER-C Work Phone: 1(596)125-166889 [place] [address] 11-11-2024 12:39-0400 Diastolic blood pressure 75 mm[Hg] Maggie Zhou LOSS PREVENTION AND SAFETY MANAGER-C Work Phone: 4(570)869-277189 [place] [address] 11-11-2024 12:39-0400 Heart rate 78 /min Maggie Zhou LOSS PREVENTION AND SAFETY MANAGER-C Work Phone: 1(630)050-582289 [place] [address] 11-11-2024 12:39-0400 Respiratory rate 18 /min Maggie Zhou LOSS PREVENTION AND SAFETY MANAGER-C Work Phone: 7(568)565-300316 [place] [address] 11-11-2024 12:39-0400 SaO2% (BldA) [Mass fraction] 95 % Maggie Zhou LOSS PREVENTION AND SAFETY MANAGER-C Work Phone: 4(536)557-975316 [place] [address] 11-11-2024 12:39-0400 Systolic blood pressure 128 mm[Hg] Maggie Zhou LOSS PREVENTION AND SAFETY MANAGER-C Work Phone: 0(542)691-725278 [address] 11-11-2024 10:29-0400 Body height 177.8 cm Maggie Zhou LOSS PREVENTION AND SAFETY MANAGER-C Work Phone: 9(376)161-817589 [place] [address] 11-11-2024 10:29-0400 Body mass index (BMI) [Ratio] 38 kg/m2 Maggie Zhou LOSS PREVENTION AND SAFETY MANAGER-C Work Phone: 0(025)607-330816 [place] [address] 11-11-2024 10:29-0400 Body weight 120.3 kg Maggie Zhou LOSS PREVENTION AND SAFETY MANAGER-C Work Phone: 9(978)135-036189 [place] [address] 09-10-2024 11:27-0400 Diastolic blood pressure 83 mm[Hg] Valerio Mitchell MD Work Phone: [facility] 09-10-2024 11:27-0400 Heart rate 76 /min Valerio Mitchell MD Work Phone: [facility] 09-10-2024 11:27-0400 Respiratory rate 18 /min Valerio Mitchell MD Work Phone: [facility] 09-10-2024 11:27-0400 SaO2% (BldA) [Mass fraction] 100 % Valerio Mitchell MD Work Phone: [facility] 09-10-2024 11:27-0400 Systolic blood pressure 137 mm[Hg] Valerio Mitchell MD Work Phone: [facility] 09-10-2024 10:45-0400 Body mass index (BMI) [Ratio] 37.35 kg/m2 Valerio Mitchell MD Work Phone: [facility] 09-10-2024 10:45-0400 Body temperature 98.4 [degF] Valerio Mitchell MD Work Phone: [facility] 09-10-2024 10:45-0400 Body weight 117.03 kg Valerio Mitchell MD Work Phone: [facility] 12-19-2023 09:01-0400 Body mass index (BMI) [Ratio] 35.33 kg/m2 Tommy Alvarado MD Work Phone: [facility] 12-19-2023 09:01-0400 Body temperature 98.6 [degF] Tommy Alvarado MD Work Phone: [facility] 12-19-2023 09:01-0400 Body weight 110.68 kg Tommy Alvarado MD Work Phone: [facility] 12-19-2023 09:01-0400 Diastolic blood pressure 109 mm[Hg] Tommy Alvarado MD Work Phone: [facility] 12-19-2023 09:01-0400 Heart rate 103 /min Tommy Alvarado MD Work Phone: [facility] 12-19-2023 09:01-0400 Respiratory rate 18 /min Tommy Alvarado MD Work Phone: [facility] 12-19-2023 09:01-0400 SaO2% (BldA) [Mass fraction] 98 % Tommy Alvarado MD Work Phone: [facility] 12-19-2023 09:01-0400 Systolic blood pressure 145 mm[Hg] Tommy Alvarado MD Work Phone: [facility] 12-09-2023 03:14-0400 Body temperature 98.49 [degF] Bekah Borden MD Work Phone: [facility] 12-09-2023 03:14-0400 Diastolic blood pressure 86 mm[Hg] Bekah Borden MD Work Phone: [facility] 12-09-2023 03:14-0400 Heart rate 80 /min Bekah Borden MD Work Phone: [facility] 12-09-2023 03:14-0400 Respiratory rate 21 /min Bekah Borden MD Work Phone: [facility] 12-09-2023 03:14-0400 SaO2% (BldA) [Mass fraction] 99 % Bekah Borden MD Work Phone: [facility] 12-09-2023 03:14-0400 Systolic blood pressure 146 mm[Hg] Bekah Borden MD Work Phone: [facility] 12-09-2023 03:14-0400 Body height 177.8 cm Bekah Borden MD Work Phone: [facility] 12-09-2023 03:14-0400 Body mass index (BMI) [Ratio] 34.44 kg/m2 Bekah Borden MD Work Phone: [facility] 12-09-2023 03:14-0400 Body weight 108.86 kg Bekah Borden MD Work Phone: [facility] 10-04-2022 16:52-0400 Body weight 117.48 kg Di Bauer APRN.CNP Work Phone: [facility] 10-04-2022 16:52-0400 Diastolic blood pressure 86 mm[Hg] Di Older DINING SERVICE SUPERVISOR.SENIOR NETWORK SECURITY ENGINEER Work Phone: [facility] 10-04-2022 16:52-0400 Heart rate 84 /min Di Older DINING SERVICE SUPERVISOR.SENIOR NETWORK SECURITY ENGINEER Work Phone: [facility] 10-04-2022 16:52-0400 Respiratory rate 18 /min Di Older DINING SERVICE SUPERVISOR.SENIOR NETWORK SECURITY ENGINEER Work Phone: [facility] 10-04-2022 16:52-0400 SaO2% (BldA) [Mass fraction] 97 % Di Older DINING SERVICE SUPERVISOR.SENIOR NETWORK SECURITY ENGINEER Work Phone: [facility] 10-04-2022 16:52-0400 Systolic blood pressure 134 mm[Hg] Di Older DINING SERVICE SUPERVISOR.SENIOR NETWORK SECURITY ENGINEER Work Phone: [facility] 07-31-2022 15:07-0500 Body height 177 cm Di Older DINING SERVICE SUPERVISOR.SENIOR NETWORK SECURITY ENGINEER Work Phone: [facility] 07-31-2022 15:07-0500 Body weight 116.12 kg Di Older DINING SERVICE SUPERVISOR.SENIOR NETWORK SECURITY ENGINEER Work Phone: [facility] 07-31-2022 15:07-0500 Diastolic blood pressure 84 mm[Hg] Di Older DINING SERVICE SUPERVISOR.SENIOR NETWORK SECURITY ENGINEER Work Phone: [facility] 07-31-2022 15:07-0500 Heart rate 86 /min Di Older DINING SERVICE SUPERVISOR.SENIOR NETWORK SECURITY ENGINEER Work Phone: [facility] 07-31-2022 15:07-0500 Respiratory rate 18 /min Di Older DINING SERVICE SUPERVISOR.SENIOR NETWORK SECURITY ENGINEER Work Phone: [facility] 07-31-2022 15:07-0500 Systolic blood pressure 156 mm[Hg] Di Older DINING SERVICE SUPERVISOR.SENIOR NETWORK SECURITY ENGINEER Work Phone: [facility] 07-19-2022 09:11-0500 Body temperature 99.19 [degF] Tommy Alvarado MD Work Phone: [facility] 07-19-2022 09:11-0500 Body weight 113.4 kg Tommy Alvarado MD Work Phone: [facility] 07-19-2022 09:11-0500 Diastolic blood pressure 73 mm[Hg] Tommy Alvarado MD Work Phone: [facility] 07-19-2022 09:11-0500 Heart rate 88 /min Tommy Alvarado MD Work Phone: [facility] 07-19-2022 09:11-0500 Respiratory rate 16 /min Tommy Alvarado MD Work Phone: [facility] 07-19-2022 09:11-0500 SaO2% (BldA) [Mass fraction] 97 % Tommy Alvarado MD Work Phone: [facility] 07-19-2022 09:11-0500 Systolic blood pressure 140 mm[Hg] Tommy Alvarado MD Work Phone: [facility] 06-21-2022 09:12-0500 Body temperature 99.7 [degF] Tommy Alvarado MD Work Phone: [facility] 06-21-2022 09:12-0500 Body weight 113.4 kg Tommy Alvarado MD Work Phone: [facility] 06-21-2022 09:12-0500 Diastolic blood pressure 93 mm[Hg] Tommy Alvarado MD Work Phone: [facility] 06-21-2022 09:12-0500 Heart rate 109 /min Tommy Alvarado MD Work Phone: [facility] 06-21-2022 09:12-0500 Respiratory rate 16 /min Tommy Alvarado MD Work Phone: [facility] 06-21-2022 09:12-0500 SaO2% (BldA) [Mass fraction] 98 % Tommy Alvarado MD Work Phone: [facility] 06-21-2022 09:12-0500 Systolic blood pressure 161 mm[Hg] Tommy Alvarado MD Work Phone: [facility] Encounters Encounter Date Encounter Type Care Provider Facility Start: 04-21-2025 ambulatory Samira Arnold ty:[facility] Start: 04-07-2025 End: 04-07-2025 Patient encounter procedure LOSS PREVENTION AND SAFETY MANAGER Samira Gutierrez [facility] Work Phone: Start: 04-07-2025 End: 04-07-2025 ambulatory Maggie Zhou LOSS PREVENTION AND SAFETY MANAGER-C Work Phone: [facility] Start: 01-14-2025 End: 01-14-2025 Patient encounter procedure LOSS PREVENTION AND SAFETY MANAGER Samira Brenda [facility] Work Phone: Start: 01-14-2025 End: 01-14-2025 ambulatory Maggie Zhou LOSS PREVENTION AND SAFETY MANAGER-C Work Phone: [facility] Start: 12-29-2024 End: 12-29-2024 ambulatory Maggie Zhou LOSS PREVENTION AND SAFETY MANAGER-C Work Phone: -[facility] Lab Start: 12-29-2024 End: 12-29-2024 Patient encounter procedure VSC Maggie Zhou LOSS PREVENTION AND SAFETY MANAGER-C -Sleep Lab Work Phone: Start: 12-29-2024 End: 12-29-2024 ambulatory Maggie Zhou VSC Facility:[facility] Start: 12-10-2024 End: 12-10-2024 ambulatory Maggie Zhou LOSS PREVENTION AND SAFETY MANAGER-C Work Phone: [facility] Work Phone: Start: 12-10-2024 End: 12-10-2024 Patient encounter procedure [facility] Maggie Zhou LOSS PREVENTION AND SAFETY MANAGER-C -Laboratory Shameka Orellana Start: 12-10-2024 End: 12-10-2024 ambulatory Maggie Zhou VSC Facility:[facility] Start: 11-11-2024 End: 11-11-2024 Admission to same day surgery center Dr. Ganesh Dsouza MD -[facility] Start: 11-11-2024 End: 11-11-2024 ambulatory Maggie Zhou LOSS PREVENTION AND SAFETY MANAGER-C Work Phone: [facility] Work Phone: Start: 10-20-2024 End: 10-21-2024 Refill Kacie Marrufo MD Work Phone: Infectious Disease Comment on above: Refill Request Start: 09-18-2024 Patient encounter procedure Maggie URIOSTEGUI Work Phone: -[facility] Start: 09-18-2024 ambulatory YUKI GROSS Facility: [facility] Start: 09-12-2024 End: 09-23-2024 ambulatory Valerio Mitchell MD Work Phone: Infectious Disease Comment on above: Lab Results Start: 09-12-2024 End: 09-23-2024 E-mail encounter from caregiver Valerio Mitchell MD Work Phone: Infectious Disease Start: 09-10-2024 End: 09-10-2024 ambulatory VALERIO MITCHELL Facility:[facility] Start: 09-10-2024 End: 09-10-2024 Office outpatient visit 25 minutes Valerio Mitchell MD Work Phone: Infectious Disease Comment on above: Human immunodeficien cy virus (HIV) disease (HCC) (Primary Dx); On highly active antiretroviral therapy (HAART); Medication monitoring encounter; Encounter for screening for bacterial sexually transmitted disease; Encounter for immunization; History of syphilis; Essential hypertension; Screening for depression; Encounter for screening examination for other mental health and behavioral disorders Start: 09-09-2024 End: 09-09-2024 Telephone encounter aJymejosef Shweta Infectious Disease Comment on above: Appointment (Called pt to remind and confirm them of upcoming appt. But pt didn't answer so I left pt a detailed vm with my callback number in case there were any questions.) Start: 08-26-2024 End: 08-26-2024 Clinical Support Maggie Zhou Work Phone: [facility] Comment on above: Stuttering (Primary Dx) Start: 08-19-2024 End: 08-19-2024 Clinical Support Maggie Zhou Work Phone: [facility] Comment on above: Stuttering (Primary Dx) Start: 08-12-2024 End: 08-12-2024 Clinical Support April Chaney [facility] Comment on above: Stuttering (Primary Dx) Start: 08-05-2024 End: 08-05-2024 Clinical Support April Chaney [facility] Comment on above: Stuttering (Primary Dx) Start: 07-23-2024 End: 07-23-2024 Refill Kacie Marrufo MD Work Phone: Infectious Disease Comment on above: Refill Request Start: 07-22-2024 End: 07-22-2024 Clinical Support April Chaney [facility] Comment on above: Stuttering (Primary Dx) Start: 07-15-2024 End: 07-15-2024 Clinical Support April Chaney [facility] Comment on above: Stuttering (Primary Dx) Start: 07-10-2024 End: 07-10-2024 Clinical Support Apriljina Chaney [facility] Comment on above: Stuttering (Primary Dx) Start: 07-03-2024 End: 07-03-2024 ambulatory Maggie Zhou Work Phone: [facility] Comment on above: Stutter Start: 06-17-2024 End: 09-16-2024 Transcribe Orders Maggie Zhou Work Phone: [facility] Comment on above: Stutter (Primary Dx) Start: 03-25-2024 End: 03-25-2024 Refill Kacie Marrufo MD Work Phone: Infectious Disease Comment on above: Refill Request Start: 03-18-2024 End: 03-18-2024 ambulatory ANICETO ELIAS Facility:[facility] Start: 03-18-2024 End: 03-18-2024 Nursing evaluation of patient and report Nurse Infdana Main Work Phone: Infectious Disease Comment on above: Syphilis (Primary Dx ) Start: 03-11-2024 End: 03-11-2024 ambulatory KACIE BAIRESO NIRU Facility:[facility] Start: 03-11-2024 End: 03-11-2024 Nursing evaluation of patient and report Nurse Infd Main Work Phone: Infectious Disease Comment on above: Syphilis (Primary Dx ); Screen for STD (sexually transmitted disease) Start: 03-04-2024 End: 03-04-2024 ambulatory ANICETO ELIAS Facility:[facility] Start: 03-04-2024 End: 03-04-2024 Nursing evaluation of patient and report Nurse Infd Main Work Phone: Infectious Disease Comment on above: Syphilis (Primary Dx ) Start: 02-29-2024 End: 02-29-2024 ambulatory KACIE MARRUFO Facility:[facility] Start: 02-29-2024 End: 02-29-2024 Telephone encounter Kacie Marrufo MD Work Phone: Infectious Disease Comment on above: Results; Patient Que stion Start: 01-01-2024 Refill Kacie Marrufo MD Work Phone: Infectious Disease Comment on above: Refill Request Start: 12-19-2023 End: 12-19-2023 ambulatory KACIE MARRUFO Facility:[facility] Start: 12-19-2023 End: 12-19-2023 Patient encounter procedure Tommy Alvarado MD Work Phone: Infectious Disease Comment on above: Human immunodeficien cy virus (HIV) disease (HCC) (Primary Dx); On highly active antiretroviral therapy (HAART); Medication monitoring encounter; Encounter for vaccination Start: 12-18-2023 Patient encounter procedure Kobe Holcomb RPh Infectious Disease Comment on above: Human immunodeficien cy virus (HIV) disease (HCC) (Primary Dx) Start: 12-17-2023 Telephone encounter Huma Boateng I nfectious Disease Comment on above: Activity Specialist - O ther (Patient confirmed the appt on Lock[facility] 12/15/2023 at 10:[address] Alvarado on Sunday12/19/2023 arrival time 8:45 am.//PN will remain available to assist the pt as able within scope of practice. /THELMA Monroy ([facility]) Service Length: 1 Unit) Start: 12-09-2023 End: 12-09-2023 Emergency department patient visit Bekah Borden MD Work Phone: [facility] Comment on above: Low back strain, ini tial encounter (Primary Dx) Start: 12-05-2023 Refill Kacie Marrufo MD Work Phone: Infectious Disease Comment on above: Refill Request Start: 10-08-2023 Telephone encounter Huma Boateng I nfectious Disease Comment on above: Activity Specialist - O ther (10/08/2023 1:25 pm//PN left an appt reminder on the phone. Dr. Alvarado on Sunday10/10/2023 arrival time 9:45 am.//PN will remain available to assist the pt as able within scope of practice. /THELMA Monroy ([facility]) Service Length: 1 Unit) Start: 09-03-2023 Telephone encounter Huma Boateng I nfectious Disease Comment on above: Activity Specialist - O ther (09/03/2023 10:43 am//PN left an appt reminder with Dr. Alvarado on Sunday09/05/2023 arrival 9:45 am//PN will remain available to assist the pt as able within scope of practice. /THELMA Monroy ([facility]) Service Length: 1 Unit) Start: 04-19-2023 Telephone encounter Kacei Marrufo MD Work Phone: Infectious Disease Comment on above: Patient Update Start: 04-18-2023 End: 04-18-2023 ambulatory Tommy Alvarado MD Work Phone: Infectious Disease Comment on above: Human immunodeficien cy virus (HIV) disease (HCC) (Primary Dx); On highly active antiretroviral therapy (HAART); Medication monitoring encounter; History of syphilis; Essential hypertension Start: 04-18-2023 End: 04-18-2023 Telemedicine consultation with patient Tommy Alvarado MD Work Phone: [facility] Start: 03-01-2023 Refill Tommy Alvarado MD Work Phone: Infectious Disease Comment on above: Refill Request Start: 10-04-2022 End: 10-04-2022 Patient encounter procedure Di Older DINING SERVICE SUPERVISOR.SENIOR NETWORK SECURITY ENGINEER Work Phone: [facility] [place] Comment on above: Elevated blood press ure reading without diagnosis of hypertension (Primary Dx); Encounter for immunization Start: 07-31-2022 End: 07-31-2022 Patient encounter procedure Di Older DINING SERVICE SUPERVISOR.SENIOR NETWORK SECURITY ENGINEER Work Phone: [facility] [place] Comment on above: Wellness examination (Primary Dx); Elevated blood pressure reading without diagnosis of hypertension; HIV positive (HCC); Latent syphilis; Obesity, Class II, BMI 35-39.9; Encounter for immunization Start: 07-31-2022 End: 07-31-2022 Patient encounter status Di Older DINING SERVICE SUPERVISOR.SENIOR NETWORK SECURITY ENGINEER Work Phone: [facility] [place] Start: 07-31-2022 Telephone encounter Aniceto smith MD Work Phone: [facility] [place] Comment on above: Fax over orders from first 2 PCN G shots Start: 07-19-2022 End: 07-19-2022 Patient encounter procedure Tommy Alvarado MD Work Phone: Infectious Disease Comment on above: Human immunodeficien cy virus (HIV) disease (HCC) (Primary Dx); On highly active antiretroviral therapy (HAART); Medication monitoring encounter; History of late syphilis; Encounter for immunization Start: 07-13-2022 End: 07-13-2022 Emergency department patient visit Facility:[facility] Start: 06-28-2022 ambulatory Tommy Alvarado MD Work Phone: [facility] Start: 06-28-2022 E-mail encounter keke m caregiver Tommy Alvarado MD Work Phone: [facility] Start: 06-23-2022 ambulatory Tommy Alvarado MD Work Phone: [facility] Start: 06-23-2022 E-mail encounter fro m caregiver Tommy Alvarado MD Work Phone: [facility] Start: 06-22-2022 Telephone encounter Tommy pinedo MD Work Phone: [facility] Comment on above: Results; Care Coordi nator - Other Start: 06-21-2022 End: 06-21-2022 Patient encounter procedure Tommy Alvarado MD Work Phone: Infectious Disease Comment on above: HIV test positive (H CC) (Primary Dx); Routine screening for STI (sexually transmitted infection); Human immunodeficiency virus (HIV) disease (HCC); Encounter for medication counseling Procedures Date Procedure Procedure Detail Performing Clinician Start: 12-10-2024 Procedure Maggie lopez NP-Aravind Work Phone: Comment on above: Test Ordered: [id number] RPR, Rfx Qn RPR/Confirm TPRPR Reactive [A ] CB Reference Range: Non ReactiveRPR, Quant. 1:32 [H ] titer CB Reference Range: NonRea<1:1Treponema pallidum Antibodies Reactive [A ] CB Reference Range: Non ReactiveInterpretation: Comment CB Reference Range: .Syphilis: RPR with Reflex to RPR Titer and Treponemal Antibodies, Traditional Screening and Diagnosis Algorithm -- TreponemalRPR RPR, Qn Ab Final Interpretation-------- --------- Non N/A N/A No laboratory evidenceReactive of syphilis. Retest in 2-4 weeks if recent exposure us suspected.-------- --------- Reactive >/=1:1 Non Nontreponemal antibodies Reactive detected. Syphilis unlikely; biological false positive possible. Retest in 2-4 weeks if recent exposure is suspected.-------- --------- Reactive >/=1:1 Reactive Treponemal and nontreponemal antibodies detected. Consistent with past or current (potential early) syphilis.Performed at: [address] [id number] Director: Sachin Smith PhD, Phone: [phone] Start: 11-11-2024 Nasal septoplasty Nahomi montano [facility]- Work Phone: Start: 09-18-2024 End: 09-18-2024 Polymerase chain reaction analysis Maggie Zhou - Work Phone: Start: 09-18-2024 PCR test for HIV 1 Michelle Zhou [facility] Work Phone: Comment on above: HIV-1 RNA detectedTh e reportable range for this assay is 20 to 10,000,000copies HIV-1 RNA/mL. Start: 09-18-2024 Serologic test for syphilis Maggie Zhou - Work Phone: Start: 09-18-2024 Serum inorganic phos phate measurement Maggie Zhou -C Work Phone: Start: 09-18-2024 Urnls dip stick/tabl et reagent auto microscopy Maggie Zhou - Work Phone: Start: 09-10-2024 Adult depression scr eening assessment Valerio Mitchell MD Work Phone: Start: 12-19-2023 Menacwy-tt conj vacc serogroups acwy for im use Tommy Alvarado MD Work Phone: Start: 12-09-2023 Ct abdomen & pelvis w/o contrast material Bekah Borden MD Work Phone: Start: 12-09-2023 Basic metabolic pane l calcium total Bekah Borden MD Work Phone: Start: 12-09-2023 Urinalysis complete panel - Urine Bekah Borden MD Work Phone: Start: 12-09-2023 Urnls dip stick/tabl et reagent auto microscopy Bekah Borden MD Work Phone: Start: 07-19-2022 INFLUENZA SEASONAL QUADRIVALENT HIGH DOSE AGE 65+ Tommy Alvarado MD Work Phone: Start: 07-19-2022 [employer] COVI D-19 BIVALENT BOOSTER VACCINE, AGE 12+ YR Tommy Alvarado MD Work Phone: Plan of Treatment Date Care Activity Detail Author Start: 2067 RSV Immunization for Adults (1 - 1-dose 75+ series) RSV Immunization for Adults (1 - 1-dose 75+ series) [facility] Start: 2052 RSV Immunization age d 60 or older (1 - 1-dose 60+ series) RSV Immunization aged 60 or older (1 - 1-dose 60+ series) [facility] Start: 07-31-2032 DTaP/Tdap/Td Vaccine s (7 - Td or Tdap) DTaP/Tdap/Td Vaccines (7 - Td or Tdap) [facility] Start: 07-31-2032 Urine microalbumin profile [facility] Start: 12-18-2028 Meningococcal Conjug ate Vaccine (3 - Risk 2-dose series) Meningococcal Conjugate Vaccine (3 - Risk 2-dose series) [facility] Start: 12-18-2028 Meningococcal Vaccin e (3 - Risk 2-dose series) Meningococcal Vaccine (3 - Risk 2-dose series) [facility] Start: 09-10-2025 Anxiety Screening Anxiety Screening [facility] Start: 09-10-2025 Depression Screening Depression Scre ening [facility] Start: 06-21-2025 ID HEPATITIS B SURFA CE ANTIBODY ID HEPATITIS B SURFACE ANTIBODY [facility] Start: 06-21-2025 ID HEPATITIS C ANTIBODY ID HEPATITIS C ANTIBODY [facility] Start: 04-07-2025 [facility] Start: 02-10-2025 Hepatitis A Vaccine (3 of 3 - Hep A Twinrix risk 3-dose series) Hepatitis A Vaccine (3 of 3 - Hep A Twinrix risk 3-dose series) [facility] Start: 11-11-2024 Anesthesia nose & accessory sinuses nos ANESTH NOSE/SINUS SURGERY [facility] Start: 11-11-2024 Septoplasty/submucou s resecj w/wo cartilage grf REPAIR OF NASAL SEPTUM [facility] Start: 11-11-2024 Submucous rescj inferior turbinate prtl/compl RESECT INFERIOR TURBINATE [facility] Start: 11-11-2024 Patient discharge [facility] Start: 11-09-2024 Hzv zoster vacc recombinant adjuvanted im njx ZOSTER VACCINE, RECOMBINANT (SHINGRIX) Immunization/Injection Routine Encounter for immunization Expected: 11/09/2024 [facility] Work Phone: Comment on above: Expected: 11/09/2024 Start: 11-05-2024 Shingrix Vaccine (2 of 2) Shingrix Vaccine (2 of 2) [facility] Start: 10-08-2024 Hepb vaccine adult 2 dose schedule for im use HEP B VACCINE, 2-DOSE (HEPLISAV-B) Immunization/Injection Routine Encounter for immunization Expected: 10/08/2024 [facility] Comment on above: Expected: 10/08/2024 Start: 09-10-2024 End: 12-10-2024 CBC W Auto Differential panel - Blood COMPLETE BLOOD COUNT AND DIFFERENTIAL Lab Routine Human immunodeficiency virus (HIV) disease (HCC) Expected: 09/10/2024, Expires: 12/10/2024 [facility] Comment on above: Expected: 09/10/2024 , Expires: 12/10/2024 Start: 09-10-2024 End: 12-10-2024 Comprehensive metabolic 2000 panel - Serum or Plasma COMPREHENSIVE METABOLIC PANEL Lab Routine Human immunodeficiency virus (HIV) disease ([facility]) Medication monitoring encounter Expected: 09/10/2024, Expires: 12/10/2024 [facility] Comment on above: Expected: 09/10/2024 , Expires: 12/10/2024 Start: 09-10-2024 End: 12-10-2024 HIV 1 RNA [#/volume] (viral load) in Serum or Plasma by ANGEL with probe detection HUMAN IMMUNODEFICIENCY VIRUS 1 (HIV-1) RNA, QUANTITATIVE PCR, PLASMA Lab Routine Human immunodeficiency virus (HIV) disease (HCC) Expected: 09/10/2024, Expires: 12/10/2024 [facility] Comment on above: Expected: 09/10/2024 , Expires: 12/10/2024 Start: 09-10-2024 End: 12-10-2024 LIPID PANEL, NONFASTING LIPID PANEL, NONFASTING Lab Routine Human immunodeficiency virus (HIV) disease ([facility]) Medication monitoring encounter Expected: 09/10/2024, Expires: 12/10/2024 [facility] Comment on above: Expected: 09/10/2024 , Expires: 12/10/2024 Start: 09-10-2024 End: 12-10-2024 Phosphate [Mass/volume] in Serum or Plasma PHOSPHORUS INORGANIC Lab Routine Human immunodeficiency virus (HIV) disease ([facility]) Medication monitoring encounter Expected: 09/10/2024, Expires: 12/10/2024 [facility] Comment on above: Expected: 09/10/2024 , Expires: 12/10/2024 Start: 09-10-2024 End: 12-10-2024 SYPHILIS TREPONEMAL W/REFLEX SYPHILIS TREPONEMAL W/REFLEX Lab Routine History of syphilis Expected: 09/10/2024, Expires: 12/10/2024 [facility] Comment on above: Expected: 09/10/2024 , Expires: 12/10/2024 Start: 09-10-2024 End: 12-10-2024 T-cell helper (CD4) subset panel - Blood CD4 ABSOLUTE COUNT Lab Routine Human immunodeficiency virus (HIV) disease ([facility]) Expected: 09/10/2024, Expires: 12/10/2024 [facility] Comment on above: Expected: 09/10/2024 , Expires: 12/10/2024 Start: 09-10-2024 End: 12-10-2024 URINALYSIS, REFLEX MICROSCOPIC URINALYSIS, REFLEX MICROSCOPIC Lab Routine Human immunodeficiency virus (HIV) disease ([facility]) Medication monitoring encounter Expected: 09/10/2024, Expires: 12/10/2024 [facility] Comment on above: Expected: 09/10/2024 , Expires: 12/10/2024 Start: 09-10-2024 End: 09-10-2024 Patient encounter procedure 09/10/2024 10:30 AM EDT Office Visit Infectious Disease [address] [place] [address] Valerio Mitchell MD [address] [place], [place] [id number] LAD follow up Infectious Disease Comment on above: LAD follow up Start: 08-26-2024 End: 08-26-2024 Clinical Support 08/26/2024 8:30 AM EST Clinical Support [facility] [address] [phone] April Chaney CCC-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 [facility] Start: 08-19-2024 End: 08-19-2024 Clinical Support 08/19/2024 8:30 AM EST Clinical Support [facility] [address] [phone] April Chaney CCC-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 [facility] Start: 08-12-2024 End: 08-12-2024 Clinical Support 08/12/2024 8:30 AM EST Clinical Support [facility] [address] [phone] April Chaney CCC-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 [facility] Start: 07-29-2024 End: 07-29-2024 Clinical Support 07/29/2024 8:30 AM EST Clinical Support [facility] [place] [address] [place] [phone] April Chaney CCC-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 [facility] Start: 07-22-2024 End: 07-22-2024 Clinical Support 07/22/2024 8:30 AM EST Clinical Support [facility] [address] [phone] April Chaney CCC-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 [facility] Start: 07-15-2024 End: 07-15-2024 Clinical Support 07/15/2024 8:30 AM EST Clinical Support [facility] [place] [address] [place] [phone] April Chaney CCC-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 [facility] Start: 07-10-2024 End: 07-10-2024 Clinical Support 07/10/2024 8:30 AM EST Clinical Support [facility] [place] [address] [place] [address] April Chaney CCC-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 [facility] Start: 04-19-2024 HPV Vaccine (3 - Ris k 3-dose SCDM series) HPV Vaccine (3 - Risk 3-dose SCDM series) [facility] Start: 04-19-2024 HPV Vaccines (3 - Ri sk 3-dose SCDM series) HPV Vaccines (3 - Risk 3-dose SCDM series) [facility] Start: 03-18-2024 End: 03-18-2024 Nursing evaluation of patient and report 03/18/2024 8:30 AM EDT Nurse Visit Infectious Disease [address] [place] [address] Main, Nurse Infd [address] [place] [address] IM Pen G Infectious Disease Comment on above: IM Pen G Start: 03-11-2024 End: 03-11-2024 Nursing evaluation of patient and report 03/11/2024 9:00 AM EDT Nurse Visit Infectious Disease [address] [place] [address] Main, Nurse Infd [address] [place] [address] IM Pen G Infectious Disease Comment on above: IM Pen G Start: 03-02-2024 Covid-19 Vaccine () Covid-19 Vaccine () [facility] Start: 03-02-2024 Covid-19 Vaccine ( season) Covid-19 Vaccine () [facility] Start: 03-02-2024 Influenza vaccination C [facility] Start: 02-29-2024 End: 05-30-2024 Chlamydia trachomatis+Neisseria gonorrhoeae DNA [Presence] in Unspecified specimen by ANGEL with probe detection GONORRHEA/CHLAMYDIA NAAT Lab Routine History of syphilis Screen for STD (sexually transmitted disease) Expected: 02/29/2024, Expires: 05/30/2024 [facility] Comment on above: Expected: 02/29/2024 , Expires: 05/30/2024 Start: 02-29-2024 End: 05-30-2024 SYPHILIS TOTAL W/REFLEX [facility] Work Phone: Comment on above: Expected: 02/29/2024 , Expires: 05/30/2024 Start: 12-19-2023 End: 12-19-2023 Patient encounter procedure 12/19/2023 9:00 AM EDT Office Visit Infectious Disease [address] [place] [address] Tommy Alvarado MD [address] [place] [address] LAD Follow Up Infectious Disease Comment on above: LAD Follow Up Start: 10-05-2023 Annual PCP Team Supervisor Final farrah Disease Visit Annual PCP Team Chronic Disease Visit [facility] Start: 07-19-2023 ID HIV COUNSELING ID HIV COUNSELING [facility] Start: 07-19-2023 ID TB TESTING ID TB TESTING [facility] Start: 07-19-2023 [id number] a vaccination ID DENTAL VISIT/REFERRAL [facility] Start: 07-02-2023 Behavioral Health Screening Behavioral Health Screening [facility] Start: 07-02-2023 Depression Assessment Depression Ass essment [facility] Start: 06-21-2023 Diabetic foot examination ID SYPHILIS SCREENING [facility] Start: 04-19-2023 End: 07-19-2023 Urinalysis complete panel - Urine URINALYSIS, WITH MICROSCOPIC Lab Routine Human immunodeficiency virus (HIV) disease (HCC) Expected: 04/19/2023, Expires: 07/19/2023 [facility] Work Phone: Comment on above: Expected: 04/19/2023 , Expires: 07/19/2023 Start: 04-18-2023 End: 07-18-2023 CBC W Auto Differential panel - Blood CBC + DIFF Lab Routine Human immunodeficiency virus (HIV) disease (HCC) Expected: 04/18/2023, Expires: 07/18/2023 [facility] Work Phone: Comment on above: Expected: 04/18/2023 , Expires: 07/18/2023 Start: 04-18-2023 End: 07-18-2023 Comprehensive metabolic 2000 panel - Serum or Plasma COMP METABOLIC PANEL Lab Routine Human immunodeficiency virus (HIV) disease (HCC) Expected: 04/18/2023, Expires: 07/18/2023 [facility] Work Phone: Comment on above: Expected: 04/18/2023 , Expires: 07/18/2023 Start: 04-18-2023 End: 07-18-2023 HIV 1 RNA [#/volume] (viral load) in Serum or Plasma by ANGEL with probe detection HIV RNA VIRAL LOAD Lab Routine Human immunodeficiency virus (HIV) disease (HCC) Expected: 04/18/2023, Expires: 07/18/2023 [facility] Work Phone: Comment on above: Expected: 04/18/2023 , Expires: 07/18/2023 Start: 04-18-2023 End: 07-18-2023 Lipid 1996 panel - Serum or Plasma LIPID PANEL BASIC Lab Routine Human immunodeficiency virus (HIV) disease (HCC) Expected: 04/18/2023, Expires: 07/18/2023 [facility] Work Phone: Comment on above: Expected: 04/18/2023 , Expires: 07/18/2023 Start: 04-18-2023 End: 07-18-2023 Magnesium [Mass/volume] in Serum or Plasma MAGNESIUM BLD Lab Routine Human immunodeficiency virus (HIV) disease (HCC) Expected: 04/18/2023, Expires: 07/18/2023 [facility] Work Phone: Comment on above: Expected: 04/18/2023 , Expires: 07/18/2023 Start: 04-18-2023 End: 07-18-2023 Phosphate [Mass/volume] in Serum or Plasma PHOSPHORUS INORGANIC Lab Routine Human immunodeficiency virus (HIV) disease ([facility]) Expected: 04/18/2023, Expires: 07/18/2023 [facility] Work Phone: Comment on above: Expected: 04/18/2023 , Expires: 07/18/2023 Start: 04-18-2023 End: 07-18-2023 SYPHILIS TOTAL W/REFLEX SYPHILIS TOTAL W/REFLEX Lab Routine History of syphilis Expected: 04/18/2023, Expires: 07/18/2023 [facility] Work Phone: Comment on above: Expected: 04/18/2023 , Expires: 07/18/2023 Start: 04-18-2023 End: 07-18-2023 T-cell helper (CD4) subset panel - Blood CD4 ABSOLUTE COUNT Lab Routine Human immunodeficiency virus (HIV) disease ([facility]) Expected: 04/18/2023, Expires: 07/18/2023 [facility] Work Phone: Comment on above: Expected: 04/18/2023 , Expires: 07/18/2023 Start: 03-02-2023 Covid-19 Vaccine () Covid-19 Vaccine () [facility] Start: 03-02-2023 Influenza vaccination [facility] Start: 01-16-2023 Diphtheria + tetanus + acellular pertussis vaccine (product) ID VIRAL LOAD [facility] Start: 01-16-2023 Rotavirus vaccination ID CD4 COUNT [facility] Start: 12-20-2022 Diphtheria + tetanus + acellular pertussis vaccine (product) ID VIRAL LOAD [facility] Start: 11-01-2022 HEPATITIS A (2 of 3 - Hep A Twinrix risk 3-dose series) HEPATITIS A (2 of 3 - Hep A Twinrix risk 3-dose series) [facility] Start: 11-01-2022 Hepatitis A Vaccine (2 of 3 - Hep A Twinrix risk 3-dose series) Hepatitis A Vaccine (2 of 3 - Hep A Twinrix risk 3-dose series) [facility] Start: 11-01-2022 Hepatitis A Vaccines (2 of 3 - Hep A Twinrix risk 3-dose series) Hepatitis A Vaccines (2 of 3 - Hep A Twinrix risk 3-dose series) [facility] Start: 11-01-2022 MMR (2 of 2 - Risk 2-dose series) MMR (2 of 2 - Risk 2-dose series) [facility] Start: 11-01-2022 Varicella vaccination Varicell a Vaccines (1 of 2 - 13+ 2-dose series) [facility] Start: 09-13-2022 COVID-19 VACCINE (4 - Booster) COVID-19 VACCINE (4 - Booster) [facility] Start: 09-13-2022 COVID-19 VACCINE (4 - Mixed Product risk series) COVID-19 VACCINE (4 - Mixed Product risk series) [facility] Start: 2022 HEPATITIS B (2 of 2 - CpG 2-dose series) HEPATITIS B (2 of 2 - CpG 2-dose series) [facility] Start: 2022 HPV VACCINE (2 - Ris k 3-dose SCDM series) HPV VACCINE (2 - Risk 3-dose SCDM series) [facility] Start: 2022 HPV Vaccines (2 - Ri sk 3-dose SCDM series) HPV Vaccines (2 - Risk 3-dose SCDM series) [facility] Start: 07-31-2022 End: 09-30-2022 Lipid 1996 panel - Serum or Plasma LIPID PANEL BASIC Lab Routine Wellness examination Expected: 07/31/2022, Expires: 09/30/2022 [facility] Work Phone: Comment on above: Expected: 07/31/2022 , Expires: 09/30/2022 Start: 07-31-2022 End: 09-30-2022 Thyrotropin [Units/volume] in Serum or Plasma TSH BLD Lab Routine Wellness examination Expected: 07/31/2022, Expires: 09/30/2022 [facility] Work Phone: Comment on above: Expected: 07/31/2022 , Expires: 09/30/2022 Start: 07-21-2022 End: 09-20-2022 HEPATITIS A ANTIBODY, IGG HEPATITIS A ANTIBODY, IGG Lab Routine Human immunodeficiency virus (HIV) disease ([facility]) Expected: 07/21/2022, Expires: 09/20/2022 [facility] Work Phone: Comment on above: Expected: 07/21/2022 , Expires: 09/20/2022 Start: 07-03-2022 Pneumococcal conjuga te vaccination ID URINALYSIS [facility] Start: 07-02-2022 DEPRESSION ASSESSMENT DEPRESSION ASS ESSMENT [facility] Start: 06-22-2022 End: 08-22-2022 25-hydroxyvitamin D3 [Mass/volume] in Serum or Plasma VITAMIN D 25 HYDROXY Lab Routine Human immunodeficiency virus (HIV) disease ([facility]) Expected: 06/22/2022, Expires: 08/22/2022 [facility] Work Phone: Comment on above: Expected: 06/22/2022 , Expires: 08/22/2022 Start: 06-22-2022 End: 08-22-2022 BLOOD TB SCREEN BLOOD TB SCREEN Lab Routine Human immunodeficiency virus (HIV) disease ([facility]) Expected: 06/22/2022, Expires: 08/22/2022 [facility] Work Phone: Comment on above: Expected: 06/22/2022 , Expires: 08/22/2022 Start: 06-22-2022 End: 08-22-2022 G6PD SCREEN BLD G6PD SCREEN BLD Lab Routine Human immunodeficiency virus (HIV) disease ([facility]) Expected: 06/22/2022, Expires: 08/22/2022 [facility] Work Phone: Comment on above: Expected: 06/22/2022 , Expires: 08/22/2022 Start: 06-22-2022 End: 08-22-2022 Hemoglobin A1c in Blood HGB A1C Lab Routine Human immunodeficiency virus (HIV) disease ([facility]) Expected: 06/22/2022, Expires: 08/22/2022 [facility] Work Phone: Comment on above: Expected: 06/22/2022 , Expires: 08/22/2022 Start: 06-22-2022 End: 08-22-2022 HIV genotype [Susceptibility] in Isolate by Genotype method Narrative HIV DRUG RESISTANCE AND GENOTYPING BY NGS Lab Routine Human immunodeficiency virus (HIV) disease ([facility]) Expected: 06/22/2022, Expires: 08/22/2022 [facility] Work Phone: Comment on above: Expected: 06/22/2022 , Expires: 08/22/2022 Start: 06-22-2022 End: 08-22-2022 HLA [id number] HLA [id number] Lab Routine Human immunodeficiency virus (HIV) disease ([facility]) Expected: 06/22/2022, Expires: 08/22/2022 [facility] Work Phone: Comment on above: Expected: 06/22/2022 , Expires: 08/22/2022 Start: 06-22-2022 End: 08-22-2022 T-cell helper (CD4) subset panel - Blood CD4 ABSOLUTE COUNT Lab Routine Human immunodeficiency virus (HIV) disease ([facility]) Expected: 06/22/2022, Expires: 08/22/2022 [facility] Work Phone: Comment on above: Expected: 06/22/2022 , Expires: 08/22/2022 Start: 06-22-2022 End: 08-22-2022 Toxoplasma gondii IgG Ab [Units/volume] in Serum TOXOPLASMOSIS IGG AB Lab Routine Human immunodeficiency virus (HIV) disease ([facility]) Expected: 06/22/2022, Expires: 08/22/2022 [facility] Work Phone: Comment on above: Expected: 06/22/2022 , Expires: 08/22/2022 Start: 06-21-2022 End: 08-21-2022 Chlamydia trachomatis+Neisseria gonorrhoeae DNA [Presence] in Urine by ANGEL with probe detection GC/CHLAMYDIA AMPLIF, URINE Microbiology Routine HIV test positive ([facility]) Expected: 06/21/2022, Expires: 08/21/2022 [facility] Work Phone: Comment on above: Expected: 06/21/2022 , Expires: 08/21/2022 Start: 06-21-2022 End: 08-21-2022 Lipid 1996 panel - Serum or Plasma LIPID PANEL BASIC Lab Routine HIV test positive (HCC) Expected: 06/21/2022, Expires: 08/21/2022 [facility] Work Phone: Comment on above: Expected: 06/21/2022 , Expires: 08/21/2022 Start: 03-02-2022 Influenza vaccination INFLUENZA (#1) [facility] Start: 07-02-2021 DEPRESSION ASSESSMENT DEPRESSION ASS ESSMENT [facility] Start: 06-09-2021 COVID-19 VACCINE (3 - Moderna risk series) COVID-19 VACCINE (3 - Moderna risk series) [facility] Start: 04-17-2012 MENINGOCOCCAL CONJUG ATE (2 - Risk 2-dose series) MENINGOCOCCAL CONJUGATE (2 - Risk 2-dose series) [facility] Start: 04-17-2012 Meningococcal Conjug ate Vaccine (2 - Risk 2-dose series) Meningococcal Conjugate Vaccine (2 - Risk 2-dose series) [facility] Start: 03-20-2012 HEPATITIS B (2 of 3 - 19+ 3-dose series) HEPATITIS B (2 of 3 - 19+ 3-dose series) [facility] Start: 2011 SHINGRIX VACCINE (1 of 2) SHINGRIX VACCINE (1 of 2) [facility] Start: 2011 Urine microalbumin profile DTAP,TDAP,TD (1 - Tdap) [facility] Start: 2011 Zoster Vaccines (1 o f 2) Zoster Vaccines (1 of 2) [facility] Start: 2010 Anxiety Screening Anxiety Screening [facility] Start: 2010 BP Controlled (<130/80) BP Controlle d (<130/80) [facility] Start: 2010 Depression Screening Depression Scre ening [facility] Start: 2010 Hepatitis A immunization ID ANAL PAP [facility] Start: 2010 Hepatitis C screening Hepatitis C Sc reening [facility] Start: 2010 ID HIV COUNSELING ID HIV COUNSELING [facility] Start: 2010 ID TB TESTING ID TB TESTING [facility] Start: 2010 ID TOXOPLASMOSIS IGG ID TOXOPLASMOSI S IGG [facility] Start: 2010 Tzfmswk-bhlkv-dguojw a vaccination ID DENTAL VISIT/REFERRAL [facility] Start: 2010 MMR (1 of 2 - Risk 2-dose series) MMR (1 of 2 - Risk 2-dose series) [facility] Start: 2010 Varicella vaccination ID LIPID PROFI LE [facility] Start: 2010 Well child visit, 16 years ID HEPATITIS A ANTIBODY [facility] Start: 2004 Depression Screening [facility] Scre [facility] [facility] Start: 1998 PNEUMOCOCCAL (1 - PCV) PNEUMOCOCCAL (1 - PCV) [facility] Start: 1996 IPV Vaccines (4 of 4 - 4-dose series) IPV Vaccines (4 of 4 - 4-dose series) [facility] Start: 1994 Meningococcal Vaccin e (1 - Risk 2-dose series) Meningococcal Vaccine (1 - Risk 2-dose series) [facility] Start: 1993 HEPATITIS A (1 of 2 - Risk 2-dose series) HEPATITIS A (1 of 2 - Risk 2-dose series) [facility] Start: 1992 Lipid panel Lipid Panel [facility] Start: 1992 Rotavirus vaccination ID CD4 COUNT C [facility] CHLAM/GONO, RECTAL SWAB, ANGEL CHLAM/GONO, RECTAL SWAB, ANGEL Lab Routine Screen for STD (sexually transmitted disease) 03/11/2024 9:15 AM EDT [facility] Chlamydia trachomatis+Neisseria gonorrhoeae DNA [Presence] in Unspecified specimen by ANGEL with probe detection GONORRHEA/CHLAMYDIA NAAT Lab Routine Human immunodeficiency virus (HIV) disease ([facility]) Ordered: 12/19/2023 [facility] Work Phone: Comment on above: Ordered: 12/19/2023 Chlamydia trachomatis+Neisseria gonorrhoeae DNA [Presence] in Unspecified specimen by ANGEL with probe detection GONORRHEA/CHLAMYDIA NAAT Lab Routine Screen for STD (sexually transmitted disease) 03/11/2024 9:15 AM EDT [facility] Work Phone: Chlamydia trachomatis+Neisseria gonorrhoeae DNA [Presence] in Unspecified specimen by ANGEL with probe detection [facility] Comment on above: Ordered: 09/10/2024 End: 06-21-2023 HIV 1 RNA [#/volume] (viral load) in Serum or Plasma by ANGEL with probe detection HIV RNA VIRAL LOAD Lab Routine HIV test positive (HCC) Every 6 months for 2 Occurrences starting 06/21/2022 until 06/21/2023, 1 completed [facility] Work Phone: Comment on above: Every 6 months for 2 Occurrences starting 06/21/2022 until 06/21/2023, 1 completed Patient referral [facility] Work Phone: [facility] Immunizations Immunization Date Immunization Notes Care Provider Dinesh olea 09-10-2024 hepatitis A vaccine, adult dosage Valerio Mitchell MD Work Phone: [facility] 09-10-2024 Hepatitis B vaccine (recombinant), CpG adjuvanted Valerio Mitchell MD Work Phone: [facility] 09-10-2024 zoster vaccine recombinant Valerio Mitchell MD Work Phone: [facility] 12-19-2023 Hepatitis B vaccine (recombinant), CpG adjuvanted Tommy Alvarado MD Work Phone: [facility] 12-19-2023 Human Papillomavirus 9-valent vaccine Tommy Alvarado MD Work Phone: [facility] 12-19-2023 meningococcal (MenACWY-TT) vaccine, quadrivalent (MENQUADFI) Tommy Alvarado MD Work Phone: [facility] 12-19-2023 HPV, unspecified formulation April Chanye [facility] 12-19-2023 meningococcal vaccin e of unknown formulation and unknown serogroups April Ritu [facility] 10-04-2022 hepatitis A and hepatitis B vaccine Di Older DINING SERVICE SUPERVISOR.SENIOR NETWORK SECURITY ENGINEER Work Phone: [facility] 10-04-2022 measles, mumps and rubella virus vaccine Di Older DINING SERVICE SUPERVISOR.SENIOR NETWORK SECURITY ENGINEER Work Phone: [facility] 07-31-2022 pneumococcal Conjuga te, unspecified formulation Di Older DINING SERVICE SUPERVISOR.SENIOR NETWORK SECURITY ENGINEER Work Phone: [facility] Work Phone: 07-31-2022 pneumococcal (PCV20) vaccine, 20 valent (PREVNAR 20) Di Older DINING SERVICE SUPERVISOR.SENIOR NETWORK SECURITY ENGINEER Work Phone: [facility] 07-31-2022 tetanus toxoid, redu nela diphtheria toxoid, and acellular pertussis vaccine, adsorbed Di Older DINING SERVICE SUPERVISOR.SENIOR NETWORK SECURITY ENGINEER Work Phone: [facility] 07-19-2022 COVID-19 booster vaccine, age 12+ yr, bivalent (Filmijob) Tommy Alvarado MD Work Phone: [facility] 07-19-2022 Hepatitis B vaccine (recombinant), CpG adjuvanted Tommy Alvarado MD Work Phone: [facility] 07-19-2022 Human Papillomavirus 9-valent vaccine Tommy Alvarado MD Work Phone: [facility] 07-19-2022 influenza, high-dose , quadrivalent vaccine (FLUZONE HIGH DOSE QUADRIVALENT) Tommy Alvarado MD Work Phone: [facility] 07-19-2022 hepatitis B vaccine, unspecified formulation Tommy Alvarado MD Work Phone: [facility] 07-19-2022 HPV, unspecified formulation Bekah Borden MD Work Phone: [facility] 07-19-2022 influenza virus vacc ine, unspecified formulation Kacie Marrufo MD Work Phone: [facility] 02-21-2012 hepatitis B vaccine, adult dosage Tommy Alvarado MD Work Phone: [facility] Work Phone: 02-21-2012 meningococcal polysaccharide (groups A, C, Y and W-135) diphtheria toxoid conjugate vaccine (MCV4P) Tommy Alvarado MD Work Phone: [facility] Work Phone: 02-21-2012 hepatitis B vaccine, unspecified formulation Tommy Alvarado MD Work Phone: [facility] 02-25-1998 diphtheria, tetanus toxoids and acellular pertussis vaccine, unspecified formulation Kacie Marrufo MD Work Phone: [facility] Work Phone: 11-30-1993 diphtheria, tetanus toxoids and acellular pertussis vaccine, unspecified formulation Kacie Marrufo MD Work Phone: [facility] Work Phone: 11-30-1993 haemophilus influenz ae type b vaccine, conjugate unspecified formulation Kacie Marrufo MD Work Phone: [facility] Work Phone: 11-30-1993 measles, mumps and rubella virus vaccine Kacie Marrufo MD Work Phone: [facility] Work Phone: 11-30-1993 poliovirus vaccine, unspecified formulation Kacie Marrufo MD Work Phone: [facility] Work Phone: 04-06-1993 diphtheria, tetanus toxoids and pertussis vaccine Kacie Marrufo MD Work Phone: [facility] Work Phone: 04-06-1993 haemophilus influenz ae type b vaccine, conjugate unspecified formulation Kacie Marrufo MD Work Phone: [facility] Work Phone: 01-05-1993 diphtheria, tetanus toxoids and pertussis vaccine Kacie Marrufo MD Work Phone: [facility] Work Phone: 01-05-1993 haemophilus influenz ae type b vaccine, conjugate unspecified formulation Kacie Marrufo MD Work Phone: [facility] Work Phone: 01-05-1993 poliovirus vaccine, unspecified formulation Kacie Marrufo MD Work Phone: [facility] Work Phone: 1992 diphtheria, tetanus toxoids and pertussis vaccine Kacie Marrufo MD Work Phone: [facility] Work Phone: 1992 haemophilus influenz ae type b vaccine, conjugate unspecified formulation Kacie Marrufo MD Work Phone: [facility] Work Phone: 1992 poliovirus vaccine, unspecified formulation Kacie Marrufo MD Work Phone: [facility] Work Phone: Payers Date Payer Category Payer Self-pay 2023 Commercial Managed [facility] [id number] 2023 Private Health Insurance [facility] SELF FUNDED [id number] 2023 Unknown [id number] 2021 Unknown [id number] 2021 Unknown [id number] Unknown [id number] Unknown [id number] Unknown [id number] Unknown [id number] Unknown [id number] Unknown [id number] Unknown [id number] Unknown [id number] Social History Date Type Detail Facility Start: 06-21-2022 End: 11-07-2024 Tobacco smoking status IAIS Never smoked tobacco [facility] Start: 06-21-2022 End: 12-09-2023 Tobacco use and exposure Smokeless tobacco non-user [facility] Start: 06-21-2022 End: 12-09-2023 Alcohol intake Ex-drinker (finding) [facility] Start: 1990 Sex Assigned At Not on file [facility] Start: 07-13-2022 End: 09-10-2024 Alcohol intake Current drinker of alcohol (finding) [facility] Start: 07-13-2022 Alcohol Comment rare [facility] Start: 07-31-2022 History SDOH Alcohol Std Drinks 1 [facility] Start: 07-31-2022 History SDOH Social Connections Phone 3 [facility] Start: 07-31-2022 History SDOH Social Connections Get Together 4 [facility] Start: 07-31-2022 History SDOH Social Connections Membership 2 [facility] Start: 07-31-2022 History SDOH Social Connections Living 7 [facility] Start: 07-31-2022 Alcohol Comment 1-2 drinks a m onth or less [facility] Start: 07-31-2022 End: 04-18-2023 History of Social function [facility] Start: 07-31-2022 End: 04-18-2023 Social connection and isolation panel [facility] Do you belong to any clubs or organizations such as yarsani groups, unions, fraternal or athletic groups, or school groups? No [facility] Are you now , , , , never or living with a partner? Never [facility] Frequency of Alcohol Consumption Not on file [facility] How many standard dr inks containing alcohol do you have on a typical day? 1 or 2 [facility] How often do you hav e 6 or more drinks on 1 occasion? Never [facility] How hard is it for y ou to pay for the very basics like food, housing, medical care, and heating Not very hard [facility] Do you feel stress - tense, restless, nervous, or anxious, or unable to sleep at night because your mind is troubled all the time - these days [OSQ] Not at all [facility] (I/We) worried [facility] (my/our) food would run out before (I/we) got money to buy more. Never true [facility] Start: 01-30-2022 Sex Male (finding) [facility] Start: 1990 Sex Assigned At Male W [facility] Goals Date Patient Goal Desired Activity /State Mental Status Date Assessment Result Facility 11-11-2024 Cognitive function Voice/Name [facility] Work Phone: Clinical Notes 06-21-2022 to 01-14-2025 Note Date & Type Note Facility 01-14-2025 Evaluation note Diagnosis Onset Date Resolution Daytime hypersomnia acute January 14, 2025 9:44am Essential hypertension acute Ju ly 2024 9:44am Obstructive sleep apnea acute J angel 2024 9:44am Daytime hypersomnia acute Octob er 2024 1:37pm Essential hypertension acute Oc tober 2024 1:37pm Obstructive sleep apnea acute O ctober 2024 1:37pm [facility] Work Phone: 1(158) 281-205005-13-2025 Consult note Author Checo Ventura [facility] Note Date/Time November 11, 2024 10:53 am [facility] Medical Records Department [address] [place] [address] Pre-Anesthesia Evaluation 11/11/24 1050 MR#: [id number] Acct: [id number] Name: AMANUEL CHAPMAN Rep #:[id number] : 1990 34 From: Checo Cortez PCP: Maggie Zhou Aravind, LOSS PREVENTION AND SAFETY MANAGER-C Statu s:REG SDC Y Race: C Location: [place] [address] ASA Classification* ASA Classification ASA Classification: 2 Assessment & Plan Anesthesia* Anesthesia Assessment Anesthesia Assessment: Discussed sedation and/or anesthesia options, risks, benefits, and alternatives with patient/parents/legal guardian/POA. Questions invited. The patient/parents/legal guardian/POA seems to understand and agrees to proceedwith anesthesia plan. Reviewed the physical assessment, medical history, allergy history and patient home medications list prior to surgery/procedure/anesthetic and documented any changes. Performed airway and anesthesia risk assessments. Anesthesia Type Anesthesia Type: General History Source History Obtained from:: Patient and Chart Anesthesia Focused Assessment* Temperature: 98.6 F Pulse Rate: 92 Blood Pressure: 148/75 Respiratory Rate: 18 Pulse Ox: 100 Oxygen Delivery Method: Room Air Airway Assessment Mouth opens: >3 cm Mallampati Score: II Focused Labs Anesthesia Preop lab: CBC WBC 7.3 x10E3/uL (3.4-10.8) 09/18/24 09:54 5 RBC 4.53 x10E6/uL (4.14-5.80) 09/18/24 09:54 09/18 Hgb 15.0 g/dL (13.0-17.7) 09/18/24 09:54 09/18/24 Hct 43.2 % (37.5-51.0) 09/18/24 09:54 09/18/24 Plt Count 281 x10E3/uL (150-450) 09/18/24 09:54 09/18/24 CHEMISTRY Potassium 4.4 mmol/L (3.3-5.1) 09/18/24 09:54 09/18/24 Sodium 138 mmol/L (133-145) 09/18/24 09:54 09/18/24 Phosphorus 2.8 mg/dL (2.7-4.5) 09/18/24 09:54 09/18/24 BUN 16 mg/dL (4-19) 09/18/24 09:54 09/18/24 Creatinine 0.97 mg/dL (0.70-1.20) 09/18/24 09:54 09/18/24 Glucose 81 mg/dL (70-99) 09/18/24 09:54 09/18/24 TSH 1.700 uIU/mL (0.358-3.740) 03/12/24 09:03/02 COAG Pre-Assessment Diagnosis/Proposed Procedure Planned Operative Procedure(s): SEPTOPLASTY SUBMUCOUS RESECTION OF INFERIOR TURBINATE Anesthesia History Anesthesia History - paper sealer: Anesthesia History - paper sealer Hx Hospitalization No 11/07/24 09:42 Any Problems With Anesthesia No: NO SURGERY HX 11/07/24 09:42 Cholinesterase deficiency No 11/07/24 09:42 You/Your Family Experience No 11/07/24 09:42 fever (hyperthermia) with Relationship Recent Exposure to Contagious No 11/11/24 10:29 Disease Does patient have nerve No 11/07/24 09:42 stimulator Patient instructed to have device shut off --Does patient have Pacemaker No 11/11/24 10:29 or ICD? When Was Last Pacemaker Check QUESTION #4 FULL TEXT: You/Your Family Experience fever (hyperthermia) with Anesthesia Last Oral Intake Last Oral intake: Last Oral Intake NPO since 07:00 11/11/24 10:29 Meds taken in AM with sips of Yes 11/11/24 10:29 water? Meds patient instructed to take am of surgery PONV PONV - paper sealer: PONV - paper sealer Female No 11/07/24 09:42 HX of Motion Sickness No 11/07/24 09:42 HX of N/V After Surgery No 11/07/24 09:42 Non-Smoker Yes 11/07/24 09:42 Duration of Surgery greater Yes 11/07/24 09:42 than 60 minutes Number of Risk Factors 2 11/07/24 09:42 PONV Score Moderate Risk 11/07/24 09:42 Height & Weight Height & Weight: Anesthesia: Height & Weight Height 5 ft 10 in 11/11/24 10:29 Weight: 120.3 kg 11/11/24 10:29 Body Mass Index (BMI) 38.0 11/11/24 10:29 Respiratory Assessment Respiratory Assessment - paper sealer: Respiratory Tract Infection Hx - paper sealer Hx Respiratory Tract Infection No 11/07/24 09:42 STOP Sleep Apnea STOP Sleep Apnea - paper sealer: STOP Sleep Apnea - paper sealer Hx Hypertension Yes: CONTROLLED WITH MED 11/07/24 09:42 Hx Sleep Apnea No 11/07/24 09:42 CPAP BIPAP Do you snore loudly (louder Yes 11/07/24 09:42 than talking or can be heard Do you often feel tired/ Yes 11/07/24 09:42 fatigued/ sleepy during daytime? Has anyone observed you stop Yes 11/07/24 09:42 breathing during sleep? STOP Results Positive 11/07/24 09:42 QUESTION #5 FULL TEXT : Do you snore loudly (louder than talking or can be heard through closed doors)? 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 Specify any problems Hx of Preganancy in last 3 N/A 11/07/24 09:42 Months Nurse Filling Out Transfusion DSCHRIBER 11/07/24 09:42 & Questions: Date: 11/07/24 11/07/24 09:42 Time: 09:44 11/07/24 09:42 Patient unable to answer at this time (ie. confused, unrespo /Reproduction History /Reproductive History - paper sealer: /Reproductive Hx- paper sealer Hx Now No 11/07/24 09:42 Gestational Age (in weeks): EDC: Hx Hx Para Hx Section SAB No 11/07/24 09:42 Active Medications Active Medications: Current Medications Generic Name Dose Route Start Last Admin Trade Name Clarissa PRN Reason Stop Dose Admin Clindamycin Phosphate 900 mg in 50 mls @ 75 mls/hr 11/11/24 11:25 Cleocin IV 11/11/24 12:04 INTRAOP ONE Lactated Ringer's 1,000 mls @ 15 mls/hr 11/11/24 10:15 11/11/24 10:36 IV 15 mls/hr .Q48H GABRIELLE Administration PFSH Medical History Wears contact lenses ADHD (attention deficit hyperactivity disorder) Depression Anxiety Substance abuse HIV (human immunodeficiency virus infection) Heartburn Non-smoker Leg cramps Hypertension Home Medications ?Medication ?Instructions ?Recorded ?Last Taken ?Type amlodipine 10 mg tablet 10 mg PO QHS 10/17/24 Unknow n History bupropion HCl 75 mg tablet 75 mg PO QAM 10/17/2411/11 06:15 History lisinopril 20 mg tablet 20 mg PO QHS 10/17/24 Unknow n History naltrexone 50 mg tablet 50 mg PO QAM 10/17/24 Unknow n History bictegravir 50 mg-emtricitabine 1 tab PO DAILY 5 Unknown History 200 mg-tenofovir alafenam 25 mg tablet (Biktarvy) guanfacine 1 mg tablet 1 mg PO QHS 11/07/24 Unknown History Allergy/AdvReac Type Severity Reaction Status Date / Time No Known Allergies Allergy Verified 11/11/24 10:28 Surgical History No history of previous surgery Social History Smoking Status: Never smoker alcohol intake: never substance use type: former substance user caffeine: Yes Addt'l Information Additional Findings: >4 METs Review of Systems (Anesthesia) ROS Narrative System reviewed and no additional complaints, except as documented. Physical Exam Const alert and oriented x3 Orientation / Consciousness: awake Resp normal respiratory effort and normal air movement Cardio regular rate and regular rhythm Neuro oriented x3 and moves all extremities 11/11/24 1053 <Electronically signed by Checo Ventura MD> Date _ Checo Ventura MD Cosigner Signature: Date CC: ~ Signed [facility] Work Phone: 1(712) 583-745405-13-2025 Consult note [facility] Medical Records Department [address] [place] [address] Anesthesia Postop Eval I 11/11/24 1218 MR#: [id number] Acct: [id number] Name: AMANUEL CHAPMAN Rep #:[id number] : 1990 34 From: Espinoza Diez CLINIC BUSINESS MANAGER PCP: Maggie Zhou VSC, LOSS PREVENTION AND SAFETY MANAGER-C Statu s:REG SDC Y Race: C Location: [place] [address] Anesthesia: Postop Eval I Current Vital Signs Temperature: 97.6 F Pulse Rate: 81 Blood Pressure: 130/84 Respiratory Rate: 20 Pulse Ox: 99 Oxygen Delivery Method: Room Air Assessment Airway patent: Yes Spontaneous unlabored respirations: Yes Mental status: Awake and Calm nausea: No Vomiting: No Anesthesia Complication: No Fluid Hydration Crystalloid volume administer (ml): 1,600 Total IV fluid infused: 1,600 Progress Note Anesthesia document: Postop Eval 1 completed: Yes 11/11/24 1219 y CLINIC BUSINESS MANAGER> Date _ Espinoza Diez CLINIC BUSINESS MANAGER Cosigner Signature: Date CC: ~ Signed [facility]05-13-2025 Procedure note [facility] Medical Records Department [address] [place] [address] Operative Report 11/11/24 1216 MR#: [id number] Acct: [id number] Name: AMANUEL CHAPMAN Rep #:[id number] : 1990 34 From: Ganesh boyle MD PCP: Maggie Zhou, C, LOSS PREVENTION AND SAFETY MANAGER-C Statu s:REG [facility] Location: [place] [address] Problems Associated Problem List Diagnoses (1) Nasal congestion: (2) Nasal turbinate hypertrophy: (3) Nasal septal deviation: Operative Report (Standard) Operative Information Date of Procedure: 11/11/24 Pre-Operative Diagnosis: 1. nasal congestion 2. nasal septal deviation 3. hypertrophy nasal turbinates, right and left Post-Operative Diagnosis: 1. nasal congestion 2. nasal septal deviation 3. hypertrophy nasal turbinates, right and left Surgery/Procedure Performed: 1. septoplasty 2. submucous and bony resection of inferior turbinates, right and left bone process operator: No Type of Anesthesia: General RN Documented Start/Stop Times: Operation Date: 11/11/24 11:25 Case Time Into Pre-Op 11/11/24 10:09 Out of Pre-Op 11/11/24 11:04 Anesthesia Start 11/11/24 11:07 Into Room 11/11/24 11:07 Procedure Start 11/11/24 11:29 Procedure End 11/11/24 12:06 Anesthesia End 11/11/24 12:12 Out of Room 11/11/24 12:12 Procedure Start Time: 11:07 Procedure Stop Time: 12:00 Select all DRAINS/GRAFTS/IMPLANTS that apply: None Estimated Blood Loss: 1cc Specimen collected: No Description of surgery: On the day of the procedure, after appropriate informed consent was obtained, the patient was brought to the operating room and placed in a supine position onthe operating room table. The patient wasplaced under general endotracheal anesthesia by the anesthesiologist. The endotracheal tube was secured. the nosewas injected with lidocaine/epinephrine and decongested with oxymetazoline- soaked pledgets.? a marginal incision was made with a #15 blade on the left side.? a submucoperichondrial plane was developed on the patient's left side with a bushra elevator.? this was taken posteriorly to the bony/cartilaginous junction and inferiorly to the maxillary crest.? after an L-strut was marked, a large r ightward defection and 2cm bony spur were removed with a D-knife and amberly reynoso.? the head ofthe right and left turbinates were injected with lidocaine/epinephrine.? the head of the left inferior turbinate was incised witha 15 blade, dissected submucosally with a bushra elevator, reduced using suctionelectrocautery and outfractured using a boies elevator. bony reduction was performed with a thru cut the head of the right inferior turbinate was incised with a 15 blade, dissected submucosally with a bushra elevator, reduced using suction electrocautery and outfractured using a boies elevator.? bony reduction was performed with a thru cut. he was awoken from anesthesia and transferred to the PACU in stable condition, Surgical Findings: n/a Complications Complications: No 11/11/24 1219 Cosigner Signature (if applicable): CC: [facility] LOSS PREVENTION AND SAFETY MANAGER-C Maggie Zhou; Dr. Ganesh Dsouza MD~ Signed [facility]05-13-2025 Discharge summary [facility] Medical Records Department [address] [place] [address] Instructions for Home/Discharge Instructions 11/11/24 1214 MR#: [id number] Acct: [id number] Name: AMANUEL CHAPMAN Rep #:[id number] : 1990 34 From: Ganesh boyle MD PCP: [facility] Mauro, GILA Statu s:REG SDC Discharge Instructions Diet Discharge Diet: No restrictions DC O2, CPAP, BIPAP needs Home O2 Discharge instructions: No Dressing / Incision Call your doctor if your incision/area has: Sudden Increased Bleeding Additional Dressing/Incision Instructions:: saline to nose 5 times / day. mupirocin ton both nostrils twice daily. Follow Up Care Please Follow Up With: Ganesh Dsouza MD When: 1 week Test Results: Test results from this visit will be discussed in further detail at your follow- up appointment, if applicable. Discharge Plan Admission Attending Provider: Ganesh Dsouza Primary Care Provider: Maggie Zhou Instructions Print Language: Palestinian Discharge Orders/Prescriptions Prescriptions: No Action amlodipine 10 mg tablet 10 mg PO QHS lisinopril 20 mg tablet 20 mg PO QHS bupropion HCl 75 mg tablet 75 mg PO QAM naltrexone 50 mg tablet 50 mg PO QAM Biktarvy 50-200-25 mg tablet 1 tab PO DAILY guanfacine 1 mg tablet 1 mg PO QHS Referrals / Follow Up: Maggie Zhou, LOSS PREVENTION AND SAFETY MANAGER-C [Primary Care Provider] - Disposition Disposition (needs filled in before D/C Order can be placed): Home, Self Care 11/11/24 1215Cgina Dsouza MD CC: [facility] LOSS PREVENTION AND SAFETY MANAGER-C Maggie Zhou ~ Signed [facility]05-13-2025 Evaluation note* Diagnosis Onset Date Resolution Status Admit Date Nasal congestion acute October 9:54am Nasal septal deviation acute 2024 9:54am Nasal turbinate hypertrophy acute November 11, 2024 9:54am [facility] Work Phone: 1([phone]) 691-711205-13-2025 Evaluation note* Diagnosis Onset Date Resolution Status Admit Date Nasal congestion acute October 9:54am Nasal septal deviation acute Ma y 2024 9:54am Nasal turbinate hypertrophy acute November 11, 2024 9:54am Daytime hypersomnia acute January 14, 2025 9:44am [facility] Work Phone: [phone]) [phone] Consult note [facility] Medical Records Department [address] [place] [id number] Pre-Anesthesia Evaluation 11/11/24 1050 MR#: [id number] Acct: [id number] Name: AMANUEL CHAPMAN Rep #:[id number] : 1990 34 From: [place] PCP: WARREN Mauro, LOSS PREVENTION AND SAFETY MANAGER-C Statu s:[facility] [place] Y Race: C Location: [place] [address] ASA Classification* ASA Classification ASA Classification: 2 Assessment & Plan Anesthesia* Anesthesia Assessment Anesthesia Assessment: Discussed sedation and/or anesthesia options, risks, benefits, and alternatives with patient/parents/legal guardian/POA. Questions invited. The patient/parents/legal guardian/POA seems to understand and agrees to proceedwith anesthesia plan. Reviewed the physical assessment, medical history, allergy history and patient home medications list prior to surgery/procedure/anesthetic and documented any changes. Performed airway and anesthesia risk assessments. Anesthesia Type Anesthesia Type: General History Source History Obtained from:: Patient and Chart Anesthesia Focused Assessment* Temperature: 98.6 F Pulse Rate: 92 Blood Pressure: 148/75 Respiratory Rate: 18 Pulse Ox: 100 Oxygen Delivery Method: Room Air Airway Assessment Mouth opens: >3 cm Mallampati Score: II Focused Labs Anesthesia Preop lab: CBC WBC 7.3 x10E3/uL (3.4-10.8) 09/18/24 09:54 5 RBC 4.53 x10E6/uL (4.14-5.80) 09/18/24 09:54 09/18 Hgb 15.0 g/dL (13.0-17.7) 09/18/24 09:54 09/18/24 Hct 43.2 % (37.5-51.0) 09/18/24 09:54 09/18/24 Plt Count 281 x10E3/uL (150-450) 09/18/24 09:54 09/18/24 CHEMISTRY Potassium 4.4 mmol/L (3.3-5.1) 09/18/24 09:54 09/18/24 Sodium 138 mmol/L (133-145) 09/18/24 09:54 09/18/24 Phosphorus 2.8 mg/dL (2.7-4.5) 09/18/24 09:54 09/18/24 BUN 16 mg/dL (4-19) 09/18/24 09:54 09/18/24 Creatinine 0.97 mg/dL (0.70-1.20) 09/18/24 09:54 09/18/24 Glucose 81 mg/dL (70-99) 09/18/24 09:54 09/18/24 TSH 1.700 uIU/mL (0.358-3.740) 03/12/24 09:03/02 COAG Pre-Assessment Diagnosis/Proposed Procedure Planned Operative Procedure(s): SEPTOPLASTY SUBMUCOUS RESECTION OF INFERIOR TURBINATE Anesthesia History Anesthesia History - paper sealer: Anesthesia History - paper sealer Hx Hospitalization No 11/07/24 09:42 Any Problems With Anesthesia No: NO SURGERY HX 11/07/24 09:42 Cholinesterase deficiency No 11/07/24 09:42 You/Your Family Experience No 11/07/24 09:42 fever (hyperthermia) with Relationship Recent Exposure to Contagious No 11/11/24 10:29 Disease Does patient have nerve No 11/07/24 09:42 stimulator Patient instructed to have device shut off --Does patient have Pacemaker No 11/11/24 10:29 or ICD? When Was Last Pacemaker Check QUESTION #4 FULL TEXT: You/Your Family Experience fever (hyperthermia) with Anesthesia Last Oral Intake Last Oral intake: Last Oral Intake NPO since 07:00 11/11/24 10:29 Meds taken in AM with sips of Yes 11/11/24 10:29 water? Meds patient instructed to take am of surgery PONV PONV - paper sealer: PONV - paper sealer Female No 11/07/24 09:42 HX of Motion Sickness No 11/07/24 09:42 HX of N/V After Surgery No 11/07/24 09:42 Non-Smoker Yes 11/07/24 09:42 Duration of Surgery greater Yes 11/07/24 09:42 than 60 minutes Number of Risk Factors 2 11/07/24 09:42 PONV Score Moderate Risk 11/07/24 09:42 Height & Weight Height & Weight: Anesthesia: Height & Weight Height 5 ft 10 in 11/11/24 10:29 Weight: 120.3 kg 11/11/24 10:29 Body Mass Index (BMI) 38.0 11/11/24 10:29 Respiratory Assessment Respiratory Assessment - paper sealer: Respiratory Tract Infection Hx - paper sealer Hx Respiratory Tract Infection No 11/07/24 09:42 STOP Sleep Apnea STOP Sleep Apnea - paper sealer: STOP Sleep Apnea - paper sealer Hx Hypertension Yes: CONTROLLED WITH MED 11/07/24 09:42 Hx Sleep Apnea No 11/07/24 09:42 CPAP BIPAP Do you snore loudly (louder Yes 11/07/24 09:42 than talking or can be heard Do you often feel tired/ Yes 11/07/24 09:42 fatigued/ sleepy during daytime? Has anyone observed you stop Yes 11/07/24 09:42 breathing during sleep? STOP Results Positive 11/07/24 09:42 QUESTION #5 FULL TEXT : Do you snore loudly (louder than talking or can be heard through closeddoors)? 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 Specify any problems Hx of Preganancy in last 3 N/A 11/07/24 09:42 Months Nurse Filling Out Transfusion DSCHRIBER 11/07/24 09:42 & Questions: Date: 11/07/24 11/07/24 09:42 Time: 09:44 11/07/24 09:42 Patient unable to answer at this time (ie. confused, unrespo /Reproduction History /Reproductive History - paper sealer: /Reproductive Hx- paper sealer Hx Now No 11/07/24 09:42 Gestational Age (in weeks): EDC: Hx Hx Para Hx Section SAB No 11/07/24 09:42 Active Medications Active Medications: Current Medications Generic Name Dose Route Start Last Admin Trade Name Freq PRN Reason Stop Dose Admin Clindamycin Phosphate 900 mg in 50 mls @ 75 mls/hr 11/11/24 11:25 Cleocin IV 11/11/24 12:04 INTRAOP ONE Lactated Ringer's 1,000 mls @ 15 mls/hr 11/11/24 10:15 11/11/24 10:36 IV 15 mls/hr .Q48H GABRIELLE Administration PFSH Medical History Wears contact lenses ADHD (attention deficit hyperactivity disorder) Depression Anxiety Substance abuse HIV (human immunodeficiency virus infection) Heartburn Non-smoker Leg cramps Hypertension Home Medications ?Medication ?Instructions ?Recorded ?Last Taken ?Type amlodipine 10 mg tablet 10 mg PO QHS 10/17/24 Unknow n History bupropion HCl 75 mg tablet 75 mg PO QAM 10/17/2411/11 06:15 History lisinopril 20 mg tablet 20 mg PO QHS 10/17/24 Unknow n History naltrexone 50 mg tablet 50 mg PO QAM 10/17/24 Unknow n History bictegravir 50 mg-emtricitabine 1 tab PO DAILY 5 Unknown History 200 mg-tenofovir alafenam 25 mg tablet (Biktarvy) guanfacine 1 mg tablet 1 mg PO QHS 11/07/24 Unknown History Allergy/AdvReac Type Severity Reaction Status Date / Time No Known Allergies Allergy Verified 11/11/24 10:28 Surgical History No history of previous surgery Social History Smoking Status: Never smoker alcohol intake: never substance use type: former substance user caffeine: Yes Addt'l Information Additional Findings: >4 METs Review of Systems (Anesthesia) ROS Narrative System reviewed and no additional complaints, except as documented. Physical Exam Const alert and oriented x3 Orientation / Consciousness: awake Resp normal respiratory effort and normal air movement Cardio regular rate and regular rhythm Neuro oriented x3 and moves all extremities 11/11/24 1053 MD> Date _ Checo Ventura MD Cosigner Signature: Date CC: ~ Signed [facility]04-22-2025 Telephone encounter Note* Telephone Encounter - [place] [facility] [place] 8:10 AM EDT Patient has been identified by name and date of : Yes Last office visit in this department: 09/10/2024 RX INSTRUCTIONS: Pharmacy initiated this request. No need to notify patient. Patient phones requesting refills as follows: Requested Prescriptions Pending Prescriptions Disp Refills BIKTARVY 50-200-25 mg per tablet [Pharmacy Med Name: BIKTARVY 50-200-25 MG TABLET] 30 tablet 0 Sig: TAKE 1 TABLET BY MOUTH ONCE DAILY Please review and advise. ADRIANA Allen [facility]04-22-2025 Miscellaneous Notes* Telephone Encounter - Gabi Coe [facility] - 10/21/2024 8:10 AM EDT Patient has been identified by name and date of : Yes Last office visit in this department: 09/10/2024 RX INSTRUCTIONS: Pharmacy initiated this request. No need to notify patient. Patient phones requesting refills as follows: Requested Prescriptions Pending Prescriptions Disp Refills BIKTARVY 50-200-25 mg per tablet [Pharmacy Med Name: BIKTARVY 50-200-25 MG TABLET] 30 tablet 0 Sig: TAKE 1 TABLET BY MOUTH ONCE DAILY Please review and advise. ADRIANA Allen [facility] NoteHNO ID: [id number] Author: KACIE DUNN MD Service: ? Author Type: Physician Type: Progress Notes Filed: 09/10/2024 15:34 Note Text: Attending Note I evaluated the patient and personally participated in the lam components. I agree with the fellow's findings and plan as documented and have discussed the case and management of the patient's care with the fellow. Some elements copied from my note dated 12/2023, which have been updated where appropriate, and all reflect current MDM from today, September 10, 2024. Mr. Amanuel Chapman is a 32 years old gentleman from [facility] who is here today for routine HIV follow-up. Diagnosed 11/2021, stage A on diagnosis, risk factors MSM. He also has PMHx significant for hypertension, depression, and substance use disorder (methamphetamines) on remission. No major events since prior visit. He reports doing well on current ART which he takes daily without missing any doses. Denied any issues with refills. He does have a monthly co-pay that is taken care for by his co-pay assistance program through [employer]. Denied any overt AEs to therapy. Today we will updated his laboratories to monitor his infection and possible AEs to therapy. He is now dating a new partner for the past 2 weeks. They have engaged in oral sex only thus far. His partner is HIV negative and on PrEP. He was advised that he is consider to be untransmissible and PrEP would be indicated if his partner is sexually active with other partners, but he is not at risk of transmitting the infection to him. We will updated his STD screen according to his sexual practices. He has prior history of syphilis with suspected re-infection last 03/2024 for which he was treated with 3 doses of IM penicillin benzathine. We will updated his serologies today. He has several immunizations that are needed to receive at local pharmacy: Influenza and COVID-19, HARVIX, HEPLISAV-B and SHINGRIX vaccines. Kacie Marrufo MD [facility]03-12-2025 History of Present illness Narrative* Kacie Dunn MD - 09/10/2024 2:50 PM EDT Attending Note I evaluated the patient and personally participated in the lam components. I agree with the fellow's findings and plan as documented and have discussed the case and management of the patient's care with the fellow. Some elements copied from my note dated 12/2023, which have been updated where appropriate, and all reflect current MDM from today, September 10, 2024. Mr. Amanuel Chapman is a 32 years old gentleman from [facility] who is here today for routine HIV follow-up. Diagnosed 11/2021, stage A on diagnosis, risk factors MSM. He also has PMHx significant for hypertension, depression, and substance use disorder (methamphetamines) on remission. No major events since prior visit. He reports doing well on current ART which he takes daily without missing any doses. Denied any issues with refills. He does have a monthly co-pay that is taken care for by his co-pay assistance program through [employer]. Denied any overt AEs to therapy. Today we will updated his laboratories to monitor his infection and possible AEs to therapy. He is now dating a new partner for the past 2 weeks. They have engaged in oral sex only thus far. His partner is HIV negative and on PrEP. He was advised that he is consider to be untransmissible andPrEP would be indicated if his partner is sexually active with other partners, but he is not at risk of transmitting the infection to him. We will updated his STD screen according to his sexual practices. He has prior history of syphilis with suspected re-infection last 03/2024 for which he was treated with 3 doses of IM penicillin benzathine. We will updated his serologies today. He has several immunizations that are needed to receive at local pharmacy: Influenza and COVID-19, HARVIX, HEPLISAV-B and SHINGRIX vaccines. Kacie Marrufo MD PAGER * Valerio Mitchell MD - 09/10/2024 10:30 AM EDT Images from the original note were not included. Amanuel Chapman is a 34 year old White male patient here for routine follow- up HIV infection. 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 Last encounter in Infectious Disease: 12/19/2023 Interval Events: HIV: Patient is currently on BIKTARVY. He said that he gets co-pay assistance and asked for coverage forhis medications. Denies any current side effects of Biktarvy. Denies any fevers, chills, sweats, chest pain, shortness of breath, cough, nausea, vomiting, abdominal pain, diarrhea. Overall feels well. Denies missing any of his pills. He has 1 new partner since the last visit infectious disease clinic. His partner is aware of his HIV status and he is on PrEP. Reports that they are exclusive. Patient's partner asked if he needed tostill be on PrEP, given the patient's undetectable viral load. The practice oral sex only. Do not use protection. Syphilis: Patient was retested in January 2024 and his titer increased from 1:128 to 1:256. 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 HTN: On initial presentation, the patient had a blood pressure of 156/94. Repeat BP dropped to 137/83. He had his blood pressure recently checked at his PCP clinic and told that it "looks good." Has not recently checked his blood pressure at home. Social history: Since seeing ID clinic last, patient has completely switched over to working at his younger brothers [employer]. He said that his work is going well and he is enjoying it much better than his previous job. Feels much happier overall. Depression: Patient feels significantly better after switching jobs. He currently sees a new PCP that is happy with. Goes to the [facility], who also manage his wellbutryn (for depression) and naltrexone (for prior meth addiction). PCP - Maggie BORGES at the [facility] (Office [phone]) ( ) Health maintenance: Agreeable to obtaining influenza, COVID booster, hepatitis A/B vaccines, and shingrex. Agreed to getting his influenza and COVID booster vaccines in his local pharmacy and the hepatitis A/B vaccines and Shingrix vaccine here. Current Medications: buPROPion XL (WELLBUTRIN XL) 150 mg 24 hr tablet Take 150 mg by mouth every morning. lisinopril (ZESTRIL) 10 mg tablet Take 1 tablet by mouth every afternoon. naltrexone 50 mg tablet Take 50 mg by mouth every morning. bdjlpbhjjzs-ovozjmeljavvy-dukcqyeyv alafenamide (BIKTARVY) 50-200-25 mg per tablet Take 1 tablet bymouth once daily. amLODIPine (NORVASC) 10 mg tablet Take 1 tablet by mouth once daily. Medication History Since his last visit he has not stopped his medications. 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 Condom Use: No Influenza Vaccine: Yes Immunization History Administered Date(s) Administered COVID-19 original vaccine, full dose, monovalent (MODERNA) 04/14/2021 05/12/2021 COVID-19 vaccine, age 12+ yr, bivalent (MeetBall-ContextWeb) 07/19/2022 Haemophilus influenzae b (Hib) vaccine, unspecified formulation 1990 01/05/1993 04/06/1993 11/30/1993 diphtheria tetanus pertussis (DTP) vaccine 1990 01/05/1993 04/06/1993 diphtheria tetanus pertussis (DTaP) vaccine, unspecified formulation 11/30/1993 02/25/1998 hepatitis A (HepA) vaccine, adult (HAVRIX, VAQTA) 09/10/2024 hepatitis A-hepatitis B (HepA-HepB) vaccine (TWINRIX) 10/04/2022 hepatitis B (HepB) vaccine, 3-dose series, age 20+ yr (ENGERIX-B, RECOMBIVAX HB) 02/21/2012 hepatitis B (HepB-CpG) vaccine, adult, 2-dose series (HEPLISAV-B) 07/19/2022 12/19/2023 09/10/2024 human papillomavirus (HPV9) vaccine, 9 valent (GARDASIL 9) 07/19/2022 12/19/2023 influenza (HD-IIV4) vaccine, age 65+ yr, high dose, quadrivalent, PF (FLUZONE HIGH-DOSE) 07/19/2022 measles mumps rubella (MMR) vaccine (M-M-R II, PRIORIX) 11/30/1993 10/04/2022 meningococcal (MenACWY-D) vaccine, quadrivalent (MENACTRA) 02/21/2012 meningococcal (MenACWY-TT) vaccine, quadrivalent (MENQUADFI) 12/19/2023 pneumococcal conjugate (PCV20) vaccine, 20 valent (PREVNAR 20) 07/31/2022 poliovirus vaccine, unspecified formulation 1990 01/05/1993 11/30/1993 tetanus diphtheria pertussis (Tdap) vaccine, age 7+ yr (ADACEL, BOOSTRIX) 07/31/2022 zoster (RZV) vaccine, recombinant (SHINGRIX) 09/10/2024 Review of Systems: The remainder of the review of systems is negative. PHYSICAL EXAM: BP 137/83 Pulse 76 Temp 36.9 C (98.4 F) (Oral) Resp 18 Wt 117 kg (258 lb) SpO2 100% BMI37.35 kg/m BMI 37.35 kg/(m^2) General appearance:alert, cooperative, pleasant, in no acute distress Skin: clear, no rashes Head: Normocephalic, no masses, lesions, tenderness or abnormalities Eyes: Negative Ears: external ears normal, canals clear, TM's normal Nose: clear Oropharynx: moist without lesions, no thrush, teeth in good repair Lymph Nodes: no cervical, supraclavicular, axillary or inguinal lymphadenopathy Lungs: clear to auscultation, without rales or wheeze, good air exchange Cardiac: regular rate and rhythm, without murmur Abdomen: soft, nondistended, nontender, no hepatosplenomegaly or masses Extremities: no edema in LE bilaterally, no cynanosis or clubbing Neuro:Awake, alert and oriented x 3, No involuntary motions., and No obvious focal deficits Lab Results: Latest Ref Rng & Units 06/21/2022 07/19/2022 12/19/2023 LAD Labs CD3+CD4+ T Cell # 533 - 1,674 cells/uL 623 728 CD3+CD4+ T Cell % 34 - 61 % 34 32 HIV-1 RNA (log copies/mL) Log Copies/mL 3.36 1.60 HIV-1 RNA HIV-1 RNA not detected by PCR. HIV-1 RNA detected by PCR HIV-1 RNA detected by PCR Less than 20 Copies/mL (<1.3 Log Copies/mL) HIV-1 RNA detected by PCR, not quantifiable. SEROLOGY: Hepatitis B Core Ab, Total (no units) Date Value 06/21/2022 Negative Hep B Surface Ab, Qual (no units) Date Value 06/21/2022 Negative HBsAg (no units) Date Value 06/21/2022 Negative Hep C Antibody IA (no units) Date Value 06/21/2022 Negative TB Result (no units) Date Value 07/19/2022 Negative RPR (no units) Date Value 02/29/2024 Reactive 12/19/2023 Reactive 06/21/2022 Reactive No data to display No data to display IMPRESSION/PLAN: #Human immunodeficiency virus (HIV) disease #On highly active antiretroviral therapy (HAART) #Medication monitoring encounter His HIV infection has been well-controlled on BIKTARVY and he is tolerating his medication well without any significant side effects. Of note, his partner takes PrEP and asked whether he still needs to take it, given that the patient is undetectable as of his last lab result in 12/2023. Discussed with the patient that, because hs viral load is undetectable, his partner does not need PrEP if they are in an exclusive relationship. However, if they are in an open relationship, his partner should continue taking HIV PrEP. The patient understood and was agreeable to this. Will obtain routine HIV lab work and follow-up with a virtual visit in 1 year. He requested his lab work to be faxed that his PCPs office to minimize cost and these orders have been sent over to them. - CD4 ABSOLUTE COUNT - HUMAN IMMUNODEFICIENCY VIRUS 1 (HIV-1) RNA, QUANTITATIVE PCR, PLASMA - COMPLETE BLOOD COUNT AND DIFFERENTIAL - COMPREHENSIVE METABOLIC PANEL - LIPID PANEL, NONFASTING - PHOSPHORUS INORGANIC - URINALYSIS, REFLEX MICROSCOPIC #Encounter for immunization Agreed to obtaining all vaccines. He will get his hepatitis A, hepatitis B, Shingrix vaccines todayand his influenza and COVID vaccines at his local pharmacy. - HEP A VACCINE, ADULT (HAVRIX, VAQTA) - ZOSTER VACCINE, RECOMBINANT (SHINGRIX) - ZOSTER VACCINE, RECOMBINANT (SHINGRIX) - INFLUENZA VACCINE, AGE 6MO-64YR, TRIVALENT (AFLURIA, FLULAVAL, FLUVIRIN, FLUZONE) - MeetBall-ContextWeb COVID-19 VACCINE AGE 12+ YR (COMIRNATY) - HEP B VACCINE, 2-DOSE (HEPLISAV-B) - HEP B VACCINE, 2-DOSE (HEPLISAV-B) #History of syphilis Treated in January 2024 for late latent syphilis versus with once weekly IM penicillin G for 3 weeks. Will obtain repeat syphilis titers to ensure appropriate response, as well as to rule out new infection, given that the patient has new partner since his last visit.. - SYPHILIS TREPONEMAL W/REFLEX #Essential hypertension BP remains mildly elevated on recheck. Patient is already on lisinopril 10 mg. He is planned to seeENT for concern of REGINA/chronic nasal congestion. Will continue to monitor his blood pressure duringfuture visits. - Recommend home blood pressure monitoring, to bring results to next visit - Continue lisinopril #Encounter for screening for bacterial sexually transmitted disease We will do routine STI screening. - GONORRHEA/CHLAMYDIA NAAT urine - GONORRHEA/CHLAMYDIA NAAT oral #Depression #Screening for anxiety Scored 0 on both PHQ 2 and GOLDEN 2 scales. Denies any SI or HI. Feels that his depression is well-controlled on Wellbutrin and after switching jobs. - DEPRESSION SCREENING - ANXIETY SCREENING Health Maintenance Due Soon/Overdue: BP Controlled (<130/80) Never done Annual PCP Team Chronic Disease Visit due on 10/05/2023 Influenza Vaccine(1) due on 03/02/2024 Covid-19 Vaccine( season) due on 03/02/2024 HPV Vaccine(3 - Risk 3-dose SCDM series) due on 04/19/2024 Plans for Next Visit: Routine HIV lab work Reassess blood pressure Monitor syphilis titers Valerio Mitchell MD Staffed by/Collaborating Physician: Kacie Mauricio documented [facility] NoteHNO ID: [id number] Author: VALERIO MITCHELL MD Service: ? Author Type: Fellow Type: Progress Notes Filed: 09/10/2024 15:35 Note Text: Amanuel Chapman is a 34 year old White male patient here for routine follow-up HIV infection. 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 Last encounter in Infectious Disease: 12/19/2023 Interval Events: HIV: Patient is currently on BIKTARVY. He said that he gets co-pay assistance and asked for coverage for his medications. Denies any current side effects of Biktarvy. Denies any fevers, chills, sweats, chest pain, shortness of breath, cough, nausea, vomiting, abdominal pain, diarrhea. Overall feels well. Denies missing any of his pills. He has 1 new partner since the last visit infectious disease clinic. His partner is aware of his HIV status and he is on PrEP. Reports that they are exclusive. Patient's partner asked if he needed to still be on PrEP, given the patient's undetectable viral load. The practice oral sex only. Do not use protection. Syphilis: Patient was retested in January 2024 and his titer increased from 1:128 to 1:256. 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 HTN: On initial presentation, the patient had a blood pressure of 156/94. Repeat BP dropped to 137/83. He had his blood pressure recently checked at his PCP clinic and told that it "looks good." Has not recently checked his blood pressure at home. Social history: Since seeing ID clinic last, patient has completely switched over to working at his younger brothers [employer]. He said that his work is going well and he is enjoying it much better than his previous job. Feels much happier overall. Depression: Patient feels significantly better after switching jobs. He currently sees a new PCP that is happy with. Goes to the [facility], who also manage his wellbutryn (for depression) and naltrexone (for prior meth addiction). PCP - Maggie BORGES at the [facility] (Office [phone]) ( ) Health maintenance: Agreeable to obtaining influenza, COVID booster, hepatitis A/B vaccines, and shingrex. Agreed to getting his influenza and COVID booster vaccines in his local pharmacy and the hepatitis A/B vaccines and Shingrix vaccine here. Current Medications: buPROPion XL (WELLBUTRIN XL) 150 mg 24 hr tablet Take 150 mg by mouth every morning. lisinopril (ZESTRIL) 10 mg tablet Take 1 tablet by mouth every afternoon. naltrexone 50 mg tablet Take 50 mg by mouth every morning. xueafbjauqo-mkycppqmsawsh-yfzyycylu alafenamide (BIKTARVY) 50-200-25 mg per tablet Take 1 tablet by mouth once daily. amLODIPine (NORVASC) 10 mg tablet Take 1 tablet by mouth once daily. Medication History Since his last visit he has not stopped his medications. 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 Condom Use: No Influenza Vaccine: Yes Immunization History Administered Date(s) Administered COVID-19 original vaccine, full dose, monovalent (MODERNA) 04/14/2021 05/12/2021 COVID-19 vaccine, age 12+ yr, bivalent (PFIZER-BIONTINVOLTA) 07/19/2022 Haemophilus influenzae b (Hib) vaccine, unspecified formulation 1990 01/05/1993 04/06/1993 11/30/1993 diphtheria tetanus pertussis (DTP) vaccine 1990 01/05/1993 04/06/1993 diphtheria tetanus pertussis (DTaP) vaccine, unspecified formulation 11/30/1993 02/25/1998 hepatitis A (HepA) vaccine, adult (HAVRIX, VAQTA) 09/10/2024 hepatitis A-hepatitis B (HepA-HepB) vaccine (TWINRIX) 10/04/2022 hepatitis B (HepB) vaccine, 3-dose series, age 20+ yr (ENGERIX-B, RECOMBIVAX HB) 02/21/2012 hepatitis B (HepB-CpG) vaccine, adult, 2-dose series (HEPLISAV-B) 07/19/2022 12/19/2023 09/10/2024 human papillomavirus (HPV9) vaccine, 9 valent (GARDASIL 9) 07/19/2022 12/19/2023 influenza (HD-IIV4) vaccine, age 65+ yr, high dose, quadrivalent, PF (FLUZONE HIGH-DOSE) (more content not included)...[facility]03-11-2025 Telephone encounter Note* Telephone Encounter - Ritesh Aguayo - 09/09/2024 11:26 AM EDTSummary: Appointment Called pt to remind and confirm them of upcoming appt. But pt didn't answer so I left pt a detailedvm with my callback number in case there were any questions. [facility]03-11-2025 Miscellaneous Notes* Telephone Encounter - Ritesh Aguayo - 09/09/2024 11:26 AM EDTSummary: Appointment Called pt to remind and confirm them of upcoming appt. But pt didn't answer so I left pt a detailedvm with my callback number in case there were any questions. [facility] History of Present illness Narrative* April Chaney CCC-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 - 08/26/2024 8:30 AM EST Images from the original note were not included. [facility] AT [facility] AT [address] [address] Dept: [phone] Dept SPEECH THERAPY DISCHARGE NOTE Patient Name: Amanuel Chapman : 1990 Date of Service: 08/26/2024 Referring Provider: Maggie Zhou Visit #: 8 Diagnosis: Stuttering Reason for referral: Stuttering Precautions/Red Flags: None Patient Preferences: "Bill" Subjective Chief Complaint: Stuttering Patient endorses difficulties in the following areas: speech Pain: Current: 0/10 Current Level of Function: TBD Patient s Stated Goal: To be able to apply speech strategies Current Diet: Regular, Thin Assessment Method: Clinical observation, Patient/caregiver interview, Questionnaires/Inventory Review Objective MOTOR SPEECH EXAM Respiration: Conversation WFL Voice: Within normal limits Resonance: Within normal limits Prosody: Within normal limits Diadochokinesis: Precise articulation Articulation: Within normal limits Speech Intelligibility: Unstructured conversation: 100% Dysarthria: N/A Apraxia: N/A Motor Speech Exam Comments: Speech has become more fluent with less disfluencies observed from initial evaluation. Concomitant Factors: None Impact on Functioning: Pt reports increase participation in social communication among family, peers, & in the community. Assessment Self-Evaluation Form Fluency (SEFF) How fluent was I?: 4 - mostly fluent How often did these features occur in my speech: - repetitions - never -prolongations - never - hesitations - sometimes - blocks - never How often did I use slowed speech: 3-often How effective was I at communicatin - very Were thre any obstacles to me communicating effectively: no Goals All goals met. Plan Patient no longer requires skilled 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 services and will be discharged at this time. Thank you for this referral. For any questions on this patient s course of therapy, please call theclinic for clarification. Time Entry Total Treatment Time Start Time: 829 Stop Time: 0900 Time Calculation (min): 30 min JANY Albarran documented in this [facility]02-18-2025 History of Present illness Narrative* JANY Albarran - 08/19/2024 8:30 AM EST Images from the original note were not included. [facility] AT [facility] AT [address] [address] Dept: [phone] Dept SPEECH THERAPY TREATMENT Patient Name: Amanuel Chapman : 1990 Date of Service: 08/19/2024 Referring Provider: Maggie Zhou Visit #: 7 Diagnosis: Stuttering Reason for referral: Stuttering Precautions/Red Flags: None Patient Preferences: "Bill" Subjective Arrived on time, pleasant and compliant. Pain: 0 Comment: n/a Objective Activity 1: Cancelation technique Education provided on stuttering strategy with focus on allowing the disfluency to occur and re-trying the word that was disfluent. Pt applied in a "fake" stuttering moment and was encourage to utilize in actual moments of stuttering. Activity 2: personal words/phrases Pt utilized stuttering strategies independently with personal word/phrase list with disfluencies occurring only 5-10% of the time Activity 3: Structured phrases Given a workbook phrase, pt prompted to read with intent to utilize his preferred strategy (slide out), in which his speech was 100% intelligible during this activity. Home Exercise Program: Progressed home exercise program Assessment Skilled speech therapy interventions utilized to improve patient s impairments and work towards established goals. Patient response to treatment: Good Patient will benefit from continued speech therapy to encourage carryover of all stuttering strategies Goals 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 Misc Misc 1 (Progressing) Start: 07/03/24 Expected End: 08/26/24 The patient will improve ease with speaking by identifying 2 speech behaviors/modifications techniques that interfere with fluency. Misc 2 (Progressing) Start: 07/03/24 Expected End: 09/09/24 The patient will identify modifications to speech production (fast/slow, bumpy/smooth, loud/quiet) with 80% accuracy for 3 data collections. Misc 3 (Progressing) Start: 07/03/24 Expected End: 09/09/24 The patient will identify fluency-enhancing strategies (slow speech, thinking of words before speaking) for in 80% of opportunities for 3 data collections. Plan Plan for next session: Review all strategies - apply at conversation level Time Entry Total Treatment Time Start Time: 829 Stop Time: 09 Time Calculation (min): 30 min NICOLA Albarran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 documented in this [facility]02-11-2025 History of Present illness Narrative* JANY Albarran - 08/12/2024 8:30 AM EST Images from the original note were not included. [facility] AT [facility] AT [address] [facility] [address] Dept: [phone] Dept SPEECH THERAPY RE-EVALUATION Patient Name: Amanuel Chapman : 1990 Date of Service: 08/12/2024 Referring Provider: Maggie Zhou Visit #: 6 Diagnosis: Stuttering Reason for referral: Stuttering Precautions/Red Flags: None Patient Preferences: "Bill" Subjective Chief Complaint: Stuttering Patient endorses difficulties in the following areas: speech Pain: Current: 0/10 Current Level of Function: TBD Patient s Stated Goal: "Easy, flowing speech" Current Diet: n/a Assessment Method: Clinical observation, Objective testing, Questionnaires/Inventory Review Objective MOTOR SPEECH EXAM Respiration: Conversation: Abdominal Voice: Within normal limits Resonance: Within normal limits Prosody: Fast rate Diadochokinesis: Fast rate Articulation: Within normal limits Speech Intelligibility: Unstructured conversation: 100% Dysarthria: N/A Apraxia: N/A Motor Speech Exam Comments: Pt continues to present with stuttering disfluencies but with improvements noted in use of strategies, breathing technique, and less secondary characteristics. Concomitant Factors: None Impact on Functioning: Impacts social interaction among peers, family, co-workers Assessment Informal Assessment completed Sound syllable repetition - 10% of conversation Whole word repetition - 10% of conversation Prolongations - 0% Interjections - 10% of conversation Blocks - 5-10% of conversation Revisions - 0% of conversation Rehab Potential: Good Goals 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 Misc Misc 1 (Progressing) Start: 07/03/24 Expected End: 08/26/24 The patient will improve ease with speaking by identifying 2 speech behaviors/modifications techniques that interfere with fluency. Misc 2 (Progressing) Start: 07/03/24 Expected End: 08/19/24 The patient will identify modifications to speech production (fast/slow, bumpy/smooth, loud/quiet) with 80% accuracy for 3 data collections. Misc 3 (Progressing) Start: 07/03/24 Expected End: 08/19/24 The patient will identify fluency-enhancing strategies (slow speech, thinking of words before speaking) for in 80% of opportunities for 3 data collections. Plan Frequency and Duration: 1/wk for 4 weeks Therapeutic Contents: Patient/family training, Progressive Home Program Plan for next session: Teach cancellation technique, review personal list sentences Risks and benefits were discussed with the patient and/or family, and the patient and/or family participated with the plan of care and agrees. Treatment Activity 1: Word list/strategy use Provided pt with /k/, /g/ and /r/ words lists in all positions, as pt reports these phonemes give him the most difficulty with disfluencies. Applied strategies previously taught with pt exhibiting only 4 disfluencies in a 30 word list trial. Pt utilized strategies effectively & independently toease into flowing speech Activity 2: Personal word list Reviewed personal words that pt often exhibits a disfluencies/block and created functional phrases for pt to say 5-10x a day with use of stuttering strategies. Home Exercise Program: Progressed home exercise program Time Entry Total Treatment Time Start Time: 829 Stop Time: 0900 Time Calculation (min): 30 min JANY Albarran documented in this [facility]02-04-2025 History of Present illness Narrative* JANY Albarran - 08/05/2024 8:30 AM EST Images from the original note were not included. [facility] AT [facility] AT [address] [address] Dept: [phone] Dept SPEECH THERAPY TREATMENT Patient Name: Amanuel Chapman : 1990 Date of Service: 08/05/2024 Referring Provider: Maggie Zhou Visit #: 5 Diagnosis: Stuttering Reason for referral: Stuttering Precautions/Red Flags: None Patient Preferences: "Bill" Subjective Arrived on time, alert, compliant Pain: 0 Comment: n/a Objective Activity 1: Review of easy onset/breathing techniques Pt reports he successfully utilized these strategies in daily practice and will try to use them in moments of stuttering. He reports it's difficult to recall them in the moment because anxiety level is high but when he stops and pauses, he can utilize them effectively. Applied with 1 word syllable, 3 word syllable and short sentences - Pt utilized each strategy effectively & independently. Pt also notes that he has paid more attention to where the tension is during a moment of stuttering- mostly his jaw. Discussed trying a simple swallow, or movement to help alleviate the tension in the moment, in addition to the stuttering strategy. Activity 2: Prep set strategy Introduced this new stuttering technique with the patient this date. Applied in a "mock" stutteringwith automatic speech tasks to focus on holding the sound, changing the volume/pitch and returning to easy speech. Pt applied with 100% comprehension. No true moments of stuttering occurred to utilize this strategy with today. Activity 3: Personal word list Reviewed 4-5 words on the patient's personal word list of words he always experiences a block or prolongation on. Pt experienced blocks with each word as he attempted to tell 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. Pt encouraged to use diaphragmatic breath support, easy onset or prep set to help alleviate the tension. Pt reported a pattern is words that start with /b/, /g/ or /k/. Trialed humming an /m/ and transitioning into the personal word "brother" (ie. Mmmmm my brothers) with success on not experiencing a block. Home Exercise Program: Progressed home exercise program Assessment Skilled speech therapy interventions utilized to improve patient s impairments and work towards established goals. Patient response to treatment: Good Patient will benefit from continued speech therapy to teach further stuttering strategies, incorporate strategies independently in speech. Goals 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 Misc Misc 1 (Progressing) Start: 07/03/24 Expected End: 08/26/24 The patient will improve ease with speaking by identifying 2 speech behaviors/modifications techniques that interfere with fluency. Misc 2 (Progressing) Start: 07/03/24 Expected End: 08/19/24 The patient will identify modifications to speech production (fast/slow, bumpy/smooth, loud/quiet) with 80% accuracy for 3 data collections. Misc 3 (Progressing) Start: 07/03/24 Expected End: 08/19/24 The patient will identify fluency-enhancing strategies (slow speech, thinking of words before speaking) for in 80% of opportunities for 3 data collections. Plan Plan for next session: Re-assess Personal word list, review of easy onset, prep set, introduce ligharticulation contact? Time Entry Total Treatment Time Start Time: 829 Stop Time: 899 Time Calculation (min): 30 min JANY Albarran documented in this [facility]01-22-2025 Telephone encounter Note* Telephone Encounter - Myra Callahan - 07/23/2024 9:32 AM EST Patient has been identified by name and date of : Yes Last office visit in this department: 12/19/2023 Next appointment-09/10/2024 RX INSTRUCTIONS: Patient aware RX will be sent to pharmacy. No need to notify patient. Patient phones requesting refills as follows: Requested Prescriptions Pending Prescriptions Disp Refills yafxljlxjue-eidgbvudnlbwl-mfssdlpod alafenamide (BIKTARVY) 50-200-25 mg per tablet 30 tablet 2 Sig: Take 1 tablet by mouth once daily. Please review and advise. Myra Gerardo [facility]01-22-2025 Miscellaneous Notes* Telephone Encounter - Myra Callahan - 07/23/2024 9:32 AM EST Patient has been identified by name and date of : Yes Last office visit in this department: 12/19/2023 Next appointment-09/10/2024 RX INSTRUCTIONS: Patient aware RX will be sent to pharmacy. No need to notify patient. Patient phones requesting refills as follows: Requested Prescriptions Pending Prescriptions Disp Refills bytzmjopndg-oigjlcozvwvmm-uiqmvvjfe alafenamide (BIKTARVY) 50-200-25 mg per tablet 30 tablet 2 Sig: Take 1 tablet by mouth once daily. Please review and advise. Myra Gerardo [facility] History of Present illness Narrative* April Glezba, [facility]-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 - 07/22/2024 8:30 AM EST Images from the original note were not included. [facility] AT [facility] AT [address] [facility] [address] Dept: [phone] Dept SPEECH THERAPY TREATMENT Patient Name: Amanuel Chapman : 1990 Date of Service: 07/22/2024 Referring Provider: Maggie Zhou Visit #: 4 Diagnosis: Stuttering Reason for referral: Stuttering Precautions/Red Flags: None Patient Preferences: "Bill" Subjective Arrived on time, alert, and compliant Pain: 0 Comment: n/a Objective Activity 1: Review of easy onset Applied easy onset concept with 1 syllable /h/ words, 2 syllable /h/ words, and short /h/ phrases with 100% carryover from previous session. Activity 2: introduction to "slide out" strategy Education provided on "slide out" stuttering strategy with focus on identifying where the tension occurs in the pt's speech mechanism during a moment of stuttering and how to "relieve" tension duringthe moment. Applied with 1-2 syllable words. Pt did not exhibit dysfluencies during this task, so pt was prompted to "mock" a moment of stuttering to increase comprehension of task. Activity 3: personal word/phrase list Home program extended to have pt write out common words/phrases where dysfluencies often occur to review in next session. Home Exercise Program: Progressed home exercise program Assessment Skilled speech therapy interventions utilized to improve patient s impairments and work towards established goals. Patient response to treatment: Good Patient will benefit from continued speech therapy to alleviate dysfluent speech, teach smooth speech strategies. Goals 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 Misc Misc 1 (Progressing) Start: 07/03/24 Expected End: 07/31/24 The patient will improve ease with speaking by identifying 2 speech behaviors/modifications techniques that interfere with fluency. Misc 2 (Progressing) Start: 07/03/24 Expected End: 07/31/24 The patient will identify modifications to speech production (fast/slow, bumpy/smooth, loud/quiet) with 80% accuracy for 3 data collections. [facility] 3 (Progressing) Start: 07/03/24 Expected End: 07/31/24 The patient will identify fluency-enhancing strategies (slow speech, thinking of words before speaking) for in 80% of opportunities for 3 data collections. Plan Plan for next session: Personal word list; review slide out, review easy onset Time Entry Total Treatment Time Start Time: 0830 Stop Time: 0900 Time Calculation (min): 30 min JANY Albarran documented in this [facility]01-14-2025 History of Present illness Narrative* JANY Albarran - 07/15/2024 8:30 AM EST Images from the original note were not included. [facility] AT [facility] AT [address] [address] Dept: [phone] Dept SPEECH THERAPY TREATMENT Patient Name: Amanuel Chapman : 1990 Date of Service: 07/15/2024 Referring Provider: Maggie Zhou Visit #: 3 Diagnosis: Stuttering Reason for referral: Stuttering Precautions/Red Flags: None Patient Preferences: "Bill" Subjective Alert & compliant, brought in folder Pain: 0 Comment: n/a Objective Activity 1: Review of breathing Completed 5 diaphragmatic breaths with good form and carryover from previous session. Completed 10 single syllable /h/ words with practice of diaphragmatic breaths. Activity 2: introduction to easy onset Education provided on easy onset - with use of words that begin with vowels, glides, liquids. Slidemodel utilized to encourage carryover of climbing the ladder (inhale), sitting down (breath out the"h") and going down the slide (transitioning in to the word). Pt utilized this method with a list of vowel words, liquids, and glide words with adequate comprehension. Self-identified errors and was successful in correcting errors. Home Exercise Program: Progressed home exercise program Assessment Skilled speech therapy interventions utilized to improve patient s impairments and work towards established goals. Patient response to treatment: Good Patient will benefit from continued speech therapy to increase fluent speech Goals 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 Misc Misc 1 (Progressing) Start: 07/03/24 Expected End: 07/31/24 The patient will improve ease with speaking by identifying 2 speech behaviors/modifications techniques that interfere with fluency. Misc 2 (Progressing) Start: 07/03/24 Expected End: 07/31/24 The patient will identify modifications to speech production (fast/slow, bumpy/smooth, loud/quiet) with 80% accuracy for 3 data collections. Misc 3 (Progressing) Start: 07/03/24 Expected End: 07/31/24 The patient will identify fluency-enhancing strategies (slow speech, thinking of words before speaking) for in 80% of opportunities for 3 data collections. Plan Plan for next session: review trigger words, easy onset, new strategy. Time Entry Total Treatment Time Start Time: 824 Stop Time: 854 Time Calculation (min): 30 min JANY Albarran documented in this [facility]01-09-2025 History of Present illness Narrative* JANY Albarran - 07/10/2024 8:30 AM EST Images from the original note were not included. [facility] AT [facility] AT [address] [address] Dept: [phone] Dept SPEECH THERAPY TREATMENT Patient Name: Amanuel Chapman : 1990 Date of Service: 07/10/2024 Referring Provider: Maggie Zhou Visit #: 2 Diagnosis: Stuttering Reason for referral: Stuttering Precautions/Red Flags: None Patient Preferences: "Bill" Subjective Arrived on time, pleasant, compliant. Pain: 0 Comment: n/a Objective Activity 1: Education Educational handouts provided to review "what is stuttering", "How tension/anxiety impacts stuttering" and introduction to body relaxation, posture control, diaphragmatic breathing Activity 2: Diaphragmatic breathing Pt completed x8 breaths with focus on breath in through the nose, breath out through the mouth. Applied with single /h/ words x10. Pt required 1 redirection, as he was observed to let out air andthen produce word, self-corrected x1/10 words. Home Exercise Program: Progressed home exercise program Assessment Skilled speech therapy interventions utilized to improve patient s impairments and work towards established goals. Patient response to treatment: Good Patient will benefit from continued speech therapy to incorporate compensatory strategies to help patient achieve smooth, easy speech. Goals 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 Misc Misc 1 (Progressing) Start: 07/03/24 Expected End: 07/31/24 The patient will improve ease with speaking by identifying 2 speech behaviors/modifications techniques that interfere with fluency. Misc 2 (Progressing) Start: 07/03/24 Expected End: 07/31/24 The patient will identify modifications to speech production (fast/slow, bumpy/smooth, loud/quiet) with 80% accuracy for 3 data collections. Misc 3 (Progressing) Start: 07/03/24 Expected End: 07/31/24 The patient will identify fluency-enhancing strategies (slow speech, thinking of words before speaking) for in 80% of opportunities for 3 data collections. Plan Plan for next session: Review breathing/posture, H words, implement strategy 1. Time Entry Total Treatment Time Start Time: 829 Stop Time: 09 Time Calculation (min): 30 min NICOLA Albarran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 documented in this [facility] [facility] History of Present illness Narrative* JANY Albarran - 07/03/2024 8:30 AM EST Images from the original note were not included. [facility] AT [facility] AT [address] [address] Dept: [phone] Dept SPEECH THERAPY INITIAL EVALUATION Patient Name: Amanuel Chapman : 1990 Date of Service: 07/03/2024 Referring Provider: Maggie Zhou Visit #: 1 Diagnosis: Stutter General Information Reason for referral: Stuttering Precautions/Red Flags: None Patient Preferences: "Bill" Past Surgical History: No past surgical history on file. Past Medical History: No past medical history on file. Allergies: No Known Allergies Have you experienced any anxiety or depression?: both, currently taking medications Have you experienced thoughts of self-harm or suicidal thoughts?: No Social Drivers of Health Reviewed: Yes Physician follow-up appointment?: Yes Safety Measures: n/a Subjective Chief Complaint: Stuttering Patient endorses difficulties in the following areas: speech Pain: Current: 0/10 Symptoms Aggravated by: stress, anxiety Symptoms Relieved by: unknown Prior Level of Function: since grade school - never treated Current Level of Function: TBD Patient s Stated Goal: smooth/clear speech Current Diet: Regular, Thin At the present time, would you say your health is: Very Good Concurrent Health Services: No Other Services at this time Any upcoming appointments: n/a Recent Therapy: None within the last sixty days Durable Medical Equipment (DME) Current DME: None anticipated at this time Anticipated DME needs: None anticipated at this time Social Support: lives with his family Community resources: Independent with all ADLs/IADLs Hobbies: Dogs, horse - 13 Home environment: multi level home 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 - [employer] Education Level: Some College Vocational Education High School Diploma Hand Dominance: Right Vision: Glasses Audition: Deferred at this time Assessment Method: Clinical observation, Objective testing, Patient/caregiver interview Objective MOTOR SPEECH EXAM Respiration: Conversation: Abdominal Voice: Within normal limits Resonance: Within normal limits Prosody: Variable rate Prolonged intervals Prolonged phonemes Short rushes Diadochokinesis: Precise articulation; Dysfluencies noted - whole word- repetition; blocks Articulation: Within normal limits Speech Intelligibility: Unstructured conversation: 100% Dysarthria: N/A Apraxia: N/A Motor Speech Exam Comments: Pt presents with stuttering dysfluencies that impact his verbal communication. Primary dysfluencies noted: whole word repetitions; blocks; interjections; Secondary dysfluencies noted: blinking eyes; facial grimacing; throat clear/coughing. Concomitant Factors: None Impact on Functioning: Current stuttering dysfluencies impact the patients social participation with family, peers, and in the work environment. Pt reports avoidance of various situations in order toprevent stuttering from occurring in daily life. Informal Stutterning Screener administered. Assessment Amanuel Chapman is a 33 y.o. male with chief complaint of stuttering, who presents with signs and symptoms consistent with dysfluency. The patient would benefit from skilled speech therapy to address speech skills in order to improve verbal communication skills. Rehab Potential: Good Learning Preferences: demonstration, explanation, and printed materials Barriers to Rehab: none Goals 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 Misc Misc 1 (Initiated) Start: 07/03/24 Expected End: 07/31/24 The patient will improve ease with speaking by identifying 2 speech behaviors/modifications techniques that interfere with fluency. Misc 2 (Initiated) Start: 07/03/24 Expected End: 07/31/24 The patient will identify modifications to speech production (fast/slow, bumpy/smooth, loud/quiet) with 80% accuracy for 3 data collections. Misc 3 (Initiated) Start: 07/03/24 Expected End: 07/31/24 The patient will identify fluency-enhancing strategies (slow speech, thinking of words before speaking) for in 80% of opportunities for 3 data collections. Plan Frequency and Duration: 1/wk for 4 weeks Therapeutic Contents: Compensation Strategies, Patient/family training, Progressive Home Program Plan for next session: Stuttering strategy introduction Risks and benefits were discussed with the patient and/or family, and the patient and/or family participated with the plan of care and agrees. Home Exercise Program: Created Time Entry Total Treatment Time Start Time: 829 Stop Time: 929 Time Calculation (min): 60 min April Chaney CCC-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 documented in this [facility]09-24-2024 Telephone encounter Note* Telephone Encounter - Kacie Dunn MD - 03/25/2024 9:56 AM EDT Good morning team, Can we please schedule this patient for a follow up visit with me AND Dr. Luo before the end ofthe year? Thanks! Kacie [facility]09-24-2024 Miscellaneous Notes* Telephone Encounter - Kacie Dunn MD - 03/25/2024 9:56 AM EDT Good morning team, Can we please schedule this patient for a follow up visit with me AND Dr. Luo before the end ofthe year? Thanks! Kacie * Telephone Encounter - Maritza oTth - 03/25/2024 8:27 AM EDT Patient has been identified by name and date of : Yes Last office visit in this department: 12/19/2023 RX INSTRUCTIONS: Patient aware RX will be sent to pharmacy. No need to notify patient. Patient phones requesting refills as follows: Requested Prescriptions Pending Prescriptions Disp Refills BIKTARVY 50-200-25 mg per tablet [Pharmacy Med Name: BIKTARVY 50-200-25 MG TABLET] 30 tablet 0 Sig: take 1 tablet by mouth once daily Please review and advise. Maritza Toth [facility] Telephone encounter Note * Telephone Encounter - Maritza Toth - 03/25/2024 8:27 AM EDT Patient has been identified by name and date of : Yes Last office visit in this department: 12/19/2023 RX INSTRUCTIONS: Patient aware RX will be sent to pharmacy. No need to notify patient. Patient phones requesting refills as follows: Requested Prescriptions Pending Prescriptions Disp Refills BIKTARVY 50-200-25 mg per tablet [Pharmacy Med Name: BIKTARVY 50-200-25 MG TABLET] 30 tablet 0 Sig: take 1 tablet by mouth once daily Please review and advise. Maritza Toth [facility]09-17-2024 NoteHNO ID: [id number] Author: BRITTANY PALAFOX MA Service: ? Author Type: Nascar Racer Type: Progress Notes Filed: 03/18/2024 09:01 Note Text: After obtaining informed consent, the PCN inj is given by Brittany Palafox MA .[facility]09-17-2024 History of Present illness Narrative* Brittany Palafox MA - 03/18/2024 8:58 AM EDT After obtaining informed consent, the PCN inj is given by Brittany Palafox MA . [facility]-2024 NoteHNO ID: [id number] Author: BRITTANY PALAFOX MA Service: ? Author Type: Nascar Racer Type: Progress Notes Filed: 03/11/2024 09:30 Note Text: After obtaining informed consent, the PCN inj is given by Brittany Palafox MA. Dr Mitchell order oral and rectal GONORRHEA/CHLAMYDIA test in the office Pt performed himself.[facility]09-10-2024 History of Present illness Narrative* Brittany Palafox MA - 03/11/2024 8:52 AM EDT After obtaining informed consent, the PCN inj is given by Brittany Palafox MA. Dr Mitchell order oral and rectal GONORRHEA/CHLAMYDIA test in the office Pt performed himself. documented [facility]09-[facility]-2024 NoteHNO ID: [id number] Author: BRITTANY PALAFOX MA Service: ? Author Type: Nascar Racer Type: Progress Notes Filed: 03/04/2024 14:38 Note Text: After obtaining informed consent, the immunization is given by Brittany Palafox MA .[facility]09-03-2024 History of Present illness Narrative* Brittany Palafox MA - 03/04/2024 2:36 PM EDT After obtaining informed consent, the immunization is given by Brittany Palafox MA . [facility] Telephone encounter Note * Telephone Encounter - Kacie Dunn MD - 02/29/2024 11:35 AM EDT Patient called with concerns of rash. He described an ankle rash that he attributed to his boots. It has now spread to involve his leg. He is also extremity tired. He has concerns about syphilis re-infection. Last RPR titter 1:128 (from 1:256 >6 months prior). At the time interpreted as probable adequateresponse to treatment given time frame. Recommend repeated RPR titter at this time is addition to other STD screen. Given symptoms, recommend treatment for secondary syphilis as well with 3 IM penicillin injections, will have my office coordinate. Kacie Marrufo MD PAGER [facility]08-30-2024 Miscellaneous Notes* Telephone Encounter - Kacie Dunn MD - 02/29/2024 11:35 AM EDT Patient called with concerns of rash. He described an ankle rash that he attributed to his boots. It has now spread to involve his leg. He is also extremity tired. He has concerns about syphilis re-infection. Last RPR titter 1:128 (from 1:256 >6 months prior). At the time interpreted as probable adequateresponse to treatment given time frame. Recommend repeated RPR titter at this time is addition to other STD screen. Given symptoms, recommend treatment for secondary syphilis as well with 3 IM penicillin injections, will have my office coordinate. Kacie Marrufo MD PAGER documented [facility]07-[facility] Telephone encounter Note * Telephone Encounter - Gabi Coe HUC - 01/01/2024 8:09 AM EDT Patient has been identified by name and date of : Yes Last office visit in this department: 12/19/2023 RX INSTRUCTIONS: Pharmacy initiated this request. No need to notify patient. Patient phones requesting refills as follows: Requested Prescriptions Pending Prescriptions Disp Refills BIKTARVY 50-200-25 mg per tablet [Pharmacy Med Name: BIKTARVY 50-200-25 MG TABLET] 30 tablet 0 Sig: take 1 tablet by mouth once daily Please review and advise. ADRIANA Allen [facility]07-02-2024 Miscellaneous Notes* Telephone Encounter - Gabi Coe HUC - 01/01/2024 8:09 AM EDT Patient has been identified by name and date of : Yes Last office visit in this department: 12/19/2023 RX INSTRUCTIONS: Pharmacy initiated this request. No need to notify patient. Patient phones requesting refills as follows: Requested Prescriptions Pending Prescriptions Disp Refills BIKTARVY 50-200-25 mg per tablet [Pharmacy Med Name: BIKTARVY 50-200-25 MG TABLET] 30 tablet 0 Sig: take 1 tablet by mouth once daily Please review and advise. ADRIANA Allen documented [facility]06-[facility]-2024 NoteHNO ID: [id number] Author: KACIE DUNN MD Service: ? Author Type: Physician Type: Progress Notes Filed: 12/26/2023 14:50 Note Text: Attending Note I evaluated the patient and personally participated in the lam components. I agree with the fellow's findings and plan as documented and have discussed the case and management of the patient's care with the fellow. Some elements copied from my note dated 04/18/2023, which have been updated where appropriate, and all reflect current MDM from today, December 26, 2023. Mr. Amanuel Chapman is a 32 years old gentleman from [facility] who is here today for routine HIV follow-up. He also has PMHx significant for hypertension and substance use disorder (methamphetamines) on remission. No major events since prior visit. Doing well in terms of his physical. Reports great adherence to ART. Has been dealing with some work-related stress that led him to make some changes; was working 2 jobs in the past, currently just 2 job. He has also established with [employer] services for mental health and is currently on escitalopram with improvement. He is due to laboratories today that we will complete after his office visit. 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 He is due to certain immunizations that we will start to administer today: 2nd dose of meningococcal vaccine, 2nd dose of Hepatitis B vaccine (will re-check HBsAb on next visit to ensure appropriate response), and 2nd dose of HPV vaccine. Follow up with us in 4-6 months. Kacie Marrufo MD [facility]06-20-2024 History of Present illness Narrative* Kacie Dunn MD - 12/20/2023 1:51 PM EDT Attending Note I evaluated the patient and personally participated in the lam components. I agree with the fellow's findings and plan as documented and have discussed the case and management of the patient's care with the fellow. Some elements copied from my note dated 04/18/2023, which have been updated where appropriate, and all reflect current MDM from today, December 26, 2023. Mr. Amanuel Chapman is a 32 years old gentleman from [facility] who is here today for routine HIV follow-up. He also has PMHx significant for hypertension and substance use disorder (methamphetamines) on remission. No major events since prior visit. Doing well in terms of his physical. Reports great adherence to ART. Has been dealing with some work-related stress that led him to make some changes; was working 2jobs in the past, currently just 2 job. He has also established with [employer] for mental health and is currently on escitalopram with improvement. He is due to laboratories today that we will complete after his office visit. He is also due for repeated RPR titter to monitor for response after prior treatment of late latent syphilis completed ine2022. He is due to certain immunizations that we will start to administer today: 2nd dose of meningococcal vaccine, 2nd dose of Hepatitis B vaccine (will re-check HBsAb on next visit to ensure appropriate response), and 2nd dose of HPV vaccine. Follow up with us in 4-6 months. Kacie Marrufo MD PAGER * Tommy Alvarado MD - 12/19/2023 9:13 AM EDT Images from the original note were not included. Amanuel Chapman is a 31 year old White male patient here for routine follow- up HIV infection. Patient is Francisco White eligible: No, does not meet requirements for Francisco White assessment Background No overview note entered for diagnosis 042 HIV Status: HIV +, not AIDS Last Previous Negative HIV test: Unknown, home test positive 12/21, confirmed positive started ART 06/22 Lowest CD4+ Count: No results on file at [facility] Lowest CD4+ Percent: No results on file at [facility] Last encounter in Infectious Disease: 04/2023 Interval Events: Working two jobs 60+ hours leading to stress worsening mental healthy care so he quit a job and is now only working one job. Also went via [employer] to start lexapro which has also helped his mood. Currently working at [employer] job only. Trying to find PCP as last one was 'overwhelmed' byhis car.e Current Medications: BIKTARVY 50-200-25 mg per tablet take 1 tablet by mouth once daily escitalopram oxalate (LEXAPRO) 10 mg tablet Take 10 mg by mouth once daily. amLODIPine (NORVASC) 10 mg tablet Take 1 tablet by mouth once daily. Medication History Since his last visit he has not stopped his medications. Adherence to Medications: 100% Medication related side-effects: none PAST MEDICAL HISTORY Diagnosis Date Immunologic disease (HCC) PAST SURGICAL HISTORY Procedure Laterality Date NONE SOCIAL HISTORY Social History Tobacco Use Smoking status: Never Smokeless tobacco: Never Vaping Use Vaping Use: Never used Substance Use Topics Alcohol use: Yes Comment: 1-2 drinks a month or less Drug use: Not Currently Types: Crystal Meth Comment: has been clean since 2019 Sexually Active: No Have you seen a dentist in the past 12 months?: No Are you an active smoker?: No Are you ready to quit smoking?: NA Influenza Vaccine: Open to getting today Immunization History Administered Date(s) Administered COVID-19 original vaccine, full dose, monovalent (MODERNA) 04/14/2021 05/12/2021 COVID-19 vaccine, age 12+ yr, bivalent (PFIZER-BIONTECH) 07/19/2022 Haemophilus influenzae b (Hib) vaccine, unspecified formulation 1990 01/05/1993 04/06/1993 11/30/1993 diphtheria tetanus pertussis (DTP) vaccine 1990 01/05/1993 04/06/1993 diphtheria tetanus pertussis (DTaP) vaccine, unspecified formulation 11/30/1993 02/25/1998 hepatitis A-hepatitis B (HepA-HepB) vaccine (TWINRIX) 10/04/2022 hepatitis B (HepB) vaccine, 3-dose series, age 20+ yr (ENGERIX-B, RECOMBIVAX HB) 02/21/2012 hepatitis B (HepB-CpG) vaccine, adult, 2-dose series (HEPLISAV-B) 07/19/2022 12/19/2023 human papillomavirus (HPV9) vaccine, 9 valent (GARDASIL 9) 07/19/2022 12/19/2023 influenza (HD-IIV4) vaccine, age 65+ yr, high dose, quadrivalent, PF (FLUZONE HIGH-DOSE) 07/19/2022 measles mumps rubella (MMR) vaccine (M-M-R II, PRIORIX) 11/30/1993 10/04/2022 meningococcal (MenACWY-D) vaccine, quadrivalent (MENACTRA) 02/21/2012 meningococcal (MenACWY-TT) vaccine, quadrivalent (MENQUADFI) 12/19/2023 pneumococcal conjugate (PCV20) vaccine, 20 valent (PREVNAR 20) 07/31/2022 poliovirus vaccine, unspecified formulation 1990 01/05/1993 11/30/1993 tetanus diphtheria pertussis (Tdap) vaccine, age 7+ yr (ADACEL, BOOSTRIX) 07/31/2022 Review of Systems: The remainder of the review of systems is negative. PHYSICAL EXAM: BP 145/109 Pulse 103 Temp 37 C (98.6 F) (Temporal) Resp 18 Wt 110.7 kg (244 lb) SpO2 98% BMI 35.33 kg/m BMI 35.33 kg/(m^2) General appearance:alert, cooperative, pleasant, in no acute distress Skin: clear, no rashes Head: Normocephalic, no masses, lesions, tenderness or abnormalities Eyes: Negative Ears: external ears normal, canals clear, TM's normal Nose: clear Oropharynx: moist without lesions, no thrush, teeth in good repair Lymph Nodes: no cervical, supraclavicular, axillary or inguinal lymphadenopathy Lungs: clear to auscultation, without rales or wheeze, good air exchange Cardiac: regular rate and rhythm, without murmur Abdomen: soft, nondistended, nontender, no hepatosplenomegaly or masses Extremities: no edema in LE bilaterally, no cynanosis or clubbing Rectal:Not examined on this visit Neuro:Awake, alert and oriented x 3 and No obvious focal deficits Lab Results: Latest Ref Rng & Units 06/21/2022 07/19/2022 12/19/2023 [facility] CD3+CD4+ T Cell # 533 - 1,674 cells/uL 623 728 CD3+CD4+ T Cell % 34 - 61 % 34 32 HIV RNA (Log Copies/mL) Log Copies/mL 3.36 1.60 HIV RNA Qual HIV-1 RNA not detected by PCR. HIV-1 RNA detected by PCR HIV-1 RNA detected by PCR Less than 20 Copies/mL (<1.3 Log Copies/mL) HIV-1 RNA detected by PCR, not quantifiable. SEROLOGY: Hepatitis B Core Ab, Total (no units) Date Value 06/21/2022 Negative Hep B Surface Ab, Qual (no units) Date Value 06/21/2022 Negative HBsAg (no units) Date Value 06/21/2022 Negative Hep C Antibody IA (no units) Date Value 06/21/2022 Negative TB Result (no units) Date Value 07/19/2022 Negative RPR (no units) Date Value 12/19/2023 Reactive 06/21/2022 Reactive No data to display No data to display IMPRESSION/PLAN: HIV Infection recently diagnosed. Plan: Continue current medication Patient counseled on adherence Prophylaxis: No prophylaxis indicated as CD4 > 200 -CD4 count, HIV viral load -CBC with differential, CMP -Mag, phosphorus, UA -STI screening: syphilis with reflex -MenACWY, Heplsav-B, HPV vaccine Prevention: Patient has been prescribed HAART? Yes Risk Screening/Counseling Provided during this visit: Yes Substance abuse screening performed: No Mental Health Screening performed: No Health Maintenance Due Soon/Overdue: Shingrix Vaccine(1 of 2) Never done Hepatitis A Vaccine(2 of 3 - Hep A Twinrix risk 3-dose series) due on 11/01/2022 Covid-19 Vaccine( season) due on 03/02/2023 Behavioral Health Screening Never done Plans for Next Visit: Follow up in 6 months finish vaccinations for HPV, discuss anal PAP. Tommy Alvarado MD PGY-5 Infectious Disease fellow DATE: December 24, 2023 TIME: 2:15 PM Contact Information: pager documented in [facility]06-19-[facility] Instructions* Patient Instructions* Tommy Alvarado MD - 12/19/2023 9:38 AM EDT Follow up in 6 months Vaccines today Will get blood work today THE DASH DIFFERENCE High blood pressure affects 50 million Americans and is one of the leading causes or heart diseasedand stroke. The eating plan shown below, from the Dietary Approaches to Stop Hypertension (DASH) study, is good news for those affected by or at risk for high blood pressure. As reported in the [place] Journal of Medicine, the DASH diet, which is low in fat and rich in low-fat milk, cheese and yogurt, fruits and vegetables, lowered blood pressure in individuals with both normal and elevated blood pressure. The use of foods lower in sodium made a slight improvement in blood pressure beyond what occurred with the low-fat dairy products, fruits and vegetables. The study was based on a 2000 calorie diet and contained the number of servings from each of the food groups shown in the chart below. For many people following the DASH eating plan can be an important and easy step in preventing or managing high blood pressure. The DASH Eating Style FOOD GROUP DAILY SERVINGS 1 SERVING EQUALS Milk and Dairy 2-3 8 oz low-fat milk 1 cup low-fat 1 oz low-fat cheese Fruits 4-5 1 medium fruit cup dried fruit cup frozen or canned fruit 6 oz fruit juice Vegetables 4-5 1 cup raw leafy vegetables cup cooked vegetables 6 oz vegetable juice Grain 7-8 1 slice bread cup dry or hot cereal cup cooked rice or pasta Meat, fish, Poultry 2 or less 3 oz cooked meat, poultry, or fish Nuts, Seeds, Dried Beans 4-5 per week 1/3 cup nuts 2 tbsp seeds cup cooked dried beans Sample DASH Menu Breakfast 1 cup corn flakes (with 1 tsp sugar) 8 oz low-fat milk 1 banana 1 slice whole wheat toast 1 tbsp jelly grapefruit Lunch 2 oz sliced turkey 1 leti bread 1 tbsp low-fat mayonnaise cup fruit cocktail in light syrup Raw vegetable medley with: 3-4 sticks of each carrot and celery 2 radishes 2 loose leaf lettuce leaves Snack cup dried apricots cup mini pretzels 1/3 cup mixed nuts 1 cup flavored low-fat yogurt Dinner 3 oz grilled lean beef 1 cup scallion rice 1 cup steamed broccoli 8 oz low-fat chocolate milk Spinach salad with cup raw spinach 2 gottileb tomatoes 2 cucumber slices 10 Ways to DASH Up Your Dining 1.) Re-think your drink! Make low-fat milk your beverage of choice: order it when dining out. 2.) Pizza, Pizza, Pizza! Combine a pre-made pizza crust with pizza sauce, shredded low-fat mozzarella and lots of vegetable toppings - fresh tomatoes, zucchini, spinach, carrot curls, cauliflower, broccoli and artichoke hearts - for a totally awesome creation. 3.) Start Your Day with whole grain cereal and low-fat milk. 4.) Make it with Milk! Use low-fat milk in place of water when cooking, especially with oatmeal, boxed rice and pasta dishes 5.) For That Snack Attack: Serve cereal with low-fat milk and fresh fruit. For a tangy twist, layerflavored low-fat yogurt with cereal to create yogurt sundaes. 6.) Make Super Soup! Prepare soup with low-fat milk instead of water. Add fresh, canned or frozen vegetables to prepared soups. 7.) Shake em Up! Create screener and blender drinks. Start with a cup of low-fat milk, add frozen fruit chunks and flavoring to make your own smoothie drink. 8.) Creat a Baked Potato Bar! Serve baked potatoes with a variety of toppings like low-fat cheese, chili, refried beans, salsa or broccoli. Add them up - one meal could contain three or four vegetable servings! 9.) Encourage Big Dippers! Make a fruit dip by sprinkling cinnamon into vanilla low-fat yogurt. Fora quick vegetable dip, add ranch seasoning or chopped chives to plain low-fat yogurt. 10.) Say Cheese! Top Steamed vegetables with shredded low-fat cheese. documented in this [facility]Wood [facility]06-19-[facility]24 NoteHNO ID: [id number] Author: TOMMY ALVARADO MD Service: ? Author Type: Fellow Type: Progress Notes Filed: 12/26/2023 14:50 Note Text: Amanuel Chapman is a 31 year old White male patient here for routine follow-up HIV infection. Patient is Francisco White eligible: No, does not meet requirements for Francisco White assessment Background No overview note entered for diagnosis 042 HIV Status: HIV +, not AIDS Last Previous Negative HIV test: Unknown, home test positive 12/21, confirmed positive started ART 06/22 Lowest CD4+ Count: No results on file at [facility] Lowest CD4+ Percent: No results on file at [facility] Last encounter in Infectious Disease: 04/2023 Interval Events: Working two jobs 60+ hours leading to stress worsening mental healthy care so he quit a job and is now only working one job. Also went via [employer] to start lexapro which has also helped his mood. 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 Trying to find PCP as last one was 'overwhelmed' by his car.e Current Medications: BIKTARVY 50-200-25 mg per tablet take 1 tablet by mouth once daily escitalopram oxalate (LEXAPRO) 10 mg tablet Take 10 mg by mouth once daily. amLODIPine (NORVASC) 10 mg tablet Take 1 tablet by mouth once daily. Medication History Since his last visit he has not stopped his medications. Adherence to Medications: 100% Medication related side-effects: none PAST MEDICAL HISTORY Diagnosis Date Immunologic disease (HCC) PAST SURGICAL HISTORY Procedure Laterality Date NONE SOCIAL HISTORY Social History Tobacco Use Smoking status: Never Smokeless tobacco: Never Vaping Use Vaping Use: Never used Substance Use Topics Alcohol use: Yes Comment: 1-2 drinks a month or less Drug use: Not Currently Types: Crystal Meth Comment: has been clean since 2019 Sexually Active: No Have you seen a dentist in the past 12 months?: No Are you an active smoker?: No Are you ready to quit smoking?: NA Influenza Vaccine: Open to getting today Immunization History Administered Date(s) Administered COVID-19 original vaccine, full dose, monovalent (MODERNA) 04/14/2021 05/12/2021 COVID-19 vaccine, age 12+ yr, bivalent (Filmijob) 07/19/2022 Haemophilus influenzae b (Hib) vaccine, unspecified formulation 1992 01/05/1993 04/06/1993 11/30/1993 diphtheria tetanus pertussis (DTP) vaccine 1990 01/05/1993 04/06/1993 diphtheria tetanus pertussis (DTaP) vaccine, unspecified formulation 11/30/1993 02/25/1998 hepatitis A-hepatitis B (HepA-HepB) vaccine (TWINRIX) 10/04/2022 hepatitis B (HepB) vaccine, 3-dose series, age 20+ yr (ENGERIX-B, RECOMBIVAX HB) 02/21/2012 hepatitis B (HepB-CpG) vaccine, adult, 2-dose series (HEPLISAV-B) 07/19/2022 12/19/2023 human papillomavirus (HPV9) vaccine, 9 valent (GARDASIL 9) 07/19/2022 12/19/2023 influenza (HD-IIV4) vaccine, age 65+ yr, high dose, quadrivalent, PF (FLUZONE HIGH-DOSE) 07/19/2022 measles mumps rubella (MMR) vaccine (M-M-R II, PRIORIX) 11/30/1993 10/04/2022 meningococcal (MenACWY-D) vaccine, quadrivalent (MENACTRA) 02/21/2012 meningococcal (MenACWY-TT) vaccine, quadrivalent (MENQUADFI) 12/19/2023 pneumococcal conjugate (PCV20) vaccine, 20 valent (PREVNAR 20) 07/31/2022 poliovirus vaccine, unspecified formulation 1992 01/05/1993 11/30/1993 tetanus diphtheria pertussis (Tdap) vaccine, age 7+ yr (ADACEL, BOOSTRIX) 07/31/2022 Review of Systems: The remainder of the review of systems is negative. PHYSICAL EXAM: BP 145/109 Pulse 103 Temp 37 ?C (98.6 ?F) (Temporal) Resp 18 Wt 110.7 kg (244 lb) SpO2 98% BMI 35.33 kg/m? BMI 35.33 kg/(m2) General appearance:alert, cooperative, pleasant, in no acute distress Skin: clear, no rashes Head: Normocephalic, no masses, lesions, tenderness or abnormalities Eyes: Negative Ears: external ears normal, canals clear, TM's normal Nose: clear Oropharynx: moist without lesions, no thrush, teeth in good repair Lymph Nodes: no cervical, supraclavicular, axillary or inguinal lymphadenopathy Lungs: clear to auscultation, without rales or wheeze, good air exchange Cardiac: regular rate and rhythm, without murmur Abdomen: soft, nondistended, nontender, no hepatosplenomegaly or masses Extremities: no edema in LE bilaterally, no cynanosis or clubbing Rectal:Not examined on this visit Neuro:Awake, alert and oriented x 3 and No obvious focal deficits Lab Results: Latest Ref Rng AND Units 06/21/2022 07/19/2022 12/19/2023 LAD Labs CD3+CD4+ T Cell # 533 - 1,674 cells/uL 623 728 CD3+CD4+ T Cell % 34 - 61 % 34 32 HIV RNA (Log Copies/mL) Log Copies/mL 3.36 1.60 HIV RNA Qual HIV-1 RNA not detected by PCR. HIV-1 RNA detected by PCR HIV-1 RNA detected by PCR Less than 20 Copies/mL (<1.3 Log Copies/mL) HIV-1 RNA detected by PCR, not quantifiable. SEROLOGY: Hepatitis B Core Ab, Total (no units) Date Value 06/21/2022 Negative Hep B Surface Ab, Qual (no u (more content not included)...[facility]06-18[facility] History of Present illness Narrative* Hunkus, Kobe, [facility] - 12/18/2023 11:28 AM EDT Pharmacist review of available electronic medical record and considerations for future appointments. All recommendations are subject to change based upon discussions between the patient and provider on the day of appointment. Assessment: Pharmacist review of available electronic medical record and considerations: Opportunistic infection prophylaxis not indicated, CD4 > 200 Drug interactions reviewed: No significant drug interactions with ART Renal dose adjustments: Calculated CrCl: 172ml/min, no changes recommended Comorbidity monitoring: BP goal < 130/80. 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 One or more values for this score either were not found within the given timeframe or did not fit some other criterion. 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 Discuss vitamin D supplementation with ID provider May consider monitoring the following laboratory tests during future outpatient visits: CD4 Viral load CMP CBC GC/chlamydia screening Syphilis screening TB screening Fasting lipid panel Hepatitis serologies (HAVIgG, and HCV Ab) Anal brushing, if indicated May consider the following vaccinations during future outpatient visits: Hepatitis B (dose 2 of 2) Hepatitis A (dose 1 of 2) HPV (dose 2 of 3) MenACWY (dose 2 of 2) Herpes zoster vaccination (dose 1 of 2) Mpox, if indicated Chart Review: Current Outpatient Rx Medication Sig Dispense Refill BIKTARVY 50-200-25 mg per tablet take 1 tablet by mouth once daily 30 tablet 0 amLODIPine (NORVASC) 5 mg tablet Take 1 tablet by mouth once daily. 90 tablet 1 Past ART regimens: 06/2022-present: weozhqrtyns-znvqjpukvfcan-PHH Genotypes: Indeterminate - 07/19/22 HLA [id number] (no units) Date Value 07/19/2022 Positive Laboratory Data and Co-morbidity Monitoring: CD3+CD4+ T Cell # (cells/uL) Date Value 07/19/2022 623 CD3+CD4+ T Cell % (%) Date Value 07/19/2022 34 HIV Quant RNA by PCR (copies/mL) Date Value 07/19/2022 39.6 06/21/2022 2,280 HIV RNA BY PCR (no units) Date Value 07/19/2022 HIV-1 RNA detected by PCR 06/21/2022 HIV-1 RNA detected by PCR Kobe Holcomb RP * Carrol Tovar RP - 12/18/2023 11:28 AM EDT I concur with assessment and recommendations presented by PGY2 interior plant caretaker pharmacy clinical specialist. The progress note reflects my input and comments. Carrol Tovar [facility] Infectious Diseases Clinical Specialist [facility] NoteHNO ID: [id number] Author: CARROL TOVAR RPh Service: ? Author Type: Pharmacist Type: Progress Notes Filed: 12/19/2023 08:21 Note Text: I concur with assessment and recommendations presented by PGY2 interior plant caretaker pharmacy clinical specialist. The progress note reflects my input and comments. Carrol Tovar [facility] Infectious Diseases [facility]ist[facility] Note HNO ID: [id number] Author: KOBE HOLCOMB RPh Service: ? Author Type: Pharmacist Type: Progress Notes Filed: 12/19/2023 08:21 Note Text: Pharmacist review of available electronic medical record and considerations for future appointments. All recommendations are subject to change based upon discussions between the patient and provider on the day of appointment. Assessment: Pharmacist review of available electronic medical record and considerations: Opportunistic infection prophylaxis not indicated, CD4 > 200 Drug interactions reviewed: No significant drug interactions with ART Renal dose adjustments: Calculated CrCl: 172ml/min, no changes recommended Comorbidity monitoring: BP goal < 130/80. 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 One or more values for this score either were not found within the given timeframe or did not fit some other criterion. 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 Discuss vitamin D supplementation with ID provider May consider monitoring the following laboratory tests during future outpatient visits: CD4 Viral load CMP CBC GC/chlamydia screening Syphilis screening TB screening Fasting lipid panel Hepatitis serologies (HAVIgG, and HCV Ab) Anal brushing, if indicated May consider the following vaccinations during future outpatient visits: Hepatitis B (dose 2 of 2) Hepatitis A (dose 1 of 2) HPV (dose 2 of 3) MenACWY (dose 2 of 2) Herpes zoster vaccination (dose 1 of 2) Mpox, if indicated Chart Review: Current Outpatient Rx Medication Sig Dispense Refill BIKTARVY 50-200-25 mg per tablet take 1 tablet by mouth once daily 30 tablet 0 amLODIPine (NORVASC) 5 mg tablet Take 1 tablet by mouth once daily. 90 tablet 1 Past ART regimens: 06/2022-present: lfdwoglsosu-femruselphfzv-FTZ Genotypes: Indeterminate - 07/19/22 HLA [id number] (no units) Date Value 07/19/2022 Positive Laboratory Data and Co-morbidity Monitoring: CD3+CD4+ T Cell # (cells/uL) Date Value 07/19/2022 623 CD3+CD4+ T Cell % (%) Date Value 07/19/2022 34 HIV Quant RNA by PCR (copies/mL) Date Value 07/19/2022 39.6 06/21/2022 2,280 HIV RNA BY PCR (no units) Date Value 07/19/2022 HIV-1 RNA detected by PCR 06/21/2022 HIV-1 RNA detected by PCR Kobe Holcomb [facility]06-17-2024 Telephone encounter Note* Telephone Encounter - BoatengHuma - 12/17/2023 10:47 AM EDT Patient confirmed the appt on [employer] 12/15/2023 at 10:[address] Alvarado on Sunday12/19/2023 arrival time 8:45 am. PN will remain available to assist the pt as able within scope of practice. THELMA Monroy ([facility]) Service Length: 1 Unit [facility]06-17-2024 Miscellaneous Notes* Telephone Encounter - Huma Boateng - 12/17/2023 10:47 AM EDT Patient confirmed the appt on [employer] 12/15/2023 at 10:[address] Alvarado on Sunday12/19/2023 arrival time 8:45 am. PN will remain available to assist the pt as able within scope of practice. THELMA Monroy ([facility]) Service Length: 1 Unit [facility] Emergency department Note * Bekah Borden MD - 12/09/2023 3:12 AM EDT EMERGENCY DEPARTMENT ENCOUNTER Pt Name: Amanuel Chapman Birthdate 1990 Date of evaluation: 12/09/2023 ED Provider: Bekah Borden MD CHIEF COMPLAINT Chief Complaint Patient presents with Abdominal Pain HISTORY OF PRESENT ILLNESS (Location/Symptom, Timing/Onset, Context/Setting, Quality, Duration, Modifying Factors, Severity) Note limiting factors. I wore appropriate PPE for the entirety of this encounter. HPI Amanuel Chapman is a 33 y.o. who presents to the emergency department with chief complaint of right side pain. He has had it for about 3 days. He thought maybe he strained a muscle but it has notbeen improving with NSAID use. He denies any trauma to the area. It radiates from the right flank to the right side of the abdomen. He has been eating well no fevers chills nausea vomiting diarrhea constipation denies any abnormal urination hematuria dysuria no testicular or scrotal pain. He is on blood pressure medication and has HIV. Denies prior abdominal surgeries or history of kidney stones UTIs. Nursing Notes were reviewed. Limitations to history: None Outside historians: None REVIEW OF SYSTEMS Review of Systems Constitutional: Negative for chills and fever. HENT: Negative for ear pain and sore throat. Eyes: Negative for pain and visual disturbance. Respiratory: Negative for cough and shortness of breath. Cardiovascular: Negative for chest pain and palpitations. Gastrointestinal: Positive for abdominal pain. Negative for vomiting. Genitourinary: Positive for flank pain. Negative for dysuria and hematuria. Musculoskeletal: Negative for arthralgias and back pain. Skin: Negative for color change and rash. Neurological: Negative for seizures and syncope. All other systems reviewed and are negative. Pertinent positives and negatives as per HPI. PAST MEDICAL HISTORY History reviewed. No pertinent past medical history. SURGICAL HISTORY History reviewed. No pertinent surgical history. CURRENT MEDICATIONS Previous Medications AMLODIPINE (NORVASC) 5 MG TABLET Take 5 mg by mouth in the morning. HKKGMSCQDBY-SQLAVAOEVO-URARFMGNE (BIKTARVY) 50-200-25 MG TABLET Take 1 tablet by mouth in the morning. ALLERGIES Patient has no known allergies. FAMILY HISTORY No family history on file. SOCIAL HISTORY Social History Socioeconomic History Marital status: Single Tobacco Use Smoking status: Never Smokeless tobacco: Never Vaping Use Vaping Use: Never used Substance and Sexual Activity Alcohol use: Not Currently Drug use: Never SCREENINGS PHYSICAL EXAM ED Triage Vitals [12/09/23 0314] Temp Heart Rate Resp BP 36.9 C (98.5 F) 80 21 (!) 146/86 SpO2 Temp Source Heart Rate Source Patient Position 99 % Temporal Monitor -- BP Location FiO2 (%) -- -- Physical Exam Vitals and nursing note reviewed. Constitutional: General: He is not in acute distress. Appearance: He is well-developed. He is not ill-appearing or diaphoretic. HENT: Head: Normocephalic and atraumatic. Eyes: Conjunctiva/sclera: Conjunctivae normal. Cardiovascular: Rate and Rhythm: Normal rate and regular rhythm. Heart sounds: No murmur heard. Pulmonary: Effort: Pulmonary effort is normal. No respiratory distress. Breath sounds: Normal breath sounds. Abdominal: General: There is no distension. Palpations: Abdomen is soft. There is no pulsatile mass. Tenderness: There is no abdominal tenderness. There is no right CVA tenderness, left CVA tenderness, guarding or rebound. Negative signs include Sinha's sign. Hernia: No hernia is present. Musculoskeletal: General: No swelling. Cervical back: Neck supple. Comments: There is no spinal tenderness or tenderness along the iliac crest pelvis or hip Skin: General: Skin is warm and dry. Capillary Refill: Capillary refill takes less than 2 seconds. Comments: No skin changes to the right side of the torso Neurological: General: No focal deficit present. Mental Status: He is alert. Psychiatric: Mood and Affect: Mood normal. DIAGNOSTIC RESULTS Procedures/EKG: EKG was reviewed by myself. [facility] RAD[facility]OLOGY (Per Emergency Physician): CT abdomen pelvis with no obstructing ureteral stone Interpretation per the Radiologist below, if available at the time of this note: CT abdomen pelvis wo IV contrast Final Result No acute abdominal or pelvic process. Normal appendix. Report Dictated on Electronically Signed By: Jhonny Dale DO Electronically Signed Date/Time: 12/09/2023 4:22 AM EDT ED BEDSIDE ULTRASOUND: Performed by ED Physician - none LABS: Labs Reviewed BASIC METABOLIC PANEL - Abnormal Result Value SODIUM 140 POTASSIUM 4.4 CHLORIDE 101 CARBON DIOXIDE 28 UREA NITROGEN 18 CREATININE 1.09 GLUCOSE 116 (*) CALCIUM 9.4 ANION GAP 12 eGFR >90.0 COMPLETE URINALYSIS - Abnormal Color, Urine Yellow Clarity, Urine Turbid (*) pH, Urine 7.0 Leukocytes, Urine Negative Nitrite, Urine Negative Protein, Urine 10 (*) Glucose, Urine Normal Bilirubin, Urine Negative Ketones, Urine Negative Urobilinogen, Urine Normal Blood, Urine Negative RBC, Urine 0-2 WBC, Urine 3-5 Squamous Epithelial, Urine Negative Bacteria, Urine Negative Mucus, Urine Few SPECIFIC GRAVITY OF URINE (NUMERIC) 1.020 CBC WITH AUTO DIFFERENTIAL - Normal Auto WBC 8.7 RBC 5.00 Hemoglobin 15.5 Hematocrit 45.7 MCV 91.4 MCH 31.0 MCHC 33.9 RDW 12.0 Platelets 281 MPV 10.3 nRBC 0.0 Neutrophils Relative 69.2 Lymphocytes Relative 22.7 Monocytes Relative 5.8 Eosinophils Relative 1.5 Basophils Relative 0.5 Immature Grans % 0.3 Neutrophils Absolute 6.1 Lymphocytes Absolute 2.0 Monocytes Absolute 0.5 Eosinophils Absolute 0.1 Basophils Absolute 0.0 Immature Grans Absolute 0.0 COMPLETE URINALYSIS WITH REFLEX TO CULTURE Narrative: The following orders were created for panel order Urinalysis complete with reflex to Culture. Procedure Abnormality Status --------- ------ Complete Urinalysis[[id number]] Abnormal Final result Please view results for these tests on the individual orders. All other labs were within normal range or not returned as of this dictation. EMERGENCY DEPARTMENT COURSE and DIFFERENTIAL DIAGNOSIS/MDM: Vitals: Vitals: 12/09/23 0314 12/09/23313 BP: (!) 146/86 Pulse: 80 Resp: 21 Temp: 36.9 C (98.5 F) TempSrc: Temporal SpO2: 99% Weight: 109 kg (240 lb) Height: 1.778 m (5' 10") 33-year-old male presents for right side pain to the torso. Radiates from the right flank to the right side of the abdomen. He has been eating drinking well for the doubt cholecystitis or appendicitis. He is having bowel movements doubt bowel obstruction. Doubt pancreatitis no upper abdominal pain.No scrotal tenderness to suggest torsion. He had persistent pain therefore will CT to rule out an obstructing kidney stone check a urine and basic labs given his history of HIV. Diagnoses as of 12/09/23428 Low back strain, initial encounter The patient presented with chief complaint of pain. The differential diagnosis associated with this patient's presentation includes above. Our workup consisted of ordering/reviewing: above. Patient is in agreement with this plan. Medications cyclobenzaprine (Flexeril) tablet 5 mg (has no administration in time range) REVAL: Labs urine imaging reviewed by me and with the patient no abnormality no UTI no kidney stone normalappendix. Likely muscular pain. Plan for muscle relaxant discharge outpatient PCP referral return precautions given. CRITICAL CARE TIME None CONSULTS: None PROCEDURES: Unless otherwise noted below, none Procedures Patients symptoms are consistent with sepsis, severe sepsis, or septic shock (If yes use ".sepsiscoremeasure"): no FINAL IMPRESSION 1. Low back strain, initial encounter DISPOSITION Discharge 12/09/2023 04:28:07 AM [facility] [address] [address] DISCHARGE MEDICATIONS: New Prescriptions CYCLOBENZAPRINE (FLEXERIL) 10 MG TABLET Take 1 tablet (10 mg) by mouth Nightly as needed for musclespasms for up to 10 days. (Comment: Please note this report has been produced using speech recognition software and may contain errors related to that system including errors in grammar, punctuation, and spelling, as well as words and phrases that may be inappropriate. If there are any questions or concerns please feel freeto contact the dictating provider for clarification.) Bekah Borden MD (electronically signed) Emergency Medicine Provider Bekah Borden MD 12/09/23 0429 * Clarisa Lopez RN - 12/09/2023 3:12 AM EDT Pt presents to ED for RLQ abdominal pain that started three days ago. Pt states it wraps around to his back. Pt states he thought he had a back injury but the pain has increased over the past severaldays. Pt denies n/v/diarrhea documented in this [facility]SGe[facility] [id number] Emergency department Triage note* Clarisa Lopez RN - 12/09/2023 3:12 AM EDT Pt presents to ED for RLQ abdominal pain that started three days ago. Pt states it wraps around to his back. Pt states he thought he had a back injury but the pain has increased over the past severaldays. Pt denies n/v/diarrhea [id number] Phys[facility] Emergency department Note* Bekah Borden MD - 12/09/2023 3:12 AM EDT EMERGENCY DEPARTMENT ENCOUNTER Pt Name: Amanuel Chapman Birthdate 1990 Date of evaluation: 12/09/2023 ED Provider: Bekah Borden MD CHIEF COMPLAINT Chief Complaint Patient presents with Abdominal Pain HISTORY OF PRESENT ILLNESS (Location/Symptom, Timing/Onset, Context/Setting, Quality, Duration, Modifying Factors, Severity) Note limiting factors. I wore appropriate PPE for the entirety of this encounter. HPI Amanuel Chapman is a 33 y.o. who presents to the emergency department with chief complaint of right side pain. He has had it for about 3 days. He thought maybe he strained a muscle but it has notbeen improving with NSAID use. He denies any trauma to the area. It radiates from the right flank to the right side of the abdomen. He has been eating well no fevers chills nausea vomiting diarrhea constipation denies any abnormal urination hematuria dysuria no testicular or scrotal pain. He is on blood pressure medication and has HIV. Denies prior abdominal surgeries or history of kidney stones UTIs. Nursing Notes were reviewed. Limitations to history: None Outside historians: None REVIEW OF SYSTEMS Review of Systems Constitutional: Negative for chills and fever. HENT: Negative for ear pain and sore throat. Eyes: Negative for pain and visual disturbance. Respiratory: Negative for cough and shortness of breath. Cardiovascular: Negative for chest pain and palpitations. Gastrointestinal: Positive for abdominal pain. Negative for vomiting. Genitourinary: Positive for flank pain. Negative for dysuria and hematuria. Musculoskeletal: Negative for arthralgias and back pain. Skin: Negative for color change and rash. Neurological: Negative for seizures and syncope. All other systems reviewed and are negative. Pertinent positives and negatives as per HPI. PAST MEDICAL HISTORY History reviewed. No pertinent past medical history. SURGICAL HISTORY History reviewed. No pertinent surgical history. CURRENT MEDICATIONS Previous Medications AMLODIPINE (NORVASC) 5 MG TABLET Take 5 mg by mouth in the morning. ACKFDSPEFMV-ZGJJJTZRZT-XUULOPJFZ (BIKTARVY) 50-200-25 MG TABLET Take 1 tablet by mouth in the morning. ALLERGIES Patient has no known allergies. FAMILY HISTORY No family history on file. SOCIAL HISTORY Social History Socioeconomic History Marital status: Single Tobacco Use Smoking status: Never Smokeless tobacco: Never Vaping Use Vaping Use: Never used Substance and Sexual Activity Alcohol use: Not Currently Drug use: Never SCREENINGS PHYSICAL EXAM ED Triage Vitals [12/09/23 0314] Temp Heart Rate Resp BP 36.9 C (98.5 F) 80 21 (!) 146/86 SpO2 Temp Source Heart Rate Source Patient Position 99 % Temporal Monitor -- BP Location FiO2 (%) -- -- Physical Exam Vitals and nursing note reviewed. Constitutional: General: He is not in acute distress. Appearance: He is well-developed. He is not ill-appearing or diaphoretic. HENT: Head: Normocephalic and atraumatic. Eyes: Conjunctiva/sclera: Conjunctivae normal. Cardiovascular: Rate and Rhythm: Normal rate and regular rhythm. Heart sounds: No murmur heard. Pulmonary: Effort: Pulmonary effort is normal. No respiratory distress. Breath sounds: Normal breath sounds. Abdominal: General: There is no distension. Palpations: Abdomen is soft. There is no pulsatile mass. Tenderness: There is no abdominal tenderness. There is no right CVA tenderness, left CVA tenderness, guarding or rebound. Negative signs include Sinha's sign. Hernia: No hernia is present. Musculoskeletal: General: No swelling. Cervical back: Neck supple. Comments: There is no spinal tenderness or tenderness along the iliac crest pelvis or hip Skin: General: Skin is warm and dry. Capillary Refill: Capillary refill takes less than 2 seconds. Comments: No skin changes to the right side of the torso Neurological: General: No focal deficit present. Mental Status: He is alert. Psychiatric: Mood and Affect: Mood normal. DIAGNOSTIC RESULTS Procedures/EKG: EKG was reviewed by myself. Physician EKG interpretation can be found in [facility] RADIOLOGY (Per Emergency Physician): CT abdomen pelvis with no obstructing ureteral stone Interpretation per the Radiologist below, if available at the time of this note: CT abdomen pelvis wo IV contrast Final Result No acute abdominal or pelvic process. Normal appendix. Report Dictated on Electronically Signed By: Jhonny Dale DO Electronically Signed Date/Time: 12/09/2023 4:22 AM EDT ED BEDSIDE ULTRASOUND: Performed by ED Physician - none LABS: Labs Reviewed BASIC METABOLIC PANEL - Abnormal Result Value SODIUM 140 POTASSIUM 4.4 CHLORIDE 101 CARBON DIOXIDE 28 UREA NITROGEN 18 CREATININE 1.09 GLUCOSE 116 (*) CALCIUM 9.4 ANION GAP 12 eGFR >90.0 COMPLETE URINALYSIS - Abnormal Color, Urine Yellow Clarity, Urine Turbid (*) pH, Urine 7.0 Leukocytes, Urine Negative Nitrite, Urine Negative Protein, Urine 10 (*) Glucose, Urine Normal Bilirubin, Urine Negative Ketones, Urine Negative Urobilinogen, Urine Normal Blood, Urine Negative RBC, Urine 0-2 WBC, Urine 3-5 Squamous Epithelial, Urine Negative Bacteria, Urine Negative Mucus, Urine Few SPECIFIC GRAVITY OF URINE (NUMERIC) 1.020 CBC WITH AUTO DIFFERENTIAL - Normal Auto WBC 8.7 RBC 5.00 Hemoglobin 15.5 Hematocrit 45.7 MCV 91.4 MCH 31.0 MCHC 33.9 RDW 12.0 Platelets 281 MPV 10.3 nRBC 0.0 Neutrophils Relative 69.2 Lymphocytes Relative 22.7 Monocytes Relative 5.8 Eosinophils Relative 1.5 Basophils Relative 0.5 Immature Grans % 0.3 Neutrophils Absolute 6.1 Lymphocytes Absolute 2.0 Monocytes Absolute 0.5 Eosinophils Absolute 0.1 Basophils Absolute 0.0 Immature Grans Absolute 0.0 COMPLETE URINALYSIS WITH REFLEX TO CULTURE Narrative: The following orders were created for panel order Urinalysis complete with reflex to Culture. Procedure Abnormality Status --------- ------ Complete Urinalysis[[id number]] Abnormal Final result Please view results for these tests on the individual orders. All other labs were within normal range or not returned as of this dictation. EMERGENCY DEPARTMENT COURSE and DIFFERENTIAL DIAGNOSIS/MDM: Vitals: Vitals: 12/09/23 0314 12/09/23313 BP: (!) 146/86 Pulse: 80 Resp: 21 Temp: 36.9 C (98.5 F) TempSrc: Temporal SpO2: 99% Weight: 109 kg (240 lb) Height: 1.778 m (5' 10") 33-year-old male presents for right side pain to the torso. Radiates from the right flank to the right side of the abdomen. He has been eating drinking well for the doubt cholecystitis or appendicitis. He is having bowel movements doubt bowel obstruction. Doubt pancreatitis no upper abdominal pain.No scrotal tenderness to suggest torsion. He had persistent pain therefore will CT to rule out an obstructing kidney stone check a urine and basic labs given his history of HIV. Diagnoses as of 12/09/23428 Low back strain, initial encounter The patient presented with chief complaint of pain. The differential diagnosis associated with this patient's presentation includes above. Our workup consisted of ordering/reviewing: above. Patient is in agreement with this plan. Medications cyclobenzaprine (Flexeril) tablet 5 mg (has no administration in time range) REVAL: Labs urine imaging reviewed by me and with the patient no abnormality no UTI no kidney stone normalappendix. Likely muscular pain. Plan for muscle relaxant discharge outpatient PCP referral return precautions given. CRITICAL CARE TIME None CONSULTS: None PROCEDURES: Unless otherwise noted below, none Procedures Patients symptoms are consistent with sepsis, severe sepsis, or septic shock (If yes use ".sepsiscoremeasure"): no FINAL IMPRESSION 1. Low back strain, initial encounter DISPOSITION Discharge 12/09/2023 04:28:07 AM PATIENT REFERRED TO: [address] [address] DISCHARGE MEDICATIONS: New Prescriptions CYCLOBENZAPRINE (FLEXERIL) 10 MG TABLET Take 1 tablet (10 mg) by mouth Nightly as needed for musclespasms for up to 10 days. (Comment: Please note this report has been produced using speech recognition software and may contain errors related to that system including errors in grammar, punctuation, and spelling, as well as words and phrases that may be inappropriate. If there are any questions or concerns please feel freeto contact the dictating provider for clarification.) Bekah Borden MD (electronically signed) Emergency Medicine Provider Bekah Borden MD 12/09/23428 [id number] Telephone encounter Note* Telephone Encounter - Kacie Dunn MD - 12/05/2023 8:55 AM EDT Good morning team, Patient needs to re-scheduled his missed appointments. Thanks! Kacie [facility]06-05-2024 Miscellaneous Notes* Telephone Encounter - Kacie Dunn MD - 12/05/2023 8:55 AM EDT Good morning team, Patient needs to re-scheduled his missed appointments. Thanks! Kacie * Telephone Encounter - Myra Callahan - 12/05/2023 8:23 AM EDT Patient has been identified by name and date of : Yes Last office visit in this department:04/18/2023 RX INSTRUCTIONS: Patient aware RX will be sent to pharmacy. No need to notify patient. Patient phones requesting refills as follows: Requested Prescriptions Pending Prescriptions Disp Refills BIKTARVY 50-200-25 mg per tablet [Pharmacy Med Name: BIKTARVY 50-200-25 MG TABLET] 30 tablet 0 Sig: take 1 tablet by mouth once daily Please review and advise. Myra Gerardo documented in this encounterWood [facility]06-[facility]24 Telephone encounter Note * Telephone Encounter - Myra Callahan - 12/05/2023 8:23 AM EDT Patient has been identified by name and date of : Yes Last office visit in this department:04/18/2023 RX INSTRUCTIONS: Patient aware RX will be sent to pharmacy. No need to notify patient. Patient phones requesting refills as follows: Requested Prescriptions Pending Prescriptions Disp Refills BIKTARVY 50-200-25 mg per tablet [Pharmacy Med Name: BIKTARVY 50-200-25 MG TABLET] 30 tablet 0 Sig: take 1 tablet by mouth once daily Please review and advise. Myra Gerardo [facility]04-08-2024 Miscellaneous Notes* Telephone Encounter - Huma Boateng - 10/08/2023 1:25 PM EDT 10/08/2023 1:25 pm PN left an appt reminder on the phone. Dr. Alvarado on Sunday10/10/2023 arrival time 9:45 am. PN will remain available to assist the pt as able within scope of practice. THELMA Monroy ([facility]) Service Length: 1 Unit documented in this encounterWood [facility] Hospital03-04-2024 Miscellaneous Notes* Telephone Encounter - Huma Boateng - 09/03/2023 10:43 AM EST 09/03/2023 10:43 am PN left an appt reminder with Dr. Alvarado on Sunday09/05/2023 arrival 9:45 am PN will remain available to assist the pt as able within scope of practice. THELMA Monroy ([facility]) Service Length: 1 Unit documented in this encounterWood [facility] Hospital10-20-2023 History of Present illness Narrative* Tommy Alvarado MD - 04/20/2023 11:07 AM EDT Amanuel Chapman is a 31 year old White male patient here for routine follow- up HIV infection. Patient is Francisco White eligible: No, does not meet requirements for Francisco White assessment Background No overview note entered for diagnosis 042 HIV Status: HIV +, not AIDS Last Previous Negative HIV test: Unknown, home test positive 12/21, confirmed positive started ART 06/22 Lowest CD4+ Count: No results on file at [facility] Lowest CD4+ Percent: No results on file at [facility] Last encounter in Infectious Disease: 07/26/2022 Interval Events: He was able to get his 3 penicillin injections for syphillis. He is reported high blood pressure that his PCP was not managing (running 150s/90s) with family history of elevated BP. Denies fever, chills, N/V/D. Reports no substance use issues. 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 Current Medications: amLODIPine (NORVASC) 5 mg tablet Take 1 tablet by mouth once daily. ohitqubhjzt-wmofqyvzbnpcn-vaochkdfk alafenamide (BIKTARVY) 50-200-25 mg per tablet Take 1 tablet bymouth once daily. Medication History Since his last visit he has not stopped his medications. 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 Sexually Active: No Have you seen a dentist in the past 12 months?: No Are you an active smoker?: No Are you ready to quit smoking?: NA Influenza Vaccine: Open to getting today Immunization History Administered Date(s) Administered COVID-19 original vaccine, full dose, monovalent (MODERNA) 04/14/2021 05/12/2021 COVID-19 vaccine, age 12+ yr, bivalent (PFIZER-BIONTINVOLTA) 07/19/2022 Haemophilus influenzae b (Hib) vaccine, unspecified formulation 1992 01/05/1993 04/06/1993 11/30/1993 diphtheria tetanus pertussis (DTP) vaccine 1992 01/05/1993 04/06/1993 diphtheria tetanus pertussis (DTaP) vaccine, unspecified formulation 11/30/1993 02/25/1998 hepatitis A-hepatitis B (HepA-HepB) vaccine (TWINRIX) 10/04/2022 hepatitis B (HepB) vaccine, 3-dose series, age 20+ yr (ENGERIX-B, RECOMBIVAX HB) 02/21/2012 hepatitis B (HepB-CpG) vaccine, adult, 2-dose series (HEPLISAV-B) 07/19/2022 human papillomavirus (HPV9) vaccine, 9 valent (GARDASIL 9) 07/19/2022 influenza (HD-IIV4) vaccine, age 65+ yr, high dose, quadrivalent, PF (FLUZONE HIGH-DOSE) 07/19/2022 measles mumps rubella (MMR) vaccine (M-M-R II, PRIORIX) 11/30/1993 10/04/2022 meningococcal (MenACWY-D) vaccine, quadrivalent (MENACTRA) 02/21/2012 pneumococcal (PCV20) vaccine, 20 valent (PREVNAR 20) 07/31/2022 poliovirus vaccine, unspecified formulation 1992 01/05/1993 11/30/1993 tetanus diphtheria pertussis (Tdap) vaccine, age 7+ yr (ADACEL, BOOSTRIX) 07/31/2022 Review of Systems: The remainder of the review of systems is negative. PHYSICAL EXAM: There were no vitals taken for this visit. No weight on file for this encounter. General appearance:alert, cooperative, pleasant, in no acute distress Skin: clear, no rashes Head: Normocephalic, no masses, lesions, tenderness or abnormalities Eyes: Negative Ears: external ears normal, canals clear, TM's normal Nose: clear Oropharynx: moist without lesions, no thrush, teeth in good repair Lymph Nodes: no cervical, supraclavicular, axillary or inguinal lymphadenopathy Lungs: clear to auscultation, without rales or wheeze, good air exchange Cardiac: regular rate and rhythm, without murmur Abdomen: soft, nondistended, nontender, no hepatosplenomegaly or masses Extremities: no edema in LE bilaterally, no cynanosis or clubbing Rectal:Not examined on this visit Neuro:Awake, alert and oriented x 3 and No obvious focal deficits : not done Lab Results: LAD Labs Latest Ref Rng & Units 06/21/2022 07/19/2022 CD3+ CD4+ T CELL # 533 - 1,674 cells/uL - 623 CD3+ CD4+ T CELL % 34 - 61 % - 34 HIV RNA (LOG COPIES/ML) Log Copies/mL 3.36(H) 1.60(H) HIV RNA QUAL HIV-1 RNA not detected by PCR. HIV-1 RNA detected by PCR(A) HIV-1 RNA detected by PCR(A) SEROLOGY: Hepatitis B Core Ab, Total (no units) Date Value 06/21/2022 Negative Hep B Surface Ab, Qual (no units) Date Value 06/21/2022 Negative HBsAg (no units) Date Value 06/21/2022 Negative Hep C Antibody IA (no units) Date Value 06/21/2022 Negative TB Result (no units) Date Value 07/19/2022 Negative RPR (no units) Date Value 06/21/2022 Reactive No flowsheet data found. No flowsheet data found. IMPRESSION/PLAN: Plan: Continue current biktarvy Patient counseled on adherence Prophylaxis: not indicated CD4 > 200 -Will recheck C4 count, viral load,UA, CMP, Mag, phos HPV vaccine schedule: today at (07/09/2022), 2nd dose in 1-2 months, 3rd dose in 6 months (3 total doses), will to get next with PCP (when restablishes) Hep A/B 10/04/2022 Flu shot: will get with new PCP COVID-19 booster 07/19/2022 (needs this year vaccine) #history of treated latent syphillis PLAN -will check titer to ensure appropriate treatment response #hypertension -Reported elevated blood pressure 150s with family history PLAN: -will start norvasc 5 mg daily, risk stratification labs Lipid profile, A1C (counseled on exercise,low salt diet, and weight loss) Prevention: Patient has been prescribed HAART? Yes Risk Screening/Counseling Provided during this visit: Yes Substance abuse screening performed: No Mental Health Screening performed: No Health Maintenance Due Soon/Overdue: ID Lipid Profile Never done ID Anal Pap Never done ID Hepatitis A Antibody Never done Shingrix Vaccine(1 of 2) Never done Meningococcal Conjugate Vaccine(2 - Risk 2-dose series) due on 04/17/2012 ID Urinalysis due on 07/03/2022 HPV Vaccine(2 - Risk 3-dose SCDM series) due on 2022 Hepatitis A Vaccine(2 of 3 - Hep A Twinrix risk 3-dose series) due on 11/01/2022 ID CD4 Count due on 01/16/2023 ID Viral Load due on 01/16/2023 Influenza Vaccine(1) due on 03/02/2023 Covid-19 Vaccine( - 2022- season) due on 03/02/2023 Plans for Next Visit: Follow up in 3 months, repeat viral load, will monitor and recheck RPR at 3 months, 6 months, and 12 months Tommy Alvarado MD PGY-5 Infectious Disease fellow DATE: April 20, 2023 TIME: 11:10 AM Contact Information: pager * Kacie Dunn MD - 04/19/2023 2:59 PM EDT Attending Note I evaluated the patient and personally participated in the lam components. I agree with the fellow's findings and plan as documented and have discussed the case and management of the patient's care with the fellow. Mr. Amanuel Chapman is a 32 years old gentleman from [facility] who is here today for routine HIV follow-up. He also has PMHx significant for hypertension and substance use disorder (methamphetamines) on remission. No major events since prior assessment. Doing well in terms of his physical and mental health. He acknowledges his blood pressure has been suboptimally controlled in part because difficulties gettingregular follow up with his local PCP. He is know looking for a new provider. He reports BP consistently around 150/90 mmHg or higher and sometimes symptomatic with pounding headaches and palpations. We will start the patient of low dose amlodipine 5 mg PO daily while he awaits to re-establish with a new PCP. He reports great adherence to ART. Denied any issues with refills or co-pays. Denied missing any doses since last visit except for very few occasions. Of note, he recently changed his insurance so wehave instructed the patient to proactively call the pharmacy in case there were new requirements inorder for him to fill his prescription. He has already showed marked improvement in his HIV VL as of 07/2022. We will re-check his HIV VL, CD4, and other laboratories to rule out AEs while on ART. He reports engaging in oral sex with one male sexual partner with condoms use. Even though this seems like a low risk exposure, we will update his STI screening today as well. Regardless, we need to complete an updated RPR titter to monitor response to prior treatment for late latent syphilis completed earlier this year. We have also instructed the patient to continue to receive his HAV/HBV vaccine that he is overdue for, in addition to his seasonal Influenza and COVID-19 vaccine that we hope he will be able to complete at his local provider's office. Follow up with us in 4-6 months Kacie Marrufo MD PAGER documented in this encounterWood [facility]10-19-2023 Miscellaneous Notes* Telephone Encounter - WhiteEunice - 04/19/2023 8:46 AM EDT Patient called stating his new insurance only covers Biktarvy if our office give [facility] ([phone] and [phone]) a call for PA. Thank you, Eunice White documented in this encounterWood County Hospital08-31-2023 Miscellaneous Notes* Telephone Encounter - Maggie Carroll - 03/01/2023 12:16 PM EDT Physician: Jenny Call from patient requesting refill. Please E-Scribe Requested Prescriptions Pending Prescriptions Disp Refills wfitjzzjthu-oxvlqiscvyaxx-klbxpfymf alafenamide (BIKTARVY) 50-200-25 mg per tablet 30 tablet 4 Sig: Take 1 tablet by mouth once daily. Pharmacy Name: [facility] Pharmacy Phone #: [phone] [facility] Tommy Alvarado MD PGY-5 Infectious Disease fellow DATE: March 01, 2023 TIME: 4:07 PM Contact Information: pager documented in this encounterWood County Hospital04-05-2023 Instructions* Patient Instructions* Di Bauer APRN.CNP - 10/04/2022 5:10 PM EDT If blood pressure consistently over 140/90 please let me know. documented in this encounterWood County Hospital04-05-2023 History of Present illness Narrative* Di Bauer APRN.CNP - 10/04/2022 4:55 PM EDT CC: Patient presents with: 2 month follow up - bp - Twinrix HPI Amanuel Chapman is a 32 year old male who presents today for above. No history of hypertension,BP elevated at last appointment Home BP's: he has not checked in about 4 weeks. Denies: headache, chest pain, palpitations, dyspnea, and peripheral edema. Last 4 Encounter BP Readings: Date: BP: 10/04/2022 134/86 07/31/2022 156/84 07/19/2022 140/73 07/13/2022 162/91 Last 3 Encounter Wt Readings: Date: Wt: 10/04/2022 117.5 kg (259 lb) 07/31/2022 116.1 kg (256 lb) 07/19/2022 113.4 kg (250 lb) REVIEW OF SYSTEMS See HPI PAST MEDICAL HISTORY Diagnosis Date Immunologic disease (HCC) PAST SURGICAL HISTORY Procedure Laterality Date NONE ALLERGIES Patient has no known allergies. MEDICATIONS klrxewcesuz-jmdzebeclvydt-bhxndmocy alafenamide (BIKTARVY) 50-200-25 mg per tablet Take 1 tablet bymouth once daily. FAMILY HISTORY Problem Relation Age of Onset No Known Problems Mother No Known Problems Father No Known Problems Brother No Known Problems Brother No Known Problems Brother No Known Problems Maternal Grandmother No Known Problems Maternal Grandfather No Known Problems Paternal Grandmother No Known Problems Paternal Grandfather Social History Tobacco Use Smoking status: Never Smokeless tobacco: Never Vaping Use Vaping Use: Never used Substance Use Topics Alcohol use: Yes Comment: 1-2 drinks a month or less Drug use: Not Currently Types: Crystal Meth Comment: has been clean since 2019 PHYSICAL EXAM BP 134/86 Pulse 84 Resp 18 Wt 117.5 kg (259 lb) SpO2 97% BMI 37.50 kg/m General Appearance: well appearing, in no acute distress, alert Pysch: mood and affect broad and appropriate Health maintenance reviewed with patient: HEPATITIS A(1 of 2 - Risk 2-dose series) Never done MMR(1 of 2 - Risk 2-dose series) Never done ID LIPID PROFILE Never done ID ANAL PAP Never done ID HEPATITIS A ANTIBODY Never done SHINGRIX VACCINE(1 of 2) Never done MENINGOCOCCAL CONJUGATE(2 - Risk 2-dose series) due on 04/17/2012 DEPRESSION ASSESSMENT Never done ID URINALYSIS due on 07/03/2022 HEPATITIS B(2 of 2 - CpG 2-dose series) due on 2022 COVID-19 VACCINE(4 - Booster) due on 09/13/2022 ID CD4 COUNT due on 01/16/2023 ID VIRAL LOAD due on 01/16/2023 ID SYPHILIS SCREENING due on 06/21/2023 ID HIV COUNSELING due on 07/19/2023 ID DENTAL VISIT/REFERRAL due on 07/19/2023 ID TB TESTING due on 07/19/2023 ID HEPATITIS B SURFACE ANTIBODY due on 06/21/2025 ID HEPATITIS C ANTIBODY due on 06/21/2025 DTAP,TDAP,TD(2 - Td or Tdap) due on 07/31/2032 ID TOXOPLASMOSIS IGG Completed INFLUENZA Completed HEPATITIS C SCREENING Completed PNEUMOCOCCAL Completed HPV VACCINE Aged Out DATA REVIEWED: Most recent labs ASSESSMENT/PLAN: 1. Elevated blood pressure reading without diagnosis of hypertension - ICD9: 796.2, ICD10: R03.0 (primary diagnosis) Improved today - Encouraged dietary sodium restriction/DASH diet - Recommended regular aerobic exercise. - Recommend home blood pressure monitoring, to bring results in on next visit - Discussed need and benefit for weight loss. - Recheck in 6 months, sooner if needed. - Goal of BP <130/80 2. Encounter for immunization - ICD9: V03.89, ICD10: Z23 - MMR VACCINE (M-M-R II, PRIORIX) Prescription instructions reviewed with patient as applicable. Potential red flag symptoms discussed with the patient. Reviewed appropriate action plan to take if red flag symptoms occur. Patient agreeable to treatment plan. Di Bauer APRN.CNP documented in this encounterWood County Hospital01-30-2023 Miscellaneous Notes* Telephone Encounter - Juana Irene RN - 07/31/2022 5:00 PM EST Paige Chappell called and asked to have the information from the first 2 PCN G shotsfaxed over as they were giving the third shot. Faxed to [phone]. documented in this encounterWood County Hospital01-30-2023 Instructions* Patient Instructions* Di Bauer APRN.CNP - 07/31/2022 3:42 PM EST Talk to your infectious disease specialist about the meningococcal and shingrix vaccines documented in this encounterWood County Hospital01-30-2023 History of Present illness Narrative* Di Bauer APRN.CNP - 07/31/2022 3:22 PM EST CC: Patient presents with: [facility] HPI Amanuel Chapman is a 31 year old male who presents today for above. No previous PCP. He was recently diagnosed with HIV, managed by [facility] infectious disease. CD4 count was normal. Treated with Biktarvy. He also tested positive for syphilis and has been receiving weeklyPCN injections. He has a history of meth abuse, clean since 2019. Reports anxiety and stutter that has actually been improving since he started taking charge of his health. Now typically only anxious and stutters when he has to speaking in front of people. Denies feeling down, depressed, hopeless, anhedonia, insomnia. Trying to eat better and exercise as well. His BP is elevated today and at prior appointments. He reports it has been high since adolescence. He has never been diagnosed with hypertension or treated for this. REVIEW OF SYSTEMS GENERAL: Negative for malaise, significant weight loss and fever HEENT: Negative for frequent or significant headaches, significant change in vision, significant vision problems, significant ear problems or hearing loss RESPIRATORY: Negative for cough, wheezing and shortness of breath CARDIOVASCULAR: Negative for chest pain, leg swelling and palpitations All other systems negative. PAST MEDICAL HISTORY Diagnosis Date Immunologic disease (HCC) PAST SURGICAL HISTORY Procedure Laterality Date NONE ALLERGIES Patient has no known allergies. MEDICATIONS vvggbwzpmow-wkvvbbbmbmlen-qxshfsfnb alafenamide (BIKTARVY) 50-200-25 mg per tablet Take 1 tablet bymouth once daily. No family history on file. Social History Tobacco Use Smoking status: Never Smokeless tobacco: Never Vaping Use Vaping Use: Never used Substance Use Topics Alcohol use: Yes Comment: rare Drug use: Not Currently PHYSICAL EXAM BP 156/84 Pulse 86 Resp 18 Ht 177 cm (5' 9.69") Wt 116.1 kg (256 lb) BMI 37.07 kg/m General Appearance: well appearing, in no acute distress, alert Pysch: affect is anxious Skin: Skin color, texture, turgor normal for age; Eyes: conjunctiva pink and moist, no icterus, sclera white, non-injected Neck: Thyroid normal size and symmetric without palpable nodules, Neck supple, No adenopathy Lungs: Lungs clear to auscultation. No wheezing, rhonchi, rales. Heart: RRR without murmur, gallop, or rubs. No ectopy Health maintenance reviewed with patient: HEPATITIS A(1 of 2 - Risk 2-dose series) Never done PNEUMOCOCCAL(1 - PCV) Never done MMR(1 of 2 - Risk 2-dose series) Never done ID LIPID PROFILE Never done ID ANAL PAP Never done ID HEPATITIS A ANTIBODY Never done DTAP,TDAP,TD(1 - Tdap) Never done SHINGRIX VACCINE(1 of 2) Never done MENINGOCOCCAL CONJUGATE(2 - Risk 2-dose series) due on 04/17/2012 DEPRESSION ASSESSMENT Never done ID URINALYSIS due on 07/03/2022 HEPATITIS B(2 of 2 - CpG 2-dose series) due on 2022 COVID-19 VACCINE(4 - Booster) due on 09/13/2022 ID CD4 COUNT due on 01/16/2023 ID VIRAL LOAD due on 01/16/2023 ID SYPHILIS SCREENING due on 06/21/2023 ID HIV COUNSELING due on 07/19/2023 ID DENTAL VISIT/REFERRAL due on 07/19/2023 ID TB TESTING due on 07/19/2023 ID HEPATITIS B SURFACE ANTIBODY due on 06/21/2025 ID HEPATITIS C ANTIBODY due on 06/21/2025 ID TOXOPLASMOSIS IGG Completed INFLUENZA Completed HEPATITIS C SCREENING Completed HPV VACCINE Aged Out DATA REVIEWED: Most recent labs ASSESSMENT/PLAN: 1. Wellness examination - ICD9: V70.0, ICD10: Z00.00 (primary diagnosis) - Counseled on healthy diet and regular exercise - Discussed need for and benefit of weight loss. BMI 37.06 kg/(m^2) - Depression screening tool completed and reviewed with patient. Based on score and interview, patient is not at risk for depression and recommended no further intervention at this time. - Patient was counseled [id number] by myself (the billing provider) for the following immunizations and vaccine components, including side effects: Pneumococcal and TdaP. Patient consents for immunization and understands risks and benefits. A VIS sheet on each immunization was given to the patient. - Follow up for annual exam in one year - LIPID PANEL BASIC - TSH BLD 2. Elevated blood pressure reading without diagnosis of hypertension - ICD9: 796.2, ICD10: R03.0 - Encouraged dietary sodium restriction/DASH diet - Recommended regular aerobic exercise. - Recommend home blood pressure monitoring, to bring results in on next visit - Recheck in 2 months, sooner if needed. - Goal of BP <130/80 3. HIV positive (HCC) - ICD9: V08, ICD10: Z21 Monitoring and medications per ID 4. Latent syphilis - ICD9: 097.1, ICD10: A53.0 Requesting PCN injection today, we do not have at this [facility]. He will go to ER again for injections. 5. Obesity, Class II, BMI 35-39.9 - ICD9: 278.00, ICD10: E66.9 Weight increasing 6. Encounter for immunization - ICD9: V03.89, ICD10: Z23 - PNEUMOCOCCAL VACCINE (PREVNAR 20) - TDAP VACCINE AGE 7+ IM Prescription instructions reviewed with patient as applicable. Potential red flag symptoms discussed with the patient. Reviewed appropriate action plan to take if red flag symptoms occur. Patient agreeable to treatment plan. Di Bauer APRN.CNP [facility] History of Past illness Narrative* Problem Noted Date Diagnosed Date Resolved Date HIV positive 07/31/2022 04/18/2023 documented as of this encounter (statuses as of 04/19/2023) [facility] of Past illness Narrative* Problem Noted Date Diagnosed Date Resolved Date HIV positive 07/31/2022 04/18/2023 documented as of this encounter (statuses as of 04/27/2023) [facility] History of Past illness Narrative* Problem Noted Date Diagnosed Date Resolved Date HIV positive 07/31/2022 04/18/2023 documented as of this encounter (statuses as of 09/03/2023) [facility] of Past illness Narrative* Problem Noted Date Diagnosed Date Resolved Date HIV positive 07/31/2022 04/18/2023 documented as of this encounter (statuses as of 10/08/2023) [facility] Instructions* Patient Instructions* Tommy Alvarado MD - 07/19/2022 9:45 AM EST HPV vaccine schedule: 0 month, 1-2 months, 6 months (3 total doses) Hep B vaccine schedule: 0 month, 1-2 months (2 total doses) Flu shot today (this will be yearly) Complete COVID booster today (may have some flu-like symptoms for 24-48 hours will resolve, can take Advil or tylenol) Will get second dose of syphilis treatment with penicillin, can finish with your PCP Can finish vaccine series with PCP as well Follow up in 3 months with virtual visit Will get blood work today [facility] History of Present illness Narrative* Tommy Alvarado MD - 07/19/2022 9:12 AM EST Amanuel Chapman is a 31 year old White male patient here for routine follow- up HIV infection. Patient is Francisco White eligible: No, does not meet requirements for Francisco White assessment Background No overview note entered for diagnosis 042 HIV Status: HIV +, not AIDS Last Previous Negative HIV test: Unknown, home test positive 12/21, confirmed positive started ART 06/22 Lowest CD4+ Count: No results on file at [facility] Lowest CD4+ Percent: No results on file at [facility] Last encounter in Infectious Disease: 06/21/2022 Interval Events: Complaint with medications, no acute events, tolerating without any side effects. Completed first dose of penicillin for latent syphillis Current Medications: xrtrdtvizxm-jdfepskdbbugd-deopfvgpw alafenamide (BIKTARVY) 50-200-25 mg per tablet Take 1 tablet bymouth once daily. Medication History Since his last visit he has not stopped his medications. Adherence to Medications: 100% Medication related side-effects: none PAST MEDICAL HISTORY Diagnosis Date Immunologic disease (HCC) No past surgical history on file. SOCIAL HISTORY Social History Tobacco Use Smoking status: Never Smokeless tobacco: Never Vaping Use Vaping Use: Never used Substance Use Topics Alcohol use: Yes Comment: rare Drug use: Not Currently Sexually Active: No Have you seen a dentist in the past 12 months?: No Are you an active smoker?: No Are you ready to quit smoking?: NA Influenza Vaccine: Open to getting today Immunization History Administered Date(s) Administered COVID-19 booster vaccine, age 12+ yr, bivalent ([place]) 07/19/2022 COVID-19 original vaccine, full dose, monovalent (MODERNA) 04/14/2021 05/12/2021 Hepatitis B Adult 02/21/2012 Hepatitis B Recombinant, adjuvant, adult (2-dose series) 07/19/2022 Human Papillomavirus 9-valent Vaccine, Recombinant 07/19/2022 Meningococcal Conjugate MCV4P Vaccine, IM 02/21/2012 influenza, high-dose, quadrivalent vaccine (FLUZONE HIGH DOSE QUADRIVALENT) 07/19/2022 Review of Systems: The remainder of the review of systems is negative. PHYSICAL EXAM: BP 140/73 Pulse 88 Temp 37.3 C (99.2 F) (Temporal) Resp 16 Wt 113.4 kg (250 lb) SpO2 97% BMI 35.87 kg/m BMI 35.87 kg/(m^2) General appearance:alert, cooperative, pleasant, in no acute distress Skin: clear, no rashes Head: Normocephalic, no masses, lesions, tenderness or abnormalities Eyes: Negative Ears: external ears normal, canals clear, TM's normal Nose: clear Oropharynx: moist without lesions, no thrush, teeth in good repair Lymph Nodes: no cervical, supraclavicular, axillary or inguinal lymphadenopathy Lungs: clear to auscultation, without rales or wheeze, good air exchange Cardiac: regular rate and rhythm, without murmur Abdomen: soft, nondistended, nontender, no hepatosplenomegaly or masses Extremities: no edema in LE bilaterally, no cynanosis or clubbing Rectal:Not examined on this visit Neuro:Awake, alert and oriented x 3 and No obvious focal deficits : not done Lab Results: [facility] Labs Latest Ref Rng & Units 06/21/2022 07/19/2022 CD3+ CD4+ T CELL # 533 - 1,674 cells/uL - 623 CD3+ CD4+ T CELL % 34 - 61 % - 34 HIV RNA (LOG COPIES/ML) Log Copies/mL 3.36(H) 1.60(H) HIV RNA QUAL HIV-1 RNA not detected by PCR. HIV-1 RNA detected by PCR(A) HIV-1 RNA detected by PCR(A) SEROLOGY: Hepatitis B Core Ab, Total (no units) Date Value 06/21/2022 Negative Hep B Surface Ab, Qual (no units) Date Value 06/21/2022 Negative HBsAg (no units) Date Value 06/21/2022 Negative Hep C Antibody IA (no units) Date Value 06/21/2022 Negative TB Result (no units) Date Value 07/19/2022 Negative RPR (no units) Date Value 06/21/2022 Reactive No flowsheet data found. No flowsheet data found. IMPRESSION/PLAN: HIV Infection recently diagnosed. Plan: Continue current medication Patient counseled on adherence Prophylaxis: Pending CD4 count but low suspicion of advanced HIV -Will recheck viral load and patient to complete prior blood testing including CD4 count -For latent syphilis, will receive 2nd dose of IIM penicillin G 2.4 million units today (will receive 3rd dose with PCP) -Immunization HPV vaccine schedule: today at 0 month, 2nd dose in 1-2 months, 3rd dose in 6 months (3 total doses) Hep B vaccine schedule: today 0 month, 2nd dose in 1-2 months (2 total doses) Flu shot COVID-19 booster Prevention: Patient has been prescribed HAART? Yes Risk Screening/Counseling Provided during this visit: Yes Substance abuse screening performed: No Mental Health Screening performed: No Health Maintenance Due Soon/Overdue: HEPATITIS A(1 of 2 - Risk 2-dose series) Never done PNEUMOCOCCAL(1 - PCV) Never done MMR(1 of 2 - Risk 2-dose series) Never done ID LIPID PROFILE Never done ID ANAL PAP Never done ID HEPATITIS A ANTIBODY Never done DTAP,TDAP,TD(1 - Tdap) Never done SHINGRIX VACCINE(1 of 2) Never done MENINGOCOCCAL CONJUGATE(2 - Risk 2-dose series) due on 04/17/2012 DEPRESSION ASSESSMENT Never done ID URINALYSIS due on 07/03/2022 HEPATITIS B(2 of 2 - CpG 2-dose series) due on 2022 Plans for Next Visit: Follow up in 3 months, repeat viral load, will monitor and recheck RPR at 3 months, 6 months, and 12 months Tommy Alvarado MD PGY-4 Infectious Disease fellow DATE: July 19, 2022 TIME: 1:40 PM Contact Information: pager Staffed by/Collaborating Physician: Kacie Mauricio Attending Note I evaluated the patient and personally participated in the lam components. I agree with the fellow's findings and plan as documented and have discussed the case and management of the patient's care with the fellow. Some elements copied from my note dated 06/21/2022, which have been updated where appropriate, and all reflect current MDM from today, July 26, 2022. 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 Has started ART (BIKTARVY) after diagnosis was confirmed on priorvisit and tolerating well. Will complete additional entry level lab technician laboratories today and provide withoutstanding immunizations. After prior visit he was also diagnosed with latent syphilis, and has completed 3 weekly penicillin injections locally for this. Follow up with us in 3 months with repeatedHIV VIRAL LOAD and syphilis serologies. Kacie Marrufo MD PAGER [facility] Miscellaneous Notes* Telephone Encounter - Tommy Alvarado MD - 06/22/2022 8:06 AM EST Patient's HIV test resulted positive. PLAN: -HIV related labs: TB screen, G6PD, toxoplasmosis IgG, HLA B5701, CD4 Count, HIV genotype and resistance testing -Rapid start with biktravy: bitegravir 50 mg daily, emtricatbine 200 mg daily, tenofovir alafanide 25 mg daily Patient is agreeable to plan above. Also noted to be syphillis + with RPR of 1:256, no concerns for neurosyphillis but without clear time-line for exposure with last negative test many years ago, would aim to treat as latent syphillis with weekly injections of benzathine penicillin G 2.4 million units intramuscularly (IM) for 3 weeks. Will work on best option for patient to receive this treatment and would follow with RPR in 6, 9, and 12 months. Tommy Alvarado MD PGY-4 Infectious Disease fellow DATE: June 23, 2022 TIME: 11:24 AM Contact Information: pager documented in [facility] encounter[facility]12-[facility]-2022 Instructions* Patient Instructions* Tommy Alvarado MD - 06/21/2022 10:15 AM EST We will get blood work today. I will call you with all of the results Plan for follow-up appointment in 1 month [facility]12-[facility]22 History of Present illness Narrative* Tommy Alvarado MD - 06/21/2022 9:43 AM EST .INFECTIOUS DISEASES CONSULT SERVICE DATE: 06/21/2022 Subjective HISTORY HPI: Amanuel Chapman is a 31 year old male history of prior substance use disorder who presenting as self-referral after prior home HIV test. ED visit 07/23 for high fever with initial concern for meningitis. Reports fever as high as 104. Work-up was negatve at time and ultimately no concern for meningitis (had negative Covid, flu monospot testing). Resolved after few days. Reports doing home test for HIV (fingerprick blood test) which hewas told was positive in November. He took time to process with it and now is following up to [facility]. Reports fatigue over that time period as well as 3 weeks of viral prodome (rhinorrhea, otorrhea, sore throat and cough). Denies fever, night sweats, rash, weight changes, reports good appetite.No significant past medical history, never smoker, no surgical history. Poor medical follow-up but has been told his blood pressure has run high at doctor's office but never been on medication. Endorses rash on left anterior arm no change in size that he noted around November vs December. Social: Patient is from [place], [place]. He lives at home with his parents who own a family and have livestock (currently horses and sheep used to have chickens). 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 No significant animalinfection exposure. No travel. No contact with homeless or nursing home population. No prior TB test. No o ther TB exposures. Patient doesn't want family members to know status if positive. Reports male partners 10+ in last 5 years, no partners in last 6 months. Receptive anal sex and oral sex. Prior history of gonorrhea many years prior. History of substance use disorder (methamphetamine, inhalation, no IVDU, reports to be in recovery for last year). Has 3 siblings. No significant family health issues. Hobbies are mostly working with horses on farm. REVIEW OF SYSTEMS Otherwise reviewed and negative x 14 except as noted above ALLERGIES No Known Allergies PAST MEDICAL HISTORY: No past medical history on file. No significant history PAST SURGICAL HISTORY: No past surgical history on file. FAMILY HISTORY: Reviewed, no pertinent family history SOCIAL HISTORY: (See above) Social History Tobacco Use Smoking status: Never Smokeless tobacco: Never Vaping Use Vaping Use: Never used Substance Use Topics Alcohol use: Not Currently Drug use: Not Currently MEDICATIONS: No current outpatient medications on file. No current facility-administered medications for this visit. Current Anti-Infective Meds (From admission, onward) None Objective PHYSICAL EXAM BP: 161/93 Temp: 37.6 C (99.7 F) Temp src: Temporal Pulse: 109 Resp: 16 SpO2: 98 % PSYCHIATRIC: no apparent distress, oriented to time, place and person, appropriate affect, good judgment, good insight, memory intact SKIN: circular rash on distal left upper extremity on anterior arm with central clearing EYES: no scleral icterus, no conjunctivitis HEENT: normal inspection of teeth, lips, gums, and oropharynx NECK: normal appearance, normal movement LYMPHATIC: no submandibular, cervical or occipital lymphadenopathy, no supraclavicular lymphadenopathy RESPIRATORY: symmetrical chest expansion and respiratory effort CARDIOVASCULAR: S1, S2, no mrg, no edema ABDOMINAL: soft, non-distended, non-tender, no hepatosplenomegaly, normal bowel sounds : no suprapubic tenderness MUSCULOSKELETAL: normal muscle strength, normal muscle tone EXTREMITIES: Within normal limits NEUROLOGICAL: nonfocal Impression/Recommendations Amanuel Chapman is a 31 year old male with history of MSM with prior methamphetamine use disorder now in recovery with prior inconsistent condom use with reported positive home HIV test Patient with risk factors for HIV including (unprotected sex with history of multiple male partners), prior history of STI, reported positive home test. Would first need to confirm diagnosis with testing and try to establish duration of infection. Unclear when last negative. Had febrile illness 07/23 which could have been symptomatic acute HIV but no testing was done at the time. No red flag symptoms at this time (no fever, weight loss or night sweats), would additionally need further evaluationfor infections Discussed with patient plan if test was positive including rapid start with biktarvy. Consulted about medication, plan for further testing, and close follow-up. Blood pressure elevated in clinic doesendorse anxiety and frequent elevated blood pressure which could represent white coat hypertension. PLAN: -HIV RNA viral load, HIV antibody testing, if positive will test for CD4 count, HIV genotype and would start rapid start with biktarvy -STI screening: GC/chlamydia urine, throat swab, rectal swab, syphilis testing, remote hepatitis panel -CBC with differential, CMP, Mag, phosphorus -Instructed patient to establish care with PCP, encouraged PCP to take blood pressure recordings athome (while resting for 5 minutes about 3 times per week and to bring in recordings as well as homeblood pressure cuff if purchased to compare blood pressure readings to help to assess clinic hypertension -Follow-up with ID in 1 month, if negative for HIV, would discuss PREP with patient Tommy Alvarado MD PGY-4 Infectious Disease fellow DATE: June 21, 2022 TIME: 1:48 PM Contact Information: pager Attending Note I evaluated the patient and personally participated in the lam components. I agree with the fellow's findings and plan as documented and have discussed the case and management of the patient's care with the fellow. 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 He is a homosexual versatile male with multiple sexual partners in the past, but not sexually active since that positive test. He is versatile. He candidly shared having unhealthy behaviors in the past related to his substance use problem, but said is in a better space of mind and already determined to get better - he has been sober at least since November 2021. He is currently asymptomatic, but had an episode febrile viral syndrome/ aseptic meningitis for which he was evaluated at [place] [facility] on 07/2021 which eventually resolved spontaneously. He also had self-limited upper respiratory tract symptoms around the time of his positive test, but have now resolved. He did not seek care over these months because he had a hard time copying with the diagnosis. He does not know anyone with this diagnosis, but he seems to be copying well at present and motivated to engage in care. We discussed unlikely but possible false positive result, so confirming diagnosis will be first step. If diagnosis is confirmed we also discussed rapid start of ART with [facility]. We will also complete an STI screen based on his sexual practices in addition to checking his hepatitis serologies. If HIV diagnosis is confirmed, we will complete additional laboratories for initial care. He will follow up with us in 1 month. Kacie Marrufo MD PAGER documented in this encounterWood [facility] HospitalConsult note Author Espinoza Diez [facility] Note Date/Time November 11, 2024 12:19 pm [facility] Medical Records Department [address] [place] [address] Anesthesia Postop Eval I 11/11/24 1218 MR#: [id number] Acct: [id number] Name: AMANUEL CHAPMAN FRANCISCO Rep #:[id number] : 1990 34 From: Espinoza Diez CRNA PCP: WARREN Mauro, LOSS PREVENTION AND SAFETY MANAGER-C Statu s:REG SDC Y Race: C Location: [place] [address] Anesthesia: Postop Eval I Current Vital Signs Temperature: 97.6 F Pulse Rate: 81 Blood Pressure: 130/84 Respiratory Rate: 20 Pulse Ox: 99 Oxygen Delivery Method: Room Air Assessment Airway patent: Yes Spontaneous unlabored respirations: Yes Mental status: Awake and Calm nausea: No Vomiting: No Anesthesia Complication: No Fluid Hydration Crystalloid volume administer (ml): 1,600 Total IV fluid infused: 1,600 Progress Note Anesthesia document: Postop Eval 1 completed: Yes 11/11/24 1219 <Electronically signed by Espinoza franco CRNA> Date _ Espinoza Diez CRNA Cosigner Signature: Date CC: ~ Signed [facility] Work Phone: discharpr summary Author Ganesh Dsouza [facility] Note Date/Time November 11, 2024 12:15 pm [facility] Medical Records Department [address] [place] [address] Instructions for Home/Discharge Instructions 11/11/24 1214 MR#: [id number] Acct: [id number] Name: AMANUEL CHAPMAN Rep #:[id number] : 1990 34 From: Ganesh boyle MD PCP: WARREN Mauro, LOSS PREVENTION AND SAFETY MANAGER-C Statu s:REG SDC Discharge Instructions Diet Discharge Diet: No restrictions DC O2, CPAP, BIPAP needs Home O2 Discharge instructions: No Dressing / Incision Call your doctor if your incision/area has: Sudden Increased Bleeding Additional Dressing/Incision Instructions:: saline to nose 5 times / day. mupirocin ton both nostrils twice daily. Follow Up Care Please Follow Up With: Ganesh Dsouza MD When: 1 week Test Results: Test results from this visit will be discussed in further detail at your follow- up appointment, if applicable. Discharge Plan Admission Attending Provider: Ganesh Dsouza Primary Care Provider: Maggie Zhou Instructions Print Language: Palestinian Discharge Orders/Prescriptions Prescriptions: No Action amlodipine 10 mg tablet 10 mg PO QHS lisinopril 20 mg tablet 20 mg PO QHS bupropion HCl 75 mg tablet 75 mg PO QAM naltrexone 50 mg tablet 50 mg PO QAM Biktarvy 50-200-25 mg tablet 1 tab PO DAILY guanfacine 1 mg tablet 1 mg PO QHS Referrals / Follow Up: Maggie Zhou, LOSS PREVENTION AND SAFETY MANAGER-C [Primary Care Provider] - Disposition Disposition (needs filled in before D/C Order can be placed): Home, Self Care 11/11/24 1215<Electronically signed by Ganesh Dsouza MD>Ganesh Dsouza MD CC: WARREN LOSS PREVENTION AND SAFETY MANAGER-C Maggie Zhou ~ Signed [facility] Work Phone: Evaluation note* Diagnosis Human immunodeficiency virus (HIV) disease (HCC)- Primary Human immunodeficiency virus [HIV] disease documented in this encounter [facility] note* Diagnosis HIV test positive (HCC)- Primary Asymptomatic human immunodeficiency virus (HIV) infection status Routine screening for STI (sexually transmitted infection) Screening examination for venereal disease Human immunodeficiency virus (HIV) disease (HCC) Human immunodeficiency virus [HIV] disease Encounter for medication counseling Other specified counseling documented in this encounter [facility] note* Diagnosis Human immunodeficiency virus (HIV) disease (HCC)- Primary Human immunodeficiency virus [HIV] disease On highly active antiretroviral therapy (HAART) Medication monitoring encounter Encounter for therapeutic drug monitoring History of late syphilis Personal history of other infectious and parasitic disease Encounter for immunization Need for other specified prophylactic vaccination against single bacterial disease documented in this encounter [facility] note* Diagnosis Wellness examination- Primary Elevated blood pressure reading without diagnosis of hypertension HIV positive (HCC) Asymptomatic human immunodeficiency virus (HIV) infection status Latent syphilis Latent syphilis, unspecified Obesity, Class II, BMI 35-39.9 Obesity, unspecified Encounter for immunization Need for other specified prophylactic vaccination against single bacterial disease documented in this encounter [facility] note* Diagnosis Elevated blood pressure reading without diagnosis of hypertension- Primary Encounter for immunization Need for other specified prophylactic vaccination against single bacterial disease documented in this encounter [facility] note* Diagnosis Human immunodeficiency virus (HIV) disease (HCC)- Primary Human immunodeficiency virus [HIV] disease On highly active antiretroviral therapy (HAART) Medication monitoring encounter Encounter for therapeutic drug monitoring History of syphilis Personal history of other infectious and parasitic disease Essential hypertension Unspecified essential hypertension documented in this encounter [facility] note* Diagnosis Human immunodeficiency virus (HIV) disease (HCC) Human immunodeficiency virus [HIV] disease documented in this encounter [facility] note* Diagnosis Low back strain, initial encounter- Primary [facility] Diagnosis Human immunodeficiency virus (HIV) disease (HCC)- Primary Human immunodeficiency virus [HIV] disease [facility] Diagnosis Human immunodeficiency virus (HIV) disease (HCC)- Primary Human immunodeficiency virus [HIV] disease On highly active antiretroviral therapy (HAART) Medication monitoring encounter Encounter for therapeutic drug monitoring Encounter for vaccination [facility] Diagnosis Human immunodeficiency virus (HIV) disease (HCC) Human immunodeficiency virus [HIV] disease [facility] Diagnosis History of syphilis- Primary Personal history of other infectious and parasitic disease STD (female) Venereal disease, unspecified Screen for STD (sexually transmitted disease) Screening examination for venereal disease [facility] Diagnosis Syphilis- Primary Syphilis, unspecified [facility] Diagnosis Syphilis- Primary Syphilis, unspecified Screen for STD (sexually transmitted disease) Screening examination for venereal disease [facility]* Diagnosis Syphilis- Primary Syphilis, unspecified [facility]* Diagnosis Human immunodeficiency virus (HIV) disease (HCC) Human immunodeficiency virus [HIV] disease [facility] Diagnosis Stutter [facility]uttering [facility] Diagnosis Stuttering- Primary [facility] Diagnosis Stuttering- Primary [facility] Diagnosis Human immunodeficiency virus (HIV) disease (HCC)- Primary Human immunodeficiency virus [HIV] disease On highly active antiretroviral therapy (HAART) Medication monitoring encounter Encounter for therapeutic drug monitoring Encounter for screening for bacterial sexually transmitted disease Encounter for immunization Need for other specified prophylactic vaccination against single bacterial disease History of syphilis Personal history of other infectious and parasitic disease Essential hypertension Unspecified essential hypertension Screening for depression Encounter for screening examination for other mental health and behavioral disorders [facility]* Diagnosis Stutter- Primary Stuttering [facility] Diagnosis Human immunodeficiency virus (HIV) disease (HCC) Human immunodeficiency virus [HIV] disease documented in this encounter [facility] Discharge instructions* Attachments The following attachments cannot be sent through Care Everywhere. * Back Muscle Strain ([place]est[place]) [facility] Consultation (Routine) - Pending Review Specialty Diagnoses / Procedures Referred By Terra pineda Referred To Contact Family Medicine Diagnoses Low back strain, initial encounter Procedures HI OFFICE/OUTPATIENT [facility] 60 MINUTES Bekah Borden MD [address] [place] [address] [facility] [address] [place] [address] Referral ID Status Reason Start Date Expiration Date Visits Requested Visits Authorized [id number] Pending Review Specialty Services Required 12/09/2023 12/08/2024 [facility]No reason for referral information [facility]WMer[facility] Work Phone: Summary Purpose Family History No Family History Records FoundNo Family History Records FoundNo Family History Records FoundNo Family History Records FoundNo Family History Records Found Advance Directives No Advanced Directives Records Found Advance Directive Response Recorded Date/ Time Do you have a Healthcare Power of School Superintendent? No November 07, 2024 9:42am Medications Administered Section Inactive Administered Medications - up to 3 most recent administrations Medication Order MAR Action Action Date Dose Rate Site penicillin g benzathine 2.4 Million Units injection (BICILLIN L-A) 2.4 Million Units, INTRAMUSCULAR, ONCE, 1 dose, On Sun07/19/22 at 1000, For Intramuscular Use Only - Refrigerate, Please document the antimicrobial indication: Empiric Given 07/19/2022 10:00 AM EST 2.4 Million Units Buttocks, Left Chief Complaint and Reason for Visit Chief Complaint Admit Date HYPERSOMNIA December 29, 2024 8:01 pm Reason for Visit Admit Date Nasal congestion November 11, 2024 9:54a m Nasal septal deviation November 11, 2024 9: 54am Nasal turbinate hypertrophy November 11 9:54am Chief Complaint Admit Date HYPERSOMNIA December 29, 2024 8:01 pm Sleep problems January 14, 2025 9:44 am Reason for Visit Admit Date Nasal congestion November 11, 2024 9:54a m Nasal septal deviation November 11, 2024 9: 54am Nasal turbinate hypertrophy November 11 9:54am Daytime hypersomnia January 14, 2025 9:44 am Chief Complaint Admit Date HYPERSOMNIA December 29, 2024 8:01 pm Sleep problems January 14, 2025 9:44 am 8-10 WK FU April 07, 2025 1: 37pm Reason for Visit Admit Date Daytime hypersomnia January 14, 2025 9:44 am Essential hypertension January 14, 2025 9 :44am Obstructive sleep apnea January 14, 2025 9:44am Daytime hypersomnia April 07, 2025 1: 37pm Essential hypertension April 07, 2025 1:37pm Obstructive sleep apnea April 07 1:37pm Additional Source Comments Source Comments (unrecognize d section and content) In the event this informatio n is protected by the Federal Confidentiality of Alcohol and Drug Abuse Patient Records regulations: The Federal rules restrict any use of the information to criminally investigate or prosecute any alcohol or drug abuse patient.[facility] the event this information is protected by the Federal Confidentiality of Alcohol and Drug Abuse Patient Records regulations: The Federal rules restrict any use of the information to criminally investigate or prosecute any alcohol or drug abuse patient.[facility] the event this information is protected by the Federal Confidentiality of Alcohol and Drug Abuse Patient Records regulations: The Federal rules restrict any use of the information to criminally investigate or prosecute any alcohol or drug abuse patient.[facility] the event this information is protected by the Federal Confidentiality of Alcohol and Drug Abuse Patient Records regulations: The Federal rules restrict any use of the information to criminally investigate or prosecute any alcohol or drug abuse patient.[facility] the event this information is protected by the Federal Confidentiality of Alcohol and Drug Abuse Patient Records regulations: The Federal rules restrict any use of the information to criminally investigate or prosecute any alcohol or drug abuse patient.[facility] the event this information is protected by the Federal Confidentiality of Alcohol and Drug Abuse Patient Records regulations: The Federal rules restrict any use of the information to criminally investigate or prosecute any alcohol or drug abuse patient.[facility] the event this information is protected by the Federal Confidentiality of Alcohol and Drug Abuse Patient Records regulations: The Federal rules restrict any use of the information to criminally investigate or prosecute any alcohol or drug abuse patient.[facility] the event this information is protected by the Federal Confidentiality of Alcohol and Drug Abuse Patient Records regulations: The Federal rules restrict any use of the information to criminally investigate or prosecute any alcohol or drug abuse patient.[facility] the event this information is protected by the Federal Confidentiality of Alcohol and Drug Abuse Patient Records regulations: The Federal rules restrict any use of the information to criminally investigate or prosecute any alcohol or drug abuse patient.[facility] the event this information is protected by the Federal Confidentiality of Alcohol and Drug Abuse Patient Records regulations: The Federal rules restrict any use of the information to criminally investigate or prosecute any alcohol or drug abuse patient.[facility] the event this information is protected by the Federal Confidentiality of Alcohol and Drug Abuse Patient Records regulations: The Federal rules restrict any use of the information to criminally investigate or prosecute any alcohol or drug abuse patient.[facility] the event this information is protected by the Federal Confidentiality of Alcohol and Drug Abuse Patient Records regulations: The Federal rules restrict any use of the information to criminally investigate or prosecute any alcohol or drug abuse patient.[facility] the event this information is protected by the Federal Confidentiality of Alcohol and Drug Abuse Patient Records regulations: The Federal rules restrict any use of the information to criminally investigate or prosecute any alcohol or drug abuse patient.[facility] the event this information is protected by the Federal Confidentiality of Alcohol and Drug Abuse Patient Records regulations: The Federal rules restrict any use of the information to criminally investigate or prosecute any alcohol or drug abuse patient.[facility] the event this information is protected by the Federal Confidentiality of Alcohol and Drug Abuse Patient Records regulations: The Federal rules restrict any use of the information to criminally investigate or prosecute any alcohol or drug abuse patient.[facility] the event this information is protected by the Federal Confidentiality of Alcohol and Drug Abuse Patient Records regulations: The Federal rules restrict any use of the information to criminally investigate or prosecute any alcohol or drug abuse patient.[facility] the event this information is protected by the Federal Confidentiality of Alcohol and Drug Abuse Patient Records regulations: The Federal rules restrict any use of the information to criminally investigate or prosecute any alcohol or drug abuse patient.[facility] the event this information is protected by the Federal Confidentiality of Alcohol and Drug Abuse Patient Records regulations: The Federal rules restrict any use of the information to criminally investigate or prosecute any alcohol or drug abuse patient.[facility] the event this information is protected by the Federal Confidentiality of Alcohol and Drug Abuse Patient Records regulations: The Federal rules restrict any use of the information to criminally investigate or prosecute any alcohol or drug abuse patient.[facility] the event this information is protected by the Federal Confidentiality of Alcohol and Drug Abuse Patient Records regulations: The Federal rules restrict any use of the information to criminally investigate or prosecute any alcohol or drug abuse patient.[facility] the event this information is protected by the Federal Confidentiality of Alcohol and Drug Abuse Patient Records regulations: The Federal rules restrict any use of the information to criminally investigate or prosecute any alcohol or drug abuse patient.[facility]In the event this information is protected by the Federal Confidentiality of Alcohol and Drug Abuse Patient Records regulations: The Federal rules restrict any use of the information to criminally investigate or prosecute any alcohol or drug abuse patient.[facility]In the event this information is protected by the Federal Confidentiality of Alcohol and Drug Abuse Patient Records regulations: The Federal rules restrict any use of the information to criminally investigate or prosecute any alcohol or drug abuse patient.[facility]In the event this information is protected by the Federal Confidentiality of Alcohol and Drug Abuse Patient Records regulations: The Federal rules restrict any use of the information to criminally investigate or prosecute any alcohol or drug abuse patient.[facility]In the event this information is protected by the Federal Confidentiality of Alcohol and Drug Abuse Patient Records regulations: The Federal rules restrict any use of the information to criminally investigate or prosecute any alcohol or drug abuse patient.[facility] the event this information is protected by the Federal Confidentiality of Alcohol and Drug Abuse Patient Records regulations: The Federal rules restrict any use of the information to criminally investigate or prosecute any alcohol or drug abuse patient.[facility] the event this information is protected by the Federal Confidentiality of Alcohol and Drug Abuse Patient Records regulations: The Federal rules restrict any use of the information to criminally investigate or prosecute any alcohol or drug abuse patient.[facility] the event this information is protected by the Federal Confidentiality of Alcohol and Drug Abuse Patient Records regulations: The Federal rules restrict any use of the information to criminally investigate or prosecute any alcohol or drug abuse patient.[facility] Reason for Visit (unrecogniz ed section and content) 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 Comments 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 Treatment Specialty Diagnoses / Procedures Referred By Terra pineda Referred To Contact Speech Pathology / Speech Therapy Diagnoses Stutter Procedures HI OFFICE/OUTPATIENT [facility] 60 MINUTES Maggie Zhou [address] [place] [address] Phone: tel: fax: [facility] at [address] [address] Phone: tel: fax: Referral ID Status Reason Start Date Expiration Date Visits Requested Visits Authorized [id number] Authorized Eval and Treat 06/17/2024 06/12/2025 35 35 Reason Comments Strategic Buyer Re-evaluation Referral ID Status Reason Start Date Expiration Date Visits Requested Visits Authorized [id number] Authorized Eval and Treat 06/17/2024 06/12/2025 30 30 Reason Comments Hospital F/U Specialty Diagnoses / Procedures Referred By Contac t Referred To Contact Infectious Diseases / INFECTIOUS DISEASES 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 Procedures NEW INFD LAD Self Tommy Alvarado MD [address] [place] [address] Referral ID Status Reason Start Date Expiration Date V isits Requested Visits Authorized [id number] Closed Patient Cleared - Admin/Chairm an/Director advise to proceed 06/21/2022 09/19/2022 1 0 Reason Comments Results Activity Specialist - Other Reason Comments New Patient Evaluation Reason Comments Establish Care Specialty Diagnoses / Procedures Referred By Contac t Referred To Contact Internal Medicine / INTERNAL MEDICINE Diagnoses Wellness examination Establish Care + Wellness Exam Procedures OFFICE/OUTPATIENT NEW MODERATE MDM 45-59 MINUTES 4C NEW WELL Self Older, Di, DINING SERVICE SUPERVISOR.SENIOR NETWORK SECURITY ENGINEER [address] [place] [address] Referral ID Status Reason Start Date Expiration Date Visits Re quested Visits Authorized [id number] Closed 07/31/2022 07/01/2023 1 1 Reason Comments Fax over orders from first 2 PCN G shots Reason Comments 2 month follow up - bp - [facility] Specialty Diagnoses / Procedures Referred By Contac t Referred To Contact Internal Medicine / INTERNAL MEDICINE Diagnoses 2 month follow up - bp , 2nd Hep B, 1st dose Hep A series Procedures 4C EST Older, Di, DINING SERVICE SUPERVISOR.SENIOR NETWORK SECURITY ENGINEER [address] [place] [address] Aniceto Elias MD [address] [place] [address] Referral ID Status Reason Start Date Expiration Date Visits Re quested Visits Authorized [id number] Closed 10/04/2022 07/01/2023 1 1 Reason Onset Date Comments Refill Request 03/01/2023 Reason Comments Patient Update Reason Comments Follow Up Reason Comments Activity Specialist - Other 09/03/2023 10:43 amPN left an appt reminder with Dr. Alvarado on Sunday09/05/2023 arrival 9:45 amPN will remain available to assist the pt as able within scope of practice. THELMA Monroy ([facility]) Service Length: 1 Unit Reason Comments Activity Specialist - Other 10/08/2023 1:25 p mPN left an appt reminder on the phone. Dr. Alvarado on Sunday10/10/2023 arrival time 9:45 am.PN will remain available to assist the pt as able within scope of practice. THELMA Monroy ([facility]) Service Length: 1 Unit Reason Comments Refill Request Reason Comments Abdominal Pain Reason Comments Activity Specialist - Other Patient confirm ed the appt on [facility] [employer] 12/15/2023 at 10:[address] Alvarado on Sunday12/19/2023 arrival time 8:45 am.PN will remain available to assist the pt as able within scope of practice. THELMA Monroy ([facility]) Service Length: 1 Unit Reason Comments Results Patient Question Reason Comments Nurse Visit Reason Comments 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 Initial Evaluation Reason Onset Date Comments Refill Request 07/23/2024 Reason Comments Appointment Called pt to remind and confirm them of upcoming appt. But pt didn't answer so I left pt a detailed vm with my callback number in case there were any questions. (unrecognized sect ion and content) No Status Records FoundNo Status Records FoundNo Status Records FoundNo Status Records FoundNo Status Records Found INFORMATION SOURCE (unrecogn ized section and content) DATE CREATED AUTHOR 07/14/2022 [facility] DATE CREATED AUTHOR AUTHOR'S ORGANIZ ATION 03/05/2024 [facility] DATE CREATED AUTHOR AUTHOR'S ORGANIZ ATION 08/31/2024 [facility] DATE CREATED AUTHOR AUTHOR'S ORGANIZ ATION 09/11/2024 [facility] DATE CREATED AUTHOR AUTHOR'S ORGANIZ ATION 04/21/2025 [facility] Care Teams (unrecognized sec tion and content) Director Of Rooms Relationship Specialty Start Date End Date Aniceto Elias MD [address] [place], [place] [id number] PCP - General Internal Medicine 07/31/22 Director Of Rooms Relationship Specialty Start Date End Date Aniceto Elias MD [address] [place] [address] PCP - General Internal Medicine 07/31/22 Director Of Rooms Relationship Specialty Start Date End Date Aniceto Elias MD [address] [place] [address] PCP - General Internal Medicine 07/31/22 Director Of Rooms Relationship Specialty Start Date End Date Aniceto Elias MD [address] [place] [address] PCP - General Internal Medicine 07/31/22 Director Of Rooms Relationship Specialty Start Date End Date Aniceto Elias MD [address] [place] [address] PCP - General Internal Medicine 07/31/22 Director Of Rooms Relationship Specialty Start Date End Date Aniceto Elias MD [address] [place] [address] PCP - General Internal Medicine 07/31/22 Director Of Rooms Relationship Specialty Start Date End Date Aniceto Elias MD [address] [place] [address] PCP - General Internal Medicine 07/31/22 Director Of Rooms Relationship Specialty Start Date End Date Aniceto Elias MD [address] [place] [address] PCP - General Internal Medicine 07/31/22 Director Of Rooms Relationship Specialty Start Date End Date Aniceto Elias MD [address] [place] [address] PCP - General Internal Medicine 07/31/22 Director Of Rooms Relationship Specialty Start Date End Date Aniceto Elias MD [address] [place] [address] PCP - General Internal Medicine 07/31/22 Director Of Rooms Relationship Specialty Start Date End Date Aniceto Elias MD [address] [place] [address] PCP - General Internal Medicine 07/31/22 Director Of Rooms Relationship Specialty Start Date End Date Aniceto Elias MD [address] [place] [address] PCP - General Internal Medicine 07/31/22 Director Of Rooms Relationship Specialty Start Date End Date Aniceto Elias MD [address] [place] [address] PCP - General Internal Medicine 07/31/22 Director Of Rooms Relationship Specialty Start Date End Date Aniceto Elias MD [address] [place] [address] PCP - General Internal Medicine 07/31/22 Director Of Rooms Relationship Specialty Start Date End Date Aniceto Elias MD [address] [place] [address] PCP - General Internal Medicine 07/31/22 Director Of Rooms Relationship Specialty Start Date End Date Maggie Zhou [address] [facility] [place] [id number] PCP - General Family Nurse Practitioner 06/17/24 Director Of Rooms Relationship Specialty Start Date End Date Aniceto Elias MD [address] [place] [address] PCP - General Internal Medicine 07/31/22 Di Felix, DINING SERVICE SUPERVISOR.SENIOR NETWORK SECURITY ENGINEER [address] [place] [address] Title Insurance Sales Representative Internal Medicine 06/09/24 Director Of Rooms Relationship Specialty Start Date End Date Maggie Zhou [address] [place] [phone] PCP - General Family Nurse Practitioner 06/17/24 Director Of Rooms Relationship Specialty Start Date End Date Aniceto Elias MD [address] [place] [address] PCP - General Internal Medicine 07/31/22 Di Felix, DINING SERVICE SUPERVISOR.SENIOR NETWORK SECURITY ENGINEER [address] [place] [address] Title Insurance Sales Representative Internal Medicine 06/09/24 Director Of Rooms Relationship Specialty Start Date End Date Aniceto Elias MD [address] [place] [address] PCP - General Internal Medicine 07/31/22 Di Felix, DINING SERVICE SUPERVISOR.SENIOR NETWORK SECURITY ENGINEER [address] [place] [address] Title Insurance Sales Representative Internal Medicine 06/09/24 Director Of Rooms Relationship Specialty Start Date End Date Maggie Zhou [address] [place] [id number] PCP - General Family Nurse Practitioner 06/17/24 Director Of Rooms Relationship Specialty Start Date End Date Aniceto Elias MD [address] [place], [place] [address] PCP - General Internal Medicine 07/31/22 Di Felix, DINING SERVICE SUPERVISOR.SENIOR NETWORK SECURITY ENGINEER [address] [place], [place] [address] Title Insurance Sales Representative Internal Medicine 06/09/24 Director Of Rooms Relationship Specialty Start Date End Date Aniceto Elias MD [address] [place], [place] [address] PCP - General Internal Medicine 07/31/22 Di Felix, DINING SERVICE SUPERVISOR.SENIOR NETWORK SECURITY ENGINEER [address] [place], [place] [address] Title Insurance Sales Representative Internal Medicine 06/09/24 Team Status: Active Member Role Status Dates Maggie KELLEY, LOSS PREVENTION AND SAFETY MANAGER-C Primary Care Provider Activ e Team Status: Active Member Role Status Dates Maggie KELLEY, LOSS PREVENTION AND SAFETY MANAGER-C Primary Care Provider Activ e Start: September 18, 2024 MARLINE HESTER Attending Provider Active Start: September 18, 2024 Team Status: Inactive Member Role Status Dates Maggie KELLEY, LOSS PREVENTION AND SAFETY MANAGER-C Primary Care Provider Activ e Start: November 11, 2024 End: November 11, 2024 Dr. Ganesh Dsouza MD Attending Provider Activ e Start: November 11, 2024 End: November 11, 2024 Dr. Ganesh Dsouza MD Referring Provider Activ e Start: November 11, 2024 End: November 11, 2024 Team Status: Inactive Member Role Status Dates Maggie KELLEY, LOSS PREVENTION AND SAFETY MANAGER-C Primary Care Provider Activ e Start: December 10, 2024 End: December 10, 2024 Maggie KELLEY LOSS PREVENTION AND SAFETY MANAGER-C Attending Provider Active Start: December 10, 2024 End: December 10, 2024 Team Status: Active Member Role/Relationship Status Dates Maggie Ann VSC, LOSS PREVENTION AND SAFETY MANAGER-C Primary Care Provider Activ e Team Status: Active Member Role/Relationship Status Dates Maggie Ann VSC, LOSS PREVENTION AND SAFETY MANAGER-C Primary Care Provider Activ e Start: September 18, 2024 MARLINE HESTER Attending Provider Active Start: September 18, 2024 Team Status: Inactive Member Role/Relationship Status Dates Maggie Ann VSC, LOSS PREVENTION AND SAFETY MANAGER-C Primary Care Provider Activ e Start: November 11, 2024 End: November 11, 2024 Dr. Ganesh Dsouza MD Attending Provider Activ e Start: November 11, 2024 End: November 11, 2024 Dr. Ganesh Dsuoza MD Referring Provider Activ e Start: November 11, 2024 End: November 11, 2024 Team Status: Inactive Member Role/Relationship Status Dates Maggie Ann VSC, LOSS PREVENTION AND SAFETY MANAGER-C Primary Care Provider Activ e Start: December 10, 2024 End: December 10, 2024 Maggie Zhou VSC, LOSS PREVENTION AND SAFETY MANAGER-C Attending Provider Active Start: December 10, 2024 End: December 10, 2024 Team Status: Inactive Member Role/Relationship Status Dates Maggie Ann VSC, LOSS PREVENTION AND SAFETY MANAGER-C Primary Care Provider Activ e Start: December 29, 2024 End: December 29, 2024 Maggie Zhou VSC, LOSS PREVENTION AND SAFETY MANAGER-C Attending Provider Active Start: December 29, 2024 End: December 29, 2024 Maggie Zhou VSC, LOSS PREVENTION AND SAFETY MANAGER-C Referring Provider Active Start: December 29, 2024 End: December 29, 2024 Team Status: Inactive Member Role/Relationship Status Dates Maggie Ann VSC, LOSS PREVENTION AND SAFETY MANAGER-C Primary Care Provider Activ e Start: January 14, 2025 End: January 14, 2025 Maggie Zhou VSC, LOSS PREVENTION AND SAFETY MANAGER-C Referring Provider Active Start: January 14, 2025 End: January 14, 2025 Samira Gutierrez LOSS PREVENTION AND SAFETY MANAGER-C Attending Provider Active Start: January 14, 2025 End: January 14, 2025 Team Status: Active Member Role/Relationship Status Dates Maggie Zhou VSC, LOSS PREVENTION AND SAFETY MANAGER-C Primary care physician Acti ve Team Status: Inactive Member Role/Relationship Status Dates Maggie Zhou VSC, LOSS PREVENTION AND SAFETY MANAGER-C Primary care physician Acti ve Start: December 10, 2024 End: December 10, 2024 Maggie Zhou VSC, LOSS PREVENTION AND SAFETY MANAGER-C Attending physician Active Start: December 10, 2024 End: December 10, 2024 Team Status: Inactive Member Role/Relationship Status Dates Maggie Ann KELLEY LOSS PREVENTION AND SAFETY MANAGER-C Primary care physician Acti ve Start: December 29, 2024 End: December 29, 2024 Maggie KELLEY LOSS PREVENTION AND SAFETY MANAGER-C Attending physician Active Start: December 29, 2024 End: December 29, 2024 Maggie KELLEY, LOSS PREVENTION AND SAFETY MANAGER-C Referring Provider Active Start: December 29, 2024 End: December 29, 2024 Team Status: Inactive Member Role/Relationship Status Dates Maggie KELLEY NP-C Primary care physician Acti ve Start: January 14, 2025 End: January 14, 2025 Maggie KELLEY LOSS PREVENTION AND SAFETY MANAGER-C Referring Provider Active Start: January 14, 2025 End: January 14, 2025 GIAL Ledesma Attending physician Active Start: January 14, 2025 End: January 14, 2025 Team Status: Inactive Member Role/Relationship Status Dates Maggieacosta KELLEY NP-C Primary care physician Acti ve Start: April 07, 2025 End: April 07, 2025 Maggie KELLEY LOSS PREVENTION AND SAFETY MANAGER-C Referring Provider Active Start: April 07, 2025 End: April 07, 2025 GILA Ledesma Attending physician Active Start: April 07, 2025 End: April 07, 2025 Scheduled Active and Recently Administ ered Medications (unrecognized section and content) Medication Order 12/07/2023 12/08/2023 12/09/2023 cyclobenzaprine (Flexeril) tablet 5 mg (COMPLETED) 5 mg, Oral, Once, On 12/09/23 at 0430, For 1 dose 0434 (Given - Provid er: Clarisa Lopez RN) Goals (unrecognized section and content) Goals may be documented in a n alternate section FOR RECORDS PERTAINING TO PATIENTS WHO ARE OR HAVE BEEN ENROLLED IN A CHEMICAL DEPENDENCY/SUBSTANCEABUSE PROGRAM, SOME INFORMATION MAY BE OMITTED. This clinical summary was aggregated from multiple sources. Caution should be exercised in using it in the provision of clinical care. This summary normalizes information from multiple sources, and as a consequence, information in this document may materially change the coding, format and clinical context of patient data. In addition, data may be omitted in some cases. CLINICAL DECISIONS SHOULD BE BASED ON THE PRIMARY CLINICAL RECORDS. [facility] [employer] [facility]. provides no warranty or guarantee of the accuracy or completeness of information in this document.
== END | disposition home or self-care (01) ==
LOC: SL 15:18
PROVIDERS: PCP Nurse Practitioner Family; Referring Provider Nurse Practitioner Family; Visit Provider Nurse Practitioner Family
DX: G47.33 Obstructive sleep apnea (adult) (pediatric) (principal)
CPT/HCPCS: 98960; G0463